=== PATIENT | male | born 1945 | race Caucasian/White ===

== ENCOUNTER 2018-02-02 15:22 | Outpatient (CLI) | payer MEDICARE, MEDICAID, SELFPAY ==
[2018-02-02 16:09] LABS: Abs Immature Grans 0.02 k/cumm (0.0-0.09); Absolute Basophil Count 0.04 k/cumm (0.0-0.2); Absolute Eosinophil Count 0.11 k/cumm (0.0-0.7); Absolute Lymphocyte Count 1.96 k/cumm (1.2-3.4); Basophils % 0.4; HCT 44.6 % (40.0-50.0); HGB 14.8 g/dL (13.5-17.5); Immature Grans % 0.2; Mean Corp. HGB Concentration 33.2 g/dL (32.0-36.0); Mean Corpuscular Hemoglobin 28.7 pg (27.0-33.0); Mean Corpuscular Volume 86.6 fL (80-95); Mean Platelet Volume 9.8 fL (8.0-11.0); Monocytes % 10.1; Neutrophils % 70.3; Platelet Count 319 x1000/uL (130-400); RBC 5.15 m/cumm (4.50-6.00); RBC Distribution Width 14.5 % (11.8-14.1); White Blood Cell Count 10.91 k/cumm (4.4-10.8)
[2018-02-02 16:11] LABS: Absolute Neutrophil Count 7.67 k/cumm (1.2-6.7)
[2018-02-02 16:50] LABS: ALT 21 U/L (12-78); AST 15 U/L (15-37); Albumin 3.7 g/dL (3.4-5.0); Alkaline Phosphatase 81 U/L (46-116); Anion Gap 8.2 mmol/L (3-11); BUN 16 mg/dL (7-18); Bilirubin, Total 0.5 mg/dL (0.2-1.0); C-Reactive Protein 0.36 mg/dL (0.0-0.3); CO2 27.8 mmol/L (21.0-32.0); CREATININE 1.44 mg/dL (0.70-1.30); Calcium 8.7 mg/dL (8.5-10.1); Chloride 105 mmol/L (98-107); Estimated GFR 48.22 (mL/min/1.73m2); Glucose 72 mg/dL (70-100); Potassium 4.8 mmol/L (3.5-5.1); Sodium 141 mmol/L (136-145); Total Protein 6.4 g/dL (6.4-8.2)
[2018-02-02 17:00] LABS: ESR 5 MM/HR (1-20)
== END 2018-02-02 15:42 ==
PROVIDERS: PCP General Practice; Visit Provider Nurse Practitioner Gerontology
DX: T81.4XXD Infection following a procedure, subsequent encounter (principal)
CPT/HCPCS: 36415; 80053; 85652; 85025; 86140

== ENCOUNTER 2018-02-16 15:55 | Outpatient (CLI) | payer MEDICARE, MEDICAID, SELFPAY ==
[2018-02-16 18:28] LABS: ALT 19 U/L (12-78); AST 14 U/L (15-37); Albumin 3.6 g/dL (3.4-5.0); Alkaline Phosphatase 73 U/L (46-116); Anion Gap 6.7 mmol/L (3-11); BUN 19 mg/dL (7-18); Bilirubin, Total 0.5 mg/dL (0.2-1.0); CO2 26.3 mmol/L (21.0-32.0); CREATININE 1.47 mg/dL (0.70-1.30); Calcium 8.5 mg/dL (8.5-10.1); Chloride 103 mmol/L (98-107); Estimated GFR 47.09 (mL/min/1.73m2); Glucose 96 mg/dL (70-100); Potassium 4.3 mmol/L (3.5-5.1); Sodium 136 mmol/L (136-145); Total Protein 6.1 g/dL (6.4-8.2)
== END 2018-02-16 16:15 ==
PROVIDERS: PCP General Practice; Visit Provider Nurse Practitioner Gerontology
DX: T81.49XA Infection following a procedure, other surgical site, initial encounter (principal)
CPT/HCPCS: 36415; 80053

== ENCOUNTER 2018-02-19 01:15 | Outpatient (CLI) | payer MEDICARE, MEDICAID, SELFPAY ==
--- NOTE | 2018-02-19 15:15 | DI.CT_ITS ---
SYMPTOMS/DIAGNOSIS: INFECTION WITH INCREASED PAIN, ERYTHEMA, T81.49XA, STERNAL WOUND CHEST CT: Comparison is made with [id number]. Images were performed from the lower neck through the lower poles of the kidneys after IV contrast. The patient is again noted to be status post repair of an ascending aortic aneurysm. Dissection of the descending aorta remains present with contrast seen in both lumens. There is no change in diameter or appearance when compared with the previous exam. Sternal wires are again noted. There is no evidence of bony destruction or change when compared with the previous exam. There is no evidence of an abscess. The heart size is normal. The pleural or pericardial effusions are seen. Bilateral renal cysts are noted. The gallbladder is contracted, consistent with a recent meal. The liver, spleen and pancreas are unremarkable. There are mild emphysematous changes. Mild basilar scarring is also seen. No infiltrate or adenopathy is seen. A hemangioma is seen at the inferior endplate of T 9. Degenerative disc changes are seen at T 7 - 8. Severe degenerative changes are noted in the upper lumbar spine. There are multiple tiny nodules in the thyroid, unchanged. IMPRESSION: No evidence of parasternal abscess, fluid collection or bony destruction. There has been no change in the appearance of the aorta with repair of an ascending aneurysm. No acute pulmonary findings are seen.
== END 2018-02-19 01:35 ==
PROVIDERS: PCP General Practice; Visit Provider Nurse Practitioner Gerontology
DX: T81.41XD Infection following a procedure, superficial incisional surgical site, subsequent encounter (principal); Z98.890 Other specified postprocedural states; I71.01 Dissection of thoracic aorta
CPT/HCPCS: 71260

== ENCOUNTER 2018-06-12 15:41 | Outpatient (CLI) | payer MEDICARE, MEDICAID, SELFPAY ==
[2018-06-12 16:17] LABS: Abs Immature Grans 0.03 k/cumm (0.0-0.09); Absolute Basophil Count 0.05 k/cumm (0.0-0.2); Absolute Eosinophil Count 0.17 k/cumm (0.0-0.7); Absolute Monocyte Count 1.08 k/cumm (0.11-0.7); Absolute Neutrophil Count 7.58 k/cumm (1.2-6.7); Basophils % 0.4; Eosinophils % 1.5; HCT 43.1 % (40.0-50.0); HGB 14.5 g/dL (13.5-17.5); Immature Grans % 0.3; Lymphocytes % 22.3; Mean Corp. HGB Concentration 33.6 g/dL (32.0-36.0); Mean Corpuscular Hemoglobin 29.1 pg (27.0-33.0); Mean Corpuscular Volume 86.5 fL (80-95); Mean Platelet Volume 9.7 fL (8.0-11.0); Monocytes % 9.4; Neutrophils % 66.1; Platelet Count 282 x1000/uL (130-400); RBC 4.98 m/cumm (4.50-6.00); RBC Distribution Width 14.9 % (11.8-14.1); White Blood Cell Count 11.46 k/cumm (4.4-10.8)
[2018-06-12 16:21] LABS: Absolute Lymphocyte Count 2.56 k/cumm (1.2-3.4)
[2018-06-12 17:08] LABS: ESR 4 MM/HR (1-20)
== END 2018-06-12 16:01 ==
PROVIDERS: PCP General Practice; Visit Provider Nurse Practitioner Gerontology
DX: T81.49XD Infection following a procedure, other surgical site, subsequent encounter (principal); G89.29 Other chronic pain; Z79.899 Other long term (current) drug therapy
CPT/HCPCS: 36415; 85652; 85025; 86140

== ENCOUNTER 2018-08-17 09:51 | Day surgery (SDC) | payer MEDICARE, MEDICAID, SELFPAY ==
--- NOTE | 2018-08-16 12:11 | W.PIPPEYE ---
History of Present Illness Chief Complaint: Progressive decreased vision, left eye Narrative: The patient is a 72-year-old male with history of progressive decreased vision in both eyes at both distance and near. He notes significant difficulty with glare and starbursts from lights at night. On examination he was noted to have bilateral nuclear cortical and posterior subcapsular cataracts. The option of cataract surgery was offered to the patient and he felt he was symptomatic enough that he wished to proceed. NOTE: The Chief Complaint, HPI, Past Medical History, Past Surgical History, Family History, Social History, Medications, and complete Ophthalmic Exam with detailed Assessment and Plan have already been documented in the patient's outpatient ophthalmic record and are not covered again in detail here. [facility] [place] Social History Smoking/Tobacco Use Status: Current every day Tobacco Type: cigarettes Tobacco: How many years used: 60 Alcohol Intake: current Alcohol Intake frequency: 0-2 drinks per day Alcohol type: hard liquor Drug use: Daily Substance use type: marijuana Details: tid Do you feel safe at home: Yes Meds Home Medications Medication Instructions Recorded Confirmed Type melatonin-pyridoxine HCl (B6) 1 ea PO HS 01/05/14 08/12/18 History keyoers-jjleuxgzvktlw-fleeonko 2 tab PO DAILY PRN 01/24/14 03/12/17 History [Migraine Formula Caplet] L.acidoph, paracasei,B. lactis 2 ea PO DAILY 05/01/16 03/12/17 History gabapentin 300 mg PO TID #90 capsule 07/10/16 08/12/18 Rx grape seed xt-bioflav,citrus 1 ea PO DAILY 07/10/16 08/12/18 History hawthorn [Coleman Flowers] 500 mg PO BID 07/10/16 08/12/18 History multivitamin [Multi-Vitamin Daily] 1 tab PO DAILY 03/12/17 08/12/18 History calcium carbonate [Calcium] 500 mg PO DAILY 04/15/17 08/12/18 History magnesium aspartate HCl 1 PO DAILY 08/12/18 History omeprazole 20 mg PO BID 08/12/18 08/12/18 History Allergies Allergy/AdvReac Type Severity Reaction Status Date / Time No Known Allergies Allergy Unverified 07/30/17 13:36 Exam OCULAR EXAM:: Most recent ocular examination reveals visual acuity of 20/25 OD, 20/40 OS. Intraocular pressure is 14 OD, 13 OS. Extraocular motility is normal. Pupils equal, round, and reactive without afferent pupillary defect slit-lamp examination reveals pupils dilating to 6 mm OU. 2+ nuclear with 1+ cortical and posterior subcapsular cataract OD. In the left eye a 2-3+ nuclear with 1+ cortical and 1-2+ posterior subcapsular cataract is present. Dilated funduscopic examination reveals disc cupping of 0.25 OD 0.3 OS with good color. There are a few early macular pigmentary changes OU. A mild epiretinal membrane is present OU. Peripheral retina and vitreous are normal. BRIGHTNESS ACUITY TESTING (BAT):: Brightness acuity testing of the left eye off is 20/40. Low and medium is 20/30. High is 20/40. Assessment and Plan (1) Posterior subcapsular age-related cataract of left eye: Current visit: No Status: Acute Assessment: Visually significant cataract, left eye. Plan: Cataract extraction with intraocular lens implantation, left eye (2) Nuclear sclerotic cataract of left eye: Current visit: No Status: Acute Assessment: Visually significant cataract, left eye. Plan: Cataract extraction with intraocular lens implantation, left eye (3) Cortical cataract of left eye: Current visit: No Status: Acute Assessment: Visually significant cataract, left eye. Plan: Cataract extraction with intraocular lens implantation, left eye Note: NOTE:: The details of the planned surgery, including the risks, indications,limitations,expectations,outcome and possible complications were explained to the patient. The patient understands the complications including, but not limited to: infection, hemorrhage, posterior dislocation of the lens or nuclear fragments which may require the intervention of a vitreoretinal surgeon, possible loss of the eye, or from anesthetic complications. The patient has been made aware of the option of not having surgery, that vision following surgery may not be equal to that prior to surgery, and that the planned surgery may not achieve the intended results. Following this discussion, which the patient appeared to understand, the patient wishes to proceed with cataract surgery with lens implantation of the affected eye to improve and maximize vision.
--- NOTE | 2018-08-16 12:17 | POEE_ITS ---
History of Present Illness Chief Complaint: Progressive decreased vision, left eye Narrative: The patient is a 72-year-old male with history of progressive decreased vision in both eyes at both distance and near. He notes significant difficulty with glare and starbursts from lights at night. On examination he wa s noted to have bilateral nuclear cortical and posterior subcapsular cataracts. The option of cataract surgery was offered to the patient and he felt he was symptomatic enough that he wished to proceed. NOTE: The Chief Complaint, HPI, Past Medical History, Past Surgical History, Family History, Social History, Medications, and complete Ophthalmic Exam with detailed Assessment and Plan have already been documented in the patient's outpatient ophthalmic record and are not covered again in detail here. [facility] Social History Smoking/Tobacco Use Status: Current every day Tobacco Type: cigarettes Tobacco: How many years used: 60 Alcohol Intake: current Alcohol Intake frequency: 0-2 drinks per day Alcohol type: hard liquor Drug use: Daily Substance use type: marijuana Details: tid Do you feel safe at home: Yes Meds Home Medications Medication Instructions Recorded Confirmed Type melatonin-pyridoxine HCl (B6) 1 ea PO HS 01/05/14 08/12/18 History vuqbqxf-wufvekirpbvhz-eipfqeqo 2 tab PO DAILY PRN 01/24/14 03/12/17 History [Migraine Formula Caplet] L.acidoph, paracasei,B. lactis 2 ea PO DAILY 05/01/16 03/12/17 History gabapentin 300 mg PO TID #90 capsule 07/10/16 08/12/18 Rx grape seed xt-bioflav,citrus 1 ea PO DAILY 07/10/16 08/12/18 History hawthorn [Dolores Flowers] 500 mg PO BID 07/10/16 08/12/18 History multivitamin [Multi-Vitamin Daily] 1 tab PO DAILY 03/12/17 08/12/18 History calcium carbonate [Calcium] 500 mg PO DAILY 04/15/17 08/12/18 History magnesium aspartate HCl 1 PO DAILY 08/12/18 History omeprazole 20 mg PO BID 08/12/18 08/12/18 History Allergies Allergy/AdvReac Type Severity Reaction Status Date / Time No Known Allergies Allergy Unverified 07/30/17 13:36 Exam OCULAR EXAM:: Most recent ocular examination reveals visual acuity of 20/25 OD, 20/40 OS. Intraocular pressure is 14 OD, 13 OS. Extraocular motility is normal. Pupils equal, round, and reactive without afferent pupillary defect slit-lamp examination reveals pupils dilating to 6 mm OU. 2+ nuclear with 1+ cortical and posterior subcapsular cataract OD. In the left eye a 2-3+ nuclear with 1+ cortical and 1-2+ posterior subcapsular cataract is present. Dilated funduscopic examination reveals disc cupping of 0.25 OD 0.3 OS with good color. There are a few early macular pigmentary changes OU. A mild epiretinal membrane is present OU. Peripheral retina and vitreous are normal. BRIGHTNESS ACUITY TESTING (BAT):: Brightness acuity testing of the left eye off is 20/40. Low and medium is 20/30. High is 20/40. Assessment and Plan (1) Posterior subcapsular age-related cataract of left eye: Current visit: No Status: Acute Assessment: Visually significant cataract, left eye. Plan: Cataract extraction with intraocular lens implantation, left eye (2) Nuclear sclerotic cataract of left eye: Current visit: No Status: Acute Assessment: Visually significant cataract, left eye. Plan: Cataract extraction with intraocular lens implantation, left eye (3) Cortical cataract of left eye: Current visit: No Status: Acute Assessment: Visually significant cataract, left eye. Plan: Cataract extraction with intraocular lens implantation, left eye Note: NOTE:: The details of the planned surgery, including the risks, indications,limitations,expectations,outcome and possible complications were explained to the patient. The patient understands the complications including, but not limited to: infection, hemorrhage, posterior dislocation of the lens or nuclear fragments which may require the intervention of a vitreoretinal surgeon, possible loss of the eye, or from anesthetic complications. The patient has been made aware of the option of not having surgery, that vision following s urgery may not be equal to that prior to surgery, and that the planned surgery may not achieve the intended results. Following this discussion, which the patient appeared to understand, the patient wishes to proceed with cataract surgery with lens implantation of the affected eye to improve and maximize vision.
[2018-08-17 10:33] VITALS: BP 153/88; PULSE 63; RESP 18; TEMP 35.5; O2SAT 18
[2018-08-17] MEDS: Tropicam./Phenyleph. (1/2.5%) 5 ML BTL OS ×3 (10:38→10:50)
[2018-08-17] MEDS: Tetracaine 0.5% 4 ML BTL OS ×4 (10:38→11:42)
--- NOTE | 2018-08-17 11:26 | W.PM.DSUDISC ---
Discharge Plan Disposition Patient Disposition: HOME Condition: Stable Discharge Details Attending Provider: Miky Arenas Primary Care Provider: Vin Vergara Home Meds and New Rx's Prescriptions: No Action melatonin-pyridoxine HCl (B6) 1 EACH tablet 1 ea PO HS RF: 0 calcium carbonate [Calcium 500] 500 MG tablet 500 mg PO DAILY RF: 0 Migraine Formula 1 EACH tablet 2 tab PO DAILY PRNRF: 0 L.acidoph, paracasei,B. lactis 1 EACH capsule 2 ea PO DAILY RF: 0 hawthorn ray 500 MG capsule 500 mg PO BID RF: 0 grape seed xt-bioflav,citrus 1 EACH capsule 1 ea PO DAILY RF: 0 gabapentin 300 MG capsule 300 mg PO TID Qty: 90 RF: 1 omeprazole 20 mg Tablet,Delayed Release (Dr/Ec) 20 mg PO BID RF: 0 magnesium aspartate HCl 61 mg (615 mg) Tablet,Delayed Release (Dr/Ec) 1 PO DAILY RF: 0 multivitamin [Daily Multi-Vitamin] 1 EACH tablet 1 tab PO DAILY RF: 0 Discharge Instructions Stand Alone Forms: Post-op Topical Cataract, Shayna Romero (DSU) DS: Diagnosis Discharge Diagnosis (1) Posterior subcapsular age-related cataract of left eye: Status: Resolved (2) Nuclear sclerotic cataract of left eye: Status: Resolved (3) Cortical cataract of left eye: Status: Resolved (4) Status post cataract extraction and insertion of intraocular lens of left eye: Status: Chronic
[2018-08-17] MEDS: Lidocaine 2% Jelly 6 ML SYR (11:42)
[2018-08-17] MEDS: Povidone-Iodine Ophth 30 ML BTL ×2 (11:42→12:15)
[2018-08-17] MEDS: Balanced Salt Soln.-PLUS 500 ML BAG (11:47)
[2018-08-17] MEDS: Lidocaine 1% Pres-Free 5 ML VIAL (11:47)
--- NOTE | 2018-08-17 12:20 | W.PM.OP ---
Date of service: 08/17/18 Time of Service: 12:21 Operative Note PRE-OP DIAGNOSIS: Cataract, left eye POST-OP DIAGNOSIS: same PROCEDURE: Cataract extraction using phacoemulsification with intraocular lens implant, left eye SURGEON: Miky Arenas ANESTHESIA: MAC and local (sub-tenon's anesthetic infiltration) PATHOLOGY: none sent COMPLICATIONS: None Patient was transported to: same day Patient's condition: stable Implants: Andres and Andres Vision / [employer] Tecnis ZCB00 Indications: Progressive decreased vision due to cataract, left eye Procedure Description: CATARACT SURGERY OPERATIVE REPORT PREOPERATIVE DIAGNOSIS: Nuclear/cortical/posterior subcapsular cataract, left eye POSTOPERATIVE DIAGNOSIS: Same OPERATION: Cataract extraction using phacoemulsification with posterior chamber intraocular lens implant, left eye. IOL: IOL S[employer] Loader/Model: J[employer]J Vision / DUSTIN Tecnis ZCB00 IOL Power: + 23.50 diopters IOL Serial Number: [id number] Optic Diameter: 6.0mm Haptic/Overall Diameter: 13.0mm PHACO INFO: [employer] Vision System with OZil and Active Fluidics Cumulative Dispersed Energy (CDE): 16.13 seconds SURGEON: Miky Arenas MD, MARTHA ANESTHESIA: Monitored Anesthesia Care (MAC), with local sub-tenon's anesthetic infiltration COMPLICATIONS: None SPECIMENS: None INDICATIONS FOR PROCEDURE: The patient is a 72-year-old gentleman who was noted to have diminished visual acuity in his left eye which has been getting progressively worse. On examination he was noted to have moderate nuclear cortical and posterior subcapsular cataract. The option of cataract surgery was offered to the patient and he felt he was symptomatic enough that he wished to proceed. PROCEDURE: The correct surgical eye was identified and marked as the left eye and the pupil was dilated in the preoperative area using mydriatics and cycloplegics. The dilated pupil size was 6.0 mm. Oral sedation was administered in the form of an Imprimis MKO Melt (midazolam 3mg/ketamine 25mg/ondansetron 2mg). The patient was brought to the operating room where cardiopulmonary monitoring was instituted and surgical time-out was performed, confirming the correct operative eye and IOL power. Topical anesthesia was administered and ophthalmic povidone-iodine 5% was instilled into the conjunctival fornices. Lidocaine gel was applied to the cornea and the filiberto-ocular area was prepped with Betadine 10% solution and draped in the usual sterile fashion for intraocular surgery, including an aperture drape. A Tegaderm transparent film dressing was cut in half and used to cover the lashes and lid margins. Care was taken to sequester the lashes and lid margins under the Tegaderm dressing. A lid speculum was placed between the lids of the operative eye and the Goran-Beto operating microscope was maneuvered into position. Yana scissors were then used to make a conjunctival buttonhole approximately 6mm posterior to the limbus in the inferonasal quadrant. Blunt dissection was carried out to expose bare sclera, and a blunt-tipped sub-tenon?s anesthesia cannula was introduced and passed posteriorly along the globe where non-preserved plain lidocaine was injected into posterior sub-Tenon?s space. A sideport knife was used to make a paracentesis port superior/superiortemporal, and the anterior chamber was filled with Healon GV. A 2.4mm keratome knife was used to create a half-thickness groove at the limbus and then to construct a three-plane near-clear corneal tunnel extending about 2.3 mm into clear cornea in the temporal position. The corneal tunnel was slightly longer than usual.. A flap was raised on the anterior capsule and capsulorhexis forceps were used to complete a continuous curvilinear capsulorhexis of 5.0 mm. The anterior chamber was quite deep, given an axial length of just over 22 mm. Balanced salt solution was then used to perform cortical cleaving hydrodissection and nuclear hydrodelineation until the lens could be freely rotated within the capsular bag. The lens nucleus was then disassembled and removed within the capsular bag and iris plane using phacoemulsification. Nucleus splitters were used to aid in disassembling the nucleus due to the deep anterior chamber. Residual cortical material was removed using the 45-degree angled silicone I/A tip with 0.3mm port. The posterior capsule was carefully polished to remove as much residual lens epithelial cells as safely possible. The capsular bag was then inflated and the anterior chamber deepened with viscoelastic. The lens implant described above was inserted into the capsular bag using the DUSTIN [place] Injector. A Kuglen hook was used to dial the IOL into position. Residual viscoelastic was then removed first from posterior to the IOL, then from the anterior chamber using the I/A handpiece. The lens implant was noted to center nicely within the capsular bag. The incisions were stromally hydrated, and the anterior chamber was reformed using BSS. Then 0.4cc of moxifloxacin 1.5mg/ml were injected into the capsular bag and anterior chamber. The incisions were checked with a Weck spear and found to be secure. Several drops of ophthalmic povidone-iodine 5% were then applied to the eye followed by two drops of Imprimis combination gatifloxacin/dexamethasone solution. The drapes were removed and a clear plastic protective eye shield was placed over the eye. The patient was then returned to Same Day Surgery in stable condition.
--- NOTE | 2018-08-17 12:23 | ROE_ITS ---
Date of service: 08/17/18 Time of Service: 12:21 Operative Note PRE-OP DIAGNOSIS: Cataract, left eye POST-OP DIAGNOSIS: same PROCEDURE: Cataract extraction using phacoemulsification with intraocular lens implant, left eye SURGEON: Miky Arenas ANESTHESIA: MAC and local (sub-tenon's anesthetic infiltration) PATHOLOGY: none sent COMPLICATIONS: None Patient was transported to: same day Patient's condition: stable Implants: Andres and Andres Vision / [employer] Tecnis ZCB00 Indications: Progressive decreased vision due to cataract, left eye Procedure Description: CATARACT SURGERY OPERATIVE REPORT PREOPERATIVE DIAGNOSIS: Nuclear/cortical/posterior subcapsular cataract, left eye POSTOPERATIVE DIAGNOSIS: Same OPERATION: Cataract extraction using phacoemulsification with posterior chamber intraocular lens implant, left eye. IOL: IOL Site Surveyor/Model: J&J Vision / DUSTIN Tecnis ZCB00 IOL Power: + 23.50 diopters IOL Serial Number: [id number] Optic Diameter: 6.0mm Haptic/Overall Diameter: 13.0mm PHACO INFO: [employer] Vision System with OZil and Active Fluidics Cumulative Dispersed Energy (CDE): 16.13 seconds SURGEON: Miky Arenas MD, MARTHA ANESTHESIA: Monitored Anesthesia Care (MAC), with local sub-tenon's anesthetic infiltration COMPLICATIONS: None SPECIMENS: None INDICATIONS FOR PROCEDURE: The patient is a 72-year-old gentleman who was noted to have diminished visual acuity in his left eye which has been getting progressively worse. On examination he was noted to have moderate nuclear cortical and posterior subcapsular cataract. The option of cataract surgery was offered to the patient and he felt he was symptomatic enough that he wished to proceed. PROCEDURE: The correct surgical eye was identified and marked as the left eye and the pupil was dilated in the preoperative area using mydriatics and cycloplegics. The dilated pupil size was 6.0 mm. Oral sedation was administered in the form of an Imprimis MKO Melt (midazolam 3mg/ketamine 25mg/ondansetron 2mg). The patient was brought to the operating room where cardiopulmonary monitoring was instituted and surgical time-out was performed, confirming the correct operative eye and IOL power. Topical anesthesia was administered and ophthalmic povidone-iodine 5% was instilled into the conjunctival fornices. Lidocaine gel was applied to the cornea and the filiberto-ocular area was prepped with Betadine 10% solution and draped in the usual sterile fashion for intraocular surgery, including an aperture drape. A Tegaderm transparent film dressing was cut in half and used to cover the lashes and lid margins. Care was taken to sequester the lashes and lid margins under the Tegaderm dressing. A lid speculum was placed between the lids of the operative eye and the Goran-Beto operating microscope was maneuvered into position. Yana scissors were then used to make a conjunctival buttonhole approximately 6mm posterior to the limbus in the inferonasal quadrant. Blunt dissection was carried out to expose bare sclera, and a blunt-tipped sub-tenon?s anesthesia cannula was introduced and passed posteriorly along the globe where non- preserved plain lidocaine was injected into posterior sub-Tenon?s space. A sideport knife was used to make a paracentesis port superior/superiortemporal, and the anterior chamber was filled with Healon GV. A 2.4mm keratome knife was used to create a half-thickness groove at the limbus and then to construct a three-plane near-clear corneal tunnel extending about 2.3 mm into clear cornea in the temporal position. The corneal tunnel was slightly longer than usual.. A flap was raised on the anterior capsule and capsulorhexis forceps were used to complete a continuous curvilinear capsulorhexis of 5.0 mm. The anterior chamber was quite deep, given an axial length of just over 22 mm. Balanced salt solution was then used to perform cortical cleaving hydrodissection and nuclear hydrodelineation until the lens could be freely rotated within the capsular bag. The lens nucleus was then disassembled and removed within the capsular bag and iris plane using phacoemulsification. Nucleus splitters were used to aid in disassembling the nucleus due to the deep anterior chamber. Residual cortical material was removed using the 45-degree an gled silicone I/A tip with 0.3mm port. The posterior capsule was carefully polished to remove as much residual lens epithelial cells as safely possible. The capsular bag was then inflated and the anterior chamber deepened with viscoelastic. The lens implant described above was inserted into the capsular bag using the DUSTIN [place] Injector. A Kuglen hook was used to dial the IOL into position. Residual viscoelastic was then removed first from posterior to the IOL, then from the anterior chamber using the I/A handpiece. The lens implant was noted to center nicely within the capsular bag. The incisions were stromally hydrated, and the anterior chamber was reformed using BSS. Then 0.4cc of moxifloxacin 1.5mg/ml were injected into the capsular bag and anterior chamber. The incisions were checked with a Weck spear and found to be secure. Several drops of ophthalmic povidone-iodine 5% were then applied to the eye followed by two drops of Imprimis combination gatifloxacin/dexamethasone solution. The drapes were removed and a clear plastic protective eye shield was placed over the eye. The patient was then returned to Same Day Surgery in stable condition.
[2018-08-17 12:36] VITALS: BP 146/87; PULSE 68; RESP 16; TEMP 36.1; O2SAT 97
== END 2018-08-17 13:00 | disposition home or self-care (01) ==
PROVIDERS: PCP General Practice; Visit Provider Ophthalmology
PROC: (CPT 66984; principal; 2018-08-17 12:30)
DX: H25.812 Combined forms of age-related cataract, left eye (principal); I10 Essential (primary) hypertension; K21.9 Gastro-esophageal reflux disease without esophagitis
CPT/HCPCS: 66984; V2632

== ENCOUNTER 2018-08-25 13:02 | Outpatient (CLI) | payer MEDICARE, MEDICAID, SELFPAY ==
[2018-08-25 13:35] LABS: Abs Immature Grans 0.02 k/cumm (0.0-0.09); Absolute Basophil Count 0.04 k/cumm (0.0-0.2); Absolute Eosinophil Count 0.06 k/cumm (0.0-0.7); Absolute Lymphocyte Count 1.97 k/cumm (1.2-3.4); Basophils % 0.3; Eosinophils % 0.5; HGB 14.9 g/dL (13.5-17.5); Immature Grans % 0.2; Lymphocytes % 16.2; Mean Corp. HGB Concentration 33.9 g/dL (32.0-36.0); Mean Corpuscular Hemoglobin 28.9 pg (27.0-33.0); Mean Corpuscular Volume 85.4 fL (80-95); Mean Platelet Volume 9.8 fL (8.0-11.0); Monocytes % 10.4; Neutrophils % 72.4; Platelet Count 281 x1000/uL (130-400); RBC 5.15 m/cumm (4.50-6.00); RBC Distribution Width 14.8 % (11.8-14.1); White Blood Cell Count 12.16 k/cumm (4.4-10.8)
[2018-08-25 13:38] LABS: Absolute Monocyte Count 1.26 k/cumm (0.11-0.7)
[2018-08-25 14:37] LABS: ESR 4 MM/HR (1-20)
== END 2018-08-25 13:22 ==
PROVIDERS: PCP General Practice; Visit Provider Nurse Practitioner Gerontology
DX: T81.49XA Infection following a procedure, other surgical site, initial encounter
CPT/HCPCS: 36415; 85652; 85025; 86140

== ENCOUNTER 2018-08-31 10:10 | Day surgery (SDC) | payer MEDICARE, MEDICAID, SELFPAY ==
--- NOTE | 2018-08-30 19:06 | W.PIPPEYE ---
History of Present Illness Chief Complaint: Progressive decreased vision, right eye Narrative: The patient is a 72-year-old male with history of diminished visual acuity in both eyes at both distance and near. He has significant difficulty with glare from headlights at night. He has difficulty reading in dim light. On examination he was noted to have moderate bilateral nuclear cortical and posterior subcapsular cataracts. He underwent cataract surgery in the left eye on 08/17/2018, and postoperatively has regained uncorrected vision of 20/20 in the left eye. He now presents for cataract surgery in the right eye. NOTE: The Chief Complaint, HPI, Past Medical History, Past Surgical History, Family History, Social History, Medications, and complete Ophthalmic Exam with detailed Assessment and Plan have already been documented in the patient's outpatient ophthalmic record and are not covered again in detail here. [facility] Social History Smoking/Tobacco Use Status: Current every day Tobacco Type: cigarettes Tobacco: How many years used: 60 Alcohol Intake: current Alcohol Intake frequency: 0-2 drinks per day Alcohol type: hard liquor Drug use: Daily Substance use type: marijuana Details: tid Do you feel safe at home: Yes Meds Home Medications Medication Instructions Recorded Confirmed Type melatonin-pyridoxine HCl (B6) 1 ea PO HS 01/05/14 08/17/18 History tvxhevy-yblpxzcjtvlql-oerqxpta 2 tab PO DAILY PRN 01/24/14 03/12/17 History [Migraine Formula Caplet] L.acidoph, paracasei,B. lactis 2 ea PO DAILY 05/01/16 03/12/17 History gabapentin 300 mg PO TID #90 capsule 07/10/16 08/17/18 Rx grape seed xt-bioflav,citrus 1 ea PO DAILY 07/10/16 08/17/18 History hawthorn [[place]] 500 mg PO BID 07/10/16 08/17/18 History multivitamin [Multi-Vitamin Daily] 1 tab PO DAILY 03/12/17 08/17/18 History calcium carbonate [Calcium] 500 mg PO DAILY 04/15/17 08/17/18 History magnesium aspartate HCl 1 PO DAILY 08/12/18 History omeprazole 20 mg PO BID 08/12/18 08/17/18 History Allergies Allergy/AdvReac Type Severity Reaction Status Date / Time No Known Allergies Allergy Unverified 08/17/18 10:13 Exam OCULAR EXAM:: Most recent ocular examination is significant for corrected visual acuity of 20/30 in the right eye, uncorrected vision of 20/20 in the left eye. Intraocular pressure is 16 OS, 14 OD. Pupils equal, round, and reactive without afferent pupillary defect extraocular motility is normal. Slit-lamp examination reveals pupils dilating to 6 mm OU. There is a well-positioned PCIOL in the left eye with clear posterior capsule. In the right eye there is a 2+ nuclear with 1+ cortical and posterior subcapsular cataract. Dilated funduscopic examination reveals disc cupping of 0.25 OU with good color. The retinal vasculature is normal. There are a few macular pigmentary changes OU with epiretinal membrane in both maculas. Peripheral retina and vitreous is normal. BRIGHTNESS ACUITY TESTING (BAT):: Brightness acuity testing of the right eye cough is 20/30. On the lowest setting is 20/25. Medium setting is 20/20. High setting is 20/30. Assessment and Plan (1) Cortical cataract of right eye: Current visit: No Status: Acute Assessment: Visually significant cataract, right eye. Plan: Cataract extraction with intraocular lens implantation, right eye (2) Posterior subcapsular age-related cataract, right eye: Current visit: No Status: Acute Assessment: Visually significant cataract, right eye. Plan: Cataract extraction with intraocular lens implantation, right eye (3) Nuclear sclerotic cataract of right eye: Current visit: No Status: Acute Assessment: Visually significant cataract, right eye. Plan: Cataract extraction with intraocular lens implantation, right eye Note: NOTE:: The details of the planned surgery, including the risks, indications,limitations,expectations,outcome and possible complications were explained to the patient. The patient understands the complications including, but not limited to: infection, hemorrhage, posterior dislocation of the lens or nuclear fragments which may require the intervention of a vitreoretinal surgeon, possible loss of the eye, or from anesthetic complications. The patient has been made aware of the option of not having surgery, that vision following surgery may not be equal to that prior to surgery, and that the planned surgery may not achieve the intended results. Following this discussion, which the patient appeared to understand, the patient wishes to proceed with cataract surgery with lens implantation of the affected eye to improve and maximize vision.
--- NOTE | 2018-08-30 19:12 | POEE_ITS ---
History of Present Illness Chief Complaint: Progressive decreased vision, right eye Narrative: The patient is a 72-year-old male with history of diminished visual acuity in both eyes at both distance and near. He has significant difficulty with glare from headlights at night. He has difficulty reading in dim light. On examination he was noted to have moderate bilateral nuclear cortical and posterior subcapsular cataracts. He underwent cataract surgery in the left eye on 08/17/2018, and postoperatively has regained uncorrected vision of 20/20 in the left eye. He now presents for cataract surgery in the right eye. NOTE: The Chief Complaint, HPI, Past Medical History, Past Surgical History, Family History, Social History, Medications, and complete Ophthalmic Exam with detailed Assessment and Plan have already been documented in the patient's outpatient ophthalmic record and are not covered again in detail here. [facility] Social History Smoking/Tobacco Use Status: Current every day Tobacco Type: cigarettes Tobacco: How many years used: 60 Alcohol Intake: current Alcohol Intake frequency: 0-2 drinks per day Alcohol type: hard liquor Drug use: Daily Substance use type: marijuana Details: tid Do you feel safe at home: Yes Meds Home Medications Medication Instructions Recorded Confirmed Type melatonin-pyridoxine HCl (B6) 1 ea PO HS 01/05/14 08/17/18 History ufuhple-ndqnqqmcnpoug-ibtsqahn 2 tab PO DAILY PRN 01/24/14 03/12/17 History [Migraine Formula Caplet] L.acidoph, paracasei,B. lactis 2 ea PO DAILY 05/01/16 03/12/17 History gabapentin 300 mg PO TID #90 capsule 07/10/16 08/17/18 Rx grape seed xt-bioflav,citrus 1 ea PO DAILY 07/10/16 08/17/18 History hawthorn [[place] Flowers] 500 mg PO BID 07/10/16 08/17/18 History multivitamin [Multi-Vitamin Daily] 1 tab PO DAILY 03/12/17 08/17/18 History calcium carbonate [Calcium] 500 mg PO DAILY 04/15/17 08/17/18 History magnesium aspartate HCl 1 PO DAILY 08/12/18 History omeprazole 20 mg PO BID 08/12/18 08/17/18 History Allergies Allergy/AdvReac Type Severity Reaction Status Date / Time No Known Allergies Allergy Unverified 08/17/18 10:13 Exam OCULAR EXAM:: Most recent ocular examination is significant for corrected visual acuity of 20/30 in the right eye, uncorrected vision of 20/20 in the left eye. Intraocular pressure is 16 OS, 14 OD. Pupils equal, round, and reactive without afferent pupillary defect extraocular motility is normal. Slit-lamp examination reveals pupils dilating to 6 mm OU. There is a well-positioned PCIOL in the left eye with clear posterior capsule. In the right eye there is a 2+ nuclear with 1+ cortical and posterior subcapsular cataract. Dilated funduscopic examination reveals disc cupping of 0.25 OU with good color. The retinal vasculature is normal. There are a few macular pigmentary changes OU with epiretinal membrane in both maculas. Peripheral retina and vitreous is normal. BRIGHTNESS ACUITY TESTING (BAT):: Brightness acuity testing of the right eye cough is 20/30. On the lowest setting is 20/25. Medium setting is 20/20. High setting is 20/30. Assessment and Plan (1) Cortical cataract of right eye: Current visit: No Status: Acute Assessment: Visually significant cataract, right eye. Plan: Cataract extraction with intraocular lens implantation, right eye (2) Posterior subcapsular age-related cataract, right eye: Current visit: No Status: Acute Assessment: Visually significant cataract, right eye. Plan: Cataract extraction with intraocular lens implantation, right eye (3) Nuclear sclerotic cataract of right eye: Current visit: No Status: Acute Assessment: Visually significant cataract, right eye. Plan: Cataract extraction with intraocular lens implantation, right eye Note: NOTE:: The details of the planned surgery, including the risks, indications,limitations,expectations,outcome and possible complications were explained to the patient. The patient understands the complications including, but not limited to: infection, hemorrhage, posterior dislocation of the lens or nuclear fragments which may require the intervention of a vitreoretinal surgeon, possible loss of the eye, or from anesthetic complications. The patient has been made aware of the option of not having surgery, that vision following surgery may not be equal to that prior to surgery, and that the planned surgery may not achieve the intended results. Following this discussion, which the patient appeared to understand, the patient wishes to proceed with cataract surgery with lens implantation of the affected eye to improve and maximize vision.
[2018-08-31 10:26] VITALS: BP 146/82; PULSE 72; RESP 16; TEMP 35.6; O2SAT 98
[2018-08-31] MEDS: Tropicam./Phenyleph. (1/2.5%) 5 ML BTL OD ×3 (10:38→10:51)
[2018-08-31] MEDS: Tetracaine 0.5% 4 ML BTL OD ×4 (10:39→11:41)
--- NOTE | 2018-08-31 11:23 | W.PM.DSUDISC ---
Discharge Plan Disposition Patient Disposition: HOME Condition: Stable Discharge Details Attending Provider: Miky Arenas Primary Care Provider: Vin Vergara Home Meds and New Rx's Prescriptions: No Action melatonin-pyridoxine HCl (B6) 1 EACH tablet 1 ea PO HS RF: 0 calcium carbonate [Calcium 500] 500 MG tablet 500 mg PO DAILY RF: 0 Migraine Formula 1 EACH tablet 2 tab PO DAILY PRNRF: 0 L.acidoph, paracasei,B. lactis 1 EACH capsule 2 ea PO DAILY RF: 0 hawthorn ray 500 MG capsule 500 mg PO BID RF: 0 grape seed xt-bioflav,citrus 1 EACH capsule 1 ea PO DAILY RF: 0 gabapentin 300 MG capsule 300 mg PO TID Qty: 90 RF: 1 omeprazole 20 mg Tablet,Delayed Release (Dr/Ec) 20 mg PO BID RF: 0 magnesium aspartate HCl 61 mg (615 mg) Tablet,Delayed Release (Dr/Ec) 1 PO DAILY RF: 0 multivitamin [Daily Multi-Vitamin] 1 EACH tablet 1 tab PO DAILY RF: 0 Discharge Instructions Stand Alone Forms: Post-op Topical Cataract, Shayna Romero (DSU) Discharge Orders Discharge Orders: Discharge Order (Routine); Ordered 08/31/18 Ordered By: Miky Arenas DS: Diagnosis Discharge Diagnosis (1) Cortical cataract of right eye: Status: Resolved (2) Posterior subcapsular age-related cataract, right eye: Status: Resolved (3) Nuclear sclerotic cataract of right eye: Status: Resolved (4) Status post cataract extraction and insertion of intraocular lens of right eye: Status: Chronic
--- NOTE | 2018-08-31 11:24 | ROE_ITS ---
Date of service: 08/31/18 Time of Service: 12:04 Operative Note PRE-OP DIAGNOSIS: Cataract, right eye PROCEDURE: Cataract extraction using phacoemulsification with intraocular lens implant, right eye SURGEON: Miky Arenas ANESTHESIA: MAC and local (sub-tenon's anesthetic infiltration) ESTIMATED BLOOD LOSS: 0 PATHOLOGY: none sent COMPLICATIONS: None Patient was transported to: same day Patient's condition: stable Implants: [employer] / [employer] Tecnis [id number] intraocular lens Indications: Progressive decreased vision due to cataract, right eye Procedure Description: CATARACT SURGERY OPERATIVE REPORT PREOPERATIVE DIAGNOSIS: Nuclear/cortical/posterior subcapsular cataract, right eye POSTOPERATIVE DIAGNOSIS: Same OPERATION: Cataract extraction using phacoemulsification with posterior chamber intraocular lens implant, right eye. IOL: IOL Intern Product Marketing Manager/Model: [employer] / DUSTIN Tecnis ZCB00 IOL Power: + 22.50 diopters IOL Serial Number: [id number] Optic Diameter: 6.0mm Haptic/Overall Diameter: 13.0mm PHACO INFO: [employer] Productson Vision System with OZil and Active Fluidics Cumulative Dispersed Energy (CDE): 11.51 seconds SURGEON: Miky Arenas MD, MARTHA ANESTHESIA: Monitored Anesthesia Care (MAC), with local sub-tenon's anesthetic infiltration COMPLICATIONS: None SPECIMENS: None INDICATIONS FOR PROCEDURE: The patient is a 72-year-old gentleman with history of diminished visual acuity in both eyes secondary to the development of bilateral nuclear cortical and posterior subcapsular cataract. He has already undergone cataract surgery in his left eye and is doing well postoperatively. He now presents for cataract surgery in the right eye. PROCEDURE: The correct surgical eye was identified and marked as the right eye and the pupil was dilated in the preoperative area using mydriatics and cycloplegics. The dilated pupil size was 7.0 mm. The patient elected to proceed without sedation.The patient was brought to the operating room where cardiopulmonary monitoring was instituted and surgical time-out was performed, confirming the correct operative eye and IOL power. Topical anesthesia was administered and ophthalmic povidone-iodine 5% was instilled into the conjunctival fornices. Lidocaine gel was applied to the cornea and the filiberto-ocular area was prepped with Betadine 10% solution and draped in the usual sterile fashion for intraocular surgery, including an aperture drape. A Tegaderm transparent film dressing was cut in half and used to cover the lashes and lid margins. Care was taken to sequester the lashes and lid margins under the Tegaderm dressing. A lid speculum was placed between the lids of the operative eye and the Goran-Beto operating microscope was maneuvered into position. Yana scissors were then used to make a conjunctival buttonhole approximately 6mm posterior to the limbus in the inferonasal quadrant. Blunt dissection was carried out to expose bare sclera, and a blunt-tipped sub-tenon?s anesthesia cannula was introduced and passed posteriorly along the globe where non- preserved plain lidocaine was injected into posterior sub-Tenon?s space. A sideport knife was used to make a paracentesis port inferiortemporally, and the anterior chamber was filled with [place] GV. A 2.4mm keratome knife was used to create a half-thickness groove at the limbus and then to construct a three-plane near-clear corneal tunnel extending 2.0mm into clear cornea in the superiortemporal position. . A flap was raised on the anterior capsule and capsulorhexis forceps were used to complete a continuous curvilinear capsulorhexis of 5.0 mm. Balanced salt solution was then used to perform cortical cleaving hydrodiss ection and nuclear hydrodelineation until the lens could be freely rotated within the capsular bag. The lens nucleus was then disassembled and removed within the capsular bag and iris plane using phacoemulsification. Residual cortical material was removed using the I/A handpiece. The posterior capsule was carefully polished to remove as much residual lens epithelial cells as safely possible. The capsular bag was then inflated and the anterior chamber deepened with viscoelastic. The lens implant described above was inserted into the capsular bag using the DUSTIN [place] Injector. A Kuglen hook was used to dial the IOL into position. Residual viscoelastic was then removed first from posterior to the IOL, then from the anterior chamber using the I/A handpiece. The lens implant was noted to center nicely within the capsular bag. The incisions were stromally hydrated, and the anterior chamber was reformed using BSS. Then 0.4cc of moxifloxacin 1.5mg/ml were injected into the capsular bag and anterior chamber. The incisions were checked with a Weck spear and found to be secure. Several drops of ophthalmic povidone-iodine 5% were then applied to the eye followed by two drops of Imprimis combination gatifloxacin/dexamethasone solution. The drapes were removed and a clear plastic protective eye shield was placed over the eye. The patient was then returned to [facility] in stable condition.
[2018-08-31] MEDS: Lidocaine 1% Pres-Free 5 ML VIAL (11:39)
[2018-08-31] MEDS: Balanced Salt Soln.-PLUS 500 ML BAG (11:39)
[2018-08-31] MEDS: Povidone-Iodine Ophth 30 ML BTL (11:41)
[2018-08-31] MEDS: Lidocaine 2% Jelly 6 ML SYR (11:41)
== END 2018-08-31 12:30 | disposition home or self-care (01) ==
PROVIDERS: PCP General Practice; Visit Provider Ophthalmology
PROC: (CPT 66984; principal; 2018-08-31 12:30)
DX: H25.811 Combined forms of age-related cataract, right eye (principal); Z98.42 Cataract extraction status, left eye; Z96.1 Presence of intraocular lens; I10 Essential (primary) hypertension; K21.9 Gastro-esophageal reflux disease without esophagitis
CPT/HCPCS: 66984; V2632

== ENCOUNTER 2018-09-09 00:24 | Outpatient (CLI) | payer MEDICARE, MEDICAID, SELFPAY ==
--- NOTE | 2018-09-09 15:38 | DI.US_ITS ---
SYMPTOM/DIAGNOSIS: CHEST WALL PAIN, EVALUATE FOR SOURCE OF ABSCESS, ABRASION CHEST WALL WITH INFECTION, S20.319,DL08.9 SOFT TISSUE CHEST WALL ULTRASOUND: Soft tissue ultrasound was performed on the chest wall at site of clinically suspected abscess. Ultrasound shows an area of heterogeneous echogenicity with some fluid present but predominantly echogenic and showing significant hyperemia measuring about 14 by 10 by 7 mm. The findings would be consistent with a resolving abscess. The fluid portion of the complex area measures about 10 by 4 by 4 mm.
== END 2018-09-09 00:44 ==
PROVIDERS: PCP General Practice; Visit Provider Internal Medicine
DX: R07.89 Other chest pain (principal); L02.213 Cutaneous abscess of chest wall; S20.319A Abrasion of unspecified front wall of thorax, initial encounter
CPT/HCPCS: 76604

== ENCOUNTER 2018-09-11 01:57 | Outpatient (RCR) | payer MEDICARE, MEDICAID, SELFPAY ==
[2018-09-11] MEDS: DALBAVANCIN 1,500 MG in DEXTROSE 5%-WATER 325 ML 650 MG IVPB (13:48)
[2018-09-11] MEDS: Normal Saline Flush 10 ML SYR IVP (13:48)
== END 2018-10-09 23:59 | disposition home or self-care (01) ==
LOC: INF 01:57
PROVIDERS: PCP General Practice; Visit Provider Internal Medicine
DX: L02.213 Cutaneous abscess of chest wall (principal)
CPT/HCPCS: 96365; J0875

== ENCOUNTER 2018-10-22 01:02 | Outpatient (CLI) | payer MEDICARE, MEDICAID, SELFPAY ==
[2018-10-22 14:14] LABS: CREATININE 1.36 mg/dL (0.70-1.30); Estimated GFR 51.51 (mL/min/1.73m2)
--- NOTE | 2018-10-22 14:20 | DI.CT_ITS ---
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 WOUND CHANGES, PREOP STERNECTOMY CHEST CT: CT scan of the chest was performed following the uneventful administration of intravenous contrast material. Comparison is made with 02/19/18. There are post surgical changes of a median sternotomy. The sternum is unchanged compared to the prior examination. No destructive or erosive changes are seen. No findings to suggest osteomyelitis are seen on this CT scan. There is mild soft tissue thickening overlying the sternum but no focal fluid collection is seen to suggest an abscess. Overall the appearance of the sternum and soft tissues is unchanged compared to 02/19/18. There are again seen multiple thyroid nodules which appear stable. 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 It extends into the infrarenal abdominal aortic aorta and involves the most inferior image obtained. It is unchanged compared to the prior examination. Heart size is within normal limits. No significant pericardial effusion is seen. No significant thoracic adenopathy, pleural effusion or pneumothorax is present. Mild centrilobular emphysematous changes are present in the lungs. Dependent atelectatic changes are present in the lungs. No focal consolidating infiltrates are seen. The tracheobronchial tree is unremarkable. Degenerative changes are present in the spine. There are stable bilateral adrenal nodules and a stable cyst seen in the upper pole of the left kidney. IMPRESSION: 1. No change in appearance of the sternum compared to the prior examination. No findings to suggest acute destructive changes of the bones. No abscesses are seen in the soft tissues. 2. Stable repair of the thoracic ascending aorta. 3. 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
[2018-10-22] MEDS: Omnipaque 350 MG/ML 100 ML BTL IJ (14:34)
== END 2018-10-22 01:22 ==
PROVIDERS: PCP General Practice; Visit Provider Surgery
DX: S21.109A Unspecified open wound of unspecified front wall of thorax without penetration into thoracic cavity, initial encounter (principal); Z98.890 Other specified postprocedural states
CPT/HCPCS: 71260; 82565; J3490

== ENCOUNTER 2019-07-14 16:36 | Outpatient (CLI) | payer MEDICARE, MEDICAID, SELFPAY ==
[2019-07-14 17:12] LABS: HCT 45.9 % (40.0-50.0); HGB 15.6 g/dL (13.5-17.5); Mean Corpuscular Hemoglobin 29.1 pg (27.0-33.0); Mean Corpuscular Volume 85.6 fL (80-95); Mean Platelet Volume 9.9 fL (8.0-11.0); Platelet Count 337 x1000/uL (130-400); RBC 5.36 m/cumm (4.50-6.00); RBC Distribution Width 15.2 % (11.8-14.1); White Blood Cell Count 12.77 k/cumm (4.4-10.8)
[2019-07-14 18:55] LABS: ALT 16 U/L (16-63); Albumin 3.9 g/dL (3.4-5.0); Alkaline Phosphatase 66 U/L (46-116); Anion Gap 7.9 mmol/L (3-11); BUN 18 mg/dL (7-18); Bilirubin, Total 0.4 mg/dL (0.2-1.0); CO2 28.1 mmol/L (21.0-32.0); Calcium 8.8 mg/dL (8.5-10.1); Chloride 104 mmol/L (98-107); Estimated GFR 37.17 (mL/min/1.73m2); Glucose 91 mg/dL (74-106); Potassium 4.6 mmol/L (3.5-5.1); Sodium 140 mmol/L (136-145); Total Protein 6.6 g/dL (6.4-8.2)
[2019-07-14 19:51] LABS: AST 23 U/L (15-37)
== END 2019-07-14 16:56 ==
PROVIDERS: PCP Family Medicine; Visit Provider Family Medicine
DX: I10 Essential (primary) hypertension (principal); K21.9 Gastro-esophageal reflux disease without esophagitis
CPT/HCPCS: 36415; 80053; 85027

== ENCOUNTER → 2019-10-06 14:47 | Outpatient (BNVA) | payer MEDICARE, MEDICAID, SELFPAY | PROVIDERS: PCP Family Medicine; Referring Provider Family Medicine; Visit Provider Surgery | DX: K21.9 Gastro-esophageal reflux disease without esophagitis (principal); K57.92 Diverticulitis of intestine, part unspecified, without perforation or abscess without bleeding; I12.9 Hypertensive chronic kidney disease with stage 1 through stage 4 chronic kidney disease, or unspecified chronic kidney disease; R13.10 Dysphagia, unspecified; R63.4 Abnormal weight loss; M86.9 Osteomyelitis, unspecified; N18.9 Chronic kidney disease, unspecified; J44.9 Chronic obstructive pulmonary disease, unspecified; F17.210 Nicotine dependence, cigarettes, uncomplicated; T17.998A Other foreign object in respiratory tract, part unspecified causing other injury, initial encounter; K44.9 Diaphragmatic hernia without obstruction or gangrene; Z86.14 Personal history of Methicillin resistant Staphylococcus aureus infection | CPT/HCPCS: 99203; 99214 ==

== ENCOUNTER 2019-10-06 17:12 | Outpatient (REF) | payer MEDICARE, MEDICAID, SELFPAY ==
[2019-10-06 19:26] LABS: Abs Immature Grans 0.02 k/cumm (0.0-0.09); Absolute Basophil Count 0.01 k/cumm (0.0-0.2); Absolute Eosinophil Count 0.16 k/cumm (0.0-0.7); Absolute Lymphocyte Count 2.19 k/cumm (1.2-3.4); Absolute Monocyte Count 1.41 k/cumm (0.11-0.7); Basophils % 0.1; Eosinophils % 1.4; HCT 44.7 % (40.0-50.0); HGB 14.9 g/dL (13.5-17.5); Immature Grans % 0.2 %; Lymphocytes % 19.2; Mean Corp. HGB Concentration 33.3 g/dL (32.0-36.0); Mean Corpuscular Hemoglobin 28.3 pg (27.0-33.0); Mean Corpuscular Volume 84.8 fL (80-95); Mean Platelet Volume 11.1 fL (8.0-11.0); Monocytes % 12.4; Neutrophils % 66.7; RBC 5.27 m/cumm (4.50-6.00); RBC Distribution Width 15.1 % (11.8-14.1); White Blood Cell Count 11.41 k/cumm (4.4-10.8)
[2019-10-06 19:31] LABS: ALT 26 U/L (16-63); AST 17 U/L (15-37); Albumin 3.7 g/dL (3.4-5.0); Alkaline Phosphatase 71 U/L (46-116); Anion Gap 11.1 mmol/L (3-11); BUN 20 mg/dL (7-18); Bilirubin, Total 0.4 mg/dL (0.2-1.0); CO2 23.9 mmol/L (21.0-32.0); CREATININE 1.71 mg/dL (0.70-1.30); Calcium 9.1 mg/dL (8.5-10.1); Chloride 103 mmol/L (98-107); Estimated GFR 39.44 (mL/min/1.73m2); Glucose 84 mg/dL (74-106); Potassium 4.3 mmol/L (3.5-5.1); Sodium 138 mmol/L (136-145); Total Protein 6.7 g/dL (6.4-8.2)
[2019-10-06 19:39] LABS: C-Reactive Protein 2.25 mg/dL (0.0-0.3)
[2019-10-06 19:46] LABS: Absolute Neutrophil Count 7.61 k/cumm (1.2-6.7)
[2019-10-06 19:47] LABS: Platelet Count 318 x1000/uL (130-400)
== END 2019-10-06 17:32 ==
LOC: LBN 17:12
PROVIDERS: PCP Family Medicine; Visit Provider Surgery
DX: I10 Essential (primary) hypertension (principal); M54.16 Radiculopathy, lumbar region; K21.9 Gastro-esophageal reflux disease without esophagitis; R63.4 Abnormal weight loss; Z72.0 Tobacco use
CPT/HCPCS: 80053; 85025; 86140

== ENCOUNTER 2021-03-19 00:29 | Outpatient (CLI) | payer MEDICARE, MEDICAID, SELFPAY ==
--- NOTE | 2021-03-19 07:30 | DI.MRI_ITS ---
Exam(s) MR LUMBAR SPINE WO EXAM: MR LUMBAR SPINE WO CLINICAL HISTORY: h/o chronic back pain, worsening,with sciatica,m54.40,z87.39. TECHNIQUE: Multiplanar multisequence MRI of the Lumbar spine was performed. FINDINGS: The numbering system from the prior MRI examination from 02/08/2016 was used. Bones: The last intervertebral disc space is designated the L5/S1 level for the numbering purpose of this examination. The vertebral body heights are well maintained. There is again seen a left convex scoliosis of the lumbar spine. Endplate degenerative signal changes are seen at all levels of the l umbar spine with sparing of the L1-L2 disc level. There again seen laminectomy changes at L5. Cord: The conus tip ends at the T12 level. It is of normal size and signal intensity. T12-L1: No disc herniations or bulges are present. No central spinal canal or neural foraminal stenos is. L1-2: No disc herniations or bulges are present. No central spinal canal or neural foraminal stenosis . L2-3: There is a diffuse disc bulge. Mild narrowing of the central spinal canal is noted. There is mild narrowing of the neural foramen, right greater than left. L3-4: There is a diffuse disc bulge with a small central disc herniation with extrusion posterior to the L4 vertebral body. Degenerative changes of the facets are present. There is mild moderate centr al spinal canal stenosis. There is marked right and gkur-ya-kvdeadcu left neural foraminal stenosis. L4-5: There is a diffuse disc bulge. There are hypertrophic changes of the facets, left greater than right. These all contribute to cause moderate central spinal canal stenosis. There is moderately s evere right neural foraminal stenosis. There is marked left neural foraminal stenosis. L5-S1: There is a mild diffuse disc bulge. There are hypertrophic changes of the facets, left greate r than right. These all contribute to cause moderate central spinal canal stenosis. There is modera te right neural foraminal stenosis. There is marked left neural foraminal stenosis. Soft tissues: The visualized SI joints and sacrum are well maintained. The paraspinal soft tissues ar e unremarkable. 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 DATA REPOSITORY:
== END 2021-03-19 00:49 ==
PROVIDERS: PCP Nurse Practitioner; Visit Provider Nurse Practitioner
DX: M54.40 Lumbago with sciatica, unspecified side (principal); Z87.39 Personal history of other diseases of the musculoskeletal system and connective tissue; M47.816 Spondylosis without myelopathy or radiculopathy, lumbar region
CPT/HCPCS: 72148

== ENCOUNTER 2022-03-20 16:45 | Outpatient (CLI) | payer MEDICARE, MEDICAID, SELFPAY ==
[2022-03-20 16:50] LABS: ALT 16 U/L (16-63); AST 17 U/L (15-37); Albumin 3.9 g/dL (3.4-5.0); Alkaline Phosphatase 69 U/L (46-116); Anion Gap 8.1 mmol/L (3-11); BUN 21 mg/dL (7-18); Bilirubin, Total 0.5 mg/dL (0.2-1.0); CO2 27.9 mmol/L (21.0-32.0); CREATININE 1.8 mg/dL (0.70-1.30); Calcium 8.7 mg/dL (8.5-10.1); Chloride 106 mmol/L (98-107); Estimated GFR 38.53 (mL/min/1.73m2); Glucose 90 mg/dL (74-106); Potassium 4.7 mmol/L (3.5-5.1); Sodium 142 mmol/L (136-145); Total Protein 6.9 g/dL (6.4-8.2)
== END 2022-03-20 16:46 | disposition home or self-care (01) ==
LOC: LBO 16:46
PROVIDERS: PCP Nurse Practitioner Family; Visit Provider Nurse Practitioner Family
DX: N18.9 Chronic kidney disease, unspecified (principal)
CPT/HCPCS: 36415; 80053

== ENCOUNTER → 2022-04-30 00:53 | Outpatient (CLI) | payer MEDICARE, MEDICAID, SELFPAY ==
--- NOTE | 2022-04-30 07:30 | DI.RAD_ITS ---
Exam(s) XR FOOT LT COMPLETE EXAM: XR FOOT LT COMPLETE CLINICAL HISTORY: Left foot pain, ? dorsal bone spur or cyst,m79.672. TECHNIQUE: 2D digital imaging was performed. COMPARISON: No exams were available for comparison FINDINGS: 3 views No evidence of acute fracture or diastasis of the Christine robert joint. No osseous lesions nor erosions. No pes planus. No degenerative changes. 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 DATA REPOSITORY: RADIATION DOSE DELIVERED:
== END ==
PROVIDERS: PCP Nurse Practitioner Family; Visit Provider Nurse Practitioner Family
DX: M79.672 Pain in left foot (principal)
CPT/HCPCS: 73630

== ENCOUNTER → 2022-05-08 14:52 | Outpatient (BNVA) | payer MEDICARE, MEDICAID, SELFPAY | PROVIDERS: PCP Nurse Practitioner Family; Referring Provider Nurse Practitioner Family; Visit Provider Surgery | DX: F17.210 Nicotine dependence, cigarettes, uncomplicated (principal); R13.10 Dysphagia, unspecified | CPT/HCPCS: 99213 ==

== ENCOUNTER 2022-06-18 06:12 | Day surgery (SDC) | payer MEDICARE, MEDICAID, SELFPAY ==
--- NOTE | 2022-06-17 20:21 | HPE_ITS ---
Assessment and Plan Assessment and plan (1) Dysphagia: Status: Acute Assessment and plan: EGD today History of Present Illness History of Present Illness Chief Complaint: dysphagia Narrative: He is 76 years old, and has had longstanding gastroesophageal reflux disease, and dysphagia.? He was seen in his office about 2 years ago, and at that time it was recommended that he undergo EGD, and referral to a speech pathologist for exercises to help prevent aspiration.? He declined both of those recommendations.? Plans were also made to switch him over to Protonix, but it is hard for me to tell if that ever actually happened.? At the very least, his dose of omeprazole was doubled at some point, he seems to enjoy some relief of his symptoms with the change in the medical regimen.? Over the past several months, however, he has been experiencing more frequent episodes of what he describes as inability to get the food down.? He feels like it sticking in the upper part of his esophagus.? He has a significant history of tobacco and alcohol use, which certainly increases risk of esophageal malignancies. His past medical history is also significant for some type of aortic pathology.? He describes an abdominal aortic aneurysm, that he had a laparotomy scar, as well as a sternotomy scar which seem more consistent with at least thoracic aortic disease.? All the care that was provided at [facility]. Since his last visit to the office, he did have a tooth infection that required oral surgery and antibiotics. Since then, he has done just fine. PFSH All Active Problems Anxiety (Chronic) GERD (gastroesophageal reflux disease) (Chronic) Hypertension (Chronic) 02/2021- declines treatment Tobacco use (Acute) longstanding heavy smoker Dysphagia (Acute) Depression (Chronic) Tinnitus (Acute) Weight loss, unintentional (Acute) COPD (chronic obstructive pulmonary disease) (Chronic) CKD (chronic kidney disease) (Acute) Hiatal hernia with GERD (Acute) Low back pain with sciatica (Acute) chronic pain syndrome Foot drop, left (Acute) Foot pain, left (Acute) dorsal aspect growth, ?cyst or bone spur. Medical History AAA (abdominal aortic aneurysm, ruptured) 2016- s/p repair at [facility] Aortic dissection 2016, s/p repair at [facility], complicated by MRSA sternal wound infection. Aspiration of liquid BPH (benign prostatic hyperplasia) hx TURP Diverticulitis Hx MRSA infection Surgical History History of back surgery History of colonoscopy History of hernia repair History of tonsillectomy Hx of hemorrhoidectomy Hx of skin graft Sternum Hx of transurethral resection of prostate S/P bilateral inguinal herniorrhaphy S/P lumbar laminectomy S/P TURP Status post cataract extraction and insertion of intraocular lens of right eye Family History Mother , age 74 Cancer Father , age 64 Heart disease Sister , age 21 Breast cancer Brother No problems noted. Son No problems noted. Son No problems noted. Daughter , 7 months No problems noted. Maternal Grandfather , age 65 Heart disease Paternal Grandfather No problems noted. Maternal Grandmother , age 80? Diabetes Paternal Grandmother , age 85 No problems noted. Social History Smoking/Tobacco Use Status: Current every day Tobacco Type: cigarettes and e- cigarettes Tobacco: How many years used: 65 Quit status: not considering quitting Second Hand Exposure: Yes Smoking risk assessment performed?: Yes Alcohol Intake: current Alcohol Intake frequency: 0-2 drinks per day Alcohol type: hard liquor Drug use: Daily Substance use type: marijuana Details: tid Caregiver/Support person: No Pets and animals: No Sexually active: No Do you think of yourself as: straight/heterosexual Current gender identity: male What is your relationship status?: How often do you talk on the phone with friends or family?: three or more times per week How often do you get together with friends or relatives?: once per week How often do you attend mormonism or orthodox services?: decline to answer Do you belong to any clubs or organized social groups?: no Panel score (0-1 are the most socially isolated patients): 1 What type of physical activity do you participate in: none Sita/Nondenominational: No preference Special sita needs: No Seatbelt use: never Helmet use: No Drive intox 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 bobtail driver: No Do you feel safe at home: Yes Do you feel safe in your relationship?: Yes Meds Allergies and Home Medications Allergies Allergy/AdvReac Type Severity Reaction Status Date / Time No Known Allergies Allergy Verified 06/18/22 06:27 Home Medications Medication Instructions Recorded Confirmed Type giaqmoo-csbzokusyizyh-ltutswxt 250 2 tab PO DAILY PRN 01/24/14 06/18/22 History mg-250 mg-65 mg tablet (Migraine Formula) grape seed extract-bioflavonoids, 1 ea PO DAILY 07/10/16 06/18/22 History citrus 50 mg-250 mg capsule multivitamin (Daily Multi-Vitamin 1 tab PO DAILY 03/12/17 06/18/22 History tablet) magnesium aspartate HCl 61 mg (615 61 mg PO DAILY 08/12/18 06/18/22 History mg) tablet,delayed release melatonin 10 mg capsule 10 mg PO HS PRN 06/09/19 06/14/22 History calcium carbonate 500 mg calcium 500 mg PO BID 09/12/20 06/18/22 History (1,250 mg) tablet (Calcium 500) hawthorn 500 mg capsule (hawthorn 500 mg PO TID 03/13/21 06/18/22 History ray) AFO brace #1 ea 07/26/21 05/08/22 Rx omeprazole 20 mg capsule,delayed See Rx Instructions .Route 01/11/22 06/18/22 Rx release .COMPLEX #180 caps oxycodone 10 mg tablet 10 mg PO BID PRN pain #56 tabs 03/14/22 06/18/22 Rx nervive 500 mg PO DAILY 05/08/22 06/18/22 History Exam Const General: cooperative and comfortable HENMT Head: normal to inspection Chest Chest: normal inspection of the chest Resp Effort & Inspection: normal respiratory effort and able to speak in complete sentences Auscultation: clear to auscultation bilaterally Cardio Jugular venous pressure: no JVD Rate: regular rate Rhythm: regular rhythm Heart Sounds: S1 normal and S2 normal
--- NOTE | 2022-06-17 20:23 | W.PM.DSUDISC ---
Date of service: 06/18/22 Time of Service: 08:03 Discharge Plan Disposition Patient Disposition: Home Condition: Good Discharge Details Reason For Visit: EGD Attending Provider: Bhavik Armenta Primary Care Provider: Avril Balderas Home Meds and New Rx's Prescriptions: Continued melatonin 10 mg capsule 10 mg PO HS PRN nervive capsule 500 mg PO DAILY (DME) AFO brace See Rx Instructions .Route .MEDSUPPLY Qty: 1 0RF Rx Instructions: As directed oxycodone 10 mg tablet 10 mg PO BID MDD 20mg PRN (Reason: pain) Qty: 56 0RF calcium carbonate [Calcium 500] 500 mg calcium (1,250 mg) tablet 500 mg PO BID omeprazole 20 mg capsule,delayed release(DR/EC) See Rx Instructions .ROUTE .COMPLEX Qty: 180 3RF Dose Instruction: TAKE ONE CAPSULE BY MOUTH TWICE A DAY Rx Instructions: TAKE ONE CAPSULE BY MOUTH TWICE A DAY Migraine Formula 1 EACH tablet 2 tab PO DAILY PRN grape seed xt-bioflav,citrus 1 EACH capsule 1 ea PO DAILY hawthorn ray 500 mg capsule 500 mg PO TID magnesium aspartate HCl 61 mg (615 mg) Tablet,Delayed Release (Dr/Ec) 61 mg PO DAILY multivitamin [Daily Multi-Vitamin] 1 EACH tablet 1 tab PO DAILY Discharge Instructions Instructions: Hiatal Hernia (GEN) Additional Instructions: Donis, your upper endoscopy shows no evidence of narrowing, or stricture of your esophagus. You have a small hiatal hernia which can cause some discomfort with swallowing, but I would expect the symptoms to feel lower down rather than the upper part of your neck as you have previously described. I am happy to refer you to a surgeon who fixes hiatal hernias have an interest in speaking with them. With regards to the symptoms that you describe, I think it would be most beneficial to meet with a swallowing pathologist. Although there were no signs of cancer on this study, tobacco use and alcohol consumption do put you at risk for upper gastrointestinal cancers. 1. If tolerated, consume a soft, low fiber diet for 1-2 days. [address] Do not drive, drink alcohol, operate machinery, make critical decisions, or do activities that require coordination or balance for 24 hours. 3. You may experience a sore throat for 24 to 48 hours. You may use throat lozenges or gargle with warm salt water to relieve the discomfort. 4. Because air was put into your stomach during the procedure, you may experience some belching. 5. Go directly to the emergency room if you notice any of the following: Develop chills (warm to touch), or if you have a thermometer and your temperature is above 101 Difficulty breathing or difficultly swallowing Persistent vomiting Severe abdominal pain, other than gas cramps Severe chest pain Black, tarry stools Any bleeding ? exceeding one tablespoon 6. Call your physician if the site where your intravenous was started becomes red, swollen, painful, and warm to touch. 7. Your physician has reviewed your pre-procedure medications. Please continue to take those medications as previously ordered. You will be given specific information/education regarding any changes to your medications before leaving. Stand Alone Forms: Shayna Romero (DSU) Activity:: Activity as Tolerated Diet:: As Tolerated Discharge Orders Discharge Orders: Discharge Order (Routine); Ordered 06/17/22 Ordered By: Bhavik Armenta DS: Diagnosis Discharge Diagnosis (1) Dysphagia: Status: Acute Asessment and Plan: Small hiatal hernia that I do not believe explains the symptoms I recommend following up with a speech pathologist to help with functional dysphagia
--- NOTE | 2022-06-17 20:24 | W.PM.ENDDOP ---
Date of service: 06/18/22 Time of Service: 08:06 Endoscopy Report DATE OF PROCEDURE: 06/18/22 PRE-OP DIAGNOSIS: Dysphagia POST-OP DIAGNOSIS: same PROCEDURE: EGD SURGEON: Bhavik Armenta ANESTHESIA TYPE: General:No Airway ESTIMATED BLOOD LOSS: 0 PATHOLOGY: none sent COMPLICATIONS: None DISPOSITION: same day INDICATIONS: Donis is 76 years old and he has been experiance progressive dysphagia PROCEDURE START TIME: :40 PROCEDURE END TIME: 07:46 FINDINGS: Small hiatal hernia PROCEDURE DESCRIPTION: At Donis's request, we attempted this procedure with local anesthetic, mild sedation so that he could observe the nature of the procedure. Unfortunately, he experienced a significant amount of gagging and discomfort with the introduction of the scope into the hypopharynx. Therefore, we increase his sedation, and once he was comfortable after infusion of propofol, I reintroduced the endoscope by way of the mouth down through the hypopharynx and into the esophagus. The scope passed easily into the upper esophagus. Under the direct vision of the scope, I advanced down the length of the esophagus into the stomach. The pylorus was normal-appearing, and I gently advanced into the duodenum, which was also normal. I then withdrew the scope back into the stomach and retroflexed examining the gastric body and cardia. There was evidence of a small hiatal hernia. Otherwise, this appeared normal. I withdrew the endoscope back into the esophagus. The GE junction was around 37 cm, and the lower esophageal sphincter mechanisms appeared to measure around 40 cm. The Z-line was normal-appearing and regular. I did not see any evidence of any malignancies, although the intent of the study was focusing on symptoms of his dysphagia. I then withdrew the endoscope along the length of the esophagus. It was totally normal. I did not see any evidence of strictures, diverticula, or other pathology that would explain his symptoms.
[2022-06-18 06:17] VITALS: BP 191/88; PULSE 74; RESP 18; TEMP 37.1; O2SAT 100
[2022-06-18 07:00] VITALS: BP 177/76; PULSE 66; RESP 18
[2022-06-18] MEDS: Lactated Ringers 1,000 ML 80 ML IV (07:00)
--- NOTE | 2022-06-18 07:08 | W.ANESPRE ---
General Info Date of Service Date Performed: 06/18/22 Height: 5 ft 8 in Weight: 58.1 kg Body Mass Index (BMI): 19.5 Surgical Procedure: Operation Date: 06/18/22 07:35 Proposed Procedure Side Surgeon p Gastroscopy with Possible Dilation Bhavik Armenta MD Meds Allergies and Home Medications Allergies Allergy/AdvReac Type Severity Reaction Status Date / Time No Known Allergies Allergy Verified 06/18/22 06:27 Home Medication Medication Instructions Recorded rtpaoli-jmvshrrlhvbxb-olxnbctr 250 2 tab PO DAILY PRN 01/24/14 mg-250 mg-65 mg tablet (Migraine Formula) grape seed extract-bioflavonoids, 1 ea PO DAILY 07/10/16 citrus 50 mg-250 mg capsule multivitamin (Daily Multi-Vitamin 1 tab PO DAILY 03/12/17 tablet) magnesium aspartate HCl 61 mg (615 61 mg PO DAILY 08/12/18 mg) tablet,delayed release melatonin 10 mg capsule 10 mg PO HS PRN 06/09/19 calcium carbonate 500 mg calcium 500 mg PO BID 09/12/20 (1,250 mg) tablet (Calcium 500) hawthorn 500 mg capsule (hawthorn 500 mg PO TID 03/13/21 ray) AFO brace #1 ea 07/26/21 omeprazole 20 mg capsule,delayed See Rx Instructions .Route 01/11/22 release .COMPLEX #180 caps oxycodone 10 mg tablet 10 mg PO BID PRN pain #56 tabs 03/14/22 nervive 500 mg PO DAILY 05/08/22 Current Visit Medications: Current Medications Generic Name Dose Route Start Last Admin Trade Name Freq PRN Reason Stop Dose Admin Hyoscyamine Sulfate 0.125 mg 06/17/22 20:25 Hyoscyamine 0.125 Mg Sl/Oral/Chew SL DIRECTED PRN Ringer's Solution 1,000 mls @ 80 mls/hr 05/23/22 06:00 06/18/22 07:00 IV 06/21/22 23:59 80 mls/hr INFUSION MARII Administration IV Miscellaneous Supplies 1 each 05/23/22 06:00 Iv Access IV 06/21/22 23:59 DIRECTED MARII Ondansetron HCl 4 mg 06/17/22 20:25 Ondansetron 4 Mg/2 Ml Vial IVP Q4H PRN PRN Nausea / Vomiting Sodium Chloride 0 ml 05/23/22 06:00 Normal Saline Flush 10 Ml Syr IV 06/21/22 23:59 PRN PRN Sodium Chloride 0 ml 05/23/22 06:00 Normal Saline 10 Ml Vial IJ 06/21/22 23:59 DIRECTED PRN Sterile Water 0 ml 05/23/22 06:00 Water,Injection,Sterile 10 Ml Vial IJ 06/21/22 23:59 DIRECTED PRN PFSH Active Problems Active Problems: Problem Status Onset Code Anxiety F41.9 GERD (gastroesophageal reflux disease) K21.9 Hypertension I10 Tobacco use Z72.0 Dysphagia R13.10 Depression F32.9 Tinnitus H93.19 Weight loss, unintentional R63.4 COPD (chronic obstructive pulmonary disease) J44.9 CKD (chronic kidney disease) N18.9 Hiatal hernia with GERD K21.9, K44.9 Low back pain with sciatica M54.40 Foot drop, left M21.372 Foot pain, left M79.672 Medical History Medical History AAA (abdominal aortic aneurysm, ruptured) 2016- s/p repair at [facility] Aortic dissection 2016, s/p repair at [facility], complicated by MRSA sternal wound infection. Aspiration of liquid BPH (benign prostatic hyperplasia) hx TURP Diverticulitis Hx MRSA infection Medical History Comments:: Marijauna TID, ETOH; Last smoked t-1 Surgical History Surgical History History of back surgery History of colonoscopy History of hernia repair History of tonsillectomy Hx of hemorrhoidectomy Hx of skin graft Sternum Hx of transurethral resection of prostate S/P bilateral inguinal herniorrhaphy S/P lumbar laminectomy S/P TURP Status post cataract extraction and insertion of intraocular lens of right eye Tobacco Smoking/Tobacco Use Status: Current every day Tobacco Type: cigarettes and e-cigarettes Second hand exposure: Yes Alcohol Alcohol Intake: current Alcohol intake frequency: 0-2 drinks per day Alcohol type: hard liquor Substance Use Substance use: Daily Substance use type: marijuana Details: tid Vital Signs and Lab Results Vital Signs Most Recent Vital Signs in EMR: Most Recent Vital Signs Temp Pulse Resp BP Pulse Ox 37.1 C 66 18 177/76 H 100 06/18/22 06:17 06/18/22 07:00 06/18/22 07:00 06/18/22 07:00 06/18/22 06:17 Lab Results Blood Type / Crossmatch: No Data to Display Complete Blood Count: No Data to Display Complete Metabolic Panel: No Data to Display Liver Function Panel: No Data to Display Coagulation Panel: No Data to Display Cardiac Panel: No Data to Display Arterial Blood Gas: No Data to Display Venous Blood Gas: No Data to Display Pancreas Panel: No Data to Display Thyroid Panel: No Data to Display Infectious Disease: No Data to Display Blood Cultures: No Data to Display Toxicology Panel: No Data to Display Anesthesia Assessment and Plan Anesthesia History Personal History: No History of Anesthesia Complications Family History: No Family History of Anesthesia Complications Exercise Tolerance Exercise Tolerance: Metabolic Equivalents>4 Pertinent Negatives Pertinent Negatives: No Symptoms of GERD and No Major Cardiovascular Symptoms or Complaints Cardiac & Pulmonary Exam Cardiac Exam: Normal S1/S2 Heart Sounds Pulmonary Exam: Clear Bilateral Breath Sounds Implantable Cardiac Device Does patient have a Pacemaker or an ICD?: No Airway Exam Known Difficult Airway: No Mallampati Class: 1 Mouth Opening: Normal (> 3cm) Thyromental Distance: Greater than 3 cm Neck Range of Motion: Full ROM Neck Circumference: Normal Teeth Condition: Normal Dentition ASA Classification ASA Score: ASA 3 Emergency Case?: No NPO Status NPO Status: NPO Clears >2 hours, Solids >8 hours Anesthesia Plan Resuscitation Status: Full Code Anesthesia Technique: General Anesthesia Airway Planned: Natural Airway Monitors Used: Standard Monitors
[2022-06-18 07:14] VITALS: BMI 19.5
[2022-06-18 07:56] VITALS: BP 140/79; PULSE 77; RESP 20; TEMP 36.3; O2SAT 94
[2022-06-18 08:31] VITALS: BP 146/67; PULSE 65; RESP 18; TEMP 36.1; O2SAT 98
--- NOTE | 2022-06-18 09:04 | W.ANESPOSTOP ---
Postoperative Evaluation Date, Time and Location Date Performed: 06/18/22 Time Performed: 08:59 Patient Location: Day Surgery Unit Vital Signs Most Recent Imported Vital Signs: Most Recent Vital Signs Temp Pulse Resp BP Pulse Ox 36.1 C L 65 18 146/67 H 98 06/18/22 08:31 06/18/22 08:31 06/18/22 08:31 06/18/22 08:31 06/18/22 08:31 Pain Score Most Recent Pain Score: Most Recent Pain Score Pain Level 0 06/18/22 08:31 Assessment Mental Status: Awake (Alert & Oriented to Patient Baseline) Airway and Respiratory Function: Patent airway with normal (patient baseline) respiratory exam Cardiovascular Function: Hemodynamically Stable Hydration Status: Adequately Hydrated Nausea & Vomiting: No Nausea or Vomiting Pain: Pt. Denies Any Pain Peripheral Nerve Block: Patient did not receive a nerve block
== END 2022-06-18 08:57 | disposition home or self-care (01) ==
PROVIDERS: PCP Nurse Practitioner Family; Visit Provider Surgery
PROC: 0D758ZZ Dilation of Esophagus, Via Natural or Artificial Opening Endoscopic (ICD-10-PCS; CPT 43235; principal; 2022-06-18 07:30)
DX: R13.10 Dysphagia, unspecified (principal); K44.9 Diaphragmatic hernia without obstruction or gangrene; F17.210 Nicotine dependence, cigarettes, uncomplicated; N18.9 Chronic kidney disease, unspecified; J44.9 Chronic obstructive pulmonary disease, unspecified; I12.9 Hypertensive chronic kidney disease with stage 1 through stage 4 chronic kidney disease, or unspecified chronic kidney disease
CPT/HCPCS: 43235; J2250; J2405; J2704

== ENCOUNTER 2022-09-04 01:17 | Outpatient (CLI) | payer MEDICARE, MEDICAID, SELFPAY ==
--- NOTE | 2022-09-04 09:00 | DI.RAD_ITS ---
Exam(s) RF MODIFIED SPEECH BA SWALLOW TECHNIQUE: Modified barium swallow was performed in conjunction with speech pathology. CONTRAST MATERIAL: Multiple consistencies oforal barium contrast was administered. COMPARISON: No exams were available for comparison FINDINGS: Laryngeal penetration was observed. Vallecular pooling and residual noted. Speech pathology report to follow. Fluoro time: 2.51 RADIATION DOSE DELIVERED: kadi Santiago=8.94 mGy
[2022-09-04] MEDS: Barium Sulfate 40% W/V 240 ML BTL PO (15:04)
[2022-09-04] MEDS: Barium Sulfate Oral Paste 40% W/V 230 ML TUBE PO (15:06)
[2022-09-04] MEDS: Barium Sulfate 81% w/w for Oral Suspension 148 GM BTL PO (15:06)
--- NOTE | 2022-09-04 16:47 | ST.MBS_ITS ---
Date of Service Date of service: 09/04/22 Time of Service: 14:30 Modified Barium Swallow Study Findings: Video fluoroscopic Swallowing Evaluation (VFSE) / Modified Barium Swallow Study (MBSS) Speech Language Pathology Report Patient referred for VFSE/MBSS from [facility] given complaints r/t dysphagia. HPI & Patient report of function: Donis is a 76 y/o M with longstanding hx dysphagia, characterized by pharyngeal stasis of solids. Also with history of chronic heartburn, with symptoms suggestive of LPR. Esophagram performed 05/2019 noted small amount of laryngeal aspiration and gastro-esophageal reflux.? He has been seen more recently by ENT with questions related to possible esophageal malignancy. Follow-up EGD ordered by ENT, 06/2022, and this was without evidence of malignancies, stricture, or other pathology that would explain his symptoms. He was evaluated in clinic by this MANAGER OF DIGITAL who recommended MBSS. All Active Problems? Anxiety (Chronic) GERD (gastroesophageal reflux disease) (Chronic) Hypertension (Chronic) 02/2021- declines treatmentTobacco use (Acute) longstanding heavy smokerDysphagia (Acute) Depression (Chronic) Tinnitus (Acute) Weight loss, unintentional (Acute) COPD (chronic obstructive pulmonary disease) (Chronic) CKD (chronic kidney disease) (Acute) Hiatal hernia with GERD (Acute) Low back pain with sciatica (Acute) chronic pain syndromeFoot drop, left (Acute) Foot pain, left (Acute) dorsal aspect growth, ?cyst or bone spur. Medical History? AAA (abdominal [facility], ruptured[facility], complicated by MRSA sternal wound infection.Aspiration of liquid BPH (benign prostatic hyperplasia) hx TURPDiverticulitis Hx MRSA infection Surgical History? History of back surgery History of colonoscopy History of hernia repair History of tonsillectomy Hx of hemorrhoidectomy Hx of skin graft SternumHx of transurethral resection of prostate S/P bilateral inguinal herniorrhaphy S/P lumbar laminectomy S/P TURP Status post cataract extraction and insertion of intraocular lens of right eye IMPRESSIONS: Mild-moderate chronic oropharyngeal dysphagia with likely esophageal component. Characterized primarily by reduced epiglottic inversion despite very good anterior hyoid moivement, poor mastication and tongue control, and mild reduced laryngeal and pharyngeal motility resulting in poor oral clearance, significant vallecular residue across textures, and frequent deep penetration of thin and thickened liquids without aspiration. Patient appears to be at low risk for potential aspiration PNA and/or pulmonary compromise and low-moderate risk for malnutrition, low risk for dehydration. Swallow prognosis is good given: Positive prognostic factors: Motivation, Family/caregiver support, Cognitive status, Negative prognostic factors: Time since onset, Surgical/anatomical factors, and pending patient/caregiver training in risk management as outlined, including use of trialed compensatory strategies. Patient appears to be a good candidate for behavioral swallow rehabilitation. RECOMMENDATIONS: Diet Texture Recommendation:? IDDSI LEVEL SOLIDS 6-Soft & Bite-Sized Solids 5-Minced & Moist Solids LIQUIDS 0-Thin Liquids Please see further details at?www.iddsi.org [email or web address].iddsi.org/ MEDICATIONS Whole with 0-Thin Liquids Diet texture modification is per patient's preference; please adjust diet textures at patient's discretion & collaboration with care team. Do not alter medications (e.g., cut)? without advice from your MD or pharmacist. Risk Management Strategies:? Behavioral reflux precautions, including upright position during + 90 mins after meals. Small bites, approx [id number] Small sips, approx 10 mL Alternate solids/liquids as able Multiple swallows per bolus to encourage clearance of pharyngeal stasis/residue Control risk factors for aspiration pneumonia via (a) thorough oral hygiene & (b) maintaining physical mobility as tolerated PLAN: Therapy: Recommend subsequent outpatient session with MANAGER OF DIGITAL to review results of today's exam and develop treatment plan as appropriate. May consider the following: Oropharyngeal Exercises to target deficits noted in objective section above, Further Compensatory Strategy Training, Further Training/Education in Risk Management Goals: TBD pending patient/caregiver interview Follow-up exam: PRN ----- OBJECTIVE Videofluoroscopic Swallow Evaluation (VFSE/MBSS) was conducted in the lateral[ and [id number]] projection by Speech-Language Pathologist, in collaboration with Radiologist, to evaluate oropharyngeal swallow function. Anatomic view under fluoroscopy: noting large epiglottis (normal variation) PO Barium Contrast Trials Oral barium water-soluble contrast was administered as follows: IDDSI Level 0 Varibar thin liquid (40% w/v) IDDSI Level 2 Varibar nectar thick/mildly thick liquid (40% w/v) IDDSI Level 4 Varibar pudding/pureed/extremely thick (40% w/v) IDDSI Level 7 Regular Solid: 1/2 tonya cracker coated in 3 mL Varibar pudding IDDSI Level 7 Regular Solid: 1 apple slice coated in 3 mL Varibar pudding IDDSI Level 7 Regular Solid: Jello x1 tsp coated in 1mL Varibar pudding 13 mm barium tablet taken with Thin Liquids. MBSImP Component Scores: COMPONENT Scale SCORE 1 Lip closure (0-4) 0 Resulted in no labial escape 2 Hold Position (0-3) 1 Allowed bolus escape to lateral buccal cavity/floor of mouth 3 Bolus Preparation (0-4) 1 Resulted in slow prolonged chewing/mashing with complete re-collection 4 Bolus Transport (0-4) 3 Was with repetitive/disorganized motion of the tongu e 5 Oral Residue (0-4) 2 Was a collection on oral structures 6 Swallow Initiation (0-4) 1 Occurred when the bolus head was in valleculae 7 Soft Palate Elevation (0-4) 0 Resulted in no bolus between soft palate and t he pharyngeal wall 8 Laryngeal Elevation (0-3) 1 Was decreased with partial superior movement of thyroid cartilage/partial approximation of arytenoids to epiglottic petiole 9 Anterior Hyoid Motion (0-2) 0 Demonstrated complete anterior movement 10 Epiglottic Movement (0-2) 1 Resulted in partial inversion A 11 Laryngeal Closure (0-2) 1 Was incomplete with narrow a column of air/contra st in laryngeal vestibule 12 Pharyngeal Stripping Wave (0-2) 1 Was present, but diminished 13 Pharyngeal Contraction (0-3) NA 14 PES Opening (0-3) 1 Demonstrated partial distension/partial duration, with partial obstruction of flow 15 Tongue Base Retraction (0-4) 1 Allowed a trace column of contrast or air between tongue base and pharyngeal wall 16 Pharyngeal Residue (0-4) 2 Was a collection of residue within or on pharyngeal structures 17 Esophageal Clearance (0-4) NA Results: COMPONENT Scale SCORE 1 Oral Score (0-18) 8 2 Pharyngeal Score (0-29) 7 3 Esophageal Score (0-4) 0 (not observed) Dysphagia Outcome and Severity Scale: COMPONENT l Scale SCORE 1 LEVEL (1-7) 5 Full PO: Modified Diet and/or [place] - Mild dysphagia; Distant supervision may need 1 diet consistency restricted Penetration-Aspiration Scale: COMPONENT l Scale SCORE 1 Thin liquid (1-8) 4 Contrast entered the airway, contacted the vocal folds, and was ejected from the airway. 2 [place] thick (1-8) 2 Contrast entered the airway, remained above the vocal folds, and was ejected from the airway. 3 Honey thick (1-8) NA 4 Pudding thick (1-8) 1 Contrast did not enter the airway 5 Cookie (1-8) 1 Contrast did not enter the airway Possible mild CP hyperfunction or webbing: Reduced epiglottic inversion resulting in vallecular residue: Trialed Compensatory Strategies & Outcome: Maneuvers Successful (+) Unsuccessful (-) Postures Successful (+) Unsuccessful (-) 3 second Preparatory Set? ? +/- Chin Tuck Posture? ? - Cough? ? Posterior Head tilt? Reflexive? Cued? Throat Clear? ? Head Tilt to? Reflexive? Left? Cued? ? + ? Right? ? E Saliva swallow? ? + Head Turn/Rotate to? B ? Supraglottic Swallow? Left? ? Super-supraglottic Swallow? Right? ? Bolus Modifications Successful (+) Unsuccessful (-) Delivery/Alternating Consistencies ? Follow with Liquid Wash + ? Follow with Solid Bolus? Delivery/Via Straw? ? Reduced Volume? ? + Reduced Rate of Intake? ? + Increased Viscosity? ? - Other:?? ? Thank you for allowing us to take part in this patient's care. Please feel free to contact the [facility] Speech Language Pathology Department with any questions/concerns. Coding CPT Codes MOTION FLUOROSCOPY/SWALLOW - [id number] ([id number])
== END 2022-09-04 01:37 ==
LOC: DI 01:18
PROVIDERS: PCP Nurse Practitioner Family; Visit Provider Nurse Practitioner Family
DX: R13.12 Dysphagia, oropharyngeal phase (principal)
CPT/HCPCS: 92611; 74221

== ENCOUNTER 2023-02-25 15:05 | Emergency (ER) | payer MEDICARE, MEDICAID, SELFPAY ==
[2023-02-25 15:15] VITALS: BP 179/76; PULSE 80; RESP 18; TEMP 37.2; O2SAT 96
--- NOTE | 2023-02-25 15:30 | DI.RAD_ITS ---
Exam(s) XR CHEST 2V PA LATERAL EXAM: XR CHEST 2V PA LATERAL CLINICAL HISTORY: chronic cough, smoker. TECHNIQUE: 2D digital imaging was performed. COMPARISON: CT CT CHEST W from 10/22/2018 FINDINGS: 2 views: Sternotomy wires again noted. Heart size upper normal. Mediastinum is not widened. No confluent infiltrates. There are small bilateral pleural effusions. No obvious confluent infiltrates but there COPD findings. IMPRESSION: There are small-moderate size bilateral pleural effusions evident. No airspace pulmonary edema. Sternotomy wires. Heart size normal. Aortic knob appears unremarkable in this patient due has a kno wn history of aortic dissection DATA REPOSITORY: RADIATION DOSE DELIVERED:
--- NOTE | 2023-02-25 15:37 | ED.GENADUL_ITS ---
Discharge Plan Disposition Patient Disposition: Home Condition: Stable Discharge Details Chief Complaint: SOB Clinical Impression: Cough, Pleural effusion Primary Care Provider: Avril Balderas ED Provider: Miky Ramsey Home Meds and New Rx's Prescriptions: No Action melatonin 10 mg capsule 5 mg PO HS PRN nervive capsule 500 mg PO DAILY calcium carbonate [Calcium 500] 500 mg calcium (1,250 mg) tablet 500 mg PO BID omeprazole 20 mg capsule,delayed release(DR/EC) See Rx Instructions .ROUTE .COMPLEX Qty: 180 3RF Dose Instruction: TAKE ONE CAPSULE BY MOUTH TWICE A DAY Rx Instructions: TAKE ONE CAPSULE BY MOUTH TWICE A DAY Migraine Formula 1 EACH tablet 2 tab PO DAILY PRN grape seed xt-bioflav,citrus 1 EACH capsule 1 ea PO DAILY hawthorn ray 500 mg capsule 500 mg PO TID magnesium aspartate HCl 61 mg (615 mg) Tablet,Delayed Release (Dr/Ec) 61 mg PO DAILY multivitamin [Daily Multi-Vitamin] 1 EACH tablet 1 tab PO DAILY Discharge Instructions Instructions: Pleural Effusion (ED), Acute Cough (ED) Additional Instructions: Please follow with your primary care physician Medical Decision Making 77-year-old male presents with cough over the last several months to years, productive of frothy sputum. History of longstanding smoking, as well as GERD. Believes he may have aspirated omeprazole tablet years ago. Patient is afebrile nontoxic not hypoxic. Lungs clear bilaterally no wheezing no retractions no cyanosis no stridor. Normal voice tolerating secretions. Consider COPD exacerbation versus viral URI versus pneumonia lower suspicion for pneumothorax PE aortic pathology or ACS at this time. Trial of albuterol, dexamethasone, screening x-ray. Likely home with close follow-up 16: 04 patient resting comfortably no acute distress. Mild bilateral pleural effusion. Patient has close follow-up with his primary care physician. Home care instructions and return precautions given. HPI General Date/Time Provider Initiated Documentation: 02/25/23 15:06 . HPI Narrative: 77-year-old male history of chronic smoking, GERD, presents with cough chronic over the last several months to years, productive of some frothy sputum. Denies chest pain nausea vomiting or other systemic signs of illness. Believes he may have aspirated and omeprazole tablet years ago. Related Data Home Medications Medication Instructions Recorded Confirmed [id number] 250 2 tab PO DAILY PRN 01/24/14 02/25/23 mg-250 mg-65 mg tablet (Migraine Formula) grape seed extract-bioflavonoids, 1 ea PO DAILY 07/10/16 02/25/23 citrus 50 mg-250 mg capsule multivitamin (Daily Multi-Vitamin 1 tab PO DAILY 03/12/17 02/25/23 tablet) magnesium aspartate HCl 61 mg (615 61 mg PO DAILY 08/12/18 02/25/23 mg) tablet,delayed release calcium carbonate 500 mg calcium 500 mg PO BID 09/12/20 02/25/23 (1,250 mg) tablet (Calcium 500) hawthorn 500 mg capsule (hawthorn 500 mg PO TID 03/13/21 02/25/23 ray) nervive 500 mg PO DAILY 05/08/22 02/25/23 melatonin 10 mg capsule 5 mg PO HS PRN 10/24/22 02/25/23 omeprazole 20 mg capsule,delayed See Rx Instructions .Route 01/30/23 02/25/23 release .COMPLEX #180 caps Previous Rx's Medication Instructions Recorded omeprazole 20 mg capsule,delayed See Rx Instructions .Route 01/30/23 release .COMPLEX #180 caps Allergies Allergy/AdvReac Type Severity Reaction Status Date / Time No Known Allergies Allergy Verified 02/25/23 15:23 General Stated Complaint: SOB DYLAN: 3 Review of Systems Narrative: Review of Systems Constitutional: negative Eyes: negative ENT: negative Cardiovascular: negative Respiratory: Cough Gastrointestinal: negative : negative Musculoskeletal: negative Skin: negative Neurologic: negative Psych: negative PFSH All Active Problems (Updated 02/25/23 @ 16:06 by Miky Ramsey MD) Pleural effusion (Acute) Cough (Acute) Difficulty breathing (Acute) Anxiety (Chronic) GERD (gastroesophageal reflux disease) (Chronic) Hypertension (Chronic) 02/2021- declines treatment Tobacco use (Acute) longstanding heavy smoker Dysphagia (Acute) Depression (Chronic) Tinnitus (Acute) Weight loss, unintentional (Acute) COPD (chronic obstructive pulmonary disease) (Chronic) CKD (chronic kidney disease) (Acute) Hiatal hernia with GERD (Acute) Low back pain with sciatica (Acute) chronic pain syndrome Foot drop, left (Acute) Foot pain, left (Acute) dorsal aspect growth, ?cyst or bone spur. Medical History AAA (abdominal aortic aneurysm, ruptured) 2016- s/p repair at [facility] Aortic dissection 2016, s/p repair at [facility], complicated by MRSA sternal wound infection. Aspiration of liquid BPH (benign prostatic hyperplasia) hx TURP Diverticulitis Hx MRSA infection Surgical History History of back surgery History of colonoscopy History of hernia repair History of tonsillectomy Hx of hemorrhoidectomy Hx of skin graft Sternum Hx of transurethral resection of prostate S/P bilateral inguinal herniorrhaphy S/P lumbar laminectomy S/P TURP Status post cataract extraction and insertion of intraocular lens of right eye Family History Mother , age 74 Cancer Father , age 64 Heart disease Sister , age 21 Breast cancer Brother No problems noted. Son No problems noted. Son No problems noted. Daughter , 7 months No problems noted. Maternal Grandfather , age 65 Heart disease Paternal Grandfather No problems noted. Maternal Grandmother , age 80? Diabetes Paternal Grandmother , age 85 No problems noted. Social History Smoking/Tobacco Use Status: Current every day Tobacco Type: cigarettes and e- cigarettes Tobacco: How many years used: 65 Quit status: not considering quitting Second Hand Exposure: Yes Smoking risk assessment performed?: Yes Alcohol Intake: current Alcohol Intake frequency: 0-2 drinks per day Alcohol type: hard liquor Drug use: Daily Substance use type: marijuana Details: tid Caregiver/Support person: No Pets and animals: No Sexually active: No Do you think of yourself as: straight/heterosexual Current gender identity: male What is your relationship status?: How often do you talk on the phone with friends or family?: three or more times per week How often do you get together with friends or relatives?: once per week How often do you attend voodoo or cheondoism services?: decline to answer Do you belong to any clubs or organized social groups?: no Panel score (0-1 are the most socially isolated patients): 1 What type of physical activity do you participate in: none Sita/Evangelical: No preference Special sita needs: No Seatbelt use: never Helmet use: No Drive intox 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 certified driver examiner: No Do you feel safe at home: Yes Do you feel safe in your relationship?: Yes Exam Narrative Exam Narrative: Physical Examination General: alert, awake, cooperative, resting comfortably, no acute distress HEENT: normocephalic, atraumatic; PERRL, EOM intact, conjunctiva normal; no nasa l discharge; moist mucous membranes, oral and pharyngeal mucosa normal, tolerating secretions Neck: supple, trachea midline; full ROM Chest: normal to inspection Respiratory: normal respiratory effort, speaking in full sentences, clear to auscultation, no wheezing, rales or rhonchi Cardiac: regular rate, regular rhythm, S1S2 intact, no murmurs rubs or gallops GI: abdomen soft, non-tender, non-distended; no palpable mass or hepatosplenomegaly Skin: no lesions, rashes or trauma appreciated Neuro: AAOx3, normal speech, moving all extremities Course Vital Signs Vital signs: Vital Signs Temperature 37.2 C 02/25/23 15:15 Pulse 80 02/25/23 15:15 Respiratory Rate 18 02/25/23 15:15 Blood Pressure 179/76 H 02/25/23 15:15 Pulse Oximetry 96 02/25/23 15:15 Temperature 37.2 C 02/25/23 15:15 Temperature Source Skin 02/25/23 15:15 Pulse 80 02/25/23 15:15 Respiratory Rate 18 02/25/23 15:15 Blood Pressure 179/76 H 02/25/23 15:15 Blood Pressure Position Sitting 02/25/23 15:15 Pulse Oximetry 96 02/25/23 15:15 Oxygen Delivery Method Room Air 02/25/23 15:15 Oxygen Flow Rate 0 02/25/23 15:15
[2023-02-25] MEDS: Albuterol HFA 8 GM 60 PUFF INH IH (16:08)
[2023-02-25] MEDS: Dexamethasone 10 MG/ML VIAL PO (16:09)
[2023-02-25 16:10] VITALS: RESP 16
[2023-02-25] MEDS: Inhaler, Assist Device 1 EACH MC (16:10)
== END 2023-02-25 16:16 | disposition home or self-care (01) ==
LOC: ER 16:06
PROVIDERS: Emergency Provider Emergency Medicine; PCP Nurse Practitioner Family
DX: J90 Pleural effusion, not elsewhere classified (principal); R05.9 Cough, unspecified; R06.89 Other abnormalities of breathing
CPT/HCPCS: 99282; 71046; 99283; J1100

== ENCOUNTER 2023-03-21 19:02 | Inpatient (IN) | payer MEDICARE, MEDICAID, SELFPAY ==
[2023-03-21] VITALS (24 sets, daily range): BP systolic 178–211; BP diastolic 80–125; PULSE 67–118; RESP 14–40; TEMP 36.7; O2SAT 84–100
--- NOTE | 2023-03-21 19:15 | RT.EKG_ITS ---
APPROVED REPORT Exam: Resting ECG Reason for Exam: short of breath Patient Location: E HR:94 bpm ECG Measurements Heart Rate 94 AXIS WV 131 P 62 QRSd 91 QRS -16 QT 345 T 113 QTc 431 Conclusion Sinus rhythm...normal P axis, V-rate 60- [address]. [address] segment or T wave abnormalities to suggest occlusive VT
[2023-03-21 19:39] LABS: Abs Immature Grans 0.03 10^3/uL (0.0-0.06); Absolute Basophil Count 0.05 10^3/uL (0.0-0.2); Absolute Lymphocyte Count 1.73 10^3/uL (1.2-3.4); Basophils % 0.4; Eosinophils % 0.3; HCT 43.6 % (40.0-50.0); HGB 14.6 g/dL (13.5-17.5); Immature Grans % 0.3; Lymphocytes % 14.9; MCH 28.5 pg (27.0-33.0); MCHC 33.5 % (32.0-36.0); MCV 85 fL (80-95); MPV 9.2 fL (8.0-11.0); Monocytes % 9.5; Neutrophils % 74.6; Platelet Count 332 10^3/uL (130-400); RBC 5.12 10^6/uL (4.36-5.78); RDW 14.8 % (11.8-14.1); RDW-SD 46.4 fL; WBC 11.58 10^3/uL (4.4-10.8)
[2023-03-21 19:40] LABS: Absolute Eosinophil Count 0.03 10^3/uL (0.0-0.7); Absolute Neutrophil Count 8.64 10^3/uL (1.2-6.7)
--- NOTE | 2023-03-21 19:42 | W.ED.GENAD ---
Discharge Plan Disposition Patient Disposition: Admit to [facility] Condition: Serious Discharge Details Clinical Impression: Respiratory failure, Pneumonia, Fracture of rib, Fracture of transverse process of lumbar vertebra Primary Care Provider: Avril Balderas ED Provider: Evonne Sanders Home Meds and New Rx's Prescriptions: No Action melatonin 10 mg capsule 5 mg PO HS PRN nervive capsule 500 mg PO DAILY oxycodone 10 mg tablet 10 mg PO BID MDD 20mg PRN (Reason: pain) Qty: 56 0RF Anoro Ellipta 62.5-25 mcg/actuation blister with device 1 inh inhalation Q24H Qty: 60 3RF lorazepam 0.5 mg tablet 0.5 mg PO DAILY PRN (Reason: anxiety) Qty: 28 0RF calcium carbonate [Calcium 500] 500 mg calcium (1,250 mg) tablet 500 mg PO BID omeprazole 20 mg capsule,delayed release(DR/EC) See Rx Instructions .ROUTE .COMPLEX Qty: 180 3RF Dose Instruction: TAKE ONE CAPSULE BY MOUTH TWICE A DAY Rx Instructions: TAKE ONE CAPSULE BY MOUTH TWICE A DAY Migraine Formula 1 EACH tablet 2 tab PO DAILY PRN grape seed xt-bioflav,citrus 1 EACH capsule 1 ea PO DAILY hawthorn ray 500 mg capsule 500 mg PO TID magnesium aspartate HCl 61 mg (615 mg) Tablet,Delayed Release (Dr/Ec) 61 mg PO DAILY multivitamin [Daily Multi-Vitamin] 1 EACH tablet 1 tab PO DAILY Medical Decision Making 77yo M with HTN, CKD, COPD not on home O2, CKD, AAA and prior aortic dissection, presenting with shortness of breath worsening over the past 2-3 weeks, recent ED visits and PCP office visit for same; has been prescribed albuterol, steroids, and lorazapam. History from patient, brother at bedside, [facility] record review. Of note, he does report that he has made statements about hanging himself if his symptoms do not improve. His suicidality is entirely conditional and I have no immediate safety concerns here in the ED; will not order safety sit at this time. Hypertensive on arrival with SBP 170's, slightly tachcyardiac to 94. O2 sat 93+% on room air. Ambulatory pulse ox shows desat to 80-82% with ambulation. EKG sinus rhythm, appropriate intervals, no acute ischemic changes. CBC with mild leukocytosis to 11.6, CMP reassuring with no actionable abnormalities, tropoonin negative, BNP elevated at 33k (no prior hx of heart failure per patient, cannot recall having an echo at any point), dimer also elevated. CT for PE independently reviewed, no large saddle embolus on my view, agree with radiology read below with diffuse opacities. Also incidentally noted are acute left posterior 12th rib fracture and displaced left L2 TP fracture (patient reports fall two weeks ago). Known aneurysm and dissection remain present. Clinical presentation less consistent with decompensated heart failure; he is not overtly volume overloaded and has no orthopnea, would not treat with diuretics at this time. Started on ceftriaxone and azithromycin. Crisis screeners called and will evaluate patient over Zoom. Discussed with hospitalist commission clerk; plan for admission to the medicine service once crisis reccs are in place. Medical Records Medical records reviewed: Yes I reviewed the patient's medical records. Imaging Data Radiologic Study: Imaging: CT Scan Radiologist's impression: IMPRESSION: 1. Acute fracture of the left posterior 12th rib. Healing posterior left 11th rib fracture . 2. No evidence of pulmonary embolus to the segmental level. 3. Unruptured aneurysm of the ascending aorta 4 cm. 4. Diffuse ground-glass opacities throughout the lung veliz may represent multifocal pneumonia.. 5. Acute Displaced fracture of the left transverse process of L2. Series 4, image 71. 6. 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 Lab Data Lab results reviewed: Yes I reviewed the patient's lab results. Labs: Laboratory Tests Range/Units 03/21/23 19:30 WBC (4.4-10.8) 10^3/uL 11.58 H RBC (4.36-5.78) 10^6/uL 5.12 Hgb (13.5-17.5) g/dL 14.6 Hct (40.0-50.0) % 43.6 MCV (80-95) fL 85 MCH (27.0-33.0) pg 28.5 MCHC (32.0-36.0) % 33.5 RDW (11.8-14.1) % 14.8 H Plt Count (130-400) 10^3/uL 332 MPV (8.0-11.0) fL 9.2 Immature Gran % 0.3 Neutrophils % 74.6 Lymphocytes % 14.9 Monocytes % 9.5 Eosinophils % 0.3 Basophils % 0.4 Nucleated RBC % (0.0-0.3) % 0.0 Absolute Neutrophils (1.2-6.7) 10^3/uL 8.64 H Absolute Lymphocytes (1.2-3.4) 10^3/uL 1.73 Absolute Monocytes (0.1-0.8) 10^3/uL 1.10 H Absolute Eosinophils (0.0-0.7) 10^3/uL 0.03 Absolute Basophils (0.0-0.2) 10^3/uL 0.05 PT (9.1-11.1) sec 11.1 INR (0.9-1.1) 1.1 APTT (23.6-32.8) sec 30.1 D-Dimer (<500) ng/mlFEU 702 H Sodium (136-145) mmol/L 134 L Potassium (3.5-5.1) mmol/L 4.1 Chloride (98-107) mmol/L 102 Carbon Dioxide (21.0-32.0) mmol/L 23.7 Anion Gap (3-11) mmol/L 8.3 BUN (7-18) mg/dL 23 H Creatinine (0.70-1.30) mg/dL 1.6 H Est GFR (CKD-EPI 2020) (mL/min/1.73m2) 44.10 Glucose (74-106) mg/dL 116 H Calcium (8.5-10.1) mg/dL 9.4 Magnesium (1.8-2.4) mg/dL 2.2 Total Bilirubin (0.2-1.0) mg/dL 0.9 AST (15-37) U/L 23 ALT (16-63) U/L 31 Alkaline Phosphatase (46-116) U/L 122 H Troponin I (<or=60) ng/L 52 NT-Pro-B Natriuret Pep (<300) pg/mL 70943 H Total Protein (6.4-8.2) g/dL 6.8 Albumin (3.4-5.0) g/dL 3.2 L HPI General Mode of arrival: ambulatory. Date/Time Provider Initiated Documentation: 03/21/23 19:08. Limitations to Documentation: no limitations. Information obtained by: patient, family and old records reviewed. HPI Narrative: 77yo M with HTN, CKD, COPD not on home O2, CKD, AAA and prior aortic dissection, presenting with shortness of breath. Symptoms have been worsening over the past 2-3 weeks, recent ED visits and PCP office visit for same; has been prescribed albuterol, steroids, and lorazapam. Shortness of breath is worst with activity and relieved by laying flat. No chest pain, lightheadedness, LE edema, or orthopnea No fevers or chills. He told his brother (present at bedside) that if his symptoms don't improve he wants to hang himself. Denies any prior suicide attempts or inpatient psychiatric treatment, not currently on any psychiatric medications. No HI/AH/VH. He is otherwise in his usual state of health with no fevers, chills, rash, nausea, vomiting, abdominal pain, or other concerns. Related Data Home Medications Medication Instructions Recorded Confirmed [id number] 250 2 tab PO DAILY PRN 01/24/14 03/17/23 mg-250 mg-65 mg tablet (Migraine Formula) grape seed extract-bioflavonoids, 1 ea PO DAILY 07/10/16 03/17/23 citrus 50 mg-250 mg capsule multivitamin (Daily Multi-Vitamin 1 tab PO DAILY 03/12/17 03/17/23 tablet) magnesium aspartate HCl 61 mg (615 61 mg PO DAILY 08/12/18 03/17/23 mg) tablet,delayed release calcium carbonate 500 mg calcium 500 mg PO BID 09/12/20 03/17/23 (1,250 mg) tablet (Calcium 500) hawthorn 500 mg capsule (hawthorn 500 mg PO TID 03/13/21 03/17/23 ray) nervive 500 mg PO DAILY 05/08/22 03/17/23 melatonin 10 mg capsule 5 mg PO HS PRN 10/24/22 03/17/23 omeprazole 20 mg capsule,delayed See Rx Instructions .Route 01/30/23 03/17/23 release .COMPLEX #180 caps oxycodone 10 mg tablet 10 mg PO BID PRN pain #56 tabs 03/04/23 03/17/23 umeclidinium 62.5 mcg-vilanterol 1 inh inhalation Q24H #60 ea 03/04/23 03/17/23 25 mcg/actuation powdr for inhalation (Anoro Ellipta) lorazepam 0.5 mg tablet 0.5 mg PO DAILY PRN anxiety #28 03/17/23 03/17/23 tabs Previous Rx's Medication Instructions Recorded omeprazole 20 mg capsule,delayed See Rx Instructions .Route 01/30/23 release .COMPLEX #180 caps oxycodone 10 mg tablet 10 mg PO BID PRN pain #56 tabs 03/04/23 umeclidinium 62.5 mcg-vilanterol 1 inh inhalation Q24H #60 ea 03/04/23 25 mcg/actuation powdr for inhalation (Anoro Ellipta) lorazepam 0.5 mg tablet 0.5 mg PO DAILY PRN anxiety #28 03/17/23 tabs Allergies Allergy/AdvReac Type Severity Reaction Status Date / Time No Known Allergies Allergy Verified 03/21/23 19:21 General Stated Complaint: SOB DYLAN: 3 Review of Systems Narrative: see HPI PFSH All Active Problems (Updated 03/21/23 @ 21:36 by Evonne Sanders MD) Fracture of transverse process of lumbar vertebra (Acute) Fracture of rib (Acute) Pneumonia (Acute) Respiratory failure (Acute) Pleural effusion (Acute) Cough (Acute) Difficulty breathing (Acute) Anxiety (Chronic) GERD (gastroesophageal reflux disease) (Chronic) Hypertension (Chronic) 02/2021- declines treatment Tobacco use (Acute) longstanding heavy smoker Dysphagia (Acute) Depression (Chronic) Tinnitus (Acute) Weight loss, unintentional (Acute) COPD (chronic obstructive pulmonary disease) (Chronic) CKD (chronic kidney disease) (Acute) Hiatal hernia with GERD (Acute) Low back pain with sciatica (Acute) chronic pain syndrome Foot drop, left (Acute) Foot pain, left (Acute) dorsal aspect growth, ?cyst or bone spur. Medical History AAA (abdominal aortic aneurysm, ruptured) 2016- s/p repair at [facility] [place] Aortic dissection 2016, s/p repair at [facility] [place], complicated by MRSA sternal wound infection. Aspiration of liquid BPH (benign prostatic hyperplasia) hx TURP Diverticulitis Hx MRSA infection Surgical History History of back surgery History of colonoscopy History of hernia repair History of tonsillectomy Hx of hemorrhoidectomy Hx of skin graft Sternum Hx of transurethral resection of prostate S/P bilateral inguinal herniorrhaphy S/P lumbar laminectomy S/P TURP Status post cataract extraction and insertion of intraocular lens of right eye Family History Mother , age 74 Cancer Father , age 64 Heart disease Sister , age 21 Breast cancer Brother No problems noted. Son No problems noted. Son No problems noted. Daughter , 7 months No problems noted. Maternal Grandfather , age 65 Heart disease Paternal Grandfather No problems noted. Maternal Grandmother , age 80? Diabetes Paternal Grandmother , age 85 No problems noted. Social History (Updated 03/18/23 @ 12:42 by Yessica Morgan) Smoking/Tobacco Use Status: Current every day Tobacco Type: cigarettes and e-cigarettes Tobacco: How many years used: 65 Quit status: not considering quitting Second Hand Exposure: Yes Smoking risk assessment performed?: Yes Alcohol Intake: current Alcohol Intake frequency: a few times a week Alcohol type: hard liquor Drug use: Daily Substance use type: marijuana Details: tid Adopted: No Caregiver/Support person: No Foster care: No Housing: house Number of Children: 2 Pets and animals: No Sexually active: No Do you think of yourself as: straight/heterosexual Current gender identity: male What is your relationship status?: How often do you talk on the phone with friends or family?: three or more times per week How often do you get together with friends or relatives?: decline to answer How often do you attend adventist or quaker services?: decline to answer Do you belong to any clubs or organized social groups?: no Panel score (0-1 are the most socially isolated patients): 1 What type of physical activity do you participate in: other Details: firewood Duration: < 15 minutes/day Frequency: daily Sita/Zoroastrian: No preference Special sita needs: No Agree to transfusion: Yes Seatbelt use: never Helmet use: No Drive intox 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 delivery driver: No Working smoke detector in home: No Carbon monox detector in home: No Firearms in home: Yes Do you feel safe at home: Yes Do you feel safe in your relationship?: Yes Exam Narrative Exam Narrative: General: Alert, thin, appears chronically ill Head: Normocephalic, atraumatic Neck: Trachea midline, Neck supple. ENT: MMM. No oropharygeal lesions or exudate. Cardiac: RRR, no murmurs appreciated Resp: No respiratory distress. CTAB. Abd: Soft, non-distended, nontender : No suprapubic tenderness. N Extremities: No deformities. No peripheral edema. Neurologic: GCS 15. Moves all extremities freely against gravity Psych: Calm, cooperative. Mood rough, affect congruent. Speech with slightly rapid, not pressured, normal volume, rythym and tone. Linear and goal directed. Reports conditional SI, plan to hang himself if his shortness of breath is not addressed. Denies HI/AH/VH. No psychomotor slowing or agitation Does not appear to be responding to internal stimuli. Course Vital Signs Vital signs: Vital Signs Temperature 36.7 C 03/21/23 19:06 Pulse 94 H 03/21/23 19:06 Respiratory Rate 16 03/21/23 19:06 Blood Pressure 178/88 H 03/21/23 19:06 Pulse Oximetry 93 03/21/23 19:06 Temperature 36.7 C 03/21/23 19:06 Temperature Source Temporal Artery Scan 03/21/23 19:06 Pulse 94 H 03/21/23 19:06 Respiratory Rate 16 03/21/23 19:16 Respiratory Effort Normal 03/21/23 19:16 Respiratory Depth Normal 03/21/23 19:16 Respiratory Pattern Normal 03/21/23 19:16 Blood Pressure 178/88 H 03/21/23 19:06 Blood Pressure Position Sitting 03/21/23 19:06 Pulse Oximetry 93 03/21/23 19:06 Oxygen Delivery Method Room Air 03/21/23 19:06 Oxygen Flow Rate 0 03/21/23 19:06 Pain Level 0 03/21/23 19:06 Lab/Test Results Lab/Test Results: Laboratory Tests Range/Units 03/21/23 19:30 WBC (4.4-10.8) 10^3/uL 11.58 H RBC (4.36-5.78) 10^6/uL 5.12 Hgb (13.5-17.5) g/dL 14.6 Hct (40.0-50.0) % 43.6 MCV (80-95) fL 85 MCH (27.0-33.0) pg 28.5 MCHC (32.0-36.0) % 33.5 RDW (11.8-14.1) % 14.8 H Plt Count (130-400) 10^3/uL 332 MPV (8.0-11.0) fL 9.2 Immature Gran % 0.3 Neutrophils % 74.6 Lymphocytes % 14.9 Monocytes % 9.5 Eosinophils % 0.3 Basophils % 0.4 Nucleated RBC % (0.0-0.3) % 0.0 Absolute Neutrophils (1.2-6.7) 10^3/uL 8.64 H Absolute Lymphocytes (1.2-3.4) 10^3/uL 1.73 Absolute Monocytes (0.1-0.8) 10^3/uL 1.10 H Absolute Eosinophils (0.0-0.7) 10^3/uL 0.03 Absolute Basophils (0.0-0.2) 10^3/uL 0.05
[2023-03-21 19:58] LABS: INR 1.1 (0.9-1.1); PTT Activated 30.1 sec (23.6-32.8); Prothrombin Time 11.1 sec (9.1-11.1)
[2023-03-21 20:05] LABS: ALT 31 U/L (16-63); AST 23 U/L (15-37); Albumin 3.2 g/dL (3.4-5.0); Alkaline Phosphatase 122 U/L (46-116); Anion Gap 8.3 mmol/L (3-11); BUN 23 mg/dL (7-18); Bilirubin, Total 0.9 mg/dL (0.2-1.0); CO2 23.7 mmol/L (21.0-32.0); CREATININE 1.6 mg/dL (0.70-1.30); Calcium 9.4 mg/dL (8.5-10.1); Chloride 102 mmol/L (98-107); Glucose 116 mg/dL (74-106); Magnesium 2.2 mg/dL (1.8-2.4); NT-proBNP 32428 pg/mL (<300); Potassium 4.1 mmol/L (3.5-5.1); Sodium 134 mmol/L (136-145); Total Protein 6.8 g/dL (6.4-8.2); Troponin I 52 ng/L (<or=60)
[2023-03-21 20:10] LABS: D-Dimer 702 ng/mlFEU (<500)
--- NOTE | 2023-03-21 20:13 | DI.CT_ITS ---
Exam(s) CT CHEST PE CTA EXAM: CT CHEST PE CTA CLINICAL HISTORY: SOB, elevated dimer. TECHNIQUE: Imaging Protocol: CT angiography of the chest was performed using pulmonary embolus elizabeth col. Multi planar reconstructions were performed. CONTRAST MATERIAL: Intravenous: Omnipaque 350 Contrast volume: 100 cc COMPARISON: CT CT CHEST W from 10/22/2018 FINDINGS: CHEST: PULMONARY ARTERIES: There are no obvious intraluminal filling defects to suggest acute pulmonary embo li. LUNGS: There is diffuse infiltrates throughout both lung veliz, most confluent in the left upper lob e. There are also moderate-large size bilateral pleural effusions with volume loss in the basal segm ents of the lower lobes. Most probably pulmonary edema. MEDIASTINUM: There is no hilar nor mediastinal adenopathy. Visualized thyroid unremarkable. CARDIAC: Sternotomy wires. Heart size has significantly increased when compared to CT scan of October 11. No shift of the interventricular septum.Diameter of the ascending thoracic aorta is enlarged to 5 cm. There is not a lot of contrast in the aorta on this pulmonary embolus study. However, there is again noted type B chronic dissection of the descending thoracic aorta. There is no pericardial e ffusion. PARTIALLY VISUALIZED UPPERMOST ABDOMEN: The chronic dissection is again noted to extend into the abdo juvenal aorta beyond the field of view of this chest study. Benign cysts is again znoted in the superi or pole of the left kidney which measures 3.5 cm, OSSEOUS: There is a displaced fracture of the left transverse process of L2 as well as a fracture of the left posterior 12th rib. There is healing fracture of the adjacent left 11th rib. These fractur es were not evident on the CT scan of 2019. No other rib fractures identified.. IMPRESSION: 1. No evidence of obvious acute pulmonary emboli, as per request..However, there are sternotomy wires , heart size which has significantly increased since prior CT scan of October 2018, extensive bilateral infiltrates and prominent bilateral pleural effusions. These findings most probably are consistent w ith pulmonary edema. Correlation with clinical findings recommended. 2. Ascending thoracic aorta is enlarged to 5 cm. There is not enough contrast in the aorta at to det ermine if there is an acute dissection but there is again noted a chronic Pierce type B dissection of the descending thoracic aorta which is again noted to extend into the abdominal aorta beyond the f ield of view of this chest CT study. 3. There fractures of the left transverse process of L2 as well as the left posterior 12th rib and le ft 11th rib, these findings not evident on the prior CT scan of 2019. First read by [facility] Final report (discordant) called by myself to hospitalist 03/22/2023 5:15 p.m. RADIATION DOSE DELIVERED: Total DLP DATA REPOSITORY: All CT scans at this facility are submitted to the National Radiology Data Registry (NRDR) Dose Index Registry (DIR) with the [employer] (ACR). RADIATION OPTIMIZATION: All CT scans at this facility use at least one of these dose optimization te chniques: automated exposure control; mA and/or kV adjustment per patient size (includes targeted exa ms where dose is matched to clinical indication); or iterative reconstruction.
[2023-03-21] MEDS: Normal Saline - Diluent 50 ML VIAL IJ (20:25)
[2023-03-21] MEDS: Omnipaque 350 MG/ML 100 ML BTL IJ (20:26)
[2023-03-21] MEDS: Normal Saline Flush 10 ML SYR IVP (20:44)
--- NOTE | 2023-03-21 21:01 | DI.VRAD_ITS ---
PROCEDURE INFORMATION: Exam: CTA Chest With Contrast Exam date and time: 03/21/2023 8:34 PM Age: 77 years old Clinical indication: Shortness of breath; Additional info: SOB, elevated ddimer. TECHNIQUE: Imaging protocol: Computed tomographic angiography of the chest with contrast. Exam focused on the arteries. 3D rendering (Not supervised by radiologist): MIP and/or 3D reconstructed images were created by the technologist. Contrast material: OMNI 350; Contrast volume: 100 ml; Contrast route: INTRAVENOUS (IV); COMPARISON: CT CHEST W 10/22/2018 2:23 PM FINDINGS: Pulmonary arteries: No evidence of pulmonary embolus to the segmental level. Aorta: Unruptured aneurysm of the ascending aorta 4 cm. 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 Lungs: Diffuse ground-glass opacities throughout the lung veliz may represent multifocal pneumonia.. Pleural spaces: Unremarkable. No pneumothorax. No pleural effusion. Heart: Unremarkable. No cardiomegaly. No pericardial effusion. Lymph nodes: Unremarkable. No enlarged lymph nodes. Bones/joints: Acute fracture of the left posterior 12th rib. Healing posterior left 11th rib fracture . Acute Displaced fracture of the left transverse process of L2. Series 4, image 71. Median sternotomy Soft tissues: Unremarkable. IMPRESSION: 1. Acute fracture of the left posterior 12th rib. Healing posterior left 11th rib fracture . 2. No evidence of pulmonary embolus to the segmental level. 3. Unruptured aneurysm of the ascending aorta 4 cm. 4. Diffuse ground-glass opacities throughout the lung veliz may represent multifocal pneumonia.. 5. Acute Displaced fracture of the left transverse process of L2. Series 4, image 71. 6. 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 Dictated and Authenticated by: Sasha Garcia MD. Ordering:JAJA Douglass MD
--- NOTE | 2023-03-21 21:03 | NUR.NOTE ---
Ambulation trial per request - O2 81 RA. Pt w obvious SOB. Pt able to ambulate independently w cane w steady gait. notified.
[2023-03-21] MEDS: cefTRIAXone 2 GM/50 ML BAG IVPB (21:20)
[2023-03-21] MEDS: AZITHROMYCIN 500 MG in Normal Saline 250 ML 250 MG IVPB (21:20)
--- NOTE | 2023-03-21 23:27 | NUR.NOTE ---
Pt had a consult with mental health, no medication regimen at this time.
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
[2023-03-22] VITALS (22 sets, daily range): BP systolic 159–213; BP diastolic 72–107; PULSE 67–128; RESP 2–41; TEMP 36.7–37.2; O2SAT 84–100
[2023-03-22 00:38] LABS: BE (Venous) -1 mmol/L (-2-3); HCO3 (Venous) 24 mmol/L (23-28); O2 Sat (Venous) 59 %; TCO2 (Venous) 21 mmol/L (24-29); pCO2 (Venous) 36 mmHg (41-51); pH (Venous) 7.43 (7.31-7.41); pO2 (Venous) 32 mmHg
[2023-03-22 01:17] LABS: COVID-19 PCR Negative (Negative); Influenza A PCR Negative (Negative); Influenza B PCR Negative (Negative); RSV PCR Negative (Negative)
[2023-03-22 01:22] LABS: Source Nasopharynx
--- NOTE | 2023-03-22 01:22 | NUR.NOTE ---
Doppler pulse = 88 on top of L foot. notified.
[2023-03-22] MEDS: Nicotine 21 MG/24 HR PATCH TD ×2 (02:24→22:47)
[2023-03-22] MEDS: oxyCODONE 10 MG TAB PO (02:24)
[2023-03-22] MEDS: Acetaminophen 325 MG TAB 650 MG PO (02:24)
[2023-03-22] MEDS: Metoprolol 25 MG TAB PO ×4 (02:24→19:33)
[2023-03-22 05:58] LABS: Lactate 1.4 mmol/L (0.6-1.4)
[2023-03-22 05:59] LABS: HCT 38.8 % (40.0-50.0); MCH 28.7 pg (27.0-33.0); MCHC 33.5 % (32.0-36.0); MCV 86 fL (80-95); MPV 9.2 fL (8.0-11.0); Platelet Count 290 10^3/uL (130-400); RBC 4.53 10^6/uL (4.36-5.78); RDW-SD 47.1 fL; WBC 9.64 10^3/uL (4.4-10.8)
[2023-03-22 06:24] LABS: ALT 33 U/L (16-63); AST 25 U/L (15-37); Albumin 2.8 g/dL (3.4-5.0); Alkaline Phosphatase 143 U/L (46-116); Anion Gap 9.1 mmol/L (3-11); BUN 24 mg/dL (7-18); Bilirubin, Total 0.5 mg/dL (0.2-1.0); CO2 23.9 mmol/L (21.0-32.0); CREATININE 1.6 mg/dL (0.70-1.30); Calcium 9.3 mg/dL (8.5-10.1); Chloride 103 mmol/L (98-107); Glucose 114 mg/dL (74-106); Magnesium 2.3 mg/dL (1.8-2.4); Potassium 4.6 mmol/L (3.5-5.1); Sodium 136 mmol/L (136-145)
[2023-03-22 06:29] LABS: TSH (W/Ref FT4) 1.01 uIU/mL (0.36-3.74)
[2023-03-22] MEDS: Omeprazole 20 MG CAPCR PO ×2 (07:32→16:27)
[2023-03-22] MEDS: Tiotropium/Olodaterol 10 PUFF INHALER 2 PUFF IH (08:28)
--- NOTE | 2023-03-22 08:51 | RESPIRATORY ---
RT Assessment Start: 03/22/23 02:49 Freq: .q shift and prn Status: Active Protocol: Document 03/22/23 08:40 PJ (Rec: 03/22/23 08:51 PJ [id number]) RT Assessment Pulmonary History Pulmonary History COPD Smoking History Smoking/Tobacco Use Status Current every day Tobacco: How many years used 66 Tobacco Type cigarettes Cigarettes per Day 13 OXYGEN HISTORY: CPAP Settings N/A Can use home machine No BIPAP Settings N/A Can you home machine No Trilogy/AVAPS Settings N/A Can use home machine No DME/Compliance DME N/A Compliance N/A Current Respiratory Symptoms Current Respiratory Symptoms Shortness of breath,Sputum production,Wheezing,Other Activity Activity Level Very active and enjoy processing wood (cutting, splitting etc) for 2hrs Respiratory Breath Sounds Breath Sounds Any abnormal sounds, decreased breath sounds Response No change Pulse Rate <100 Respiratory Rate 18-25 Shortness of Breath On exertion Respiratory Therapy Score Total 3 Assessment and Plan RT Treatment Protocol Lung Expansion Therapy Protocol,Bronchial Hygiene Therapy Protocol Note Pt has an IS and Acapella ordered per MD and RT has instructed him on it. Patient stated he rolls his own cigarettes (6-7) which may be equivalent to more like 13 as larger than a normal.
[2023-03-22] MEDS: Lidocaine 5% Patch 2 PATCH TP (08:56)
[2023-03-22] MEDS: Enoxaparin 30 MG/0.3 ML SYR SC (08:57)
[2023-03-22] MEDS: Multivitamin TAB 1 TAB PO (08:58)
[2023-03-22] MEDS: Acetaminophen 500 MG TAB 1000 MG PO ×3 (08:58→19:36)
[2023-03-22] MEDS: guaiFENesin 600 MG TABCR PO ×2 (08:59→19:33)
[2023-03-22] MEDS: Levalbuterol 1.25 MG/3 ML UPD VIAL UPD ×2 (12:21→20:16)
--- NOTE | 2023-03-22 14:01 | PGE_ITS ---
Date of Service Date of service: 03/22/23 Time of Service: 13:30 Assessment and Plan Assessment and plan (1) Pneumonia: Status: Acute Assessment and plan: continue Rocephin but at 2 gm iv q24h along w/ azithromycin 500 mg iv daily; continue xopenex but instead of q4h prn, I will put him on scheduled qid along w/ prn, continue his Anora Ellipta, add mucinex to help him mobilize his sputum, I have added acapella and IS to his pulmonary regimen. He needs to quit smoking which he has no intention at this point. He is not requiring oxygen and therefore once we get his rib and back pain under control, he can be discharged. He is asking to go to a shelter if he can no longer stay at the hospital. I told him that depends upon whether or not he meets criteria for nusring home. Anesthesia saw him at my request to consider injection for nerve/muscle block w/ steroids and local anesthetic to control his pain. Sputum culture has been ordered, urine for Step antigen and Legionella antigen along w/ sputum for Mycoplasma PCR all have been ordered. Nasal swab PCR for Fluvid was negative. Qualifiers: Pneumonia type: due to unspecified organism Laterality: bilateral Lung location: unspecified part of lung Qualified Code(s): J18.9 - Pneumonia, unspecified organism (2) Respiratory failure: Status: Suspected Assessment and plan: unclear as to why he was labeled as respiratory failure, it appears that there is no documented hypoxemia nor any hypercarbia and it appears that he never required supplemental oxygen Qualifiers: Chronicity: acute Respiratory failure complication: unspecified whether with hypoxia or hypercapnia Qualified Code(s): J96.00 - Acute respiratory failure, unspecified whether with hypoxia or hypercapnia (3) Fracture of transverse process of lumbar vertebra: Status: Acute Assessment and plan: use lidocaine patches, voltaren gel, and I have increased his oxycodone to 15 mg po q4h prn. Unfortunately his CK prohibits use of an NSAID. I have asked anesthesia to see him for injection of steroids and topical anesthetic agent for nerve block. 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 He needs to be on antihypertensive meds to prevent recurrent dissection. Dr. Guzman has begun him on lopressor 25 mg po q6h. BP on admission was quite high at 213/107 but since then has been 160 to 170/80's. I will titrate his lopressor dose. He may need an ALEXIA-I or an ARB (if renal fxn can tolerate this). Qualifiers: Hypertension type: primary hypertension Qualified Code(s): I10 - Essential (primary) hypertension (6) Feeling suicidal: Status: Acute Assessment and plan: Patient brother did report that the patient stated he would hang himself if he could not find out what was going on with his breathing. However, he was evaluated by mental health who felt that this was a situational fleeting thought and not true suicidal ideation. Patient not expressing any suicidal ideation at the time of my exam. (7) Tobacco use: Status: Chronic Assessment and plan: nicotine patches. patient needs to quit smoking in light of his chronic bronchitis and his PAD. (8) COPD (chronic obstructive pulmonary disease): Status: Chronic Assessment and plan: continue Anora Ellipta along w/ scheduled Xopenx aerosols, antibiotics for pneumonia, pulmonary toiletry. Will give one time dose of dexamethasone and put on daily prednisone 40 mg x 5 days. This may also help w/ his back pain. Qualifiers: COPD type: chronic bronchitis Chronic bronchitis type: unspecified Qualified Code(s): J42 - Unspecified chronic bronchitis (9) CKD (chronic kidney disease): Status: Chronic Assessment and plan: stable, monitor and avoid NSAID or other nephrotoxins Qualifiers: Chronic kidney disease stage: stage 3 (moderate) Chronic kidney disease stage 3 subtype: stage 3b (GFR 30-44) Qualified Code(s): N18.32 - Chronic kidney disease, stage 3b (10) Foot drop, left: Status: Chronic Assessment and plan: patient should have outpatient follow up regarding this. Patient has attributed this to his dissecting aortic aneurysm. Subjective Subjective Interval history since last seen: Patient has hx of COPD and continued tobacco addiction (still smokes) and he had a fall 3 weeks ago and sustained a back injury. Over past couple weeks he has had worsening cough. He has a chronic cough usually productive daily of white mucous, which he blames his breathing problems from an incident 3 yrs ago in which he had choked on a prilosec capsule he was taking for GERD. He feels that he suffered from chemical pneumonia and ever since he has had a cough. Evalua tion in the ED last night included CTA chest that revealed multifocal ground glass opacifications in both lungs, as well as acute displaced left transvers L2 process and new acute left posterior 12th rib fracture and a healing left 11th rib frx. He was begun on Rocephin and azithromycin. No cultures were ordered. Today, he tells me that he does not want to go home until we can make him whole again and able to be 100% in performing his takss at home (including splitting wood and carrying wood into the home). I explained to him that he was admitted to treat his pneumonia and control his rib and lower back pains. Once he is functional and independently ambulating and if he is not requiring oxygen then he can finish his antibiotics at home. Exam Narrative Exam Narrative: Mr. Monge appears thin, under nourished, and rather unkempt He is alert and oriented, he is not in any acute respiratory distress and in fact he was ambulating out of his chair and across the room and talking to me in complete paragraphs w/out visible dyspnea or tachypnea LUngs: diffuse rhonchi and expiratory and inspiratory wheezes heart: RRR, no appreciable murmur or rub Extremities: no edema Chest wall: tender over lower left posterior rib cage, but no visible bruising, spine appears to be kyphoscoliotic Objective Last Vital Signs Temp 36.9 C 03/22/23 11:04 Pulse 67 03/22/23 12:26 Resp 20 03/22/23 12:26 BP 170/84 H 03/22/23 11:04 Pulse Ox 98 03/22/23 12:26 Laboratory Results - last 24 hr 03/21/23 03/22/23 03/22/23 19:30 00:30 00:32 WBC 11.58 H RBC 5.12 Hgb 14.6 Hct 43.6 MCV 85 MCH 28.5 MCHC 33.5 RDW 14.8 H Plt Count 332 MPV 9.2 Immature Gran % 0.3 Neutrophils % 74.6 Lymphocytes % 14.9 Monocytes % 9.5 Eosinophils % 0.3 Basophils % 0.4 Nucleated RBC % 0.0 Absolute Neutrophils 8.64 H Absolute Lymphocytes 1.73 Absolute Monocytes 1.10 H Absolute Eosinophils 0.03 Absolute Basophils 0.05 PT 11.1 INR 1.1 APTT 30.1 D-Dimer 702 H VBG pH 7.43 H VBG pCO2 36 L VBG pO2 32 VBG HCO3 24 VBG Total CO2 21 L VBG O2 Saturation 59 VBG Base Excess -1 VBG Lactate Sodium 134 L Potassium 4.1 Chloride 102 Carbon Dioxide 23.7 Anion Gap 8.3 BUN 23 H Creatinine 1.6 H Est GFR (CKD-EPI 2020) 44.10 Glucose 116 H Calcium 9.4 Magnesium 2.2 Total Bilirubin 0.9 AST 23 ALT 31 Alkaline Phosphatase 122 H Troponin I 52 NT-Pro-B Natriuret Pep 96508 H Total Protein 6.8 Albumin 3.2 L TSH COVID-19 Source Nasopharynx SARS-CoV-2 (PCR) Negative Influenza Type A (PCR) Negative Influenza Type B (PCR) Negative RSV (PCR) Negative 03/22/23 05:50 WBC 9.64 RBC 4.53 Hgb 13.0 L Hct 38.8 L MCV 86 MCH 28.7 MCHC 33.5 RDW 15.0 H Plt Count 290 MPV 9.2 Immature Gran % Neutrophils % Lymphocytes % Monocytes % Eosinophils % Basophils % Nucleated RBC % Absolute Neutrophils Absolute Lymphocytes Absolute Monocytes Absolute Eosinophils Absolute Basophils PT INR APTT D-Dimer VBG pH VBG pCO2 VBG pO2 VBG HCO3 VBG Total CO2 VBG O2 Saturation VBG Base Excess VBG Lactate 1.4 Sodium 136 Potassium 4.6 Chloride 103 Carbon Dioxide 23.9 Anion Gap 9.1 BUN 24 H Creatinine 1.6 H Est GFR (CKD-EPI 2020) 44.10 Glucose 114 H Calcium 9.3 Magnesium 2.3 Total Bilirubin 0.5 AST 25 ALT 33 Alkaline Phosphatase 143 H Troponin I NT-Pro-B Natriuret Pep Total Protein 6.0 L Albumin 2.8 L TSH 1.01 COVID-19 Source SARS-CoV-2 (PCR) Influenza Type A (PCR) Influenza Type B (PCR) RSV (PCR) PAWSS Have you Been Recently Intoxicated or Drunk Within the Last 30 days?: No Have you Ever Experienced Previous Episodes of Alcohol Withdrawal?: No Have you ever Experienced Withdrawal Seizures?: Yes Have you ever Experienced Delirium Tremens(DT)s?: No Have you ever undergone Alcohol Rehabilitation Treatment (i.e, inpt ot outpatient treatment programs)?: No Have you ever Experienced Blackouts?: No Have you ever Combined Alcohol with other Downers within the last 90 days?: No Have you ever Combined Alcohol with any other Substance of Abuse during the last 90 days?: Yes Positive Blood Alcohol level on Presentation? [PCS.BAL]: No Evidence of Increased Autonomic Activity (i.e. HR>120, tremor, sweating, agitation, nausea)?: No Result: 3 Time Spent with Patient Time Spent with Patient: 35-49 minutes Time was spent: preparing to see the patient(eg.review tests), obtaining and/or reviewing separately otained hiistory, ordering medications,tests, procedures, referring, communicating with other health acute care occupational therapist, indepentently interpreting results, counseling the patient and care coordination
--- NOTE | 2023-03-22 14:38 | NT_ITS ---
PT Notes Visit Reasons: Multiple focal pneumonia, Rib fracture, Transverse Patient politely refused, stating that he cannot physically do anything without causing undue shortness of breath and fatigue. Wants to rest for today and see how his condition improves in the next day or so. Wants to go to a skilled nursing as he lives alone and is unsure about how he will manage. Will assess mobility and safety level to determine safe discharge destination when patient is able to tolerate movement better.
[2023-03-22 15:58] LABS: Lab Add On Test DONE
[2023-03-22 16:14] LABS: C-Reactive Protein 4.11 mg/dL (0.0-0.3)
[2023-03-22] MEDS: Dexamethasone 10 MG/ML VIAL IVP (16:27)
[2023-03-22] MEDS: Normal Saline Flush 10 ML SYR IVP ×2 (16:28→21:22)
[2023-03-22] MEDS: oxyCODONE 5 MG TAB 15 MG PO ×2 (16:29→23:06)
[2023-03-22 17:00] LABS: Procalcitonin 0.1 ng/mL
[2023-03-22] MEDS: Atorvastatin 40 MG TAB PO (19:32)
[2023-03-22] MEDS: Diclofenac 1% Gel 100 GM TUBE TP (19:36)
[2023-03-22] MEDS: Patch Removal 2 EACH TP (19:38)
--- NOTE | 2023-03-22 19:44 | W.POCUS ---
Pocus Exam Limited Thoracic Lung Exam DATE OF EXAM: 03/22/23 TIME OF EXAM: 19:44 PROVIDER THAT PERFORMED THE STUDY: Mt Chaves REASON FOR EXAM: Cardiogenic Pulmonary Edema, Pneumonia and Shortness ofBreath VISUALIZED STRUCTURES: right anterior, left anterior, right lateral, left lateral, right posterior, left posterior, right subcostal and left subcostal PERTINENT FINDINGS/IMPRESSION: B-lines/left side thoracis location: anterior, lateral and posterior, B-lines/right side thoracis location: anterior, lateral and posterior, Pneumonia (lung consolidation in right and left bases seen posterior and posterolateral), Left pleural effusion (large left pleural effusion w/ AP diameter of 6.95 cm and cephalad to caudal depth of 9.1 cm, w/ plankton sign), Right pleural effusion (large right pleural effusion w/ AP diameter of 4.38 cm) and Other impression: Pulmonary edema and bilateral lung atelectasis and consolidation along w/ large bilateral pleural effusions, estimate volumes of 1400 mL on the left and 900 mL on the right, findings consistent w/ pneumonia w/ superimposed pulmonary edema Exam complete
--- NOTE | 2023-03-22 19:51 | W.POCUS ---
Pocus Exam Limited Cardiac Exam DATE OF EXAM: 03/22/23 TIME OF EXAM: 18:16 PROVIDER THAT PERFORMED THE STUDY: Mt Chaves IS THIS A REPEAT EXAM DURING THIS ENCOUNTER: no REASON FOR EXAM: Congestive heart failure and Dyspnea VISUALIZED STRUCTURES: four chambers, LVOT, aortic valve, Interventricular septum and IVC VIEW OBTAINED: Apical 4-Chamber, Parasternal long-axis, Parasternal short-axis and Subxiphoid PERTINENT FINDINGS/IMPRESSION: LV dysfunction :severe, Plethoric IVC, RV dysfunction (TAPSE 15 mm) and Other Severe global LV systolic and RV systolic dysfunction w/ LVH and LV dilatation, left atrial enlargement, severe aortic regurgitation, severe mitral regurgitation, moderate tricuspid regurgitation, dilated IVC w/ less than 50% inspiratory collapsibility, estimated RAP 15 cm, estimated RVSP 60 mm, avg e' 6.0 cm/s, E 99.6 cm, E/e' 17, estimated PCWP 21 cm ; no IVC inspiratory collapsability, No pericardial effusion and No RV dilation INCIDENTAL FINDINGS: Exam complete
[2023-03-22] MEDS: cefTRIAXone 2 GM/50 ML BAG IVPB (21:20)
[2023-03-22] MEDS: Melatonin 3 MG TAB 6 MG PO (22:47)
[2023-03-22] MEDS: AZITHROMYCIN 500 MG in Normal Saline 250 ML 250 MG IVPB (22:55)
[2023-03-23] VITALS (12 sets, daily range): BP systolic 144–173; BP diastolic 68–87; PULSE 61–93; RESP 2–20; TEMP 36.2–37.1; O2SAT 92–98
[2023-03-23] MEDS: Metoprolol 25 MG TAB PO ×3 (01:01→12:25)
[2023-03-23] MEDS: oxyCODONE 5 MG TAB 15 MG PO ×3 (06:24→20:42)
[2023-03-23] MEDS: Levalbuterol 1.25 MG/3 ML UPD VIAL UPD ×3 (07:51→19:52)
[2023-03-23] MEDS: Tiotropium/Olodaterol 10 PUFF INHALER 2 PUFF IH (07:52)
[2023-03-23 08:05] LABS: HCT 40.7 % (40.0-50.0); HGB 13.4 g/dL (13.5-17.5); MCH 27.9 pg (27.0-33.0); MCHC 32.9 % (32.0-36.0); MCV 85 fL (80-95); MPV 9.7 fL (8.0-11.0); Platelet Count 351 10^3/uL (130-400); RDW 14.9 % (11.8-14.1); RDW-SD 46.1 fL; WBC 8.49 10^3/uL (4.4-10.8)
[2023-03-23] MEDS: Lidocaine 5% Patch 2 PATCH TP (08:16)
[2023-03-23] MEDS: guaiFENesin 600 MG TABCR PO ×2 (08:17→20:42)
[2023-03-23] MEDS: Multivitamin TAB 1 TAB PO (08:17)
[2023-03-23] MEDS: Magnesium Chloride 64 MG TABCR PO (08:17)
[2023-03-23] MEDS: Acetaminophen 500 MG TAB 1000 MG PO ×3 (08:17→20:42)
[2023-03-23] MEDS: predniSONE 20 MG TAB 40 MG PO (08:17)
[2023-03-23] MEDS: Omeprazole 20 MG CAPCR PO ×2 (08:17→15:31)
[2023-03-23] MEDS: Normal Saline Flush 10 ML SYR IVP ×2 (08:18→20:41)
[2023-03-23 08:26] LABS: Anion Gap 14.7 mmol/L (3-11); BUN 34 mg/dL (7-18); CO2 22.3 mmol/L (21.0-32.0); CREATININE 1.8 mg/dL (0.70-1.30); Calcium 9.3 mg/dL (8.5-10.1); Calculated LDL 104 mg/dL (<100); Chloride 103 mmol/L (98-107); Cholesterol 189 mg/dL (<200); Estimated GFR 38.29 (mL/min/1.73m2); Glucose 125 mg/dL (74-106); HDL Cholesterol 64 mg/dL (40-60); Magnesium 2.1 mg/dL (1.8-2.4); Sodium 140 mmol/L (136-145); Triglyceride 107 mg/dL (<150)
[2023-03-23] MEDS: Spironolactone 25 MG TAB PO (09:43)
--- NOTE | 2023-03-23 11:04 | W.SURGCON ---
Date of service: 03/23/23 Time of Service: 18:00 History of Present Illness Narrative: The patient is a 77-year-old man with multiple medical problems that are both acute on chronic. He is here in the hospital because of worsening shortness of breath. He denies chest pain or chest discomfort or chest heaviness. He does get short of breath with any sort of exertion or activity. The hospitalist consulted me to remove fluid from the patient's lungs. I was told verbally that the patient has CHF and that they are concerned that he may also have a pneumonia. There is feeling that he will achieve significant symptom improvement with thoracentesis. His pleural effusions are bilateral. He is not on blood thinners. Bedside, the patient wishes to have the left side done tonight. I told him I only do 1 side at a time. PFSH All Active Problems (Updated 03/23/23 @ 14:46 by Mt Chaves MD) Pain of left great toe (Acute) Acute HFrEF (heart failure with reduced ejection fraction) (Acute) Cardiomyopathy (Acute) Feeling suicidal (Acute) Fracture of transverse process of lumbar vertebra (Acute) Fracture of rib (Acute) Pneumonia (Acute) Pleural effusion (Acute) Cough (Acute) Difficulty breathing (Acute) Anxiety (Chronic) GERD (gastroesophageal reflux disease) (Chronic) Hypertension (Chronic) 02/2021- declines treatment Tobacco use (Chronic) longstanding heavy smoker Dysphagia (Acute) Depression (Chronic) Tinnitus (Acute) Weight loss, unintentional (Acute) COPD (chronic obstructive pulmonary disease) (Chronic) CKD (chronic kidney disease) (Chronic) Hiatal hernia with GERD (Acute) Low back pain with sciatica (Acute) chronic pain syndrome Foot drop, left (Chronic) Foot pain, left (Acute) dorsal aspect growth, ?cyst or bone spur. Medical History AAA (abdominal aortic aneurysm, ruptured) 2016- s/p repair at [facility] Aspiration of liquid Diverticulitis Aortic dissection 2016, s/p repair at [facility], complicated by MRSA sternal wound infection. BPH (benign prostatic hyperplasia) hx TURP Hx MRSA infection Surgical History Hx of hemorrhoidectomy S/P TURP S/P lumbar laminectomy S/P bilateral inguinal herniorrhaphy Status post cataract extraction and insertion of intraocular lens of right eye Hx of skin graft Sternum Hx of transurethral resection of prostate History of back surgery History of tonsillectomy History of hernia repair History of colonoscopy Family History Mother , age 74 Cancer Father , age 64 Heart disease Sister , age 21 Breast cancer Brother No problems noted. Son No problems noted. Son No problems noted. Daughter , 7 months No problems noted. Maternal Grandfather , age 65 Heart disease Paternal Grandfather No problems noted. Maternal Grandmother , age 80? Diabetes Paternal Grandmother , age 85 No problems noted. Social History Smoking/Tobacco Use Status: Current every day Tobacco Type: cigarettes Tobacco: How many years used: 66 Quit status: not considering quitting Second Hand Exposure: Yes Smoking risk assessment performed?: Yes Alcohol Intake: current Alcohol Intake frequency: a few times a week Alcohol type: hard liquor Drug use: Daily Substance use type: marijuana Details: tid Adopted: No Caregiver/Support person: No Foster care: No Housing: other Number of Children: 2 Pets and animals: No Sexually active: No Do you think of yourself as: straight/heterosexual Current gender identity: male What is your relationship status?: How often do you talk on the phone with friends or family?: three or more times per week How often do you get together with friends or relatives?: decline to answer How often do you attend congregational or alevism services?: decline to answer Do you belong to any clubs or organized social groups?: no Panel score (0-1 are the most socially isolated patients): 1 What type of physical activity do you participate in: other Details: firewood Duration: < 15 minutes/day Frequency: daily Sita/Jain: No preference Special sita needs: No Agree to transfusion: Yes Seatbelt use: never Helmet use: No Drive intox 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 transit driver: No Working smoke detector in home: No Carbon monox detector in home: No Firearms in home: Yes Do you feel safe at home: Yes Do you feel safe in your relationship?: Yes Exam Narrative Exam Narrative: General: Nontoxic, nonlabored breathing, having absolutely no respiratory difficulty. He is cachectic appears to be wasting away but is otherwise able to have an easy conversation and moves himself about with ease. Neuro: Alert and oriented x3 Psych: Cooperative mood and affect, good insight and understanding into his conditions Chest: Nonlabored breathing and no wheezing. He is on room air. Results Last Vital Signs Temp 97.7 F 03/23/23 08:05 Pulse 74 03/23/23 08:05 Resp 20 03/23/23 08:05 BP 159/81 H 03/23/23 08:05 Pulse Ox 96 03/23/23 08:05 Labs 03/23/23 07:30 03/23/23 07:30 Labs: Laboratory Results - last 24 hr 03/22/23 03/22/23 03/23/23 05:50 Unknown 07:30 WBC 8.49 RBC 4.80 Hgb 13.4 L Hct 40.7 MCV 85 MCH 27.9 MCHC 32.9 RDW 14.9 H Plt Count 351 MPV 9.7 Sodium 140 Potassium 4.0 Chloride 103 Carbon Dioxide 22.3 Anion Gap 14.7 H BUN 34 H Creatinine 1.8 H Est GFR (CKD-EPI 2020) 38.29 Glucose 125 H Calcium 9.3 Magnesium 2.1 C-Reactive Protein 4.11 H Triglycerides 107 Total Cholesterol 189 LDL Cholesterol, Calc 104 H HDL Cholesterol 64 Procalcitonin 0.1 Add-On Test Request DONE Procedure Procedure and Findings -: Procedure: Ultrasound-guided left thoracentesis Surgeon: Mine Cameron Assist: None Anesthesia: local 1% Lidocaine (10cc) Anesthesiologist: None Indication: Bilateral symptomatic pleural effusions Findings: 700cc transudative, straw-colored fluid offloaded Complications: None Estimated Blood Loss: Minimal Specimens removed: Fluid was sent to the lab Grafts or implants: No Procedure in detail: Written consent was obtained from the patient who was in agreement the risks the benefits and indications for the procedure. The patient was seated and upright and the site was marked by ultrasonography. A timeout was performed. When we were all in agreement we began the procedure. Local anesthetic was injected just over the rib at the left posterior lateral back. A small stab incision was made. The needle/catheter complex was advanced overtop of the rib and pleural fluid was aspirated upon entrance into the chest cavity. The catheter was left in place while the needle was removed. It was attached to vacuum drainage canister. 700cc was removed. The catheter was then removed, there were no complications, a sterile dressing was placed overtop. The sponge, instrument and sharps count was correct x3 at the end of the procedure. The patient tolerated the procedure well.
--- NOTE | 2023-03-23 13:22 | PGE_ITS ---
Date of Service Date of service: 03/23/23 Time of Service: 13:22 Assessment and Plan Assessment and plan (1) Pneumonia: Status: Acute Assessment and plan: patient has infiltrates both on CT scan as well as on lung ultrasound and he presented w/ increased cough, dyspnea, leukocytosis and infiltrates but normal procalcitonin. He has been on ceftriaxone and azithromycin along w/ prednisone and bronchodilators. However, his bigger problem seems to be newly diagnosed CHF probably d/t long standing HTN which has not been treated for years, despite his hx of TAA dissection and repair. Professional time spent interviewing and examining patient, discussion of goals of care with hospital team (care management, nursing and consulting professionals) was 45 minutes. Qualifiers: Pneumonia type: due to unspecified organism Laterality: bilateral Lung location: unspecified part of lung Qualified Code(s): J18.9 - Pneumonia, unspecified organism (2) Respiratory failure: Status: Suspected Assessment and plan: multifactorial including COPD, pneumonia but more significant is his newly diagnosed CHF. I have asked Dr. Michael Cameron to perform thoracentesis to help w/ his dyspnea. He has large bilateral pleural effusions. I will continue iv lasix , add iv diuril and po spironolactone. Qualifiers: Chronicity: acute Respiratory failure complication: unspecified whether with hypoxia or hypercapnia Qualified Code(s): J96.00 - Acute respiratory failure, unspecified whether with hypoxia or hypercapnia (3) Acute HFrEF (heart failure with reduced ejection fraction): Status: Acute Assessment and plan: will get formal echo tomorrow. POCUS exam yesterday demonstrated LVH, RVH and dilated LV and diffusely hypokinetic LV. he has biatrial enlargement and severe MR and severe AI (4) Cardiomyopathy: Status: Acute Assessment and plan: likely d/t HTN along w/ valvular heart disease although he ought to have cardiac cath to rule out CAD. Qualifiers: Cardiomyopathy type: non-obstructive hypertrophic Qualified Code(s): I42.2 - Other hypertrophic cardiomyopathy (5) Fracture of transverse process of lumbar vertebra: Status: Acute Assessment and plan: continue oxycodone, topical voltaren gel and lidoderm patches. Not able to use NSAID d/t CKD Qualifiers: Encounter type: initial encounter Fracture type: closed Qualified Code(s): S32.009A - Unspecified fracture of unspecified lumbar vertebra, initial encounter for closed fracture (6) Fracture of rib: Status: Acute Assessment and plan: left 11th and 12th ribs, I spoke w/ Peggy Merchant CRNA today. She feels that the ribs are too low to safely perform a nerve block so we will treat w/ pain medications (oral narcotics and topical) Qualifiers: Encounter type: initial encounter Rib fracture type: single rib Fracture type: closed Laterality: left Qualified Code(s): S22.32XA - Fracture of one rib, left side, initial encounter for closed fracture (7) Hypertension: Status: Chronic Assessment and plan: patient was begun on metoprolol 25 mg q6h, he is also on lasix drip (which I will convert to scheduled ivp doses) and diuril, I will add amlodipine and hydralazine to his regimen and titrate his metoprolol dose as tolerated. Qualifiers: Hypertension type: primary hypertension Qualified Code(s): I10 - E ssential (primary) hypertension (8) Feeling suicidal: Status: Acute Assessment and plan: patient had expressed SI on admission while in the ED but mental health screener has cleared him. His expressions are verbalization over his frustration at not being able to do his own activities for himself d/t his breathing problems. (9) Tobacco use: Status: Chronic Assessment and plan: nicotine patches. patient needs to quit smoking in light of his chronic bronchitis and his PAD. (10) COPD (chronic obstructive pulmonary disease): Status: Chronic Assessment and plan: continue Anora Ellipta along w/ scheduled Xopenx aerosols, antibiotics for pneumonia, pulmonary toiletry. Will give one time dose of dexamethasone and put on daily prednisone 40 mg x 5 days. This may also help w/ his back pain. Qualifiers: COPD type: chronic bronchitis Chronic bronchitis type: unspecified Qualified Code(s): J42 - Unspecified chronic bronchitis (11) CKD (chronic kidney disease): Status: Chronic Assessment and plan: stable, monitor and avoid NSAID or other nephrotoxins Qualifiers: Chronic kidney disease stage: stage 3 (moderate) Chronic kidney disease stage 3 subtype: stage 3b (GFR 30-44) Qualified Code(s): N18.32 - Chronic kidney disease, stage 3b (12) Foot drop, left: Status: Chronic Assessment and plan: patient should have outpatient follow up regarding this. Patient has attributed this to his dissecting aortic aneurysm. (13) Pain of left great toe: Status: Acute Assessment and plan: He appears to have evidence of atheroembolic splinter hemorrhages to his left great toe. I think that he has this from her TAA/AAA, he should be considered for anticoagulation but I have held off as he should have thoracentesis first. His renal function is too poor to perform abdominal CTA w/ lower extremities run off. I will check ROSIBEL on his legs. Subjective Subjective Interval history since last seen: Patient states that he did not sleep well last night d/t having to void through the night. When he did fall asleep, he though he was back at his cabin in [place]. He is less dyspneic this moring although he is still very anxious. I asked him about going on something for anxiety. He has had lorazepam in the past but not been tried on Sertraline. As for his CHF and pleural effusions, I have spoken w/ Dr. Michael Cameron about performing a thoracentesis. He indicated that he will see the patient later today and will set him up for thoracentesis tomorrow. Exam Narrative Exam Narrative: Gerhard is very anxious, talkative but in no acute pain, however w/ prolonged conversation he does get dyspneic Lungs: bilateral rales w/ diminished breath sounds at the bases bilaterally, no rhonchi or wheezing Heart: RRR, w/ systolic murmur over apex Abdomen: scaphoid, nontender, nondistended Extremities: 1+ pitting ankle edema, he has splinter hemorrhage over the dorsum of his left foot and at the tip of his great toe. Objective Last Vital Signs Temp 37.1 C 03/23/23 11:25 Pulse 93 H 03/23/23 11:50 Resp 20 03/23/23 11:50 BP 173/87 H 03/23/23 11:25 Pulse Ox 98 03/23/23 11:50 Laboratory Results - last 24 hr 03/22/23 03/22/23 03/23/23 05:50 Unknown 07:30 WBC 8.49 RBC 4.80 Hgb 13.4 L Hct 40.7 MCV 85 MCH 27.9 MCHC 32.9 RDW 14.9 H Plt Count 351 MPV 9.7 Sodium 140 Potassium 4.0 Chloride 103 Carbon Dioxide 22.3 Anion Gap 14.7 H BUN 34 H Creatinine 1.8 H Est GFR (CKD-EPI 2020) 38.29 Glucose 125 H Calcium 9.3 Magnesium 2.1 C-Reactive Protein 4.11 H Triglycerides 107 Total Cholesterol 189 LDL Cholesterol, Calc 104 H HDL Cholesterol 64 Procalcitonin 0.1 Add-On Test Request DONE PAWSS Have you Been Recently Intoxicated or Drunk Within the Last 30 days?: No Have you Ever Experienced Previous Episodes of Alcohol Withdrawal?: No Have you ever Experienced Withdrawal Seizures?: Yes Have you ever Experienced Delirium Tremens(DT)s?: No Have you ever undergone Alcohol Rehabilitation Treatment (i.e, inpt ot outpatient treatment programs)?: No Have you ever Experienced Blackouts?: No Have you ever Combined Alcohol with other Downers within the last 90 days?: No Have you ever Combined Alcohol with any other Substance of Abuse during the last 90 days?: Yes Positive Blood Alcohol level on Presentation? [PCS.BAL]: No Evidence of Increased Autonomic Activity (i.e. HR>120, tremor, sweating, agitation, nausea)?: No Result: 3 Time Spent with Patient Time Spent with Patient: 35-49 minutes Time was spent: preparing to see the patient(eg.review tests), ordering medications,tests, procedures, referring, communicating with other health administrator health care facility (Dr. Michael Cameron, surgeon), indepentently interpreting results, counseling the patient and care coordination
--- NOTE | 2023-03-23 13:29 | PT.INIE ---
PT Notes Visit Reasons: Multiple focal pneumonia, Rib fracture, Transverse Inpatient Physical Therapy Evaluation Date: [03/23/2023] Referring Doctor: Vin Sheridan PT Orders: PT CONSULT: evaluate for PT needs Precautions: standard Patient Profile/Admitting Diagnosis: Pneumonia Pt is a 77 yo male presenting to ED on 03/21/2023 with c/o SOB x2-3 weeks and progressively worsening. He also reports a fall 2 weeks ago onto his back left side. CT scan reveals Fx left L2 transverse process, left rib 12 fx, Healing left rib 11 fx. He states that he is very weak, starts coughing and SOB with any activity, perseverant over sore/ulcer on left foot/toe, drop foot on left, pt reports hx of weakness on left side. He is a smoker, has COPD,CKD, s/p Aortic dissection. PMHX: []All Active Problems (Updated 03/22/23 @ 01:28 by Vin Sheridan) Feeling suicidal (Acute) Fracture of transverse process of lumbar vertebra (Acute) Fracture of rib (Acute) Pneumonia (Acute) Respiratory failure (Acute) Pleural effusion (Acute) Cough (Acute) Difficulty breathing (Acute) Anxiety (Chronic) GERD (gastroesophageal reflux disease) (Chronic) Hypertension (Chronic) 02/2021- declines treatmentTobacco use (Chronic) longstanding heavy smokerDysphagia (Acute) Depression (Chronic) Tinnitus (Acute) Weight loss, unintentional (Acute) COPD (chronic obstructive pulmonary disease) (Chronic) CKD (chronic kidney disease) (Chronic) Hiatal hernia with GERD (Acute) Low back pain with sciatica (Acute) chronic pain syndromeFoot drop, left (Chronic) Foot pain, left (Acute) dorsal aspect growth, ?cyst or bone spur. Medical History AAA (abdominal aortic aneurysm, ruptured) 2016- [facility] Divert[facility] Aortic dissection 2016, s/p repair at [facility], complicated by MRSA sternal wound infection.BPH (benign prostatic hyperplasia) hx TURPHx MRSA infection Surgical History Hx of hemorrhoidectomy S/P TURP S/P lumbar laminectomy S/P bilateral inguinal herniorrhaphy Status post cataract extraction and insertion of intraocular lens of right eye Hx of skin graft SternumHx of transurethral resection of prostate History of back surgery History of tonsillectomy History of hernia repair History of colonoscopy Social History/Home Situation: He states he is too weak and SOB to be able to live in his cabin where he has to manage his wood stove. He lives alone, has hill to get to relative, he states that he does not keep his place clean as he is in too much pain by the end of the day. He reports using a SPC when out in the community but not at home or on his property. Current Functional Limitations: Pain (chronic) with standing, walking not feeling like he can tolerate standing or walking Equipment Owned/DME: SPC Subjective: I don't think I should do much because it makes me SOB and cough. Pt. agrees to work with PT as we discuss that doing some movement would be good for his ulcer and for his SOB/pneumonia. Objective: General Observation: Pt in bed with IV attached to right UE. Mental Status: A and O x4, He states that he is independent and likes to do things his way and the he doesn't know how he will manage his heating as he gets tired and increased pain when he does standing and walking. Pain: chronic 5-12/19 Vital Signs:Pre-Rx BP 173/87 HR 92 O2 92, slightly SOB post treatment, no cough ROM: Right Upper Extremity: WFL Left Upper Extremity: WFL Right Lower Extremity: WFL Left Lower Extremity: WFL except left foot DF -10 Strength: Right Upper Extremity: WFL Left Upper Extremity: WFL Right Lower Extremity: WFL Left Lower Extremity: WFL except left DF 1/5 Sensation: reports general decreased sensation both LE especially left foot Bed Mobility/Transfers: Supine to sit Indep Sit to stand Bed to RW Supervision Needs v/c for hand placement and safety, impulsive Stand to sit RW to bed Supervision Needs v/c for hand placement and safety, impulsive Sit to stand Chair to RW Supervision Needs v/c for hand placement and safety, impulsive Stand to sit RW to chair Supervision Needs v/c for hand placement and safety, impulsive Gait: Ambulates with RW supervision with v/c for pacing and positioning of walker from bed to chair 6', and unwilling to do more, unable to assess ambulation with SPC Balance: Static Sitting: good Dynamic Sitting: good Static Standing: fair (likely due to hx of drop foot left) Dynamic Standing: poor Special Tests: Mobility Limitations Standardized Measure [facility] AM-PAC 6 clicks Basic Mobility Inpatient Short Form: Raw Score: 21 CMS Score: 32.79 Informed Consent/Education: Patient instructed in purpose of PT consult and plan of care. Treatment: [id number] 8' Therapeutic Activity Repeated sit to stand x5 practicing proper hand placement and slower Ambulation with RW again needing v/c for safety and maintaining walker in proper positioning Leg extension x10, seated bicycling hip flexion, knee flexion and extension Will benefit from standing exercises to improve LE strength, endurance and balance but suggest in flexed position to avoid increased pain in the back. Also recommend functional movement activity such as repeated sit to stand, ambulation with RW for progressive increased distances and use of cane for shorter distances(did not assess use of cane today) Advised when he goes home to maintain his ambulation using RW to accommodate for increased back pain with standing and walking. Assessment: Patient is a 77 year old male referred to physical therapy services with the diagnosis of pneumonia. Patient presents with clinical signs and symptoms consistent with pneumonia, SOB, drop foot, as demonstrated by the following impairment level findings: Decreased tolerance to standing, ambulating, increased risk of falling. Impairments are contributing to the following functional limitations: AMPAC score. Patient is assessed as a Low 92725 complexity based on the following: History: as above Examination: as above Presentation: stable Decision Making: low Goals: Goals X1 week 1. Supine-Sit I 2. Sit-Supine I 3. Sit-Stand I 4. Stand-Sit I 5. Bed-Chair I 6. Chair-Bed I 7. Gait indep with SPC and with RW 8. Stairs I 9. Independent with home exercise program 10. Balance fair or> standing static and dynamic 11. Increased endurance able to ambulate 50-100' Plan of Care/Treatment Plan: 1-2x/day, 7 days/week x 1 week. Plan of care has been reviewed with the FREEZING ROOM WORKER providing the service under Physical Therapy direction. Initiate Physical Therapy intervention for strengthening, safe transfers, safe gait, stairs, balance training, endurance, use of assistive device. DISCHARGE RECOMMENDATIONS: Home with no services TREATMENT CODE/TIME: 05161, 14535(8min) 11:20-11:45 25'
[2023-03-23] MEDS: Furosemide 100 MG/10 ML VIAL 80 MG IVP ×2 (14:11→20:47)
[2023-03-23] MEDS: Azithromycin 250 MG TAB 500 MG PO (15:04)
[2023-03-23] MEDS: Sertraline 50 MG TAB PO (15:05)
[2023-03-23] MEDS: Aspirin 81 MG CHEW 324 MG CH (15:30)
[2023-03-23] MEDS: amLODIPine 5 MG TAB PO (15:31)
[2023-03-23] MEDS: hydrALAZINE 10 MG TAB PO ×2 (15:31→20:42)
--- NOTE | 2023-03-23 15:44 | NUR.NOTE ---
ROSIBEL results. No number calculations given on machine, Message of possibility of severe PAD or incompressible arteries. Nursing Note:
[2023-03-23 17:30] LABS: Legionella Ag Detection Urine Negative (Negative)
--- NOTE | 2023-03-23 18:00 | PAPNONF_PTH ---
PATIENT: Gerhard Monge LOC: U#:[id number] AGE/SX: 77/M ROOM: 228 RE03/22/[address]: Vin Sheridan : 1945 BED: A DIS: 03/26/2023 SPEC #: [id number] RECD: 03/24/23 13:12 STATUS: CATHY REQ #: [id number] ODELL: 03/23/23 18:[address]: Vin Sheridan DEPT: FA Cytology RECD BY: Ginny Payne ENTERED: 03/24/23 13:13 SP TYPE: CASSANDRA MOSCOSO DR: Sosa Daniel, EMBEDDED SOFTWARE TEST ENGINEER Richie Cameron Anesthesia, Consult InPatient [facility] Tissues: 1 - BODY FLUID CYTO(NOT S/U/N/EM)[facility] Procedures: BODY FLUID CYTO(NOT SPU/UR/NIP/ENDOM)[facility] Comments: [id number] (TV = 575 ml, SENT FRESH) (REFRIGERATED)
[2023-03-23] MEDS: Metoprolol 25 MG TAB 37.5 MG PO ×2 (18:11→23:32)
[2023-03-23] MEDS: Nicotine 21 MG/24 HR PATCH TD (19:07)
[2023-03-23 19:16] LABS: Source: Pleural
[2023-03-23 19:52] LABS: Clarity Cloudy; Nucleated Cells 20 uL (0); Source Pleural
[2023-03-23 19:53] LABS: Mononuclear Cells 44 %; Polynuclear Cells 56 %
[2023-03-23] MEDS: cefTRIAXone 2 GM/50 ML BAG IVPB (20:39)
[2023-03-23] MEDS: Atorvastatin 40 MG TAB PO (20:41)
[2023-03-23] MEDS: Melatonin 3 MG TAB 6 MG PO (20:42)
[2023-03-23] MEDS: Patch Removal 2 EACH TP (20:45)
[2023-03-23] MEDS: Diclofenac 1% Gel 100 GM TUBE TP (20:46)
[2023-03-24] VITALS (10 sets, daily range): BP systolic 116–153; BP diastolic 53–71; PULSE 54–70; RESP 2–22; TEMP 36.5–37; O2SAT 94–99
--- NOTE | 2023-03-24 | DI.US_ITS ---
APPROVED REPORT EXAM: Comprehensive 2D, Doppler, and color-flow Echocardiogram Patient Location: In-Patient Room/Bed: 228 Director Of Market Intelligence: Anni Pope RDCS (AE) Indications: SOB, Elevated BNP, HTN, COPD Other Information Study Quality: Adequate. Technically limited study due to body habitus, inability to position patient exam done supine bedside. Conclusion Normal left ventricular wall thickness and chamber size. Ejection fraction is 50- 55%. Wall motion is normal Normal right ventricular size and systolic function Left atrium is moderately dilated Right atrium is borderline dilated Aortic valve is trileaflet and sclerotic with moderate regurgitation. There is no aortic stenosis Thickened mitral leaflets with mild to moderate regurgitation Normal tricuspid valve with trace to mild regurgitation. Estimated right ventricular systolic pressu re is 31 mmHg Trivial pericardial effusion Wall motion Left Ventricle The left ventricle is normal size. Left ventricular systolic function is low normal. There is normal left ventricular wall thickness. There is normal LV segmental wall motion. There is no ventricular se ptal defect visualized. LVEF is 50-55%. Right Ventricle Right ventricle is normal in size Right ventricular systolic function is grossly normal. Atria Left atrium is moderately dilated. Right atrium is borderline dilated. The interatrial septum is inta ct with no evidence for an atrial septal defect. Aortic Valve The Aortic valve is sclerotic. Aortic valve is trileaflet. There is no aortic valvular stenosis. Mode rate aortic regurgitation. Mitral Valve Mitral valve leaflets are thickened. No evidence of mitral valve stenosis. Mild to moderate mitral r egurgitation. Tricuspid Valve The tricuspid valve is normal in structure. There is no tricuspid valve stenosis. Trace to mild tricu spid regurgitation. The RVSP is 30.6mmHg. Pulmonic Valve The pulmonary valve is normal in structure. There is no pulmonic valvular stenosis. Trace pulmonic re gurgitation. Great Vessels Aortic root is mildly dilated. Ascending aorta is not well visualized. Aortic arch is normal in rudy jose. The IVC collapses <50% with inspiration. Pericardium Trivial circumferential pericardial effusion. 2D Dimensions IVSD d PLAX 0.98 cm M: 0.6-1.2 Ao Root d 3.92 cm M: 3.1 - 3.7 LVPW d PLAX 1.04 cm M: 0.6 - 1.2 LVID d PLAX 5.47 cm M: 4.2 - 5.8 LVDs 4.01 cm M: 2.5 - 4.0 LV EF Teichholz 51.6 % FS 26.67 % LV EDV (Teich) 145.4 mL LV ESV (Teich) 70.4 mL M-Mode TAPSE 1.89 cm (M/F) >1.7 Auto EF LV EDV A4C 137.4 mL LV EDV A2C 157.7 mL LV EDV BP 144.6 mL LV ESV A4C 63.0 mL LV ESV A2C 87.6 mL LV ESV BP 73.3 mL LVEF(%) A4C 54.1 % LVEF(%) A2C 44.5 % LVEF(%) BP 49.3 % LV SV A4C 74.3 ml LV SV A2C 70.1 ml LV SV BP 71.2 ml LV CO A4C 4.7 L/min LV CO A2C 4.3 L/min LV CO BP 4.5 L/min HR A4C 63.50 BPM HR A2C 61.86 BPM LV EDV Index (BP) LV Strain Long Pk Overal Avg (s) 13.96 RV Strain Global Peak Long. Strain A4C 15.87 Global Peak Long. Strain A4C FW 19.83 LA Volume LA Length A4C 5.5 cm LA Length A2C 5.8 cm LA Area A4C s 23.38 cm2 LA Area A2C s 21.10 cm2 LA Vol A4C A-L 84.41 mL LA Vol A2C A-L 65.61 mL LA Vol Biplane A-L 76.2 mL LA Vol/BSA A4C A-L LA Vol/BSA A2C A-L LA Vol/BSA BP A-L 45.9 mL/m2 LA Vol A4C MOD 76.8 mL LA Vol A2C MOD 61.6 mL LA Vol BP MOD 70.1 mL RA Volume RA Area A4C 13.7 cm2 RA ESV A4C (A-L) 29.9mL RA Vol/BSA A4C A-L RA Length A4C 5.3 cm RA ESV A4C (MOD) 29.3mL LV Diastology MV E' medial 0.051 (>0.07 m/s) MV E Vmax 0.81 (0.4-1.3 m/s) MV E/E' MED 15.86 (<14) MV A Vmax 0.65 (0.4-1.3 m/s) MV E' lateral 0.103 (>0.1 m/s) E/A Ratio 1.2 MV E/E' LAT 7.86 (<14) MV E' Average 0.077 m/s MV E/E'(average) 10.51 Aortic Valve AoV Vmax 1.36 m/s LVOT Vmax 1.11 m/s AoV Peak Grad 32.3 mmHg LVOT Peak Grad 4.9 mmHg AoV Area (Vmax) 2.71 cm2 LVOT VTI 0.254 m AoV VTI 0.309 m LVOT Mean Grad 2.6 mmHg AoV Mean Girma. 0.89 m/s LVOT SV 84.39 mL AoV Mean Grad 3.8 mmHg LVOT Diam s 2.05 cm AoV Area (VTI) 2.73 cm2 AV Regurg Peak Gr. 57.20 mmHg Velocity Ratio 0.82 AR Decel [place] 1.9m/sec2 AR DT 1960 msec AR PHT 568 msec AR Vmax 3.78 m/s Mitral Valve MV DT 351 (160-240 msec) MV Vmax TIPS 0.82 m/s MV Mean Grad 0.9 (<2mmHg) MV VTI 0.264 m Pulmonary Valve PV Vmax 0.76 (0.5-1.5 m/s) RVOT Vmax 0.73 m/s PV Peak Grad 2.3 mmHg RVOT Peak Gr. 2.1 mmHg PV Mean Girma 0.56 m/s RVOT VTI 0.127 m PV Mean Grad 1.4 mmHg RVOT Mean Gr. 1.0 mmHg Tricuspid Valve RA Pressure 8.00 mmHg TR Vmax 2.38 m/s TV S' 0.13 m/s TR Peak Grad 22.6 mmHg RVSP (TR) 30.6 mmHg
[2023-03-24] MEDS: oxyCODONE 5 MG TAB 15 MG PO ×3 (03:36→20:13)
[2023-03-24] MEDS: Metoprolol 25 MG TAB 37.5 MG PO ×4 (05:46→23:12)
[2023-03-24 06:33] LABS: Abs Immature Grans 0.03 10^3/uL (0.0-0.06); Absolute Basophil Count 0.03 10^3/uL (0.0-0.2); Absolute Eosinophil Count 0.01 10^3/uL (0.0-0.7); Absolute Lymphocyte Count 1.82 10^3/uL (1.2-3.4); Absolute Monocyte Count 1.18 10^3/uL (0.1-0.8); Absolute Neutrophil Count 9.77 10^3/uL (1.2-6.7); Basophils % 0.2; Eosinophils % 0.1; HCT 39.8 % (40.0-50.0); HGB 13.3 g/dL (13.5-17.5); Immature Grans % 0.2; Lymphocytes % 14.2; MCH 28.6 pg (27.0-33.0); MCHC 33.4 % (32.0-36.0); MCV 86 fL (80-95); Monocytes % 9.2; Neutrophils % 76.1; Platelet Count 317 10^3/uL (130-400); RBC 4.65 10^6/uL (4.36-5.78); RDW 14.8 % (11.8-14.1); RDW-SD 46.3 fL; WBC 12.84 10^3/uL (4.4-10.8)
[2023-03-24 06:49] LABS: Anion Gap 10.2 mmol/L (3-11); BUN 43 mg/dL (7-18); CO2 27.8 mmol/L (21.0-32.0); Calcium 9.2 mg/dL (8.5-10.1); Chloride 101 mmol/L (98-107); Estimated GFR 33.74 (mL/min/1.73m2); Glucose 103 mg/dL (74-106); Magnesium 2.1 mg/dL (1.8-2.4); Potassium 3.5 mmol/L (3.5-5.1); Sodium 139 mmol/L (136-145)
[2023-03-24] MEDS: amLODIPine 5 MG TAB PO (08:01)
[2023-03-24] MEDS: Lidocaine 5% Patch 2 PATCH TP (08:01)
[2023-03-24] MEDS: Omeprazole 20 MG CAPCR PO ×2 (08:01→15:34)
[2023-03-24] MEDS: Magnesium Chloride 64 MG TABCR PO (08:01)
[2023-03-24] MEDS: Azithromycin 250 MG TAB 500 MG PO (08:01)
[2023-03-24] MEDS: guaiFENesin 600 MG TABCR PO ×2 (08:01→20:13)
[2023-03-24] MEDS: Multivitamin TAB 1 TAB PO (08:01)
[2023-03-24] MEDS: Sertraline 50 MG TAB PO (08:03)
[2023-03-24] MEDS: predniSONE 20 MG TAB 40 MG PO (08:03)
[2023-03-24] MEDS: Aspirin E.C. 81 MG TABEC PO (08:03)
[2023-03-24] MEDS: Acetaminophen 500 MG TAB 1000 MG PO ×3 (08:03→20:13)
[2023-03-24] MEDS: hydrALAZINE 10 MG TAB PO ×4 (08:03→20:13)
[2023-03-24] MEDS: Levalbuterol 1.25 MG/3 ML UPD VIAL UPD ×4 (08:15→20:28)
[2023-03-24] MEDS: Tiotropium/Olodaterol 10 PUFF INHALER 2 PUFF IH (08:15)
--- NOTE | 2023-03-24 11:53 | PDOC.CMIN ---
Date of service: 03/24/23 Time of Service: 11:53 Care Management Initial Assmt Initial Assessment REASON FOR HOSPITALIZATION:: Pneumonia PREVIOUS FUNCTIONAL STATUS/SOCIAL/FAMILY SUPPORTS:: Donis lives in [place] in [place]. His brother Darren lives just below him and is very helpful and supportive. Donis has 2 grown children; a third child is . Donis is independent at baseline however has been getting weaker and is finding it more difficult to perform all of the chores his life style requires. CURRENT FUNCTIONAL STATUS:: CM was unable to meet with Donis in person today. Dr. Luna was preparing to do a thoracentesis the first time CM attempted to meet with Donis and he was sound asleep the second time. ADVANCE DIRECTIVES:: On file. [facility]ral[facility] Has patient been provided with info about the portal/API?: Yes Did the patient sign up for the portal?: Yes CODE STATUS:: DNR/DNI INSURANCE COVERAGE / FINANCIAL ISSUES:: Medicare Medicaid CURRENT HOME/COMMUNITY SERVICES/EQUIPMENT:: none PRIMARY CARE PHYSICIAN:: Avril Balderas POTENTIAL DISCHARGE NEEDS:: Follow up with PCP and plan of care PATIENT/FAMILY EDUCATION NEEDS:: review of discharge instructions, activity, limitations, follow up plan, discuss Ask Me Three TRANSPORTATION:: via private vehicle with family PLAN:: Anticipate Donis will be discharged home, possibly with new home health services. He will follow up with his PCP and plan of care and transport with family. CM will follow and assess for discharge needs, PFSH All Active Problems (Updated 03/23/23 @ 14:46 by Mt Chaves MD) Pain of left great toe (Acute) Acute HFrEF (heart failure with reduced ejection fraction) (Acute) Cardiomyopathy (Acute) Feeling suicidal (Acute) Fracture of transverse process of lumbar vertebra (Acute) Fracture of rib (Acute) Pneumonia (Acute) Pleural effusion (Acute) Cough (Acute) Difficulty breathing (Acute) Anxiety (Chronic) GERD (gastroesophageal reflux disease) (Chronic) Hypertension (Chronic) 02/2021- declines treatment Tobacco use (Chronic) longstanding heavy smoker Dysphagia (Acute) Depression (Chronic) Tinnitus (Acute) Weight loss, unintentional (Acute) COPD (chronic obstructive pulmonary disease) (Chronic) CKD (chronic kidney disease) (Chronic) Hiatal hernia with GERD (Acute) Low back pain with sciatica (Acute) chronic pain syndrome Foot drop, left (Chronic) Foot pain, left (Acute) dorsal aspect growth, ?cyst or bone spur. Medical History AAA (abdominal aortic aneurysm, ruptured) 2016- s/p repair at [facility] Aspiration of liquid Diverticulitis Aortic dissection 2016, s/p repair at [facility], complicated by MRSA sternal wound infection. BPH (benign prostatic hyperplasia) hx TURP Hx MRSA infection Surgical History Hx of hemorrhoidectomy S/P TURP S/P lumbar laminectomy S/P bilateral inguinal herniorrhaphy Status post cataract extraction and insertion of intraocular lens of right eye Hx of skin graft Sternum Hx of transurethral resection of prostate History of back surgery History of tonsillectomy History of hernia repair History of colonoscopy Family History Mother , age 74 Cancer Father , age 64 Heart disease Sister , age 21 Breast cancer Brother No problems noted. Son No problems noted. Son No problems noted. Daughter , 7 months No problems noted. Maternal Grandfather , age 65 Heart disease Paternal Grandfather No problems noted. Maternal Grandmother , age 80? Diabetes Paternal Grandmother , age 85 No problems noted. Social History Smoking/Tobacco Use Status: Current every day Tobacco Type: cigarettes Tobacco: How many years used: 66 Quit status: not considering quitting Second Hand Exposure: Yes Smoking risk assessment performed?: Yes Alcohol Intake: current Alcohol Intake frequency: a few times a week Alcohol type: hard liquor Drug use: Daily Substance use type: marijuana Details: tid Adopted: No Caregiver/Support person: No Foster care: No Housing: other Number of Children: 2 Pets and animals: No Sexually active: No Do you think of yourself as: straight/heterosexual Current gender identity: male What is your relationship status?: How often do you talk on the phone with friends or family?: three or more times per week How often do you get together with friends or relatives?: decline to answer How often do you attend restoration or anabaptist services?: decline to answer Do you belong to any clubs or organized social groups?: no Panel score (0-1 are the most socially isolated patients): 1 What type of physical activity do you participate in: other Details: firewood Duration: < 15 minutes/day Frequency: daily Sita/Tenriism: No preference Special sita needs: No Agree to transfusion: Yes Seatbelt use: never Helmet use: No Drive intox 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 drivers' cash clerk: No Working smoke detector in home: No Carbon monox detector in home: No Firearms in home: Yes Do you feel safe at home: Yes Do you feel safe in your relationship?: Yes
--- NOTE | 2023-03-24 13:21 | PGE_ITS ---
Date of Service Date of service: 03/24/23 Time of Service: 13:21 Assessment and Plan Assessment and plan (1) Pneumonia: Status: Acute Assessment and plan: -patient has infiltrates both on CT scan as well as on lung ultrasound and he presented w/ increased cough, dyspnea, leukocytosis and infiltrates but normal procalcitonin. -He has been on ceftriaxone and azithromycin along w/ prednisone and bronchodilators. Qualifiers: Laterality: bilateral Lung location: unspecified part of lung Pneumonia type: due to unspecified organism Qualified Code(s): J18.9 - Pneumonia, unspecified organism (2) Respiratory failure: Status: Suspected Assessment and plan: -multifactorial including COPD, pneumonia and moderate aortic stenosis -s/p left thoracentesis with Dr. Michael Cameron on 03/23. -He has large bilateral pleural effusions. -had been on iv lasix , add iv diuril and po spironolactone. -will discontinue IV diuril and spironolactone and change lasix from IV to PO 10mg starting AM 03/25 Qualifiers: Chronicity: acute Respiratory failure complication: unspecified whether with hypoxia or hypercapnia Qualified Code(s): J96.00 - Acute respiratory dana lure, unspecified whether with hypoxia or hypercapnia (3) Acute HFrEF (heart failure with reduced ejection fraction): Status: Acute Assessment and plan: -TTE showed EF 50-55% with normal wall motion and moderate aortic regurg -treat with diuretics as noted above (4) Cardiomyopathy: Status: Acute Assessment and plan: -likely d/t HTN along w/ valvular heart disease although he ought to have cardiac cath to rule out CAD. Qualifiers: Cardiomyopathy type: non-obstructive hypertrophic Qualified Code(s): I42.2 - Other hypertrophic cardiomyopathy (5) Fracture of transverse process of lumbar vertebra: Status: Acute Assessment and plan: -continue oxycodone, topical voltaren gel and lidoderm patches. -Not able to use NSAID d/t CKD Qualifiers: Encounter type: initial encounter Fracture type: closed Qualified Code(s): S32.009A - Unspecified fracture of unspecified lumbar vertebra, initial encounter for closed fracture (6) Fracture of rib: Status: Acute Assessment and plan: -left 11th and 12th ribs, -previous physician spoke with Peggy Merchant CRNA today. She feels that the ribs are too low to safely perform a nerve block so we will treat w/ pain medications (oral narcotics and topical) Qualifiers: Encounter type: initial encounter Fracture type: closed Laterality: left Rib fracture type: single rib Qualified Code(s): S22.32XA - Fracture of one rib, left side, initial encounter for closed fracture (7) Hypertension: Status: Chronic Assessment and plan: -patient was begun on metoprolol 25 mg q6h, was also on lasix drip and now on PO starting AM 03/25 Qualifiers: Hypertension type: primary hypertension Qualified Code(s): I10 - Essential (primary) hypertension (8) Feeling suicidal: Status: Acute Assessment and plan: -patient had expressed SI on admission while in the ED but mental health screener has cleared him. -His expressions are verbalization over his frustration at not being able to do his own activities for himself d/t his breathing problems. (9) Tobacco use: Status: Chronic Assessment and plan: -nicotine patches. patient needs to quit smoking in light of his chronic bronchitis and his PAD. (10) COPD (chronic obstructive pulmonary disease): Status: Chronic Assessment and plan: -continue Anora Ellipta along w/ scheduled Xopenx aerosols, antibiotics for pneumonia, pulmonary toiletry. -s/p one time dose of dexamethasone and put on daily prednisone 40 mg x 5 days. This may also help w/ his back pain. Qualifiers: COPD type: chronic bronchitis Chronic bronchitis type: unspecified Qualified Code(s): J42 - Unspecified chronic bronchitis (11) CKD (chronic kidney disease): Status: Chronic Assessment and plan: -stable, monitor and avoid NSAID or other nephrotoxins Qualifiers: Chronic kidney disease stage: stage 3 (moderate) Chronic kidney disease stage 3 subtype: stage 3b (GFR 30-44) Qualified Code(s): N18.32 - Chronic kidney disease, stage 3b (12) Foot drop, left: Status: Chronic Assessment and plan: -patient should have outpatient follow up regarding this. Patient has attributed this to his dissecting aortic aneurysm. (13) Pain of left great toe: Status: Acute Assessment and plan: -He appears to have evidence of atheroembolic splinter hemorrhages to his left great toe. -may be from TAA/AAA, he should be considered for anticoagulation but I have held off as he should have thoracentesis first. -His renal function is too poor to perform abdominal CTA w/ lower extremities run off. Subjective Subjective Interval history since last seen: Patient states that he feels significantly better after substantial urine output overnight and his thoracentesis yesterday. Exam Narrative Exam Narrative: Cachectic appearing older gentleman sitting up in bed in no acute distress, AOx4, heart RRR, lungs clear on the left with diminished breath sounds on the right, abdomen soft, non-tender, non-distended Objective Last Vital Signs Temp 97.9 F 03/24/23 11:35 Pulse 68 03/24/23 12:42 Resp 22 03/24/23 11:35 BP 149/64 H 03/24/23 11:35 Pulse Ox 99 03/24/23 12:42 Laboratory Results - last 24 hr 03/23/23 03/23/23 03/23/23 10:45 18:00 18:00 WBC RBC Hgb Hct MCV MCH MCHC RDW Plt Count MPV Immature Gran % Neutrophils % Lymphocytes % Monocytes % Eosinophils % Basophils % Nucleated RBC % Absolute Neutrophils Absolute Lymphocytes Absolute Monocytes Absolute Eosinophils Absolute Basophils Sodium Potassium Chloride Carbon Dioxide Anion Gap BUN Creatinine Est GFR (CKD-EPI 2020) Glucose Calcium Magnesium Total Protein Fluid Source Pleural Pleural Fluid Color Yellow Fluid Clarity Cloudy Fluid pH 7.0 Fluid WBC 20 Fld Polynuclear WBCs % 56 Fluid Mononuclear Cell 44 Urine Legionella Ag Negative 03/23/23 03/24/23 18:59 06:15 WBC 12.84 H RBC 4.65 Hgb 13.3 L Hct 39.8 L MCV 86 MCH 28.6 MCHC 33.4 RDW 14.8 H Plt Count 317 MPV 10.0 Immature Gran % 0.2 Neutrophils % 76.1 Lymphocytes % 14.2 Monocytes % 9.2 Eosinophils % 0.1 Basophils % 0.2 Nucleated RBC % 0.0 Absolute Neutrophils 9.77 H Absolute Lymphocytes 1.82 Absolute Monocytes 1.18 H Absolute Eosinophils 0.01 Absolute Basophils 0.03 Sodium 139 Potassium 3.5 Chloride 101 Carbon Dioxide 27.8 Anion Gap 10.2 BUN 43 H Creatinine 2.0 H Est GFR (CKD-EPI 2020) 33.74 Glucose 103 Calcium 9.2 Magnesium 2.1 Total Protein Cancelled Fluid Source Fluid Color Fluid Clarity Fluid pH Fluid WBC Fld Polynuclear WBCs % Fluid Mononuclear Cell Urine Legionella Ag TTE: Conclusion Normal left ventricular wall thickness and chamber size. Ejection fraction is 50- 55%. Wall motion is normal Normal right ventricular size and systolic function Left atrium is moderately dilated Right atrium is borderline dilated Aortic valve is trileaflet and sclerotic with moderate regurgitation. There is no aortic stenosis Thickened mitral leaflets with mild to moderate regurgitation Normal tricuspid valve with trace to mild regurgitation. Estimated right ventricular systolic pressure is 31 mmHg Trivial pericardial effusion PAWSS Have you Been Recently Intoxicated or Drunk Within the Last 30 days?: No Have you Ever Experienced Previous Episodes of Alcohol Withdrawal?: No Have you ever Experienced Withdrawal Seizures?: Yes Have you ever Experienced Delirium Tremens(DT)s?: No Have you ever undergone Alcohol Rehabilitation Treatment (i.e, inpt ot outpatient treatment programs)?: No Have you ever Experienced Blackouts?: No Have you ever Combined Alcohol with other Downers within the last 90 days?: No Have you ever Combined Alcohol with any other Substance of Abuse during the last 90 days?: Yes Positive Blood Alcohol level on Presentation? [PCS.BAL]: No Evidence of Increased Autonomic Activity (i.e. HR>120, tremor, sweating, agitation, nausea)?: No Result: 3 Time Spent with Patient Time Spent with Patient: >50 minutes (55min) Time was spent: preparing to see the patient(eg.review tests), obtaining and/or reviewing separately otained hiistory, ordering medications,tests, procedures, r eferring, communicating with other health home care physical therapist, indepentently interpreting results, counseling the patient and care coordination
[2023-03-24] MEDS: Diclofenac 1% Gel 100 GM TUBE TP ×2 (15:34→20:12)
--- NOTE | 2023-03-24 15:35 | PT.INTREAT ---
Date of service: 03/24/23 Time of Service: 15:23 PT Notes Visit Reasons: Multiple focal pneumonia,Rib fracture,Transverse P Inpatient Physical Therapy Treatment Note [facility] Date: 03/24/23 PRECAUTIONS: Fall, standard, activity as tolerated. SUBJECTIVE: Patient appears in good spirits, engages easily in conversation. Reports feeling tired, states that he has not been sleeping well. Reports feeling unsteady. OBJECTIVE: Sitting up in chair at bedside, agreeable to therapy.? PAIN: none reported VITALS: closely monitored by nursing staff via telemetry. ? ? BED MOBILITY/TRANSFERS? Rolling L/R: not assessed Supine-sit: not assessed ? Sit-supine: not assessed ? Sit-stand: SBA ? Stand-sit: SBA ? Bed-Chair: CGA ? Chair-bed: CGA ? Therapeutic Exercises ([id number]): Direct one-on-one instruction in therapeutic exercises to develop strength, endurance, range of motion and flexibility. Ambulation ? Assistive Device: FWW ? Weight bearing: full Assist: CGA-min ? Distance:? 200 feet ? Deviation: Patient exhibits foot drop, pes planus, external rotation on left leg, causing his stride length to be asymmetric. Reports feeling as though the left knee might go out or collapse. Reports feeling a little loopy. ? Provided skilled instruction in proper exercise performance Provided skilled manual cues to facilitate proper muscle recruitment and/or form. ASSESSMENT:? Patient tolerates therapy well, reports that he is very fatigued at the end of the treatment session and would prefer to nap rather than participate in further exercises. PLAN: Continue global strengthening per plan of care until patient is medically cleared for discharge. TREATMENT CODE/TIME: 11 minutes beginning at 15:23
[2023-03-24 17:07] LABS: Albumin, Body FLuid <1.0 g/dL (See Note)
[2023-03-24 17:09] LABS: Glucose, Fluid 132 mg/dL (See Note)
--- NOTE | 2023-03-24 17:12 | PGE_ITS ---
Date of Service Date of service: 03/24/23 Time of Service: 17:12 Assessment and Plan Assessment and plan (1) Pleural effusion: Status: Acute Assessment and plan: The patient underwent a thoracentesis. He only had 200 cc of fluid. I suspect that with all of the diuretics he was on over the last couple of days he actually has been able to diurese most of the fluid around his lung. At this time I am awaiting the chest x-ray. The case was discussed with the hospitalist. We are available if needed down the road for another procedure. For now we will sign off. Subjective Subjective Interval history since last seen: Gerhard is a pleasant 77-year-old gentleman who was admitted to the hospital with acute heart failure with reduced ejection fracture, cardiomyopathy, pneumonia and bilateral pleural effusions. He was quite short of breath over the weekend so Dr. Cameron did a left-sided thoracentesis yesterday. He was able to remove about 700 cc of fluid. The fluid did not look infected. I was asked to do a right-sided thoracentesis today. The patient tells me that he did lose about 12 pounds since admission secondary to diuresis. He feels great since his thoracentesis yesterday. He has not had to cough all day. He has not had any fevers today. I did review his CT scan that was done which did show a large pleural effusion on both the right and left side. The patient had been on multiple diuretics until today. Exam Const General: cooperative, comfortable and no acute distress Nutritional Appearance: cachectic Orientation: alert and oriented x3 [facility] Head: normocephalic and atraumatic Resp Effort & Inspection: normal respiratory effort Auscultation: clear to auscultation bilaterally and diminished lung sounds bilaterally in the lower lung veliz Other: Ultrasound of the back was done. I did find a pocket of fluid quite low just above the diaphragm. The area most marked on the patient's skin. I discussed repeat thoracentesis this time on the right side with the patient. We reviewed the risks, benefits and complications. Complications include but are not limited to bleeding, infection, pneumothorax with need for a chest tube as well as reaccumulation of the fluid. The patient understands and wishes to proceed. Pre-op Dx: Pleural effusion Post-op Dx: same Procedure: Right sided Thoracentesis Surgeon: Chandni Luna MD Anesthesia: 10 cc of 1% Lidocaine plain Blood loss: minimal Specimen: none Complications: no immediate complications Procedure: After informed consent was obtained the patient was asked to sit at the edge of the bed. The patient was given a table with a pillow to lean against. The back was exposed. The back on the right side was US to find the pocket of fluid. Once the fluid was identified a tawnya was made on the skin. A time out was done. The patients name, , procedure to be done and side, allergies and antibiotic given were reviewed. Next the back was prepped and draped in a standard fashion with chlorhexidine. The thoracentesis kit was opened in a sterile fashion. 1% Lidocaine was injected into the dermis, subcutaneous tissue and down between the ribs. A small incision was then made with an 11 blade. The needle and sheath were then slowly introduced until I was able to suction some fluid. At this point the sheath was advanced and the needle was pulled back. The needle was then attached to tubing and to a suction bottle. 200 cc of fluid was removed. The sheath was removed and a band aid was applied. The patient was placed back his bed. The patient tolerated the procedure well and there were no immediate complications. A chest XRay was ordered and is pending at the time of this dictation. Objective Last Vital Signs Temp 98.6 F 03/24/23 15:39 Pulse 57 L 03/24/23 15:50 Resp 16 03/24/23 15:39 BP 116/53 L 03/24/23 15:39 Pulse Ox 97 03/24/23 15:50 Laboratory Results - last 24 hr 03/23/23 03/23/23 03/23/23 10:45 18:00 18:00 WBC RBC Hgb Hct MCV MCH MCHC RDW Plt Count MPV Immature Gran % Neutrophils % Lymphocytes % Monocytes % Eosinophils % Basophils % Nucleated RBC % Absolute Neutrophils Absolute Lymphocytes Absolute Monocytes Absolute Eosinophils Absolute Basophils Sodium Potassium Chloride Carbon Dioxide Anion Gap BUN Creatinine Est GFR (CKD-EPI 2020) Glucose Calcium Magnesium Total Protein Fluid Source Pleural Pleural Fluid Color Yellow Fluid Clarity Cloudy Fluid pH 7.0 Fluid WBC 20 Fld Polynuclear WBCs % 56 Fluid Mononuclear Cell 44 Urine Legionella Ag Negative 03/23/23 03/24/23 18:59 06:15 WBC 12.84 H RBC 4.65 Hgb 13.3 L Hct 39.8 L MCV 86 MCH 28.6 MCHC 33.4 RDW 14.8 H Plt Count 317 MPV 10.0 Immature Gran % 0.2 Neutrophils % 76.1 Lymphocytes % 14.2 Monocytes % 9.2 Eosinophils % 0.1 Basophils % 0.2 Nucleated RBC % 0.0 Absolute Neutrophils 9.77 H Absolute Lymphocytes 1.82 Absolute Monocytes 1.18 H Absolute Eosinophils 0.01 Absolute Basophils 0.03 Sodium 139 Potassium 3.5 Chloride 101 Carbon Dioxide 27.8 Anion Gap 10.2 BUN 43 H Creatinine 2.0 H Est GFR (CKD-EPI 2020) 33.74 Glucose 103 Calcium 9.2 Magnesium 2.1 Total Protein Cancelled Fluid Source Fluid Color Fluid Clarity Fluid pH Fluid WBC Fld Polynuclear WBCs % Fluid Mononuclear Cell Urine Legionella Ag PAWSS Have you Been Recently Intoxicated or Drunk Within the Last 30 days?: No Have you Ever Experienced Previous Episodes of Alcohol Withdrawal?: No Have you ever Experienced Withdrawal Seizures?: Yes Have you ever Experienced Delirium Tremens(DT)s?: No Have you ever undergone Alcohol Rehabilitation Treatment (i.e, inpt ot outpatient treatment programs)?: No Have you ever Experienced Blackouts?: No Have you ever Combined Alcohol with other Downers within the last 90 days?: No Have you ever Combined Alcohol with any other Substance of Abuse during the last 90 days?: Yes Positive Blood Alcohol level on Presentation? [PCS.BAL]: No Evidence of Increased Autonomic Activity (i.e. HR>120, tremor, sweating, agitation, nausea)?: No Result: 3 Time Spent with Patient Time Spent with Patient: 25-34 minutes Time was spent: preparing to see the patient(eg.review tests), indepentently interpreting results, counseling the patient and other (thoracentesis)
--- NOTE | 2023-03-24 17:28 | DI.RAD_ITS ---
Exam(s) XR PORTABLE CHEST AP EXAM: XR PORTABLE CHEST AP CLINICAL HISTORY: s/p thoracentesis TECHNIQUE: 2D digital imaging was performed. COMPARISON: CR XR CHEST 2V PA LATERAL from 02/25/[address] CHEST PE CTA from 03/21/2023 FINDINGS: LUNGS: Underlying mild interstitial changes and upper lobe scarring. Significant improvement in prev iously noted pleural effusions and bilateral upper lobe infiltrates. No pleural abnormality seen. HEART: Enlarged. Status post CABG. AORTA: Normal diameter. Tortuous. BONES: Unremarkable for age. Soft tissues: Unremarkable. IMPRESSION: interval decrease in size of pleural effusions. Improvement in infiltrates. DATA REPOSITORY: RADIATION DOSE DELIVERED:
[2023-03-24] MEDS: Nicotine 21 MG/24 HR PATCH TD (20:13)
[2023-03-24] MEDS: Atorvastatin 40 MG TAB PO (20:13)
[2023-03-24] MEDS: Melatonin 3 MG TAB 6 MG PO (20:13)
[2023-03-24] MEDS: Patch Removal 2 EACH TP (20:13)
[2023-03-24] MEDS: cefTRIAXone 2 GM/50 ML BAG IVPB (20:14)
[2023-03-24 23:54] LABS: Streptococcus Pneumoniae Ag, U Negative (Negative)
[2023-03-25] VITALS (7 sets, daily range): BP systolic 138–175; BP diastolic 64–73; PULSE 58–75; RESP 9–20; TEMP 35.8–37.2; O2SAT 97–99
[2023-03-25] MEDS: oxyCODONE 5 MG TAB 15 MG PO ×4 (02:02→23:45)
[2023-03-25] MEDS: Metoprolol 25 MG TAB 37.5 MG PO ×4 (05:26→23:45)
[2023-03-25 06:10] LABS: HCT 37.7 % (40.0-50.0); HGB 12.6 g/dL (13.5-17.5); MCH 28.3 pg (27.0-33.0); MCHC 33.4 % (32.0-36.0); MCV 85 fL (80-95); MPV 9.6 fL (8.0-11.0); Platelet Count 299 10^3/uL (130-400); RBC 4.46 10^6/uL (4.36-5.78); RDW 14.5 % (11.8-14.1); RDW-SD 44.2 fL; WBC 10.35 10^3/uL (4.4-10.8)
[2023-03-25 06:23] LABS: Anion Gap 11.2 mmol/L (3-11); BUN 44 mg/dL (7-18); CO2 24.8 mmol/L (21.0-32.0); CREATININE 1.7 mg/dL (0.70-1.30); Calcium 8.9 mg/dL (8.5-10.1); Chloride 99 mmol/L (98-107); Estimated GFR 41.01 (mL/min/1.73m2); Glucose 89 mg/dL (74-106); Magnesium 2.2 mg/dL (1.8-2.4); Potassium 3.3 mmol/L (3.5-5.1); Sodium 135 mmol/L (136-145)
[2023-03-25] MEDS: Tiotropium/Olodaterol 10 PUFF INHALER 2 PUFF IH (07:52)
--- NOTE | 2023-03-25 07:57 | RESPIRATORY ---
RT Assessment Start: 03/22/23 02:49 Freq: .q shift and prn Status: Active Protocol: Document 03/25/23 07:54 RT.ANA (Rec: 03/25/23 07:56 RT.ANA [id number]) RT Assessment Pulmonary History Pulmonary History COPD Smoking History Smoking/Tobacco Use Status Current every day Tobacco: How many years used 66 Tobacco Type cigarettes Cigarettes per Day 13 OXYGEN HISTORY: CPAP Settings N/A BIPAP Settings N/A Trilogy/AVAPS Settings N/A DME/Compliance DME N/A Compliance N/A Respiratory Breath Sounds Breath Sounds Any abnormal sounds, decreased breath sounds Response No change Pulse Rate <100 Respiratory Rate <18 Shortness of Breath None Respiratory Therapy Score Total 1 Assessment and Plan RT Treatment Protocol Bronchial Hygiene Therapy Protocol Note Pt has an IS and Acapella ordered per MD and RT has instructed him on it. Patient stated he rolls his own cigarettes (6-7) which may be equivalent to more like 13 as larger than a normal.
[2023-03-25] MEDS: Azithromycin 250 MG TAB 500 MG PO (08:55)
[2023-03-25] MEDS: Acetaminophen 500 MG TAB 1000 MG PO ×3 (08:55→20:06)
[2023-03-25] MEDS: Omeprazole 20 MG CAPCR PO ×2 (08:56→15:48)
[2023-03-25] MEDS: amLODIPine 5 MG TAB PO (08:56)
[2023-03-25] MEDS: Furosemide 20 MG TAB 10 MG PO (08:56)
[2023-03-25] MEDS: hydrALAZINE 10 MG TAB PO ×4 (08:56→20:06)
[2023-03-25] MEDS: Aspirin E.C. 81 MG TABEC PO (08:56)
[2023-03-25] MEDS: Lidocaine 5% Patch 2 PATCH TP (08:57)
[2023-03-25] MEDS: Multivitamin TAB 1 TAB PO (08:57)
[2023-03-25] MEDS: Sertraline 50 MG TAB PO (08:57)
[2023-03-25] MEDS: guaiFENesin 600 MG TABCR PO ×2 (08:57→20:06)
[2023-03-25] MEDS: Magnesium Chloride 64 MG TABCR PO (08:57)
[2023-03-25] MEDS: predniSONE 20 MG TAB 40 MG PO (08:57)
--- NOTE | 2023-03-25 10:30 | CMPROGNOTE_ITS ---
Date of service: 03/25/23 Time of Service: 10:30 Care Management Progress Note Progress Note Text Progress Note Text: S/O:Donis was sitting up in bed when CM met with him. He was awake and alert and agreeable to conversation. Donis described his home and the challenges of his living situation. He lives in a small log home heated with wood which he cuts. He has a chemical toilet and electricity but no running water. He has a 35 gallon water tank in his attic which he uses through the winter and gets water from outside or at his brothers house at other times.Donis has a gas stove for cooking. He has long standing issues with his back and lower extremities which makes hauling wood and doing his other chores increasingly difficult. Donis informed CM that he uses a cane and now has foot drop on the left.He stated he also has neuropathy but is unclear of the etiology. After much discussion, Donis agreed to consider short term rehab for a couple of weeks to regain his strength. He shared that he has not been eating well and feels that a couple of weeks working with PT every day will give him the best opportunity to return to baseline. Later in the day Darren, Donis's brother, called CM. The conversation was similar and he also verbalized feeling that rehab would be very beneficial for Donis. At Donis and Darren's request, CM sent referrals to [facility] and [facility]. A: Donis is a 77 year old man admitted on 03/22/23 with multifocal pneumonia P:Anticipate Donis will transfer to a nursing home facility for shgort term rehab prior to returning home. He will follow up with his PCP and plan of care and transport with family. CM will follow and continue to assess for discharge needs.
--- NOTE | 2023-03-25 14:15 | PTTR_ITS ---
Date of service: 03/25/23 Time of Service: 13:59 PT Notes Visit Reasons: Multiple focal pneumonia,Rib fracture,Transverse P Inpatient Physical Therapy Treatment Note [facility] Date: 03/25/23 PRECAUTIONS: Fall, standard, activity as tolerated. SUBJECTIVE: Patient reports feeling much better, states that he hasn't coughed at all. Reports having slept well for the first time in quite a while, because he wasn't fighting and gasping for air all night. OBJECTIVE: Sitting up in chair, agreeable to therapy. ? PAIN: none reported. VITALS: Closely monitored by nursing staff via telemetry. ? BED MOBILITY/TRANSFERS? Rolling L/R: not assessed Supine-sit: not assessed ? Sit-supine: not assessed ? Sit-stand: SBA? Stand-sit: SBA ? Bed-Chair: CGA ? Chair-bed: CGA ? Therapeutic Exercises ([id number]): Direct one-on-one instruction in therapeutic exercises to develop strength, endurance, range of motion and flexibility. Ambulation ? Assistive Device: FWW? Weight bearing: full Assist: CGA ? Distance:? 250 feet ? Deviation: Patient's left leg exhibits pes planus, external rotation, foot dr op, steppage gait pattern causing patient's step length to be asymmetric. Stairs: Patient ascends and descends 2 six inch steps and 3 four inch steps x5 with CGA, bilateral hand rails. Becomes slightly short of breath on round 4 and 5, then requires a standing rest. ? Provided skilled instruction in proper exercise performance Provided skilled manual cues to facilitate proper muscle recruitment and/or form. ASSESSMENT:? Patient's stamina is improving, however he is not yet at a point where he would be able to safely take care of himself at home, due to only having a wood stove for heat and needing to be able to carry wood into the house for heat. Patient lives alone and does not have friends or family nearby that could do this for him. Patient reports significant fatigue at the end of treatment session. PLAN: Continue global strengthening per plan of care until patient is medically cleared for discharge. TREATMENT CODE/TIME: 16 minutes beginning at 13:59
--- NOTE | 2023-03-25 16:44 | W.PM.PROGNOT ---
Date of Service Date of service: 03/25/23 Time of Service: 16:44 Assessment and Plan Assessment and plan (1) Pneumonia: Status: Acute Assessment and plan: -patient has infiltrates both on CT scan as well as on lung ultrasound and he presented w/ increased cough, dyspnea, leukocytosis and infiltrates but normal procalcitonin. -He has been on ceftriaxone and azithromycin along w/ prednisone and bronchodilators. Qualifiers: Pneumonia type: due to unspecified organism Laterality: bilateral Lung location: unspecified part of lung Qualified Code(s): J18.9 - Pneumonia, unspecified organism (2) Respiratory failure: Status: Suspected Assessment and plan: -multifactorial including COPD, pneumonia and moderate aortic stenosis -s/p left thoracentesis with Dr. Michael Cameron on 03/23. -He has large bilateral pleural effusions. -had been on iv lasix , add iv diuril and po spironolactone. -will discontinue IV diuril and spironolactone -started lasix PO 10mg starting AM 03/25 -Continue to monitor urine output and blood pressures Qualifiers: Chronicity: acute Respiratory failure complication: unspecified whether with hypoxia or hypercapnia Qualified Code(s): J96.00 - Acute respiratory failure, unspecified whether with hypoxia or hypercapnia (3) Acute HFrEF (heart failure with reduced ejection fraction): Status: Acute Assessment and plan: -TTE showed EF 50-55% with normal wall motion and moderate aortic regurg -treat with diuretics as noted above (4) Cardiomyopathy: Status: Acute Assessment and plan: -likely d/t HTN along w/ valvular heart disease although he ought to have cardiac cath to rule out CAD. Qualifiers: Cardiomyopathy type: non-obstructive hypertrophic Qualified Code(s): I42.2 - Other hypertrophic cardiomyopathy (5) Fracture of transverse process of lumbar vertebra: Status: Acute Assessment and plan: -continue oxycodone, topical voltaren gel and lidoderm patches. -Not able to use NSAID d/t CKD Qualifiers: Encounter type: initial encounter Fracture type: closed Qualified Code(s): S32.009A - Unspecified fracture of unspecified lumbar vertebra, initial encounter for closed fracture (6) Fracture of rib: Status: Acute Assessment and plan: -left 11th and 12th ribs, -previous physician spoke with Peggy Merchant CRNA today. She feels that the ribs are too low to safely perform a nerve block so we will treat w/ pain medications (oral narcotics and topical) Qualifiers: Encounter type: initial encounter Rib fracture type: single rib Fracture type: closed Laterality: left Qualified Code(s): S22.32XA - Fracture of one rib, left side, initial encounter for closed fracture (7) Hypertension: Status: Chronic Assessment and plan: -patient was begun on metoprolol 25 mg q6h, was also on lasix drip and now on PO starting AM 14 Qualifiers: Hypertension type: primary hypertension Qualified Code(s): I10 - Essential (primary) hypertension (8) Feeling suicidal: Status: Acute Assessment and plan: -patient had expressed SI on admission while in the ED but mental health screener has cleared him. -His expressions are verbalization over his frustration at not being able to do his own activities for himself d/t his breathing problems. (9) Tobacco use: Status: Chronic Assessment and plan: -nicotine patches. patient needs to quit smoking in light of his chronic bronchitis and his PAD. (10) COPD (chronic obstructive pulmonary disease): Status: Chronic Assessment and plan: -continue Anora Ellipta along w/ scheduled Xopenx aerosols, antibiotics for pneumonia, pulmonary toiletry. -s/p one time dose of dexamethasone and put on daily prednisone 40 mg x 5 days. This may also help w/ his back pain. Qualifiers: COPD type: chronic bronchitis Chronic bronchitis type: unspecified Qualified Code(s): J42 - Unspecified chronic bronchitis (11) CKD (chronic kidney disease): Status: Chronic Assessment and plan: -stable, monitor and avoid NSAID or other nephrotoxins Qualifiers: Chronic kidney disease stage: stage 3 (moderate) Chronic kidney disease stage 3 subtype: stage 3b (GFR 30-44) Qualified Code(s): N18.32 - Chronic kidney disease, stage 3b (12) Foot drop, left: Status: Chronic Assessment and plan: -patient should have outpatient follow up regarding this. Patient has attributed this to his dissecting aortic aneurysm. (13) Pain of left great toe: Status: Acute Assessment and plan: -He appears to have evidence of atheroembolic splinter hemorrhages to his left great toe. -may be from TAA/AAA, he should be considered for anticoagulation but I have held off as he should have thoracentesis first. -His renal function is too poor to perform abdominal CTA w/ lower extremities run off. Subjective Subjective Interval history since last seen: Patient states that he feels even better today after having the remainder of pleural fluid drained from his lungs yesterday. However, he states that he continues to feel significantly weak with ambulation. Exam Narrative Exam Narrative: Cachectic appearing older gentleman sitting up in bed in no acute distress, AOx4, heart RRR, lungs CTAB, abdomen soft, non-tender, non-distended Objective Last Vital Signs Temp 97.5 F L 03/25/23 15:53 Pulse 58 L 03/25/23 15:53 Resp 20 03/25/23 15:53 BP 138/73 03/25/23 15:53 Pulse Ox 99 03/25/23 15:53 Laboratory Results - last 24 hr 03/22/23 03/23/23 03/25/23 00:00 18:00 05:55 WBC 10.35 RBC 4.46 Hgb 12.6 L Hct 37.7 L MCV 85 MCH 28.3 MCHC 33.4 RDW 14.5 H Plt Count 299 MPV 9.6 Sodium 135 L Potassium 3.3 L Chloride 99 Carbon Dioxide 24.8 Anion Gap 11.2 H BUN 44 H Creatinine 1.7 H Est GFR (CKD-EPI 2020) 41.01 Glucose 89 Calcium 8.9 Magnesium 2.2 Fluid Glucose 132 Fluid Albumin <1.0 Ur Strep pneumoniae Ag Negative PAWSS Have you Been Recently Intoxicated or Drunk Within the Last 30 days?: No Have you Ever Experienced Previous Episodes of Alcohol Withdrawal?: No Have you ever Experienced Withdrawal Seizures?: Yes Have you ever Experienced Delirium Tremens(DT)s?: No Have you ever undergone Alcohol Rehabilitation Treatment (i.e, inpt ot outpatient treatment programs)?: No Have you ever Experienced Blackouts?: No Have you ever Combined Alcohol with other Downers within the last 90 days?: No Have you ever Combined Alcohol with any other Substance of Abuse during the last 90 days?: Yes Positive Blood Alcohol level on Presentation? [PCS.BAL]: No Evidence of Increased Autonomic Activity (i.e. HR>120, tremor, sweating, agitation, nausea)?: No Result: 3 Time Spent with Patient Time Spent with Patient: >50 minutes Time was spent: preparing to see the patient(eg.review tests), obtaining and/or reviewing separately otained hiistory, ordering medications,tests, procedures, referring, communicating with other health care program director, indepentently interpreting results, counseling the patient and care coordination
[2023-03-25 18:52] LABS: Mycoplasma Pneumoniae PCR Negative (Negative); Specimen source sputum
[2023-03-25] MEDS: cefTRIAXone 2 GM/50 ML BAG IVPB (20:05)
[2023-03-25] MEDS: Atorvastatin 40 MG TAB PO (20:06)
[2023-03-25] MEDS: Mylanta Suspension 30 ML CUP PO (20:08)
[2023-03-25] MEDS: Patch Removal 2 EACH TP (20:10)
[2023-03-25] MEDS: Nicotine 21 MG/24 HR PATCH TD (21:59)
[2023-03-25] MEDS: Melatonin 3 MG TAB 6 MG PO (22:00)
[2023-03-26] MEDS: Metoprolol 25 MG TAB 37.5 MG PO ×2 (06:07→12:02)
[2023-03-26] MEDS: oxyCODONE 5 MG TAB 15 MG PO (06:14)
[2023-03-26] MEDS: Normal Saline Flush 10 ML SYR IVP (06:14)
[2023-03-26 06:37] VITALS: BP 150/76; PULSE 63; RESP 18; TEMP 36.8; O2SAT 94
[2023-03-26 07:06] LABS: Anion Gap 6.6 mmol/L (3-11); BUN 43 mg/dL (7-18); CO2 27.4 mmol/L (21.0-32.0); CREATININE 1.5 mg/dL (0.70-1.30); Calcium 8.8 mg/dL (8.5-10.1); Chloride 101 mmol/L (98-107); Estimated GFR 47.65 (mL/min/1.73m2); Glucose 91 mg/dL (74-106); Potassium 3.8 mmol/L (3.5-5.1); Sodium 135 mmol/L (136-145)
[2023-03-26 07:07] VITALS: BP 156/76; PULSE 57; RESP 22; TEMP 36.9; O2SAT 96
[2023-03-26] MEDS: hydrALAZINE 10 MG TAB PO ×2 (07:47→12:02)
[2023-03-26] MEDS: Magnesium Chloride 64 MG TABCR PO (07:47)
[2023-03-26] MEDS: Acetaminophen 500 MG TAB 1000 MG PO ×2 (07:47→13:48)
[2023-03-26] MEDS: Furosemide 20 MG TAB 10 MG PO (07:48)
[2023-03-26] MEDS: Azithromycin 250 MG TAB 500 MG PO (07:48)
[2023-03-26] MEDS: Omeprazole 20 MG CAPCR PO (07:48)
[2023-03-26] MEDS: Multivitamin TAB 1 TAB PO (07:48)
[2023-03-26] MEDS: guaiFENesin 600 MG TABCR PO (07:48)
[2023-03-26] MEDS: Aspirin E.C. 81 MG TABEC PO (07:48)
[2023-03-26] MEDS: Sertraline 50 MG TAB PO (07:48)
[2023-03-26] MEDS: predniSONE 20 MG TAB 40 MG PO (07:49)
[2023-03-26] MEDS: amLODIPine 5 MG TAB PO (07:49)
[2023-03-26] MEDS: Lidocaine 5% Patch 2 PATCH TP (07:49)
[2023-03-26] MEDS: Diclofenac 1% Gel 100 GM TUBE TP (07:50)
[2023-03-26] MEDS: Tiotropium/Olodaterol 10 PUFF INHALER 2 PUFF IH (08:52)
--- NOTE | 2023-03-26 10:19 | PDOC.CMPRO ---
Date of service: 03/26/23 Time of Service: 10:19 Care Management Progress Note Progress Note Text Progress Note Text: S/O:Donis was sitting up in bed when CM met with him. A: Donis is a 77 year old man admitted on 03/22/23 with multifocal pneumonia P:Anticipate Donis will transfer to a care home facility for shgort term rehab prior to returning home. He will follow up with his PCP and plan of care and transport with family. CM will follow and continue to assess for discharge needs.
[2023-03-26 10:25] LABS: Lactate Dehydrogenase (LD), BF 66 U/L
[2023-03-26 11:57] LABS: Protein,Total, BF 1.3 g/dL
--- NOTE | 2023-03-26 13:24 | W.PM.DS.N ---
Date of service: 03/26/23 Time of Service: 13:25 DS: Diagnosis Discharge Diagnosis (1) Pneumonia: Status: Acute Asessment and Plan: -Presented with pneumonia, treated with ceftriaxone and azithromycin and completed antibiotic course during hospitalization (2) Respiratory failure: Status: Suspected Asessment and Plan: -Secondary to combination of pneumonia and heart failure resulting in bilateral pleural effusions that have since been drained by thoracentesis -Now resolved (3) Acute HFrEF (heart failure with reduced ejection fraction): Status: Acute Asessment and Plan: TTE showed EF of 50 to 55% with normal wall motion abnormality patient does have a history of reduced ejection fraction and now has signs of diastolic failure as well as moderate aortic regurg -Was aggressively diuresed on admission and is now being discharged with 10 mg p.o. Lasix daily (4) Fracture of transverse process of lumbar vertebra: Status: Acute (5) Fracture of rib: Status: Acute (6) Hypertension: Status: Chronic (7) Tobacco use: Status: Chronic (8) COPD (chronic obstructive pulmonary disease): Status: Chronic (9) CKD (chronic kidney disease): Status: Chronic (10) Foot drop, left: Status: Chronic Discharge Plan Disposition Patient Disposition: Halfway Facility(SNF) Condition: Good Discharge Details Reason For Visit: Multiple focal pneumonia,Rib fracture,Transverse P Admit Date/Time: 03/22/23 00:20 Admit Provider: Vin Sheridan Attending Provider: Vin Sheridan Primary Care Provider: [facility] Hospital Course: 77-year-old male daily smoker with a chronic cough and dyspnea presented the emergency department after 2 weeks of extreme shortness of breath. While in the hospital he was treated for pneumonia with IV antibiotics and since completed his antibiotic course. He also had acute hypoxic respiratory failure due to a combination of pneumonia and HFrEF resulting in pulmonary edema and bilateral pleural effusions that improved after thoracentesis and significant IV diuresis. Patient has since been transitioned to 10 mg p.o. Lasix therapy bleed with no recurrence of shortness of breath. Additionally, patient experienced some mild sinus bradycardia while on p.o. metoprolol and it has been held. While the patient did make significant improvement medically, he remained weak due to his acute illness and was subsequently discharged to [facility] and rehab. Home Meds and New Rx's Prescriptions: New amlodipine 5 mg Tablet 5 mg PO DAILY Qty: 60 0RF aspirin 81 mg Tablet,Delayed Release (Dr/Ec) 81 mg PO DAILY Qty: 60 0RF atorvastatin 40 mg Tablet 40 mg PO QPM Qty: 60 0RF furosemide 20 mg Tablet 10 mg PO DAILY Qty: 60 0RF sertraline 50 mg Tablet 50 mg PO DAILY Qty: 60 0RF Continued melatonin 10 mg capsule 5 mg PO HS PRN oxycodone 10 mg tablet 10 mg PO BID MDD 20mg PRN (Reason: pain) Qty: 56 0RF Anoro Ellipta 62.5-25 mcg/actuation blister with device 1 inh inhalation Q24H Qty: 60 3RF omeprazole 20 mg capsule,delayed release(DR/EC) See Rx Instructions .ROUTE .COMPLEX Qty: 180 3RF Dose Instruction: TAKE ONE CAPSULE BY MOUTH TWICE A DAY Rx Instructions: TAKE ONE CAPSULE BY MOUTH TWICE A DAY magnesium aspartate HCl 61 mg (615 mg) Tablet,Delayed Release (Dr/Ec) 61 mg PO DAILY multivitamin [Daily Multi-Vitamin] 1 EACH tablet 1 tab PO DAILY Discontinued nervive capsule 500 mg PO DAILY lorazepam 0.5 mg tablet 0.5 mg PO DAILY PRN (Reason: anxiety) Qty: 28 0RF calcium carbonate [Calcium 500] 500 mg calcium (1,250 mg) tablet 500 mg PO BID Migraine Formula 1 EACH tablet 2 tab PO DAILY PRN grape seed xt-bioflav,citrus 1 EACH capsule 1 ea PO DAILY hawthorn ray 500 mg capsule 500 mg PO TID Discharge Instructions Instructions: Heart Failure (DC), Pleural Effusion (DC), Community Acquired Pneumonia (DC) Activity:: Activity as Tolerated Equipment/Supplies:: No Equipment Needed Diet:: Low Sodium Discharge Orders Discharge Orders: Discharge Order (Routine); Ordered 03/26/23 Ordered By: Jason Valdez DS: Summary Time Spent with Patient providing and/or coordinating discharge services: Greater than 30 minutes Status at Discharge Functional status at discharge: uses cane/walker Overall status at discharge: patient is not back to baseline Mental Status: mental status grossly normal Speech and Movement: speech and movement normal Mood: anxious mood Affect: normal affect Exam Narrative Exam Narrative: Cachectic appearing older gentleman sitting up in bed in no acute distress, AOx4, heart RRR, lungs CTAB, abdomen soft, non-tender, non-distended Psych Mental Status: mental status grossly normal Speech and Movement: speech and movement normal Mood: anxious mood Affect: normal affect DS: Data Vitals/I&O Vitals and I&O: Vital Signs Temperature 98.4 F 03/26/23 07:07 Temperature Source Tympanic 03/26/23 07:07 Pulse 57 L 03/26/23 07:07 Pulse Rhythm Regular 03/26/23 08:00 Pulse 84 03/22/23 01:10 Respiratory Rate 22 03/26/23 07:07 Respiratory Effort Normal, Non-Labored 03/26/23 08:00 Respiratory Depth Normal 03/26/23 08:00 Respiratory Pattern Normal 03/26/23 08:00 Blood Pressure 156/76 H 03/26/23 07:07 Blood Pressure Mean 101 03/22/23 01:01 Blood Pressure Position Sitting 03/21/23 19:06 Pulse Oximetry 96 03/26/23 07:07 Oxygen Delivery Method Room Air 03/26/23 07:07 Oxygen Flow Rate 0 03/26/23 07:07 Pain Level 6 03/26/23 07:07 Comment per pt. did not want to be woken for 3a.vital signs, per his nurse,ok'd. 03/26/23 04:52 Intake & Output 03/25/23 03/26/23 03/26/23 17:59 05:59 17:59 Intake Total 240 / 240 240 / 480 Output Total 200 / 200 200 / 200 Balance 40 / 40 240 / 280 -200 / -200 Intake: Oral 240 / 240 240 / 480 Output: Urine 200 / 200 200 / 200 Other: Urine Color Light Luisa Yellow Urine Appearance Clear Clear Urine Odor Normal Comment Nurse told this ANESTHESIOLOGIST ASSISTANT that pT voided. per pt said he went to the bathroom Stool Size Small Stool Characteristics Formed Voiding Methods Toilet Data Completed and Pending Labs on day of discharge: Labs from last 24 hours 03/26/23 03/23/23 03/22/23 06:37 18:00 16:30 Sodium 135 L Potassium 3.8 Chloride 101 Carbon Dioxide 27.4 Anion Gap 6.6 BUN 43 H Creatinine 1.5 H Est GFR (CKD-EPI 2020) 47.65 Glucose 91 Calcium 8.8 M. pneumoniae Source sputum M. pneumoniae (PCR) Negative Path Cons Comment SEE COMMENT Preliminary micro results at discharge 03/23/23 18:00 Body Fluid Culture - Preliminary Pleural - Left 03/23/23 18:00 Anaerobic Culture - Preliminary Pleural - Left [facility] All Active Problems (Updated 03/23/23 @ 14:46 by Mt Chaves MD) Pain of left great toe (Acute) Acute HFrEF (heart failure with reduced ejection fraction) (Acute) Cardiomyopathy (Acute) Feeling suicidal (Acute) Fracture of transverse process of lumbar vertebra (Acute) Fracture of rib (Acute) Pneumonia (Acute) Pleural effusion (Acute) Cough (Acute) Difficulty breathing (Acute) Anxiety (Chronic) GERD (gastroesophageal reflux disease) (Chronic) Hypertension (Chronic) 02/2021- declines treatment Tobacco use (Chronic) longstanding heavy smoker Dysphagia (Acute) Depression (Chronic) Tinnitus (Acute) Weight loss, unintentional (Acute) COPD (chronic obstructive pulmonary disease) (Chronic) CKD (chronic kidney disease) (Chronic) Hiatal hernia with GERD (Acute) Low back pain with sciatica (Acute) chronic pain syndrome Foot drop, left (Chronic) Foot pain, left (Acute) dorsal aspect growth, ?cyst or bone spur. Medical History AAA (abdominal aortic aneurysm, ruptured) 2016- s/p repair at [facility] Aspiration of liquid Diverticulitis Aortic dissection 2016, s/p repair at [facility], complicated by MRSA sternal wound infection. BPH (benign prostatic hyperplasia) hx TURP Hx MRSA infection Surgical History Hx of hemorrhoidectomy S/P TURP S/P lumbar laminectomy S/P bilateral inguinal herniorrhaphy Status post cataract extraction and insertion of intraocular lens of right eye Hx of skin graft Sternum Hx of transurethral resection of prostate History of back surgery History of tonsillectomy History of hernia repair History of colonoscopy Family History Mother , age 74 Cancer Father , age 64 Heart disease Sister , age 21 Breast cancer Brother No problems noted. Son No problems noted. Son No problems noted. Daughter , 7 months No problems noted. Maternal Grandfather , age 65 Heart disease Paternal Grandfather No problems noted. Maternal Grandmother , age 80? Diabetes Paternal Grandmother , age 85 No problems noted. Social History Smoking/Tobacco Use Status: Current every day Tobacco Type: cigarettes Tobacco: How many years used: 66 Quit status: not considering quitting Second Hand Exposure: Yes Smoking risk assessment performed?: Yes Alcohol Intake: current Alcohol Intake frequency: a few times a week Alcohol type: hard liquor Drug use: Daily Substance use type: marijuana Details: tid Adopted: No Caregiver/Support person: No Foster care: No Housing: other Number of Children: 2 Pets and animals: No Sexually active: No Do you think of yourself as: straight/heterosexual Current gender identity: male What is your relationship status?: How often do you talk on the phone with friends or family?: three or more times per week How often do you get together with friends or relatives?: decline to answer How often do you attend adventism or episcopal services?: decline to answer Do you belong to any clubs or organized social groups?: no Panel score (0-1 are the most socially isolated patients): 1 What type of physical activity do you participate in: other Details: firewood Duration: < 15 minutes/day Frequency: daily Sita/Denominational: No preference Special sita needs: No Agree to transfusion: Yes Seatbelt use: never Helmet use: No Drive intox 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 road train driver: No Working smoke detector in home: No Carbon monox detector in home: No Firearms in home: Yes Do you feel safe at home: Yes Do you feel safe in your relationship?: Yes Time Spent with Patient Time Spent with Patient: <45 minutes Time was spent: preparing to see the patient(eg.review tests), obtaining and/or reviewing separately otained hiistory, referring, communicating with other health lawn care technician, indepentently interpreting results, counseling the patient and care coordination
--- NOTE | 2023-03-26 13:45 | PT.INTREAT ---
Date of service: 03/26/23 Time of Service: 11:18 PT Notes Visit Reasons: Multiple focal pneumonia,Rib fracture,Transverse P Inpatient Physical Therapy Treatment Note [facility] Date: 03/26/23 PRECAUTIONS: Fall, standard, activity as tolerated SUBJECTIVE: Patient reports feeling much better, reports that his dysgeusia is resolving which is allowing him to take in more food. He is hopeful that in a week or two he will feel as strong as he did before this most recent illness. When asked what stands between him and going home, patient reports that he would not be able to carry wood in for heat with a walker, needs to be able to ambulate at least with a SPC, and also needs to build the strength and/or stamina to be able to carry the wood in, otherwise he will have no source of heat. OBJECTIVE: Sitting up in chair, agreeable to therapy. ? PAIN: none reported. VITALS: closely monitored by nursing staff via telemetry. ? ? BED MOBILITY/TRANSFERS? Rolling L/R: not assessed Supine-sit: not assessed ? Sit-supine: not assessed ? Sit-stand: SBA ? Stand-sit: SBA ? Bed-Chair: CGA? Chair-bed: [facility] Gait Training ([id number]): Direct one-on-one instruction and skilled instruction in: [x] employing an assistive device [] modified weight-bearing status [x] movement sequencing [] turning and movement with proper form [x] Provided verbal cues for equipment management and technique [x] Provided instruction in gait pattern [] Patient education regarding pacing and breathing techniques to maximize activity tolerance? GAIT? Assistive Device: SPC? Weight bearing: full Assist: CGA-min ? Distance:? 200 feet? Deviation: In addition to the external rotation, foot drop, pes planus, and steppage gait on the left as seen with the FWW, patient also demonstrates a disorganized gait with the SPC which includes occasionally moving the cane twice in quick succession, stutter-stepping with the left foot, drifting from one side to the other in the hallway, and minor LOB x2 from which patient is able to recover.? Therapeutic Exercises ([id number]): Direct one-on-one instruction in therapeutic exercises to develop strength, endurance, range of motion and flexibility. Ambulation ? Assistive Device: FWW ? Weight bearing: full Assist: CGA? Distance:? 600 feet? Deviation: steppage gait, external rotation, pes planus on left leg. ? Provided skilled instruction in proper exercise performance Provided skilled manual cues to facilitate proper muscle recruitment and/or form. ASSESSMENT:? Patient continues to improve with his stamina. His balance is still a problem. PLAN: Continue global strengthening per plan of care until patient is medically cleared for discharge and obtains a safe discharge plan. TREATMENT CODE/TIME: 38 minutes beginning at 11:18
--- NOTE | 2023-03-26 18:18 | CMDISCH_ITS ---
Date of service: 03/26/23 Time of Service: 18:18 LACE Index Scoring Tool Questions: Length of Stay (in days): 4 - 6 Was the patient admitted via the E.D.?: Yes Comorbidities: Congestive Heart Failure, Chronic Pulmonary Disease and Liver or Renal Disease E.D. Visits: 2 Answers: Total Score: 14 Risk of Readmission: High Risk Care Management Discharge Plan Reason for Hospitalization: Pneumonia Discharge Plan: Donis will be transferred to [facility] for short term rehab prior to returning home. His brother Darren will drive him and he will follow up with facility providers. Patient/Family Education Needs: review of discharge instructions, activity, limitations, follow up plan, discuss Ask Me Three Services Needed at Discharge: Shelter Facility
== END 2023-03-26 15:24 | disposition skilled nursing facility (03) | DRG 193 ==
LOC: ER 03-22 01:13 → MS 03-22 01:39
PROVIDERS: Family Medicine; Internal Medicine; Admitting Provider Family Medicine; Emergency Provider Student in an Organized Health Care Education/Training Program; PCP Nurse Practitioner Family; Visit Provider Family Medicine
DX: J18.9 Pneumonia, unspecified organism (principal); I50.21 Acute systolic (congestive) heart failure; J96.01 Acute respiratory failure with hypoxia; I71.012 Dissection of descending thoracic aorta; I13.0 Hypertensive heart and chronic kidney disease with heart failure and stage 1 through stage 4 chronic kidney disease, or unspecified chronic kidney disease; S32.028A Other fracture of second lumbar vertebra, initial encounter for closed fracture; S22.32XA Fracture of one rib, left side, initial encounter for closed fracture; R45.851 Suicidal ideations; J44.0 Chronic obstructive pulmonary disease with (acute) lower respiratory infection; J91.8 Pleural effusion in other conditions classified elsewhere; I75.022 Atheroembolism of left lower extremity; I42.2 Other hypertrophic cardiomyopathy; Z68.1 Body mass index [BMI] 19.9 or less, adult; N18.32 Chronic kidney disease, stage 3b; M21.372 Foot drop, left foot; F17.210 Nicotine dependence, cigarettes, uncomplicated; W19.XXXA Unspecified fall, initial encounter; G62.9 Polyneuropathy, unspecified; Z66 Do not resuscitate; F41.9 Anxiety disorder, unspecified; K21.9 Gastro-esophageal reflux disease without esophagitis; R13.10 Dysphagia, unspecified; F32.A Depression, unspecified; R63.4 Abnormal weight loss; K44.9 Diaphragmatic hernia without obstruction or gangrene; G89.4 Chronic pain syndrome; M54.40 Lumbago with sciatica, unspecified side; F17.290 Nicotine dependence, other tobacco product, uncomplicated; I35.0 Nonrheumatic aortic (valve) stenosis
CPT/HCPCS: 32555 ×2; 00123; 36415; 71275; 76604; 80048; 80053; 80061; 82042; 82805; 84145; 85027; 87116; 87206; 87449; 87637; 93005; 93306; 93308; 94640; 96365; 96368; 97110; 97116; 97161; 97530; 99222; 99232; 99285; 71045; 81373; 83605; 83615; 83735; 83880; 83986; 84155; 84157; 84443; 84484; 85025; 85379; 85610; 85730; 86140; 87070; 87075; 87205; 87581; 87899; 88104; 89051; 93010; 94664; 94667; 94668; 94760; 99223; 99233; 99239; J0456; J1100; J1650; J1940; J3490; J7512; J7614

== ENCOUNTER → 2023-04-23 13:28 | Outpatient (BNVA) | payer MEDICARE, MEDICAID, SELFPAY | PROVIDERS: PCP Nurse Practitioner Family; Referring Provider Nurse Practitioner Family; Visit Provider Physician Assistant Surgical | DX: J42 Unspecified chronic bronchitis (principal); I50.21 Acute systolic (congestive) heart failure | CPT/HCPCS: 99215 ==

== ENCOUNTER → 2023-06-26 15:18 | Outpatient (BNVA) | payer MEDICARE, MEDICAID, SELFPAY | PROVIDERS: PCP Nurse Practitioner Family; Referring Provider Nurse Practitioner Family; Visit Provider Student in an Organized Health Care Education/Training Program | DX: J42 Unspecified chronic bronchitis (principal); F17.210 Nicotine dependence, cigarettes, uncomplicated | CPT/HCPCS: 99214 ==

== ENCOUNTER 2024-11-11 01:54 | Outpatient (CLI) | payer MEDICARE, MEDICAID, SELFPAY ==
--- NOTE | 2024-11-11 08:15 | DI.RAD_ITS ---
Exam(s) XR CHEST 2V PA LATERAL EXAM: XR CHEST 2V PA LATERAL CLINICAL HISTORY: SOB, wheezing, crackles, cough R06.89 ABNL BREASTHING R05.9 COUGH TECHNIQUE: 2D digital imaging was performed. Two views. COMPARISON: CR XR PORTABLE CHEST AP from 03/24/2023 FINDINGS: HEART: Mildly enlarged. Aorta: Not dilated. PULMONARY VASCULATURE: Normal. MEDIASTINUM: Unremarkable. LUNGS: No visible infiltrate or evidence of pulmonary edema. Chronic interstitial changes. PLEURAL SPACE: Tiny bilateral pleural effusions. No pneumothorax. BONE:Unremarkable for age. Sternal wires. SOFT TISSUES: Unremarkable. IMPRESSION: Tiny bilateral pleural effusions. DATA REPOSITORY: RADIATION DOSE DELIVERED:
== END 2024-11-11 02:14 ==
LOC: DI 01:55
PROVIDERS: PCP Nurse Practitioner Family; Visit Provider Nurse Practitioner Family
DX: R06.89 Other abnormalities of breathing (principal); R05.9 Cough, unspecified; R91.8 Other nonspecific abnormal finding of lung field
CPT/HCPCS: 71046

== ENCOUNTER 2024-11-11 14:49 | Outpatient (CLI) | payer MEDICARE, MEDICAID, SELFPAY ==
[2024-11-11 16:25] LABS: HCT 37.3 % (40.0-50.0); HGB 11.9 g/dL (13.5-17.5); MCH 26.8 pg (27.0-33.0); MCHC 31.9 % (32.0-36.0); MCV 84 fL (80-95); MPV 9.2 fL (8.0-11.0); Platelet Count 318 10^3/uL (130-400); RBC 4.44 10^6/uL (4.36-5.78); RDW 16.0 % (11.8-14.1); RDW-SD 49.1 fL; WBC 8.54 10^3/uL (4.4-10.8)
[2024-11-11 17:28] LABS: ALT 30 U/L (16-63); AST 22 U/L (15-37); Albumin 3.6 g/dL (3.4-5.0); Alkaline Phosphatase 72 U/L (46-116); Anion Gap 7.9 mmol/L (3-11); BUN 19 mg/dL (7-18); Bilirubin, Total 0.5 mg/dL (0.2-1.0); CO2 29.1 mmol/L (21.0-32.0); Calcium 8.8 mg/dL (8.5-10.1); Chloride 106 mmol/L (98-107); Estimated GFR 61.90 (mL/min/1.73m2); Glucose 95 mg/dL (74-106); NT-proBNP 7260 pg/mL (<300); Potassium 3.7 mmol/L (3.5-5.1); Sodium 143 mmol/L (136-145); Total Protein 6.4 g/dL (6.4-8.2)
== END 2024-11-11 14:50 | disposition home or self-care (01) ==
LOC: LBO 14:50
PROVIDERS: PCP Nurse Practitioner Family; Visit Provider Nurse Practitioner Family
DX: I42.2 Other hypertrophic cardiomyopathy (principal); I50.21 Acute systolic (congestive) heart failure; N18.32 Chronic kidney disease, stage 3b; R60.0 Localized edema; I10 Essential (primary) hypertension; R06.89 Other abnormalities of breathing
CPT/HCPCS: 36415; 80053; 85027; 71046; 83880

== ENCOUNTER → 2025-02-08 14:25 | Outpatient (BNVA) | payer MEDICARE, MEDICAID, SELFPAY | PROVIDERS: PCP Nurse Practitioner Family; Referring Provider Nurse Practitioner Family; Visit Provider Internal Medicine Pulmonary Disease | DX: J44.9 Chronic obstructive pulmonary disease, unspecified (principal); R91.8 Other nonspecific abnormal finding of lung field; J90 Pleural effusion, not elsewhere classified; Z87.891 Personal history of nicotine dependence | CPT/HCPCS: 76604; 99215 ==

== ENCOUNTER 2025-02-09 04:12 | Outpatient (CLI) | payer MEDICARE, MEDICAID, SELFPAY ==
[2025-02-09] MEDS: Inhaler, Assist Device 1 EACH MC (17:19)
[2025-02-09] MEDS: Levalbuterol HFA 15 GM INH 4 PUFF IH (17:19)
--- NOTE | 2025-02-10 10:20 | PFT_ITS ---
Date of service: 02/09/25 Time of Service: 15:14 Pulmonary Function Test Result Indications: COPD Impression 1. Good patient effort was noted. ATS standards for reproducibility were met. 2. Spirometry showed mild obstructive lung disease with an FEV1 of 87% (2.15 L) 3. Following the administration of a bronchodilator there was not a significant response 4. TLC was reduced at 76% predicted, consistent with mild restrictive lung dise ase 5. DLCO was 37%, consistent with a severe defect in alveolar gas exchange
== END 2025-02-09 04:13 | disposition home or self-care (01) ==
LOC: RT 04:12
PROVIDERS: PCP Nurse Practitioner Family; Visit Provider Internal Medicine Pulmonary Disease
DX: J42 Unspecified chronic bronchitis (principal)
CPT/HCPCS: 94060; 94726; 94729

== ENCOUNTER 2025-02-21 02:42 | Outpatient (CLI) | payer MEDICARE, MEDICAID, SELFPAY ==
--- NOTE | 2025-02-21 07:15 | DI.CT_ITS ---
Exam(s) CT CHEST WO EXAM: CT CHEST WO CLINICAL HISTORY: pulmonary infiltrates,r91.8. TECHNIQUE: Imaging protocol: Axial computed tomography images were obtained and coronal and sagittal reformatted images were created and reviewed. Lung Computer Aided Detection (CAD) was utilized. CT CT CHEST W from 10/22/[address] CHEST PE CTA from 03/21/2023 CR XR CHEST 2V PA LATERAL from 11/11/2024 FINDINGS: The examination is limited due to patient motion artifact. Tracheobronchial tree: Patent where visualized. No bronchiectasis is present. Pulmonary parenchyma: Centrilobular emphysematous changes are present in the lungs. There is a calcified granuloma in the right lower lobe. There are moderate size bilateral pleural effusions. Mild subjacent atelectasis is present. There are no focal consolidating infiltrate seen. Mediastinum and Юлия: No dominant adenopathy or fluid collection. The esophagus is unremarkable. Thyroid gland: There is again seen an enlarged right lobe of the thyroid gland. There are several stable thyroid nodules again seen. No follow-up is recommended. Pleura: There is no pneumothorax. Heart: Cardiomegaly. Coronary artery calcifications are present. No pericardial effusion. Aorta: The ascending thoracic aorta measures 4 x 4 cm. Atherosclerotic calcification is present. Upper abdomen: There is again seen a left renal cyst. No follow-up is recommended. Lymph nodes: Within normal limits. Soft tissues: Unremarkable. Bones:Within normal limits for the patient's age. Sternal wires are in place. There are old healed and nonunited left rib fractures. IMPRESSION: 1. Interval development of bilateral moderate pleural effusions with subjacent atelectasis. 2. Centrilobular emphysematous changes are present. 3. Cardiomegaly. RADIATION DOSE DELIVERED: 141.17mGy.cm Total DLP 141.17mGy.cm Total DLP DATA REPOSITORY: All CT scans at this facility are submitted to the National Radiology Data Registry (NRDR) Dose Index Registry (DIR) with the [employer] (ACR). RADIATION OPTIMIZATION: All CT scans at this facility use at least one of these dose optimization techniques: automated exposure control; mA and/or kV adjustment per patient size (includes targeted exams where dose is matched to clinical indication); or iterative reconstruction.
== END 2025-02-21 03:02 ==
LOC: DI 02:42
PROVIDERS: PCP Nurse Practitioner Family; Visit Provider Internal Medicine Pulmonary Disease
DX: J90 Pleural effusion, not elsewhere classified (principal); J43.2 Centrilobular emphysema; I51.7 Cardiomegaly
CPT/HCPCS: 71250

== ENCOUNTER → 2025-03-01 14:54 | Outpatient (BNVA) | payer MEDICARE, MEDICAID, SELFPAY | PROVIDERS: PCP Nurse Practitioner Family; Referring Provider Nurse Practitioner Family; Visit Provider Internal Medicine Pulmonary Disease | DX: J90 Pleural effusion, not elsewhere classified (principal); J42 Unspecified chronic bronchitis; I50.9 Heart failure, unspecified; F17.210 Nicotine dependence, cigarettes, uncomplicated | CPT/HCPCS: 76604; 99214 ==

== ENCOUNTER 2025-03-01 15:41 | Inpatient (IN) | payer MEDICARE, MEDICAID, SELFPAY ==
[2025-03-01] VITALS (33 sets, daily range): BP systolic 153–188; BP diastolic 43–94; PULSE 51–96; RESP 12–36; TEMP 36.4; O2SAT 79–100
--- NOTE | 2025-03-01 15:30 | RT.EKG_ITS ---
APPROVED REPORT Exam: Resting ECG Reason for Exam: SOB Patient Location: E HR:81 bpm ECG Measurements Heart Rate 81 AXIS MA 142 P 18 QRSd 93 QRS -17 QT 401 T 106 QTc 465 Conclusion Sinus rhythm...normal P axis, V-rate 60- 99 Atrial premature complex...SV complex w/ short R-R interval Probable left atrial enlargement...P >50mS, <-0.10mV V1 Probable LVH with secondary repol abnrm...multiple LVH criteria No STEMI
--- NOTE | 2025-03-01 15:45 | W.ED.GENAD ---
Discharge Plan Disposition Patient Disposition: Admit to [facility] Discharge Details Clinical Impression: CHF exacerbation, Hypokalemia, Hypomagnesemia Primary Care Provider: Avril Balderas ED Provider: Jessica Ramirez Home Meds and New Rx's Prescriptions: No Action melatonin 10 mg capsule 5 mg PO HS PRN lorazepam 0.5 mg tablet 0.5 mg PO BID PRN (Reason: anxiety) Qty: 30 0RF omeprazole 20 mg capsule,delayed release(DR/EC) See Rx Instructions .ROUTE .COMPLEX Qty: 180 3RF Dose Instruction: TAKE ONE CAPSULE BY MOUTH TWICE A DAY Rx Instructions: TAKE ONE CAPSULE BY MOUTH TWICE A DAY nervive 30 mg PO DAILY albuterol sulfate 90 mcg/actuation HFA aerosol inhaler 2 inh inhalation .Q4-6 hrs PRN (Reason: shortness of breath or wheezing) Qty: 8.5 0RF furosemide [Lasix] 20 mg tablet 20 mg PO DAILY PRN (Reason: edema) Qty: 90 0RF Rx Instructions: Take one tablet once a day as needed for lower leg edema. umeclidinium-vilanterol [Anoro Ellipta] 62.5-25 mcg/actuation blister with device 1 inh inhalation DAILY Qty: 60 6RF albuterol sulfate 90 mcg/actuation aerosol powdr breath activated 2 inh inhalation Q6H PRN (Reason: shortness of breath or wheezing) Qty: 1 6RF atorvastatin 40 mg tablet 40 mg PO QPM Qty: 90 3RF amlodipine 5 mg tablet 5 mg PO DAILY Qty: 90 3RF naloxone [Narcan] 4 mg/actuation spray,non-aerosol 1 spray intranasal Q2-3M PRN (Reason: opioid overdose) Qty: 2 4RF Rx Instructions: spray 1 dose into ONE nostril; alternate nostrils w each dose until help arrives mirtazapine 30 mg tablet 15 mg PO QHS Qty: 90 1RF Rx Instructions: 02/03/25: Reduction due to increased anxiety. See Task. -hb oxycodone 5 mg tablet 5 mg PO .Q5 hours MDD 25 mg PRN (Reason: pain) Qty: 140 0RF magnesium aspartate HCl 61 mg (615 mg) Tablet,Delayed Release (Dr/Ec) 61 mg PO DAILY aspirin 81 mg Tablet,Delayed Release (Dr/Ec) 81 mg PO DAILY Qty: 60 0RF multivitamin [Daily Multi-Vitamin] 1 EACH tablet 1 tab PO DAILY HPI General Date/Time Provider Initiated Documentation: 03/01/25 15:43. HPI Narrative: Gerhard is a 79-year-old male who presents to the emergency department today for evaluation of shortness of breath. He was sent over by Dr. Coles, application architect manager after being evaluated, concern for CHF exacerbation. He reports that he has been having gradually worsening shortness of breath for the last 2 weeks. This is accompanied by persistent lightheadedness. Denies associated viral symptoms such as congestion/sore throat/cough, chest pain, nausea/vomiting, abdominal pain, change in bowel or bladder function (constipation, now resolved), blood in stools or urine, change in baseline pedal edema. Albuterol has not provided symptomatic relief. Denies history of cancers, blood clots, hormone use, recent surgery/immobility, calf swelling/redness/tenderness. PMH is significant for HTN, COPD, CKD, hiatal hernia with GERD, CHF / HFrEF, tobacco use. Does take Lasix 20 mg daily. Related Data Home Medications Medication Instructions Recorded Confirmed multivitamin (Daily Multi-Vitamin 1 tab PO DAILY 03/12/17 03/01/25 tablet) magnesium aspartate HCl 61 mg (615 61 mg PO DAILY 08/12/18 03/01/25 mg) tablet,delayed release melatonin 10 mg capsule 5 mg PO HS PRN 10/24/22 03/01/25 aspirin 81 mg tablet,delayed 81 mg PO DAILY #60 tabs 03/26/23 03/01/25 release nervive 30 mg PO DAILY 04/23/23 03/01/25 atorvastatin 40 mg tablet 40 mg PO QPM #90 tabs 02/23/24 03/01/25 amlodipine 5 mg tablet 5 mg PO DAILY #90 tabs 06/22/24 03/01/25 albuterol sulfate 90 mcg/actuation 2 inh inhalation .Q4-6 hrs PRN 11/08/24 03/01/25 aerosol inhaler shortness of breath or wheezing #8.5 grams furosemide 20 mg tablet (Lasix) 20 mg PO DAILY PRN edema #90 tabs 11/08/24 03/01/25 lorazepam 0.5 mg tablet 0.5 mg PO BID PRN anxiety #30 tabs 12/21/24 03/01/25 Held on 01/13/25. Instructions: Changed by Provider naloxone 4 mg/actuation nasal 1 spray intranasal Q2-3M PRN 01/13/25 03/01/25 spray (Narcan) opioid overdose #2 ea omeprazole 20 mg capsule,delayed See Rx Instructions .Route 01/18/25 03/01/25 release .COMPLEX #180 caps mirtazapine 30 mg tablet 15 mg (1/2 x 30 mg) PO QHS #90 tabs 02/03/25 03/01/25 albuterol sulfate 90 mcg/actuation 2 inh inhalation Q6H PRN shortness 02/08/25 03/01/25 breath activated powder inhaler of breath or wheezing #1 ea umeclidinium 62.5 mcg-vilanterol 1 inh inhalation DAILY #60 ea 02/08/25 03/01/25 25 mcg/actuation powdr for inhalation (Anoro Ellipta) oxycodone 5 mg tablet 5 mg PO .Q5 hours PRN pain #140 02/18/25 03/01/25 tabs Previous Rx's Medication Instructions Recorded aspirin 81 mg tablet,delayed 81 mg PO DAILY #60 tabs 03/26/23 release atorvastatin 40 mg tablet 40 mg PO QPM #90 tabs 02/23/24 amlodipine 5 mg tablet 5 mg PO DAILY #90 tabs 06/22/24 albuterol sulfate 90 mcg/actuation 2 inh inhalation .Q4-6 hrs PRN 11/08/24 aerosol inhaler shortness of breath or wheezing #8.5 grams furosemide 20 mg tablet (Lasix) 20 mg PO DAILY PRN edema #90 tabs 11/08/24 lorazepam 0.5 mg tablet 0.5 mg PO BID PRN anxiety #30 tabs 12/21/24 Held on 01/13/25. Instructions: Changed by Provider naloxone 4 mg/actuation nasal 1 spray intranasal Q2-3M PRN 01/13/25 spray (Narcan) opioid overdose #2 ea omeprazole 20 mg capsule,delayed See Rx Instructions .Route 01/18/25 release .COMPLEX #180 caps mirtazapine 30 mg tablet 15 mg (1/2 x 30 mg) PO QHS #90 tabs 02/03/25 albuterol sulfate 90 mcg/actuation 2 inh inhalation Q6H PRN shortness 02/08/25 breath activated powder inhaler of breath or wheezing #1 ea umeclidinium 62.5 mcg-vilanterol 1 inh inhalation DAILY #60 ea 02/08/25 25 mcg/actuation powdr for inhalation (Anoro Ellipta) oxycodone 5 mg tablet 5 mg PO .Q5 hours PRN pain #140 02/18/25 tabs Allergies Allergy/AdvReac Type Severity Reaction Status Date / Time No Known Allergies Allergy Verified 03/01/25 15:48 General DYLAN: 3 Exam Narrative Exam Narrative: General Appearance: Thin, alert, and oriented. Vital signs: O2 sat 88% on room air. Mild hypertension noted, BP 164/57. Respiratory rate 30. Respiratory: Bilateral expiratory wheezes, increased work of breathing, and retractions. Cardiovascular: Normal heart sounds with regular rate and rhythm. Radial pulses 2+ bilaterally. Abdomen: Soft, nondistended, nontender to palpation. Extremities: Mild edema noted to left ankle, unchanged per baseline according to patient. Skin: Warm and dry, no rash. Psychiatric: Normal. Medical Decision Making 79-year-old male with COPD, CHF, hypertension, and tobacco use presenting with worsening dyspnea over 2 weeks. Differential Diagnosis: - COPD: Worsening dyspnea, expiratory wheezes, increased work of breathing. Administer albuterol, blood work. - CHF: History of CHF, mild left ankle swelling. Continue Lasix, blood work. - Constipation: Resolved with stool softeners, no hematochezia or abdominal pain. Continue stool softeners, increase dietary fiber. ED Course: -Patient placed on 2 L O2 via nasal cannula to maintain O2 sat in mid 90s - Administered albuterol and 40 mg Lasix - Blood work drawn - EKG performed - POCUS to evaluate pulmonary vascular congestion -K and mag repleted I independently interpreted the following tests: POCUS performed, B-lines noted bilaterally, lung sliding present. EKG shows normal sinus rhythm, rate 81, no changes consistent with acute ischemia. CBC reassuring. CMP notable for significant hypokalemia, potassium 2.7. Hypomagnesemia also noted, magnesium 1.5. Corrected calcium 8.0. BNP very elevated at 20,950. Troponins flat at 54 and 60. Chest x-ray notable for cardiomegaly, pulmonary vascular congestion, and pleural effusions bilaterally While in the emergency department Donis did have improvement of his work of breathing with diuresis. Reviewed case with Dr. Valdez, hospitalist. Patient to be admitted for CHF exacerbation. Clinical Impression: - CHF exacerbation Disposition: - Admit to [facility] for monitoring and diuresis. Patient is agreeable w/ plan of care Patient consented to the use of JEAN PAUL Imaging Data Radiologic Study: Radiologist's impression: Exam(s) XR CHEST 2V PA LATERAL EXAM: XR CHEST 2V PA LATERAL CLINICAL HISTORY: SOB TECHNIQUE: 2D digital imaging was performed. Two views. COMPARISON: CR XR CHEST 2V PA LATERAL from 11/11/[address] CHEST WO from 02/21/2025 FINDINGS: HEART: Enlarged. Status post CABG. Aorta: Mildly ectatic. PULMONARY VASCULATURE: Prominent. MEDIASTINUM: Unremarkable. LUNGS: Increased interstitial markings, greater at the lung bases. PLEURAL SPACE: Small bilateral pleural effusions. No pneumothorax. BONE:Sternal wires. Degenerative changes in the spine. SOFT TISSUES: Unremarkable. IMPRESSION: Cardiomegaly and CHF Quality:SDOH Health Related Social Needs: Health related social needs lonely/isolated PFSH All Active Problems (Updated 03/01/25 @ 17:56 by Jessica Christianson) Hypomagnesemia (Acute) Hypokalemia (Acute) CHF exacerbation (Acute) Pulmonary infiltrates (Acute) Nail dystrophy (Acute) Bilateral lower extremity edema (Acute) ankles Nicotine dependence, cigarettes, uncomplicated (Acute) Pain of left great toe (Acute) Acute HFrEF (heart failure with reduced ejection fraction) (Acute) Cardiomyopathy (Acute) Fracture of transverse process of lumbar vertebra (Acute) Fracture of rib (Acute) Cough (Acute) Difficulty breathing (Acute) Anxiety (Chronic) GERD (gastroesophageal reflux disease) (Chronic) Hypertension (Chronic) Tobacco use (Chronic) longstanding heavy smoker Dysphagia (Acute) Depression (Chronic) Tinnitus (Acute) Weight loss, unintentional (Acute) COPD (chronic obstructive pulmonary disease) (Chronic) CKD (chronic kidney disease) (Chronic) Hiatal hernia with GERD (Acute) Low back pain with sciatica (Acute) chronic pain syndrome Foot drop, left (Chronic) Foot pain, left (Acute) dorsal aspect growth, ?cyst or bone spur. Medical History (Updated 03/01/25 @ 17:56 by Jessica Christianson) AAA (abdominal aortic aneurysm, ruptured) 2016- s/p repair at [facility] Aspiration of liquid Diverticulitis Aortic dissection 2016, s/p repair at [facility], complicated by MRSA sternal wound infection. BPH (benign prostatic hyperplasia) hx TURP Hx MRSA infection Surgical History Hx of hemorrhoidectomy S/P TURP S/P lumbar laminectomy S/P bilateral inguinal herniorrhaphy Status post cataract extraction and insertion of intraocular lens of right eye Hx of skin graft Sternum Hx of transurethral resection of prostate History of back surgery History of tonsillectomy History of hernia repair History of colonoscopy Family History (Updated 05/13/24 @ 15:04 by Vidya Hook) Mother , age 74 Cancer Breast cancer Father , age 64 Heart disease Sister , age 21 Breast cancer Brother No problems noted. Son No problems noted. Son No problems noted. Daughter , 7 months No problems noted. Maternal Grandfather , age 65 Heart disease Paternal Grandfather No problems noted. Maternal Grandmother , age 80? Diabetes Stroke Paternal Grandmother , age 85 No problems noted. Social History (Updated 05/13/24 @ 15:03 by Vidya Hook) Smoking/Tobacco Use Status: Current every day Tobacco Type: cigarettes Tobacco: How many years used: 66 Quit status: not considering quitting Second Hand Exposure: Yes Smoking risk assessment performed?: Yes Alcohol Intake: current Alcohol Intake frequency: 0-2 drinks per day Alcohol type: hard liquor Drug use: Daily Substance use type: marijuana Details: tid Adopted: No Caregiver/Support person: No Foster care: No Household members: none Housing: other Details: [facility] Number of Children: 2 Communication Needs: None Education Level: high school Details: 12th Do you need help understanding health information?: Never current occupation: Retired Pets and animals: No Sexually active: No Do you think of yourself as: straight/heterosexual Current gender identity: male What is your relationship status?: How often do you talk on the phone with friends or family?: three or more times per week How often do you get together with friends or relatives?: once per week How often do you attend christian or christianity services?: decline to answer Do you belong to any clubs or organized social groups?: no Panel score (0-1 are the most socially isolated patients): 1 What type of physical activity do you participate in: other Details: firewood Duration: 15-30 minutes/day Frequency: 3-4 times per week Sita/Baptist: No preference Special sita needs: No Agree to transfusion: Yes Seatbelt use: never Helmet use: No Drive intox 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 local company intermodal truck driver: No Working smoke detector in home: No Carbon monox detector in home: No Firearms in home: No Do you feel safe at home: Yes Do you feel safe in your relationship?: Yes POCUS Exam (ED) Limited Thoracic Lung Exam DATE OF EXAM: 03/01/25 TIME OF EXAM: 16:00 PROVIDER THAT PERFORMED THE STUDY: Jessica Christianson IS THIS A REPEAT EXAM DURING THIS ENCOUNTER: No REASON FOR EXAM: Cardiogenic Pulmonary Edema VISUALIZED STRUCTURES: right anterior and left anterior PERTINENT FINDINGS/IMPRESSION: B-lines/left side and B-lines/right side DIFFERENTIAL DIAGNOSES: CHF Exam complete
[2025-03-01 16:17] LABS: BE (Venous) -5 mmol/L (-2-3); HCO3 (Venous) 20 mmol/L (23-28); O2 Sat (Venous) 61 %; TCO2 (Venous) 19 mmol/L (24-29); pCO2 (Venous) 34 mmHg (41-51); pO2 (Venous) 34 mmHg
[2025-03-01] MEDS: Albuterol/Ipratropium 3 ML UPD VIAL UPD (16:19)
[2025-03-01] MEDS: Furosemide 40 MG/4 ML VIAL IVP (16:20)
[2025-03-01 16:45] LABS: Abs Immature Grans 0.02 10^3/uL (0.0-0.06); HCT 37.4 % (40.0-50.0); HGB 12.0 g/dL (13.5-17.5); Immature Grans % 0.2 %; MCH 25.5 pg (27.0-33.0); MCHC 32.1 % (32.0-36.0); MCV 80 fL (80-95); RBC 4.70 10^6/uL (4.36-5.78); RDW 18.4 % (11.8-14.1); RDW-SD 52.8 fL; WBC 9.31 10^3/uL (4.4-10.8)
[2025-03-01 16:46] LABS: ALT 43 U/L (16-63); AST 30 U/L (15-37); Albumin 2.9 g/dL (3.4-5.0); Alkaline Phosphatase 126 U/L (46-116); Anion Gap 12.9 mmol/L (3-11); BUN 19 mg/dL (7-18); Bilirubin, Total 0.4 mg/dL (0.2-1.0); CO2 20.1 mmol/L (21.0-32.0); Calcium 7.1 mg/dL (8.5-10.1); Chloride 112 mmol/L (98-107); Glucose 75 mg/dL (74-106); Magnesium 1.5 mg/dL (1.8-2.4); RBC Morphology Normal; Sodium 145 mmol/L (136-145); Total Protein 5.4 g/dL (6.4-8.2); Troponin I 54 ng/L (<or=76)
[2025-03-01 16:52] LABS: Potassium 2.7 mmol/L (3.5-5.1)
[2025-03-01] MEDS: MAGNESIUM SULFATE 2 GM/50 ML BAG IV_INF (17:21)
[2025-03-01] MEDS: Potassium Bicarbonate/Cit AC 25 MEQ TABLET.EFF PO (17:21)
[2025-03-01] MEDS: POTASSIUM CHLORIDE 20 MEQ/100 ML BAG 50 MEQ IV_INF ×2 (17:22→20:11)
[2025-03-01 17:26] LABS: Glucose Negative (Negative)
--- NOTE | 2025-03-01 17:37 | HPE_ITS ---
Date of service: 03/01/25 Time of Service: 17:38 Assessment and Plan Assessment and plan (1) CHF exacerbation: Status: Acute Assessment and plan: HFpEF with LVEF 50-55% in 2022 POCUS today Pulmonology clinic In with CHF exacerbation with increased pleural effusion as per imaging with worsening dyspnea over the past 2 weeks IV lasix in ED- will continue lasix 40 mg BID telemetry Troponin 54 , repeat pending Daily weight I&O Echo PT consult (2) Pulmonary infiltrates: Status: Acute Assessment and plan: As above As per CT imaging (3) Hypokalemia: Status: Acute Assessment and plan: supplemented - BMP in AM (4) Hypomagnesemia: Status: Acute Assessment and plan: supplemented Mg in AM (5) Bilateral lower extremity edema: Status: Acute Assessment and plan: Ankle edema R> L (6) Nicotine dependence, cigarettes, uncomplicated: Status: Acute Assessment and plan: Ongoing with 0.5 ppd NRT (7) COPD (chronic obstructive pulmonary disease): Status: Chronic Assessment and plan: On home med regimen Scheduled nebs and PRN O2 for sat 88% (8) On deep vein thrombosis (DVT) prophylaxis: Status: Acute Assessment and plan: LMWH Discussed with Dr Valdez History of Present Illness History of Present Illness Chief Complaint: Difficulty breathing Narrative: This 79 years old male patient with a past medical history of hypertension, sciatica chronic back pain, aortic dissection 9 years ago, HFpEF, COPD, nicotine dependence, presented to the ED status post visit at the pulmonology office with findings increase close patient finding on CT scan of the chest and POCUS and worsening dyspnea. Workup in the ED showed hypokalemia with potassium of 2.7, hypomagnesemia with magnesium 1.5, replacement administered. Troponin level 54, repeat pending. EKG showed sinus rhythm heart rate 80 without sign of coronary occlusion; minimal ST depression in lead II, V5, V6 and diapers T wave flattening that could point to ischemia but similar to previous EKG. The patient had no complaints of chest pain or other complaints of ACS. The patient was treated with IV lasix , nebulizer treatment and did not required additional oxygen. Patient was admitted to the medical surgical floor telemetry for CHF exacerbation for IV diuretics and electrolyte imbalance treatment pending echocardiogram in a.m. Previous advance directive status from 2019 stated DNR/DNI Patient reports lightheadedness, dyspnea. The patient mentioned of having had a mini stroke in the past as well as diminished blood flow to his right brain during this aortic dissection causing left-sided body weakness, also drinks 4 oz of 80 proof vodka daily and canabis gummies, holding on to furniture to ambulate at home Patient denies headache chills fever chest pain nausea vomiting diarrhea constipation or dysuria Review of Systems All systems reviewed & are unremarkable except as noted in HPI and below PFSH All Active Problems (Updated 03/01/25 @ 18:29 by Joy Sanchez APRN) On deep vein thrombosis (DVT) prophylaxis (Acute) Hypomagnesemia (Acute) Hypokalemia (Acute) CHF exacerbation (Acute) Pulmonary infiltrates (Acute) Nail dystrophy (Acute) Bilateral lower extremity edema (Acute) ankles Nicotine dependence, cigarettes, uncomplicated (Acute) Pain of left great toe (Acute) Acute HFrEF (heart failure with reduced ejection fraction) (Acute) Cardiomyopathy (Acute) Fracture of transverse process of lumbar vertebra (Acute) Fracture of rib (Acute) Cough (Acute) Difficulty breathing (Acute) Anxiety (Chronic) GERD (gastroesophageal reflux disease) (Chronic) Hypertension (Chronic) Tobacco use (Chronic) longstanding heavy smoker Dysphagia (Acute) Depression (Chronic) Tinnitus (Acute) Weight loss, unintentional (Acute) COPD (chronic obstructive pulmonary disease) (Chronic) CKD (chronic kidney disease) (Chronic) Hiatal hernia with GERD (Acute) Low back pain with sciatica (Acute) chronic pain syndrome Foot drop, left (Chronic) Foot pain, left (Acute) dorsal aspect growth, ?cyst or bone spur. Medical History (Updated 03/01/25 @ 18:29 by Joy Sanchez APRN) AAA (abdominal aortic aneurysm, ruptured) 2016- s/p repair at [facility] Aspiration of liquid Diverticulitis Aortic dissection 2016, s/p repair at [facility], complicated by MRSA sternal wound infection. BPH (benign prostatic hyperplasia) hx TURP Hx MRSA infection Surgical History Hx of hemorrhoidectomy S/P TURP S/P lumbar laminectomy S/P bilateral inguinal herniorrhaphy Status post cataract extraction and insertion of intraocular lens of right eye Hx of skin graft Sternum Hx of transurethral resection of prostate History of back surgery History of tonsillectomy History of hernia repair History of colonoscopy Family History (Updated 05/13/24 @ 15:04 by Vidya Hook) Mother , age 74 Cancer Breast cancer Father , age 64 Heart disease Sister , age 21 Breast cancer Brother No problems noted. Son No problems noted. Son No problems noted. Daughter , 7 months No problems noted. Maternal Grandfather , age 65 Heart disease Paternal Grandfather No problems noted. Maternal Grandmother , age 80? Diabetes Stroke Paternal Grandmother , age 85 No problems noted. Social History (Updated 05/13/24 @ 15:03 by Vidya Hook) Smoking/Tobacco Use Status: Current every day Tobacco Type: cigarettes Tobacco: How many years used: 66 Quit status: not considering quitting Second Hand Exposure: Yes Smoking risk assessment performed?: Yes Alcohol Intake: current Alcohol Intake frequency: 0-2 drinks per day Alcohol type: hard liquor Drug use: Daily Substance use type: marijuana Details: tid Adopted: No Caregiver/Support person: No Foster care: No Household members: none Housing: other Details: [facility] Number of Children: 2 Communication Needs: None Education Level: high school Details: 12th Do you need help understanding health information?: Never current occupation: Retired Pets and animals: No Sexually active: No Do you think of yourself as: straight/heterosexual Current gender identity: male What is your relationship status?: How often do you talk on the phone with friends or family?: three or more times per week How often do you get together with friends or relatives?: once per week How often do you attend nondenominational or hinduism services?: decline to answer Do you belong to any clubs or organized social groups?: no Panel score (0-1 are the most socially isolated patients): 1 What type of physical activity do you participate in: other Details: firewood Duration: 15-30 minutes/day Frequency: 3-4 times per week Sita/Catholic: No preference Special sita needs: No Agree to transfusion: Yes Seatbelt use: never Helmet use: No Drive intox 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 independent driver: No Working smoke detector in home: No Carbon monox detector in home: No Firearms in home: No Do you feel safe at home: Yes Do you feel safe in your relationship?: Yes Meds Allergies and Home Medications Allergies Allergy/AdvReac Type Severity Reaction Status Date / Time No Known Allergies Allergy Verified 03/01/25 15:48 Home Medications Medication Instructions Recorded Confirmed Type multivitamin (Daily Multi-Vitamin 1 tab PO DAILY 03/1203/01/25 History tablet) magnesium aspartate HCl 61 mg (615 61 mg PO DAILY 0407/2803/01/25 History mg) tablet,delayed release melatonin 10 mg capsule 5 mg PO HS PRN 10/24/2202/10 History aspirin 81 mg tablet,delayed 81 mg PO DAILY #60 tabs 1 05/26/22 03/01/25 Rx release nervive 30 mg PO DAILY 04/23/2302/10 History atorvastatin 40 mg tablet 40 mg PO QPM #90 tabs 03/01/25 Rx amlodipine 5 mg tablet 5 mg PO DAILY #90 tabs 06/2203/01/25 Rx albuterol sulfate 90 mcg/actuation 2 inh inhalation .Q 4-6 hrs PRN 11/08/24 03/01/25 Rx aerosol inhaler shortness of breath or wheez ing #8.5 grams furosemide 20 mg tablet (Lasix) 20 mg PO DAILY PRN andrew ma #90 tabs 11/08/24 03/01/25 Rx lorazepam 0.5 mg tablet 0.5 mg PO BID PRN anxiety #3 0 tabs 12/21/24 03/01/25 Rx Held on 01/13/25. Instructions: Changed by Provider naloxone 4 mg/actuation nasal 1 spray intranasal Q2-3M PRN 01/13/25 03/01/25 Rx spray (Narcan) opioid overdose #2 ea omeprazole 20 mg capsule,delayed See Rx Instructions . Route 01/18/25 03/01/25 Rx release .COMPLEX #180 caps mirtazapine 30 mg tablet 15 mg (1/2 x 30 mg) PO QHS # 90 tabs 02/03/25 03/01/25 Rx albuterol sulfate 90 mcg/actuation 2 inh inhalation Q6 H PRN shortness 02/08/25 03/01/25 Rx breath activated powder inhaler of breath or wheezing #1 ea umeclidinium 62.5 mcg-vilanterol 1 inh inhalation ELISA Y #60 ea 02/08/25 03/01/25 Rx 25 mcg/actuation powdr for inhalation (Anoro Ellipta) oxycodone 5 mg tablet 5 mg PO .Q5 hours PRN pain # 140 02/18/25 03/01/25 Rx tabs Exam Narrative Exam Narrative: 79 yo male looking older than stated age, alert and oriented X4, no acute neurological deficit, left arm and leg chronically weaker, labored breathing with speech, crackles to nipple lines bilaterally coarser to the right lung field, + aortic murmur, SR on radiographer cardiac catheterization, PPPX4 , ankle edema R> L, abdomen is non-distneded , soft and nontender, moves all 4 ext, RAAS 0, congruent mood and affect Results Labs 03/01/25 16:07 03/01/25 16:07 Labs: Laboratory Results - last 24 hr 03/01/25 03/01/25 16:07 17:00 WBC 9.31 RBC 4.70 Hgb 12.0 L Hct 37.4 L MCV 80 MCH 25.5 L MCHC 32.1 RDW 18.4 H Plt Count MPV Immature Gran % 0.2 Neutrophils % 73.5 Lymphocytes % 15.9 Monocytes % 9.6 Eosinophils % 0.3 Basophils % 0.5 Nucleated RBC % 0.0 Absolute Neutrophils 6.84 H Absolute Lymphocytes 1.48 Absolute Monocytes 0.89 H Absolute Eosinophils 0.03 Absolute Basophils 0.05 RBC Morphology Normal VBG pH 7.38 VBG pCO2 34 L VBG pO2 34 VBG HCO3 20 L VBG Total CO2 19 L VBG O2 Saturation 61 VBG Base Excess -5 L Sodium 145 Potassium 2.7 L* Chloride 112 H Carbon Dioxide 20.1 L Anion Gap 12.9 H BUN 19 H Creatinine 1.2 Est GFR (CKD-EPI 2020) 61.52 Glucose 75 Calcium 7.1 L Magnesium 1.5 L Total Bilirubin 0.4 AST 30 ALT 43 Alkaline Phosphatase 126 H Troponin I 54 NT-Pro-B Natriuret Pep 32802 H Total Protein 5.4 L Albumin 2.9 L Urine Color Yellow Urine Clarity Clear Urine pH 6.0 Ur Specific [place] 1.010 Urine Protein Negative Urine Ketones Negative Urine Blood Negative Urine Nitrite Negative Urine Bilirubin Negative Urine Urobilinogen 0.2 Ur Leukocyte Esterase Negative Urine Glucose Negative Last Vital Signs Pulse 62 03/01/25 16:25 Resp 25 H 03/01/25 16:25 BP 188/46 H 03/01/25 16:25 Pulse Ox 99 10/21/25 16:25 PAWSS Have you Been Recently Intoxicated or Drunk Within the Last 30 days?: No Have you Ever Experienced Previous Episodes of Alcohol Withdrawal?: No Have you ever Experienced Withdrawal Seizures?: No Have you ever Experienced Delirium Tremens(DT)s?: No Have you ever undergone Alcohol Rehabilitation Treatment (i.e, inpt ot outpatient treatment programs)?: No Have you ever Experienced Blackouts?: No Have you ever Combined Alcohol with other Downers within the last 90 days?: No Have you ever Combined Alcohol with any other Substance of Abuse during the last 90 days?: No Positive Blood Alcohol level on Presentation? [PCS.BAL]: No Evidence of Increased Autonomic Activity (i.e. HR>120, tremor, sweating, agitation, nausea)?: No Result: 0 Time Spent Time spent with Patient: >75 minutes Time was spent: preparing to see the patient(eg.review tests), obtaining and/or reviewing separately otained hiistory, ordering medications,tests, procedures, referring, communicating with other health career services representative, indepentently interpreting results, counseling the patient, care coordination and other
[2025-03-01 17:43] LABS: Troponin I 60 ng/L (<or=76)
[2025-03-01] MEDS: oxyCODONE 5 MG TAB PO (17:51)
[2025-03-01] MEDS: Acetaminophen 325 MG TAB 650 MG PO (20:11)
[2025-03-01] MEDS: Potassium Chloride 10 MEQ CAPCR 40 MEQ PO (20:12)
[2025-03-01] MEDS: Mirtazapine 15 MG TAB PO (20:12)
[2025-03-01] MEDS: Omeprazole 20 MG CAPCR PO (20:13)
[2025-03-01] MEDS: Docusate Sodium 100 MG CAP PO (20:13)
[2025-03-01] MEDS: Melatonin 3 MG TAB 9 MG PO (20:13)
[2025-03-01] MEDS: Atorvastatin 40 MG TAB PO (20:13)
[2025-03-01 20:29] LABS: Troponin I 58 ng/L (<or=76)
[2025-03-01] MEDS: Normal Saline Flush 10 ML SYR IVP (20:37)
[2025-03-01] MEDS: Nicotine 21 MG/24 HR PATCH TD (21:31)
--- NOTE | 2025-03-01 22:02 | RESPIRATORY ---
Pt complains of severe sob, states the nebs are a waste of time and give him no relief. Pt has taken his nc off and states that it makes him sneeze. O2 sats remained in the 90's w/ very short drifts into the high 80's. Nebs available MD werner made aware of pt's increasing SOB
--- NOTE | 2025-03-01 22:39 | W.PC.ACHO ---
Registration Status: ADM IN Primary Language: Preferred Language: Portuguese ED Information & Data Chief Complaint RespSymp 03/01/25 16:21 Chief Complaint RespSymp 03/01/25 15:43 Triage Note Pt complaining of SOB for 1 03/01/25 15:43 week Medical / Surgical History (Last Updated 06/16/23 @ 15:56 by Avril Balderas NP) AAA (abdominal aortic aneurysm, ruptured) Aspiration of liquid Diverticulitis Aortic dissection BPH (benign prostatic hyperplasia) Hx MRSA infection (Last Reviewed 03/21/23 @ 23:58 by Vin Sheridan) Hx of hemorrhoidectomy S/P TURP S/P lumbar laminectomy S/P bilateral inguinal herniorrhaphy Status post cataract extraction and insertion of intraocular lens of right eye Hx of skin graft Hx of transurethral resection of prostate History of back surgery History of tonsillectomy History of hernia repair History of colonoscopy Most Recent Vital Signs Temperature 36.4 C L 03/01/25 20:02 Pulse 74 03/01/25 20:02 Pulse Rhythm Regular 03/01/25 20:02 Pulse 85 03/01/25 18:50 Respiratory Rate 15 03/01/25 20:02 Respiratory Effort Short of Breath 03/01/25 20:02 Respiratory Depth Normal 03/01/25 20:02 Blood Pressure 160/67 H 03/01/25 20:02 Blood Pressure Mean 100 03/01/25 18:46 Blood Pressure Position Supine 03/01/25 16:25 Pulse Oximetry 99 03/01/25 20:02 Oxygen Delivery Method Nasal Cannula 03/01/25 20:02 Oxygen Flow Rate 4 03/01/25 20:02 Pain Level 5 03/01/25 20:02 Allergies No Known Allergies Allergy (Verified 03/01/25 15:48) Active Medications Generic Name Dose Route Start Last Admin Trade Name Freq PRN Reason Stop Dose Admin Acetaminophen 650 mg 03/01/25 19:40 03/01/25 20:11 Acetaminophen 325 Mg Tab PO 650 mg Q6H PRN Administration Atorvastatin Calcium 40 mg 03/01/25 20:00 03/01/25 20:13 Atorvastatin 40 Mg Tab PO 40 mg QPM MARII Administration Docusate Sodium 100 mg 03/01/25 20:00 03/01/25 20:13 Docusate Sodium 100 Mg Cap PO 100 mg BID MARII Administration Melatonin 9 mg 03/01/25 19:51 03/01/25 20:13 Melatonin 3 Mg Tab PO 9 mg HS PRN Administration Mirtazapine 15 mg 03/01/25 20:00 03/01/25 20:12 Mirtazapine 15 Mg Tab PO 15 mg HS MARII Administration Nicotine 21 mg 03/01/25 21:30 03/01/25 21:31 Nicotine 21 Mg/24 Hr Patch TD 21 mg HS MARII Administration Omeprazole 20 mg 03/01/25 20:00 03/01/25 20:13 Omeprazole 20 Mg Capcr PO 20 mg BID@0730,1999 MARII Administration Potassium Chloride 40 meq 03/01/25 20:00 03/01/25 20:12 Potassium Chloride 10 Meq Capcr PO 40 meq BID MARII Administration Sodium Chloride 0 ml 03/01/25 20:00 03/01/25 20:37 Normal Saline Flush 10 Ml Syr IVP 30 ml BID MARII Administration IV IV Catheter Type [] Peripheral IV IV Catheter Type [Right Saline Lock Forearm] IV Catheter Gauge [] 20 IV Catheter Gauge [Right 18 Forearm] Diet Orders Category Date Time Status Heart Healthy Eating [DIET] Nutrition 03/01/25 Dinner Active Diagnostics 03/01/25 03/01/25 03/01/25 Range/Units 18:47 17:15 17:00 WBC (4.4-10.8) 10^3/uL RBC (4.36-5.78) 10^6/uL Hgb (13.5-17.5) g/dL Hct (40.0-50.0) % MCV (80-95) fL MCH (27.0-33.0) pg MCHC (32.0-36.0) % RDW (11.8-14.1) % Plt Count (130-400) 10^3/uL MPV (8.0-11.0) fL Immature Gran % % Neutrophils % % Lymphocytes % % Monocytes % % Eosinophils % % Basophils % % Nucleated RBC % (0.0-0.3) % Absolute Neutrophils (1.2-6.7) 10^3/uL Absolute Lymphocytes (1.2-3.4) 10^3/uL Absolute Monocytes (0.1-0.8) 10^3/uL Absolute Eosinophils (0.0-0.7) 10^3/uL Absolute Basophils (0.0-0.2) 10^3/uL RBC Morphology VBG pH (7.31-7.41) VBG pCO2 (41-51) mmHg VBG pO2 mmHg VBG HCO3 (23-28) mmol/L VBG Total CO2 (24-29) mmol/L VBG O2 Saturation % VBG Base Excess (-2-3) mmol/L Sodium (136-145) mmol/L Potassium (3.5-5.1) mmol/L Chloride (98-107) mmol/L Carbon Dioxide (21.0-32.0) mmol/L Anion Gap (3-11) mmol/L BUN (7-18) mg/dL Creatinine (0.70-1.30) mg/dL Est GFR (CKD-EPI 2020) (mL/min/1.73m2) Glucose (74-106) mg/dL Calcium (8.5-10.1) mg/dL Magnesium (1.8-2.4) mg/dL Total Bilirubin (0.2-1.0) mg/dL AST (15-37) U/L ALT (16-63) U/L Alkaline Phosphatase (46-116) U/L Troponin I 58 60 (<or=76) ng/L NT-Pro-B Natriuret Pep (<300) pg/mL Total Protein (6.4-8.2) g/dL Albumin (3.4-5.0) g/dL Urine Color Yellow (Yellow) Urine Clarity Clear (Clear) Urine pH 6.0 (5-8) Ur Specific [place] 1.010 (1.005-1.025) Urine Protein Negative (Neg-Trace) mg/dL Urine Ketones Negative (Negative) mg/dL Urine Blood Negative (Negative) Urine Nitrite Negative (Negative) Urine Bilirubin Negative (Negative) Urine Urobilinogen 0.2 (Up to 0.2) mg/dL Ur Leukocyte Esterase Negative (Negative) Urine Glucose Negative (Negative) mg/dL 03/01/25 Range/Units 16:07 WBC 9.31 (4.4-10.8) 10^3/uL RBC 4.70 (4.36-5.78) 10^6/uL Hgb 12.0 L (13.5-17.5) g/dL Hct 37.4 L (40.0-50.0) % MCV 80 (80-95) fL MCH 25.5 L (27.0-33.0) pg MCHC 32.1 (32.0-36.0) % RDW 18.4 H (11.8-14.1) % Plt Count (130-400) 10^3/uL MPV (8.0-11.0) fL Immature Gran % 0.2 % Neutrophils % 73.5 % Lymphocytes % 15.9 % Monocytes % 9.6 % Eosinophils % 0.3 % Basophils % 0.5 % Nucleated RBC % 0.0 (0.0-0.3) % Absolute Neutrophils 6.84 H (1.2-6.7) 10^3/uL Absolute Lymphocytes 1.48 (1.2-3.4) 10^3/uL Absolute Monocytes 0.89 H (0.1-0.8) 10^3/uL Absolute Eosinophils 0.03 (0.0-0.7) 10^3/uL Absolute Basophils 0.05 (0.0-0.2) 10^3/uL RBC Morphology Normal VBG pH 7.38 (7.31-7.41) VBG pCO2 34 L (41-51) mmHg VBG pO2 34 mmHg VBG HCO3 20 L (23-28) mmol/L VBG Total CO2 19 L (24-29) mmol/L VBG O2 Saturation 61 % VBG Base Excess -5 L (-2-3) mmol/L Sodium 145 (136-145) mmol/L Potassium 2.7 L* (3.5-5.1) mmol/L Chloride 112 H (98-107) mmol/L Carbon Dioxide 20.1 L (21.0-32.0) mmol/L Anion Gap 12.9 H (3-11) mmol/L BUN 19 H (7-18) mg/dL Creatinine 1.2 (0.70-1.30) mg/dL Est GFR (CKD-EPI 2020) 61.52 (mL/min/1.73m2) Glucose 75 (74-106) mg/dL Calcium 7.1 L (8.5-10.1) mg/dL Magnesium 1.5 L (1.8-2.4) mg/dL Total Bilirubin 0.4 (0.2-1.0) mg/dL AST 30 (15-37) U/L ALT 43 (16-63) U/L Alkaline Phosphatase 126 H (46-116) U/L Troponin I 54 (<or=76) ng/L NT-Pro-B Natriuret Pep 27056 H (<300) pg/mL Total Protein 5.4 L (6.4-8.2) g/dL Albumin 2.9 L (3.4-5.0) g/dL Urine Color (Yellow) Urine Clarity (Clear) Urine pH (5-8) Ur Specific [place] (1.005-1.025) Urine Protein (Neg-Trace) mg/dL Urine Ketones (Negative) mg/dL Urine Blood (Negative) Urine Nitrite (Negative) Urine Bilirubin (Negative) Urine Urobilinogen (Up to 0.2) mg/dL Ur Leukocyte Esterase (Negative) Urine Glucose (Negative) mg/dL Intake and Output - 24 Hour Total 03/01/25 15:41 thru 03/01/25 21:54 Intake Total 540 Output Total 930 Balance -390 Weight 52.3 kg Intake: IV 20 Oral 520 Output: Urine 930 Other: Urine Color Pale Urine Appearance Clear # Voids 1 Falls Risk Assessment History of Falls No History 03/01/25 20:02 Contributing Factors Unstable,Impairments 03/01/25 16:24 Ambulatory Aids Uses ambulatory device 03/01/25 20:02 Tubes/Lines None 03/01/25 20:02 Gait Evaluation W/no contributing factors 03/01/25 20:02 Cognition No cognitive impairment 03/01/25 20:02 Fall Total Score 25 03/01/25 20:02 Level of Risk Moderate Risk 03/01/25 20:02 Problems (Last Updated 06/16/23 @ 15:56 by Avril Balderas NP) On deep vein thrombosis (DVT) prophylaxis (Acute) Hypomagnesemia (Acute) Hypokalemia (Acute) CHF exacerbation (Acute) Pulmonary infiltrates (Acute) Bilateral lower extremity edema (Acute) Nicotine dependence, cigarettes, uncomplicated (Acute) COPD (chronic obstructive pulmonary disease) (Chronic) v v v v v v v v v Sending and/or Receiving Nurses: Please use comment section below to note any information pertinent to the patient hand-off not included above. Information / Comments: Report received from: Leti REED all questions answered.
[2025-03-01] MEDS: LORazepam 1 MG TAB PO (22:57)
[2025-03-02] VITALS (7 sets, daily range): BP systolic 151–177; BP diastolic 61–87; PULSE 80–94; RESP 15–20; TEMP 35.8–36.5; O2SAT 92–98
[2025-03-02 06:25] LABS: Abs Immature Grans 0.03 10^3/uL (0.0-0.06); HCT 34.4 % (40.0-50.0); HGB 10.9 g/dL (13.5-17.5); Immature Grans % 0.3 %; MCH 25.2 pg (27.0-33.0); MCHC 31.7 % (32.0-36.0); MCV 79 fL (80-95); MPV 9.8 fL (8.0-11.0); Platelet Count 346 10^3/uL (130-400); RBC 4.33 10^6/uL (4.36-5.78); RDW 18.3 % (11.8-14.1); RDW-SD 51.9 fL; WBC 10.37 10^3/uL (4.4-10.8)
[2025-03-02 06:36] LABS: ALT 53 U/L (16-63); AST 38 U/L (15-37); Albumin 3.2 g/dL (3.4-5.0); Alkaline Phosphatase 142 U/L (46-116); Anion Gap 9.2 mmol/L (3-11); BUN 27 mg/dL (7-18); Bilirubin, Total 0.4 mg/dL (0.2-1.0); CO2 25.8 mmol/L (21.0-32.0); Calcium 8.3 mg/dL (8.5-10.1); Chloride 109 mmol/L (98-107); Glucose 105 mg/dL (74-106); Magnesium 2.3 mg/dL (1.8-2.4); Potassium 4.4 mmol/L (3.5-5.1); Sodium 144 mmol/L (136-145); Total Protein 5.9 g/dL (6.4-8.2)
[2025-03-02] MEDS: Magnesium Chloride 64 MG TABCR PO (07:59)
[2025-03-02] MEDS: Furosemide 40 MG/4 ML VIAL IVP (07:59)
[2025-03-02] MEDS: amLODIPine 5 MG TAB PO (07:59)
[2025-03-02] MEDS: Docusate Sodium 100 MG CAP PO ×2 (08:00→20:42)
[2025-03-02] MEDS: Aspirin E.C. 81 MG TABEC PO (08:00)
[2025-03-02] MEDS: Potassium Chloride 10 MEQ CAPCR 40 MEQ PO ×2 (08:00→20:40)
[2025-03-02] MEDS: Omeprazole 20 MG CAPCR PO ×2 (08:00→20:41)
[2025-03-02] MEDS: Normal Saline Flush 10 ML SYR IVP ×2 (08:00→20:41)
--- NOTE | 2025-03-02 08:32 | W.PM.OP ---
Operative Note Operative Note PRE-OP DIAGNOSIS: Pleural effusion POST-OP DIAGNOSIS: same PROCEDURE: Right thoracentesis SURGEON: Darren Coles ANESTHESIA TYPE: Local By Surgeon Indications: Relief and diagnosis of right pleural effusion Procedure Description: The procedure risks, benefits, and alternatives were discussed with Mr. Monge, who understood and informed consent was obtained. Laboratory studies and radiographs were reviewed. A time-out was performed. Bedside ultrasound was used to identify an appropriate site for thoracentesis. The site was marked on the right posterolateral chest wall. Sterile technique was used throughout the procedure. The site was cleaned and draped in a sterile fashion. Using a 10 cc syringe and 22 Ga needle, the skin and tract to the pleural cavity were anesthetized with 10 mL of 1% lidocaine. Pleural fluid was obtained in the 10 cc syringe without difficulty. A small 2-3 mm skin incision was made at the marked site. An 8 Fr catheter over a needle was advanced until positive fluid return. The catheter was then advanced into the pleural space and the needle was removed. Pleural fluid was drained without difficulty. Post-procedure bedside ultrasound demonstrated good lung sliding. There was a small amount of residual fluid remaining. 800 mL of clear, light yellow pleural fluid were removed. Samples were sent for chemistries, cell count, bacterial/fungal/afb cultures, and cytopathology. Follow-up: A chest radiograph was ordered and is pending Follow-up on pleural fluid analysis Date of Procedure: 03/02/25
--- NOTE | 2025-03-02 08:38 | PDOC.CMIN ---
Date of service: 03/02/25 Time of Service: 08:39 Care Management Initial Assmt Initial Assessment Reason for Hospitalization: CHF Exacerbation Functional Status/Living Situation Patient Presentation: Donis was awake and lying in bed when CM met with him. He resides in a tiny home [address] in [place]. His brother Darren lives in a regular house down the hill but is currently visiting their cousin in [place], who is also ill. Donis's ex- Ling is currently staying with Donis , while his brother is out of town (an arrangement Darren made before he left town.) Donis has been living in his tiny home since 2016, and is comfortable there. He has a small wood stove for heat, but no running water. 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 His son Gerhard lives in a Condo in [place], [place] and notes that he's stayed with him once before when he was sick. Donis shares that he is unsure what he's going to do once he's discharged, as his son told him that he cant stay with him again until after Maria Luz. Donis described a prior negative experience at a rehab facility due to a roommate who kept the TV too loud. He expressed that he tends to be a hermit but enjoys conversation and storytelling. Donis also stated that he likes to smoke marijuana which makes it challenging for him to go anywhere other than home. During this discussion Per pt, he is ready to , and has been for awhile. He feels he has been on his way out for awhile and the last two times he's come to the hospital it's because he cant take the pain of not being able to breath and believes that each time he's been within days of dying. Palliative consult may be beneficial to review goals of care. At this point of the conversation, patient was dyspneic and talking appeared to require significant effort. CM will plan to revisit tomorrow to continue the discussion. PT consult is pending, CM will follow. Town of Residence: [place] Resides with: Alone Significant Other/Family: Local Natural Supports: Son and brother Employment Status: Retired Instrumental Activities of Daily Living (ADLs): Requires support (Severe decline in mobility C 1 month, ex- is staying with him) with Transportation Medications Medication Management: No Issues/Barriers identified Physical Functioning/Mobility Assistive Device: walker Advance Directives Advance Directives: Do you have an Advance Directive: Y 03/22/23, 01:13 AD On File at [facility]: Y 03/22/23, 01:13 Date Asked 06/09/19 Today, 03:40 AD Date Reviewed 03/01/25 Today, 03:40 COLST On File at [facility] COLST Date Scanned Code Status Resuscitation Status DNR/DNI Insurance Coverage/Financial Issues Insurance: Medicare Part A & B - [id number] Medicaid [facility] - [id number] Care Team Visit Care Team Role Provider Type Joy Sanchez APRN MD [facility] STAFF PHYSICIAN Avril Balderas, CAMRYN Primary Care Provider NURSE PRACTITIONER InPatient Jesse Fajardo Other Providers OTHER Jessica Christianson Emergency Provider NURSE PRACTITIONER Jason Valdez MD Admit Provider [facility] STAFF PHYSICIAN Attending Provider Discharge Potential Discharge Needs: PCP F/U Appt Anticipated Barriers to Discharge: None Identified Patient/Family Education Needs: Review discharge instructions, discuss Ask Me Three Transportation: Private vehicle Plan: PT Eval is pending, d/c recommendations to follow. Anticipate he will require SNF for STR vs. Home with CHH services and caregiver support. ? new home O2 (unclear if patient his electricity.) Transport will be dependent on his dispo.CM will follow. Social Determinants of Health Screening Social Determinants of health last assessed in clinic: 03/02/25 Will the Patient Participate in the Screening?: Yes Do you worry about having a steady place to live?: no Problems where you live: no known problems In the past 12 months, have you had to go without electric, gas, oil or water in your home?: yes 1. Within the past 12 months, we worried whether our food would run out before we got money to buy more.: Never true 2. Within the past 12 months, the food we bought just didn't last and we didn't have money to get more.: Never true Has lack of transportation kept you from medical appointments or from doing things needed for daily living?: no Has anyone in your life made you feel unsafe or unsupported?: no How hard is it for you to pay for the very basics like food, housing, medical care, and heating? Would you say it is:: Not hard at all Do you want help finding or keeping work or a job?: I do not need or want help If for any reason you need help with day-to-day activities such as bathing, preparing meals, shopping, managing finances, etc., do you get the help you need?: I don’t need any help How often do you feel lonely or isolated from those around you?: Never Do you speak a language other than Chinese at home?: No Does the patient want assistance with any of the above?: No Health Related Social Needs Health related social needs: material hardship(utilities) (Z59.12) PFSH All Active Problems (Updated 03/02/25 @ 09:58 by Joy Sanchez APRN) EtOH dependence (Acute) History of aortic aneurysm repair (Acute) Bilateral pleural effusion (Acute) On deep vein thrombosis (DVT) prophylaxis (Acute) Hypomagnesemia (Acute) Hypokalemia (Acute) CHF exacerbation (Acute) Pulmonary infiltrates (Acute) Nail dystrophy (Acute) Bilateral lower extremity edema (Acute) ankles Nicotine dependence, cigarettes, uncomplicated (Acute) Pain of left great toe (Acute) Acute HFrEF (heart failure with reduced ejection fraction) (Acute) Cardiomyopathy (Acute) Fracture of transverse process of lumbar vertebra (Acute) Fracture of rib (Acute) Cough (Acute) Difficulty breathing (Acute) Anxiety (Chronic) GERD (gastroesophageal reflux disease) (Chronic) Hypertension (Chronic) Tobacco use (Chronic) longstanding heavy smoker Dysphagia (Acute) Depression (Chronic) Tinnitus (Acute) Weight loss, unintentional (Acute) COPD (chronic obstructive pulmonary disease) (Chronic) CKD (chronic kidney disease) (Chronic) Hiatal hernia with GERD (Acute) Low back pain with sciatica (Acute) chronic pain syndrome Foot drop, left (Chronic) Foot pain, left (Acute) dorsal aspect growth, ?cyst or bone spur. Medical History (Updated 03/02/25 @ 09:58 by Joy Sanchez APRN) AAA (abdominal aortic aneurysm, ruptured) 2016- s/p repair at [facility] Aspiration of liquid Diverticulitis Aortic dissection 2016, s/p repair at [facility], complicated by MRSA sternal wound infection. BPH (benign prostatic hyperplasia) hx TURP Hx MRSA infection Surgical History (Updated 03/02/25 @ 09:57 by Joy Sanchez APRN) Hx of hemorrhoidectomy S/P TURP S/P lumbar laminectomy S/P bilateral inguinal herniorrhaphy Status post cataract extraction and insertion of intraocular lens of right eye Hx of skin graft Sternum Hx of transurethral resection of prostate History of back surgery History of tonsillectomy History of hernia repair History of colonoscopy Family History (Updated 05/13/24 @ 15:04 by Vidya Hook) Mother , age 74 Cancer Breast cancer Father , age 64 Heart disease Sister , age 21 Breast cancer Brother No problems noted. Son No problems noted. Son No problems noted. Daughter , 7 months No problems noted. Maternal Grandfather , age 65 Heart disease Paternal Grandfather No problems noted. Maternal Grandmother , age 80? Diabetes Stroke Paternal Grandmother , age 85 No problems noted. Social History (Updated 05/13/24 @ 15:03 by Vidya Hook) Smoking/Tobacco Use Status: Current every day Tobacco Type: cigarettes Tobacco: How many years used: 66 Quit status: not considering quitting Second Hand Exposure: Yes Smoking risk assessment performed?: Yes Alcohol Intake: current Alcohol Intake frequency: 0-2 drinks per day Alcohol type: hard liquor Drug use: Daily Substance use type: marijuana Details: tid Adopted: No Caregiver/Support person: No Foster care: No Household members: none Housing: house Number of Children: 2 Communication Needs: None Education Level: high school Details: 12th Do you need help understanding health information?: Never current occupation: Retired Pets and animals: No Sexually active: No Do you think of yourself as: straight/heterosexual Current gender identity: male What is your relationship status?: How often do you talk on the phone with friends or family?: three or more times per week How often do you get together with friends or relatives?: once per week How often do you attend buddhist or zoroastrianism services?: decline to answer Do you belong to any clubs or organized social groups?: no Panel score (0-1 are the most socially isolated patients): 1 What type of physical activity do you participate in: other Details: firewood Duration: 15-30 minutes/day Frequency: 3-4 times per week Sita/Mu-Ism: No preference Special sita needs: No Agree to transfusion: Yes Seatbelt use: never Helmet use: No Drive intox 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 medical driver: No Working smoke detector in home: No Carbon monox detector in home: No Firearms in home: No Do you feel safe at home: Yes Do you feel safe in your relationship?: Yes
--- NOTE | 2025-03-02 08:40 | PUCON_ITS ---
General Date Of Service Date of service: 03/02/25 Time of Service: 07:30 Requesting physician: Jason Valdez Reason for Consult: Pleural effusion Recommendations: Assessment: 1. Bilateral pleural effusions - suspect cardiogenic. No clinical evidence of active pneumonia. S/P right thoracentesis 03/02. Pleural fluid analysis pending 2. Dyspnea - due to CHF/pleural effusions - improved. Has underlying COPD, but not in exacerbation 3. COPD - not in exacerbation 4. Acute on chronic renal failure Recommendations: - agree with diuresis. Decrease lasix to daily given rise in Cr. Continue with 40 mg IV daily - will re-evaluate his left pleural effusion in the AM. If persistent, can consider left thoracentesis - followup on right pleural fluid analysis - continue bronchodilators Discussed with Dr. Valdez Assessment and Plan Assessment and plan (1) Difficulty breathing: Status: Acute (2) COPD (chronic obstructive pulmonary disease): Status: Chronic (3) Bilateral pleural effusion: Status: Acute (4) Tobacco use: Status: Chronic History of Present Illness Narrative: Patient is a 79 yo with a history of COPD and tobacco abuse who was admitted for dyspnea and CHF exacerbation Was seen in pulm clinic on 03/01 and found to have bilateral pleural effusions. Due to severe dyspnea, was directed to the ED and admitted. Had severe dyspnea this AM, which improved with thoracentesis. Denied purulent sputum production. No chest pain. He has not had any exacerbations in the past year. He smokes 0.5 ppd. Family history: Sister - breast cancer Smoking history: smoked 0.5 ppd x 68 years. Active smoker Exposure history: some asbestos exposures in his 20's ROS: 10 pt ROS negative except as in HPI PFSH All Active Problems (Updated 03/02/25 @ 08:45 by Darren Coles MD) Bilateral pleural effusion (Acute) On deep vein thrombosis (DVT) prophylaxis (Acute) Hypomagnesemia (Acute) Hypokalemia (Acute) CHF exacerbation (Acute) Pulmonary infiltrates (Acute) Nail dystrophy (Acute) Bilateral lower extremity edema (Acute) ankles Nicotine dependence, cigarettes, uncomplicated (Acute) Pain of left great toe (Acute) Acute HFrEF (heart failure with reduced ejection fraction) (Acute) Cardiomyopathy (Acute) Fracture of transverse process of lumbar vertebra (Acute) Fracture of rib (Acute) Cough (Acute) Difficulty breathing (Acute) Anxiety (Chronic) GERD (gastroesophageal reflux disease) (Chronic) Hypertension (Chronic) Tobacco use (Chronic) longstanding heavy smoker Dysphagia (Acute) Depression (Chronic) Tinnitus (Acute) Weight loss, unintentional (Acute) COPD (chronic obstructive pulmonary disease) (Chronic) CKD (chronic kidney disease) (Chronic) Hiatal hernia with GERD (Acute) Low back pain with sciatica (Acute) chronic pain syndrome Foot drop, left (Chronic) Foot pain, left (Acute) dorsal aspect growth, ?cyst or bone spur. Medical History (Updated 03/02/25 @ 08:45 by Darren Coles MD) AAA (abdominal aortic aneurysm, ruptured) 2016- s/p repair at [facility] Aspiration of liquid Diverticulitis Aortic dissection 2016, s/p repair at [facility], complicated by MRSA sternal wound infection. BPH (benign prostatic hyperplasia) hx TURP Hx MRSA infection Surgical History Hx of hemorrhoidectomy S/P TURP S/P lumbar laminectomy S/P bilateral inguinal herniorrhaphy Status post cataract extraction and insertion of intraocular lens of right eye Hx of skin graft Sternum Hx of transurethral resection of prostate History of back surgery History of tonsillectomy History of hernia repair History of colonoscopy Family History (Updated 05/13/24 @ 15:04 by Vidya Hook) Mother , age 74 Cancer Breast cancer Father , age 64 Heart disease Sister , age 21 Breast cancer Brother No problems noted. Son No problems noted. Son No problems noted. Daughter , 7 months No problems noted. Maternal Grandfather , age 65 Heart disease Paternal Grandfather No problems noted. Maternal Grandmother , age 80? Diabetes Stroke Paternal Grandmother , age 85 No problems noted. Social History (Updated 05/13/24 @ 15:03 by Vidya Hook) Smoking/Tobacco Use Status: Current every day Tobacco Type: cigarettes Tobacco: How many years used: 66 Quit status: not considering quitting Second Hand Exposure: Yes Smoking risk assessment performed?: Yes Alcohol Intake: current Alcohol Intake frequency: 0-2 drinks per day Alcohol type: hard liquor Drug use: Daily Substance use type: marijuana Details: tid Adopted: No Caregiver/Support person: No Foster care: No Household members: none Housing: house Number of Children: 2 Communication Needs: None Education Level: high school Details: 12th Do you need help understanding health information?: Never current occupation: Retired Pets and animals: No Sexually active: No Do you think of yourself as: straight/heterosexual Current gender identity: male What is your relationship status?: How often do you talk on the phone with friends or family?: three or more times per week How often do you get together with friends or relatives?: once per week How often do you attend bahai or yazdanism services?: decline to answer Do you belong to any clubs or organized social groups?: no Panel score (0-1 are the most socially isolated patients): 1 What type of physical activity do you participate in: other Details: firewood Duration: 15-30 minutes/day Frequency: 3-4 times per week Sita/Presybeterian: No preference Special sita needs: No Agree to transfusion: Yes Seatbelt use: never Helmet use: No Drive intox 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 regional company hazmat tanker driver: No Working smoke detector in home: No Carbon monox detector in home: No Firearms in home: No Do you feel safe at home: Yes Do you feel safe in your relationship?: Yes Visit Medication and Allergies Active Medications Generic Name Dose Route Start Last Admin Trade Name Freq PRN Reason Stop Dose Admin Acetaminophen 650 mg 03/01/25 19:40 03/01/25 20:11 Acetaminophen 325 Mg Tab PO 650 mg Q6H PRN Administration Albuterol Sulfate 2.5 mg 03/01/25 19:40 Albuterol 2.5 Mg/3 Ml Inh Soln Vial UPD Q2H PRN PRN Albuterol/Ipratropium 3 ml 03/01/25 21:46 Albuterol/Ipratropium 3 Ml Upd Vial UPD Q6H PRN PRN Amlodipine Besylate 5 mg 03/02/25 08:30 03/02/25 07:59 Amlodipine 5 Mg Tab PO 5 mg DAILY MARII Administration Aspirin 81 mg 03/02/25 08:30 03/02/25 08:00 Aspirin E.C. 81 Mg Tabec PO 81 mg DAILY MARII Administration Atorvastatin Calcium 40 mg 03/01/25 20:00 03/01/25 20:13 Atorvastatin 40 Mg Tab PO 40 mg QPM MARII Administration Docusate Sodium 100 mg 03/01/25 20:00 03/02/25 08:00 Docusate Sodium 100 Mg Cap PO 100 mg BID MARII Administration Enoxaparin Sodium 40 mg 03/02/25 08:30 03/02/25 08:01 Enoxaparin 40 Mg/0.4 Ml Syr SC Not Given DAILY [facility] Furosemide 40 mg 03/02/25 08:00 03/02/25 07:59 Furosemide 40 Mg/4 Ml Vial IVP 40 mg BID@0800,1600 MARII Administration IV Miscellaneous Supplies 1 each 03/01/25 19:40 Iv Access IV DIRECTED [facility] Magnesium Chloride 64 mg 03/02/25 08:30 03/02/25 07:59 Magnesium Chloride 64 Mg Tabcr PO 64 mg DAILY MARII Administration Melatonin 9 mg 03/01/25 19:51 03/01/25 20:13 Melatonin 3 Mg Tab PO 9 mg HS PRN Administration Mirtazapine 15 mg 03/01/25 20:00 03/01/25 20:12 Mirtazapine 15 Mg Tab PO 15 mg HS MARII Administration Multivitamins 1 tab 03/02/25 08:30 03/02/25 08:05 Multivitamin Tab PO Not Given DAILY [facility] Nicotine 4 mg 03/01/25 15:50 Nicotine 4 Mg Lozg SUC Q2H PRN PRN Nicotine 21 mg 03/01/25 21:30 03/01/25 21:31 Nicotine 21 Mg/24 Hr Patch TD 21 mg HS [facility] Administration Non-Formulary Medication 30 mg 03/02/25 08:30 Nervive PO DAILY [facility] Non-Formulary Medication 1 inh 03/02/25 08:30 Umeclidinium-Vilanterol [Anoro Ellipta] IH DAILY [facility] Omeprazole 20 mg 03/01/25 20:00 03/02/25 08:00 Omeprazole 20 Mg Capcr PO 20 mg BID@0730,2000 [facility] Administration Polyethylene Glycol 17 gm 03/01/25 19:40 Polyethylene Glycol 3350 17 Gm Packet PO DAILY PRN PRN Constipation Potassium Chloride 40 meq 03/01/25 20:00 03/02/25 08:00 Potassium Chloride 10 Meq Capcr PO 40 meq BID MARII Administration Sodium Chloride 0 ml 03/01/25 19:40 Normal Saline Flush 10 Ml Syr IVP PRN PRN Sodium Chloride 0 ml 03/01/25 20:00 03/02/25 08:00 Normal Saline Flush 10 Ml Syr IVP 10 ml BID MARII Administration Sodium Chloride 0 ml 03/01/25 19:40 Normal Saline 10 Ml Vial IJ DIRECTED PRN Allergies No Known Allergies Allergy (Verified 03/01/25 15:48) Exam Narrative Exam Narrative: General: alert, no acute distress Head: normocephalic ENT: no stridor, trachea midline CV: normal rate, regular rhythm Respiratory: no wheezing, no crackles, no rhonchi, no prolonged expiration GI: abd soft, non-tender, non-distended Skin: no rashes Extremities: no edema, no digital clubbing Psych: normal affect Results Last Vital Signs Temp 36 C L 03/02/25 07:21 Pulse 81 03/02/25 07:21 Resp 18 03/02/25 07:21 BP 151/87 H 03/02/25 07:21 Pulse Ox 98 03/02/25 07:21 Labs 03/02/25 05:49 03/02/25 05:49 Labs: Laboratory Results - last 24 hr 03/01/25 03/01/25 03/01/25 16:07 17:00 17:15 WBC 9.31 RBC 4.70 Hgb 12.0 L Hct 37.4 L MCV 80 MCH 25.5 L MCHC 32.1 RDW 18.4 H Plt Count MPV Immature Gran % 0.2 Neutrophils % 73.5 Lymphocytes % 15.9 Monocytes % 9.6 Eosinophils % 0.3 Basophils % 0.5 Nucleated RBC % 0.0 Absolute Neutrophils 6.84 H Absolute Lymphocytes 1.48 Absolute Monocytes 0.89 H Absolute Eosinophils 0.03 Absolute Basophils 0.05 RBC Morphology Normal VBG pH 7.38 VBG pCO2 34 L VBG pO2 34 VBG HCO3 20 L VBG Total CO2 19 L VBG O2 Saturation 61 VBG Base Excess -5 L Sodium 145 Potassium 2.7 L* Chloride 112 H Carbon Dioxide 20.1 L Anion Gap 12.9 H BUN 19 H Creatinine 1.2 Est GFR (CKD-EPI 2020) 61.52 Glucose 75 Calcium 7.1 L Magnesium 1.5 L Total Bilirubin 0.4 AST 30 ALT 43 Alkaline Phosphatase 126 H Troponin I 54 60 NT-Pro-B Natriuret Pep 47211 H Total Protein 5.4 L Albumin 2.9 L Urine Color Yellow Urine Clarity Clear Urine pH 6.0 Ur Specific [place] 1.010 Urine Protein Negative Urine Ketones Negative Urine Blood Negative Urine Nitrite Negative Urine Bilirubin Negative Urine Urobilinogen 0.2 Ur Leukocyte Esterase Negative Urine Glucose Negative 03/01/25 03/02/25 18:47 05:49 WBC 10.37 RBC 4.33 L Hgb 10.9 L Hct 34.4 L MCV 79 L MCH 25.2 L MCHC 31.7 L RDW 18.3 H Plt Count 346 MPV 9.8 Immature Gran % 0.3 Neutrophils % 75.0 Lymphocytes % 15.2 Monocytes % 8.7 Eosinophils % 0.3 Basophils % 0.5 Nucleated RBC % 0.0 Absolute Neutrophils 7.78 H Absolute Lymphocytes 1.58 Absolute Monocytes 0.90 H Absolute Eosinophils 0.03 Absolute Basophils 0.05 RBC Morphology VBG pH VBG pCO2 VBG pO2 VBG HCO3 VBG Total CO2 VBG O2 Saturation VBG Base Excess Sodium 144 Potassium 4.4 D Chloride 109 H Carbon Dioxide 25.8 Anion Gap 9.2 BUN 27 H Creatinine 1.5 H Est GFR (CKD-EPI 2020) 47.06 Glucose 105 Calcium 8.3 L Magnesium 2.3 Total Bilirubin 0.4 AST 38 H ALT 53 Alkaline Phosphatase 142 H Troponin I 58 NT-Pro-B Natriuret Pep Total Protein 5.9 L Albumin 3.2 L Urine Color Urine Clarity Urine pH Ur Specific [place] Urine Protein Urine Ketones Urine Blood Urine Nitrite Urine Bilirubin Urine Urobilinogen Ur Leukocyte Esterase Urine Glucose Imaging Chest x-ray: report reviewed and image reviewed POCUS Pulmonology Limited thoracic lung Exam DATE OF EXAM: 03/02/25 TIME OF EXAM: 08:00 PROVIDER THAT PERFORMED THE STUDY: Darren Coles IS THIS A REPEAT STUDY: No REASON FOR EXAM: Pleural Effusion and Other (Guideance for right thoracentesis) Indication: US directed right thoracentesis PERTINENT FINDINGS/IMPRESSION: Present Right pleural effusion (moderate) Exam complete
--- NOTE | 2025-03-02 08:49 | DI.RAD_ITS ---
Exam(s) XR PORTABLE CHEST AP EXAM: XR PORTABLE CHEST AP CLINICAL HISTORY: right thoracentesis TECHNIQUE: 2D digital imaging was performed of the chest. One image was obtained. An AP view was obtained. COMPARISON: CR XR PORTABLE CHEST AP from 03/24/2023 CR XR CHEST 2V PA LATERAL from 03/01/2025 FINDINGS: MEDIASTINUM: Normal. HEART: The heart is mildly enlarged. PULMONARY VASCULATURE: There is mild pulmonary venous congestion. LUNGS: There are bilateral basilar opacities present. PLEURAL SPACE: There are bilateral pleural effusions, left greater than right. There is no pneumothorax. BONE:Within normal limits for the patient's age. Sternal wires are in place. OTHER FINDINGS:Normal. IMPRESSION: 1. There is no pneumothorax. 2. There are persistent small bilateral pleural effusions, left greater than right. 3. Bilateral basilar opacities which may represent atelectasis or pneumonia. 4. Cardiomegaly and mild pulmonary venous congestion. DATA REPOSITORY: RADIATION DOSE DELIVERED:
--- NOTE | 2025-03-02 08:56 | PAPNONF_PTH ---
PATIENT: Gerhard Monge LOC: U#:[id number] AGE/SX: 79/M ROOM: 228 RE03/01/[address]: Jason Valdez MD : 1945 BED: A DIS: 03/04/2025 SPEC #: [id number] RECD: 03/02/25 12:57 STATUS: CATHY REJoseline #: [id number] ODELL: 03/02/25 08:[address]: Jason Valdez DEPT: [facility] Cytology RECD BY: Ginny Payne ENTERED: 03/02/25 12:58 SP TYPE: CASSANDRA MOSCOSO DR: Darren Balderas, BACKUP ADMINISTRATIVE COORDINATOR InPatient Jesse Fajardo Tissues: 1 - BODY FLUID CYTO(NOT S/U/N/EM)[facility] Procedures: BODY FLUID CYTO(NOT SPU/UR/NIP/ENDOM)[facility] Comments: [id number] (TV = 7 cc, SENT FRESH) (REFRIGERATED)
[2025-03-02 09:45] LABS: Polynuclear Cells 25 %
--- NOTE | 2025-03-02 09:55 | W.PM.PROGNOT ---
Date of Service Date of service: 03/02/25 Time of Service: 09:55 Assessment and Plan Assessment and plan (1) CHF exacerbation: Status: Acute Assessment and plan: HFpEF with LVEF 50-55% in 2022 now 30 to 35% as per Dr. Asher from [facility] in ED on arrival showed B-lines as per discussion with ED provider Bilateral pleural effusion as per imaging -Right thoracentesis completed by pulmonology fluid sent for analysis; recommendation to decrease Lasix IV to daily -Considering left thoracentesis in a.m. IV lasix 40 mg BID now decreased to daily Ongoing telemetry Troponin max 60 then trending down Continue Daily weight Continue strict I&O Echocardiogram: Discussion with Dr. Asher [facility] fellow in cardiology: LVEF 30 to 35%, mild valvular disease with global hypokinesis; aortic valve with severe regurgitation, mitral with moderate to severe regurgitation, pulmonic and tricuspid valve with moderate regurgitation, RVSP 52 mmHg RV function is mildly decreased. Recommendation for seeking transfer Will discussed with patient if he would be agreeable to go to [facility] Ongoing PT consult (2) Pulmonary infiltrates: Status: Acute Assessment and plan: As above As per CT imaging form 02/21 and 03/02 XR showing L>R Consider cardiogenic origin as per pulmonology and now echocardiogram results As above (3) Hypokalemia: Status: Acute Assessment and plan: Resolved after supplementation BMP in AM (4) Hypomagnesemia: Status: Acute Assessment and plan: supplemented and resolved Mg in AM (5) Bilateral lower extremity edema: Status: Acute Assessment and plan: Improving ankle edema R> L (6) Nicotine dependence, cigarettes, uncomplicated: Status: Acute Assessment and plan: Ongoing with 0.5 ppd Ongoing NRT (7) EtOH dependence: Status: Acute Assessment and plan: Daily drinking of 4 oz of vodka CIWA assessemnt (8) COPD (chronic obstructive pulmonary disease): Status: Chronic Assessment and plan: Ongoing home med regimen Continue scheduled nebs and PRN O2 for sat 88% (9) History of aortic aneurysm repair: Status: Acute Assessment and plan: As per patient - and repaired 9 years ago at [facility] (10) On deep vein thrombosis (DVT) prophylaxis: Status: Acute Assessment and plan: Ongoing LMWH Discussed with Dr Valdez Subjective Subjective Patient reports: no new complaints (Still short of breath preventing him from eating but hungry), feels better, tolerating liquids well, tolerating a regular diet, voiding w/o difficulty, no bowel movement and shortness of breath; denies diarrhea, nausea, vomiting or fever Exam Narrative Exam Narrative: 79 yo male looking older than stated age, alert and oriented X4, no acute neurological deficit, left arm and leg chronically weaker, still ongoing labored breathing with speech, fine crackles left base otherwise clear lungs , + aortic murmur, 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, PPPX4 , resolving ankle edema R> L, abdomen is non-distneded , soft and nontender, moves all 4 ext, RAAS 0, congruent mood and affect somewhat distressed due to the fact that he is only unable to eat Objective Last Vital Signs Temp 36 C L 03/02/25 07:21 Pulse 81 03/02/25 07:21 Resp 18 03/02/25 07:21 BP 151/87 H 03/02/25 07:21 Pulse Ox 98 03/02/25 07:21 Laboratory Results - last 24 hr 03/01/25 03/01/25 03/01/25 16:07 17:00 17:15 WBC 9.31 RBC 4.70 Hgb 12.0 L Hct 37.4 L MCV 80 MCH 25.5 L MCHC 32.1 RDW 18.4 H Plt Count MPV Immature Gran % 0.2 Neutrophils % 73.5 Lymphocytes % 15.9 Monocytes % 9.6 Eosinophils % 0.3 Basophils % 0.5 Nucleated RBC % 0.0 Absolute Neutrophils 6.84 H Absolute Lymphocytes 1.48 Absolute Monocytes 0.89 H Absolute Eosinophils 0.03 Absolute Basophils 0.05 RBC Morphology Normal VBG pH 7.38 VBG pCO2 34 L VBG pO2 34 VBG HCO3 20 L VBG Total CO2 19 L VBG O2 Saturation 61 VBG Base Excess -5 L Sodium 145 Potassium 2.7 L* Chloride 112 H Carbon Dioxide 20.1 L Anion Gap 12.9 H BUN 19 H Creatinine 1.2 Est GFR (CKD-EPI 2020) 61.52 Glucose 75 Calcium 7.1 L Magnesium 1.5 L Total Bilirubin 0.4 AST 30 ALT 43 Alkaline Phosphatase 126 H Troponin I 54 60 NT-Pro-B Natriuret Pep 22485 H Total Protein 5.4 L Albumin 2.9 L Urine Color Yellow Urine Clarity Clear Urine pH 6.0 Ur Specific [place] 1.010 Urine Protein Negative Urine Ketones Negative Urine Blood Negative Urine Nitrite Negative Urine Bilirubin Negative Urine Urobilinogen 0.2 Ur Leukocyte Esterase Negative Urine Glucose Negative Fluid Source Fluid Color Fluid Clarity Fluid WBC Fld Polynuclear WBCs % Fluid Mononuclear Cell 03/01/25 03/02/25 03/02/25 18:47 05:49 08:56 WBC 10.37 RBC 4.33 L Hgb 10.9 L Hct 34.4 L MCV 79 L MCH 25.2 L MCHC 31.7 L RDW 18.3 H Plt Count 346 MPV 9.8 Immature Gran % 0.3 Neutrophils % 75.0 Lymphocytes % 15.2 Monocytes % 8.7 Eosinophils % 0.3 Basophils % 0.5 Nucleated RBC % 0.0 Absolute Neutrophils 7.78 H Absolute Lymphocytes 1.58 Absolute Monocytes 0.90 H Absolute Eosinophils 0.03 Absolute Basophils 0.05 RBC Morphology VBG pH VBG pCO2 VBG pO2 VBG HCO3 VBG Total CO2 VBG O2 Saturation VBG Base Excess Sodium 144 Potassium 4.4 D Chloride 109 H Carbon Dioxide 25.8 Anion Gap 9.2 BUN 27 H Creatinine 1.5 H Est GFR (CKD-EPI 2020) 47.06 Glucose 105 Calcium 8.3 L Magnesium 2.3 Total Bilirubin 0.4 AST 38 H ALT 53 Alkaline Phosphatase 142 H Troponin I 58 NT-Pro-B Natriuret Pep Total Protein 5.9 L Albumin 3.2 L Urine Color Urine Clarity Urine pH Ur Specific [place] Urine Protein Urine Ketones Urine Blood Urine Nitrite Urine Bilirubin Urine Urobilinogen Ur Leukocyte Esterase Urine Glucose Fluid Source Pleural Fluid Color Yellow Fluid Clarity Clear Fluid WBC 178 Fld Polynuclear WBCs % 25 Fluid Mononuclear Cell 75 PAWSS Have you Been Recently Intoxicated or Drunk Within the Last 30 days?: No Have you Ever Experienced Previous Episodes of Alcohol Withdrawal?: No Have you ever Experienced Withdrawal Seizures?: No Have you ever Experienced Delirium Tremens(DT)s?: No Have you ever undergone Alcohol Rehabilitation Treatment (i.e, inpt ot outpatient treatment programs)?: No Have you ever Experienced Blackouts?: No Have you ever Combined Alcohol with other Downers within the last 90 days?: No Have you ever Combined Alcohol with any other Substance of Abuse during the last 90 days?: No Positive Blood Alcohol level on Presentation? [PCS.BAL]: No Evidence of Increased Autonomic Activity (i.e. HR>120, tremor, sweating, agitation, nausea)?: No Result: 0 Time Spent with Patient Time Spent with Patient: >50 minutes Time was spent: preparing to see the patient(eg.review tests), obtaining and/or reviewing separately otained hiistory, ordering medications,tests, procedures, referring, communicating with other health animal care specialist, indepentently interpreting results, counseling the patient, care coordination and other
--- NOTE | 2025-03-02 09:57 | PT.INNT ---
PT Notes Visit Reasons: CHF Exacerbation Patient S/P R thoracentesis just this morning and is very dyspneic, wanted to walk with PT but standing up to void urine took a lot out of him and made him so exhausted. Patient requested to rest and be seen after lunch.
[2025-03-02] MEDS: Tiotropium/Olodaterol 10 PUFF INHALER 2 PUFF IH (15:47)
[2025-03-02] MEDS: oxyCODONE 5 MG TAB PO ×2 (16:00→21:16)
--- NOTE | 2025-03-02 17:06 | PHA.REVIEW2 ---
Pharmacy Admission Review Admission Clinical Review Admission Pharmacy Review: EtOH dependence (Acute) History of aortic aneurysm repair (Acute) Bilateral pleural effusion (Acute) On deep vein thrombosis (DVT) prophylaxis (Acute) Hypomagnesemia (Acute) Hypokalemia (Acute) CHF exacerbation (Acute) Pulmonary infiltrates (Acute) Bilateral lower extremity edema (Acute) Nicotine dependence, cigarettes, uncomplicated (Acute) Difficulty breathing (Acute) No Known Allergies Allergy (Verified 03/01/25 15:48) Resuscitation Status DNR/DNI Height 5 ft 7 in Weight 52.3 kg Pharmacy Admission Review Renal Dosing Renal Dosing: sCR=1.5; cRCL=29 BUN 27 mg/dL (7-18) H 03/02/25 05:49 Creatinine 1.5 mg/dL (0.70-1.30) H 03/02/25 05:49 Medications needing adjustments: Intervened List of meds needing interventions: enoxaparin 40mg to 30mg daily Anticoagulation Anticoagulation: Hgb 10.9 g/dL (13.5-17.5) L 03/02/25 05:49 Hct 34.4 % (40.0-50.0) L 03/02/25 05:49 Plt Count 346 10^3/uL (130-400) 03/02/25 05:49 Creatinine 1.5 mg/dL (0.70-1.30) H 03/02/25 05:49 DVT Prophylaxis: Reviewed Medications: Enoxaparin Opiate Usage Evaluate Pain Scale/Pains Meds: Reviewed Scheduled Bowel Reg ordered if on Opiates?: Yes Relevant Labs Relevant Labs: Sodium 144 mmol/L (136-145) 03/02/25 05:49 Potassium 4.4 mmol/L (3.5-5.1) D 03/02/25 05:49 Chloride 109 mmol/L (98-107) H 03/02/25 05:49 Magnesium 2.3 mg/dL (1.8-2.4) 03/02/25 05:49 Electrolytes, C-Reactive P, ESR: Reviewed DM Control DM Control: Reviewed Cardiac Review Cardiac Review: WP=067/71; HR 85; titrating bp meds Troponin I 58 ng/L (<or=76) 03/01/25 18:47 NT-Pro-B Natriuret Pep 26253 pg/mL (<300) H 03/01/25 16:07 BP, HR, EF%: Reviewed QTc Review QTc: Reviewed List meds needing interventions: vpf=[id number] IV to PO Switch IV Medications: Reviewed Home Meds Home Med List reviewed: Reviewed Relevent Home Meds Not ordered & why?: Anoro Ellipta inhaler (non-form); substituted Stiolto ; holding nervive because non-form and pt can't have either brought in Current Meds Current Medication Order Review: Reviewed
[2025-03-02 17:09] LABS: Glucose, Fluid 100 mg/dL (See Note)
[2025-03-02] MEDS: Nicotine 21 MG/24 HR PATCH TD (20:38)
[2025-03-02] MEDS: Atorvastatin 40 MG TAB PO (20:40)
[2025-03-02] MEDS: Mirtazapine 15 MG TAB PO (20:41)
[2025-03-02] MEDS: Melatonin 3 MG TAB 9 MG PO (21:16)
[2025-03-02] MEDS: LORazepam 1 MG TAB PO (23:34)
[2025-03-03 03:15] VITALS: BP 155/71; PULSE 88; RESP 22; TEMP 36.5; O2SAT 94
[2025-03-03 06:27] LABS: Abs Immature Grans 0.03 10^3/uL (0.0-0.06); HCT 34.6 % (40.0-50.0); HGB 11.0 g/dL (13.5-17.5); Immature Grans % 0.3 %; MCH 25.6 pg (27.0-33.0); MCHC 31.8 % (32.0-36.0); MCV 81 fL (80-95); MPV 9.6 fL (8.0-11.0); Platelet Count 332 10^3/uL (130-400); RBC 4.30 10^6/uL (4.36-5.78); RDW 18.6 % (11.8-14.1); RDW-SD 53.4 fL; WBC 10.81 10^3/uL (4.4-10.8)
[2025-03-03 06:40] LABS: Magnesium 2.2 mg/dL (1.8-2.4)
[2025-03-03 06:44] LABS: ALT 46 U/L (16-63); AST 27 U/L (15-37); Albumin 3.3 g/dL (3.4-5.0); Alkaline Phosphatase 127 U/L (46-116); Anion Gap 9.2 mmol/L (3-11); BUN 30 mg/dL (7-18); Bilirubin, Total 0.5 mg/dL (0.2-1.0); CO2 23.8 mmol/L (21.0-32.0); Calcium 8.6 mg/dL (8.5-10.1); Chloride 111 mmol/L (98-107); Glucose 120 mg/dL (74-106); Potassium 4.8 mmol/L (3.5-5.1); Sodium 144 mmol/L (136-145); Total Protein 6.0 g/dL (6.4-8.2)
--- NOTE | 2025-03-03 07:50 | IN_ITS ---
PT Notes Visit Reasons: CHF Exacerbation Physical Therapy Inpatient Initial Evaluation Date: 03/03/2025 Referring Doctor: Joy Sanchez NP PT Orders: PT CONSULT: Safety Consult for D/C Precautions: Fall. Standard. Activity as tolerated. Patient Profile/Admitting Diagnosis: Patient is a 79-year-old male patient who presented to the ED due to worsening shortness of breath. Patient ids admitted for management of CHF exacerbation with EF of 50-55% per most recent echo, presence of pulmonary infiltrates, hypokalemia, hypomagnesemia, B LE edema, nicotine dependence, COPD with oxygen saturation of 88%. PMHX: All Active Problems (Updated 03/01/25 @ 18:29 by Joy Sanchez APRN) On deep vein thrombosis (DVT) prophylaxis (Acute) Hypomagnesemia (Acute) Hypokalemia (Acute) CHF exacerbation (Acute) Pulmonary infiltrates (Acute) Nail dystrophy (Acute) Bilateral lower extremity edema (Acute) ankles Nicotine dependence, cigarettes, uncomplicated (Acute) Pain of left great toe (Acute) Acute HFrEF (heart failure with reduced ejection fraction) (Acute) Cardiomyopathy (Acute) Fracture of transverse process of lumbar vertebra (Acute) Fracture of rib (Acute) Cough (Acute) Difficulty breathing (Acute) Anxiety (Chronic) GERD (gastroesophageal reflux disease) (Chronic) Hypertension (Chronic) Tobacco use (Chronic) longstanding heavy smoker Dysphagia (Acute) Depression (Chronic) Tinnitus (Acute) Weight loss, unintentional (Acute) COPD (chronic obstructive pulmonary disease) (Chronic) CKD (chronic kidney disease) (Chronic) Hiatal hernia with GERD (Acute) Low back pain with sciatica (Acute) chronic pain syndrome Foot drop, left (Chronic) Foot pain, left (Acute) dorsal aspect growth, ?cyst or bone spur. Medical History (Updated 03/01/25 @ 18:29 by Joy Sanchez APRN) AAA (abdominal aortic aneurysm, ruptured) 2016- s/p repair at [facility] Aspiration of liquid Diverticulitis Aortic dissection 2016, s/p repair at [facility], complicated by MRSA sternal wound infection. BPH (benign prostatic hyperplasia) hx TURP Hx MRSA infection Surgical History Hx of hemorrhoidectomy S/P TURP S/P lumbar laminectomy S/P bilateral inguinal herniorrhaphy Status post cataract extraction and insertion of intraocular lens of right eye Hx of skin graft Sternum Hx of transurethral resection of prostate History of back surgery History of tonsillectomy History of hernia repair History of colonoscopy Social History/Home Situation: Lives in a cabin with a step up to enter. Patient's younger brother lives down the road from him and checks him out regularly for anything that he needs. Equipment Owned/DME: Independent with use of single point cane outdoors Subjective: Patient is less dyspneic this morning compared to yesterday and is agreeable to walking to see how he does. Wondering when his raspberry yoghurt will come as he has ordered it quite a while ago. happy when 2 conatiners of yoghurt were served for him at breakfast. Objective: General Observation: Patient was resting in bed. Breathing not labored as it was yesterday. Swelling in B LE. Mental Status: Alert and oriented as to person, place, time, and purpose. Able to pay attention, focus, and respond appropriately. Pain: Denied headache throughout Vital Signs: Closely monitored by nursing staff ROM: Right Upper Extremity: Shoulder Flexion up to about 100 degrees only. Shoulder abduction up to about 100 degrees only. Elbow flexion WFL. Wrist flexion WFL. Functional opening and closing of hand WFL. Left Upper Extremity: Shoulder Flexion up to about 100 degrees only. Shoulder abduction up to about 100 degrees only. Elbow flexion WFL. Wrist flexion WFL. Functional opening and closing of hand WFL. Right Lower Extremity: Hip flexion allowed up to 90 degrees. Hip abduction allowed up to 90 degrees. Knee flexion 20 degrees to 90 degrees. Knee extension -20 degrees. Ankle dorsiflexion to neutral only. Ankle plantarflexion WFL. Left Lower Extremity: Hip flexion allowed up to 90 degrees. Hip abduction allowed up to 90 degrees. Knee flexion 20 degrees to 90 degrees. Knee extension -20 degrees. Ankle dorsiflexion to neutral only. Ankle plantarflexion WFL. Strength: Right Upper Extremity: Shoulder flexors 3-/5. Shoulder abductors 3-/5. Elbow flexors 4-/5. Elbow extensors 4-/5. [employer] Wafers strong. Left Upper Extremity: Shoulder flexors 3-/5. Shoulder abductors 3-/5. Elbow flexors 4-/5. Elbow extensors 4-/5. [employer] Wafers strong. Right Lower Extremity: Hip flexors 3-/5. Hip abductors 3-/5. Knee flexors 4-/5. Knee extensors 4-/5. Ankle dorsiflexors 3-/5. Ankle plantarflexors 4-/5. Left Lower Extremity: Hip flexors 3-/5. Hip abductors 3-/5. Knee flexors 4-/5. Knee extensors 4-/5. Ankle dorsiflexors 3-/5. Ankle plantarflexors 4-/5. Bed Mobility/Transfers: Minimal cueing provided for use of B hands as needed for support, movement sequence, AD management, and posture to reduce fall risk and minimize pain report Rolling contact guard assist Supine to sit contact guard assist Sit to supine minimal assist with FWW Sit to stand minimal assist with FWW Stand to sit minimal assist with FWW Bed to reclining chair minimal assist with FWW Gait: Facilitated safe and correct performance of level surface ambulation using the front-wheeled walker for about 150 feet with minimal assist with asymmetrical step length and height and decreased gait speed. Moderate shortness of breath resolved after seated rest. Balance: Static Sitting: Normal Dynamic Sitting: Normal Static Standing: Fair Dynamic Standing: Fair Special Tests: Mobility Limitations Standardized Measure [facility] AM-PAC 6 clicks Basic Mobility Inpatient Short Form: Raw Score: 18 CMS Score: 47% deficit Informed Consent/Education: Patient was instructed in purpose of PT consult and plan of care. Agreeable to proceed with established PT POC to achieve personal goals. Assessment: Patient with functional mobility decline and with significant shortness of breath during this performance due to admitting diagnosis. Patient was able to complete mobility assessment with 2-3 seated rests with oxygen saturation lowest of 91% on RA and highest of 97%. BP and HR within normal limits. Patient presents with clinical signs and symptoms consistent with current/admitting diagnoses that have resulted to mobility limitations, gait instability, generalized weakness, and overall ADL decline as demonstrated by the following impairment level findings: 1. Decreased strength to B UE/LE major muscle groups 2. Impaired standing balance 3. Impaired activity tolerance 4. Limitation of joint range of motion in B shoulders, hips, and ankles 5. Shortness of breath 6. Swelling in B LE Impairments are contributing to the following functional limitations: 1. Decline in bed mobility skills 2. Decline in transfer skills 3. Difficulty with ambulation without assistive device and physical assistance 4. Increased completion time for mobility ADL performance 5. Increased risk for falls 6. Difficulty with managing steps alone safely Patient is assessed as a 72152 moderate complexity based on the following: History: 79-year-old male with past medical history as indicated above Examination: Demonstrable impairment in strength, balance, and mobility level with underlying impairments and functional limitations as exhibited above as well as deficit score of 47% utilizing the [facility] Mobility Inpatient Short Form Presentation: Evolving Decision Makin moderate complexity Goals: Goals X1 week 1. Supine-Sit independent 2. Sit-Supine independent 3. Sit-Stand independent 4. Stand-Sit independent with FWW 5. Bed-Chair independent with FWW 6. Chair-Bed independent with FWW 7. Independent gait on level surface with use of FWW for at least 300 feet without report of pain nor dyspnea 8. Independent stair negotiation while holding onto B rails for at least 2 steps without report of pain nor dyspnea 9. Independent with home exercise program 10. Good static and dynamic standing balance/tolerance Plan of Care/Treatment Plan: 1-2x/day, 7 days/week x 1 week. Plan of care has been reviewed with the [employer] providing the service under Physical Therapy direction. Initiate Physical Therapy intervention for pain management as needed, strengthening, bed mobility, transfers, gait, stairs, balance training, and use of assistive device. DISCHARGE RECOMMENDATIONS: PT vs short-term SNF based on patient's progress toward goals and availability of caregivers. TREATMENT CODE/TIME: 34435 x 24minutes for 1 unit (7:50-8:14). Thank you for the opportunity to participate in the care of this patient. Deirdre Moeller PT, DPT, CLT [facility] [place], [place]
[2025-03-03] MEDS: Omeprazole 20 MG CAPCR PO ×2 (08:04→20:43)
--- NOTE | 2025-03-03 08:13 | W.PULMPROG ---
Assessment and Plan Assessment and plan (1) Bilateral pleural effusion: Status: Acute (2) Difficulty breathing: Status: Acute (3) COPD (chronic obstructive pulmonary disease): Status: Chronic Qualifiers: COPD type: chronic bronchitis Chronic bronchitis type: unspecified Qualified Code(s): J42 - Unspecified chronic bronchitis (4) Heart failure with reduced ejection fraction: Status: Acute (5) Severe aortic regurgitation: Status: Acute (6) Mitral regurgitation: Status: Chronic General Date Of Service Date of service: 03/03/25 Time of Service: 07:30 Requesting physician: Jason Valdez Reason for Consult: Pleural effusion Recommendations: Assessment: 1. Bilateral pleural effusions - likely cardiogenic. No clinical evidence of active pneumonia. S/P right thoracentesis 03/02. Pleural fluid analysis pending 2. Dyspnea - due to CHF/pleural effusions - improved. Has underlying COPD, but not in exacerbation 3. COPD - not in exacerbation 4. Acute on chronic renal failure - Cr stable at 1.5 5. New onset systolic HF - EF 30-35% 6. 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 Will hold on left thoracentesis for now. If has clinically improved and I suspect this will improve with diuresis - transfer for cardiology evaluation pending - continue bronchodilators Discussed with Dr. Valdez Subjective Note Note: Patient is a 79 yo with a history of COPD and tobacco abuse who was admitted for dyspnea and CHF exacerbation Was seen in pulm clinic on 03/01 and found to have bilateral pleural effusions. Due to severe dyspnea, was directed to the ED and admitted. Echo showed EF of 30% with severe AR and mod-severe MR. Dyspnea has mildly improved. Had issues with anxiety overnight, due to his social situation. Improved this AM. Denied purulent sputum production. No chest pain. He has not had any COPD exacerbations in the past year. He smokes 0.5 ppd. Family history: Sister - breast cancer Smoking history: smoked 0.5 ppd x 68 years. Active smoker Exposure history: some asbestos exposures in his 20's ROS: 6 pt ROS negative except as in HPI Exam Narrative Exam Narrative: General: alert, no acute distress Head: normocephalic ENT: no stridor, trachea midline CV: normal rate, regular rhythm Respiratory: no wheezing, no crackles, no rhonchi, no prolonged expiration GI: abd soft, non-tender, non-distended Skin: no rashes Extremities: no edema, no digital clubbing Psych: normal affect Objective Last Vital Signs Temp 36.5 C 03/03/25 03:15 Pulse 88 03/03/25 03:15 Resp 22 03/03/25 03:15 BP 155/71 H 03/03/25 03:15 Pulse Ox 94 03/03/25 03:15 Laboratory Results - last 24 hr 03/02/25 03/03/25 08:56 06:09 WBC 10.81 H RBC 4.30 L Hgb 11.0 L Hct 34.6 L MCV 81 MCH 25.6 L MCHC 31.8 L RDW 18.6 H Plt Count 332 MPV 9.6 Immature Gran % 0.3 Neutrophils % 73.6 Lymphocytes % 15.7 Monocytes % 9.8 Eosinophils % 0.3 Basophils % 0.3 Nucleated RBC % 0.0 Absolute Neutrophils 7.96 H Absolute Lymphocytes 1.70 Absolute Monocytes 1.06 H Absolute Eosinophils 0.03 Absolute Basophils 0.03 Sodium 144 Potassium 4.8 Chloride 111 H Carbon Dioxide 23.8 Anion Gap 9.2 BUN 30 H Creatinine 1.5 H Est GFR (CKD-EPI 2020) 47.06 Glucose 120 H Calcium 8.6 Magnesium 2.2 Total Bilirubin 0.5 AST 27 ALT 46 Alkaline Phosphatase 127 H Total Protein 6.0 L Albumin 3.3 L Fluid Source Pleural Fluid Color Yellow Fluid Clarity Clear Fluid WBC 178 Fld Polynuclear WBCs % 25 Fluid Mononuclear Cell 75 Results Medications Medications: Active Medications Generic Name Dose Route Start Last Admin Trade Name Freq PRN Reason Stop Dose Admin Acetaminophen 650 mg 03/01/25 19:40 03/01/25 20:11 Acetaminophen 325 Mg Tab PO 650 mg Q6H PRN Administration Albuterol Sulfate 2.5 mg 03/01/25 19:40 Albuterol 2.5 Mg/3 Ml Inh Soln Vial UPD Q2H PRN PRN Albuterol/Ipratropium 3 ml 03/01/25 21:46 Albuterol/Ipratropium 3 Ml Upd Vial UPD Q6H PRN PRN Amlodipine Besylate 5 mg 03/02/25 08:30 03/02/25 07:59 Amlodipine 5 Mg Tab PO 5 mg DAILY [facility] Administration Aspirin 81 mg 03/02/25 08:30 03/02/25 08:00 Aspirin E.C. 81 Mg Tabec PO 81 mg DAILY [facility] Administration Atorvastatin Calcium 40 mg 03/01/25 20:00 03/02/25 20:40 Atorvastatin 40 Mg Tab PO 40 mg QPM [facility] Administration Docusate Sodium 100 mg 03/01/25 20:00 03/02/25 20:42 Docusate Sodium 100 Mg Cap PO 100 mg BID [facility] Administration Enoxaparin Sodium 40 mg 03/02/25 08:30 03/02/25 08:01 Enoxaparin 40 Mg/0.4 Ml Syr SC Not Given DAILY [facility] Furosemide 40 mg 03/03/25 08:30 Furosemide 40 Mg/4 Ml Vial IVP DAILY [facility] IV Miscellaneous Supplies 1 each 03/01/25 19:40 Iv Access IV DIRECTED [facility] Magnesium Chloride 64 mg 03/02/25 08:30 03/02/25 07:59 Magnesium Chloride 64 Mg Tabcr PO 64 mg DAILY [facility] Administration Melatonin 9 mg 03/01/25 19:51 03/02/25 21:16 Melatonin 3 Mg Tab PO 9 mg HS PRN Administration Mirtazapine 15 mg 03/01/25 20:00 03/02/25 20:41 Mirtazapine 15 Mg Tab PO 15 mg HS [facility] Administration Multivitamins 1 tab 03/02/25 08:30 03/02/25 08:05 Multivitamin Tab PO Not Given DAILY [facility] Nicotine 4 mg 03/01/25 15:50 Nicotine 4 Mg Lozg SUC Q2H PRN PRN Nicotine 21 mg 03/01/25 21:30 03/02/25 20:38 Nicotine 21 Mg/24 Hr Patch TD 21 mg HS [facility] Administration Omeprazole 20 mg 03/01/25 20:00 03/03/25 08:04 Omeprazole 20 Mg Capcr PO 20 mg BID@0730,2000 [facility] Administration Oxycodone HCl 5 mg 03/02/25 11:56 03/02/25 21:16 Oxycodone 5 Mg Tab PO 5 mg .Q5 hours PRN PRN Administration Pain Polyethylene Glycol 17 gm 03/01/25 19:40 Polyethylene Glycol 3350 17 Gm Packet PO DAILY PRN PRN Constipation Potassium Chloride 40 meq 03/01/25 20:00 03/02/25 20:40 Potassium Chloride 10 Meq Capcr PO 40 meq BID MARII Administration Sodium Chloride 0 ml 03/01/25 19:40 Normal Saline Flush 10 Ml Syr IVP PRN PRN Sodium Chloride 0 ml 03/01/25 20:00 03/02/25 20:41 Normal Saline Flush 10 Ml Syr IVP 10 ml BID MARII Administration Sodium Chloride 0 ml 03/01/25 19:40 Normal Saline 10 Ml Vial IJ DIRECTED PRN Tiotropium [place]/Olodaterol 2 puff 03/02/25 14:00 03/02/25 15:47 Tiotropium/Olodaterol 10 Puff Inhaler IH 2 inh DAILY MARII Administration Allergies No Known Allergies Allergy (Verified 03/01/25 15:48) Labs 03/03/25 06:09 03/03/25 06:09 Labs: 03/02/25 08:56 Pleural - Right Body Fluid Culture - Pending 03/02/25 08:56 Pleural - Right Gram Stain - Final 03/02/25 08:56 Pleural - Right Anaerobic Culture - Pending Laboratory Tests Range/Units 03/01/25 03/01/25 03/01/25 16:07 17:00 17:15 WBC (4.4-10.8) 10^3/uL 9.31 RBC (4.36-5.78) 10^6/uL 4.70 Hgb (13.5-17.5) g/dL 12.0 L Hct (40.0-50.0) % 37.4 L MCV (80-95) fL 80 MCH (27.0-33.0) pg 25.5 L MCHC (32.0-36.0) % 32.1 RDW (11.8-14.1) % 18.4 H Plt Count (130-400) 10^3/uL MPV (8.0-11.0) fL Immature Gran % % 0.2 Neutrophils % % 73.5 Lymphocytes % % 15.9 Monocytes % % 9.6 Eosinophils % % 0.3 Basophils % % 0.5 Nucleated RBC % (0.0-0.3) % 0.0 Absolute Neutrophils (1.2-6.7) 10^3/uL 6.84 H Absolute Lymphocytes (1.2-3.4) 10^3/uL 1.48 Absolute Monocytes (0.1-0.8) 10^3/uL 0.89 H Absolute Eosinophils (0.0-0.7) 10^3/uL 0.03 Absolute Basophils (0.0-0.2) 10^3/uL 0.05 RBC Morphology Normal VBG pH (7.31-7.41) 7.38 VBG pCO2 (41-51) mmHg 34 L VBG pO2 mmHg 34 VBG HCO3 (23-28) mmol/L 20 L VBG Total CO2 (24-29) mmol/L 19 L VBG O2 Saturation % 61 VBG Base Excess (-2-3) mmol/L -5 L Sodium (136-145) mmol/L 145 Potassium (3.5-5.1) mmol/L 2.7 L* Chloride (98-107) mmol/L 112 H Carbon Dioxide (21.0-32.0) mmol/L 20.1 L Anion Gap (3-11) mmol/L 12.9 H BUN (7-18) mg/dL 19 H Creatinine (0.70-1.30) mg/dL 1.2 Est GFR (CKD-EPI 2020) (mL/min/1.73m2) 61.52 Glucose (74-106) mg/dL 75 Calcium (8.5-10.1) mg/dL 7.1 L Magnesium (1.8-2.4) mg/dL 1.5 L Total Bilirubin (0.2-1.0) mg/dL 0.4 AST (15-37) U/L 30 ALT (16-63) U/L 43 Alkaline Phosphatase (46-116) U/L 126 H Troponin I (<or=76) ng/L 54 60 NT-Pro-B Natriuret Pep (<300) pg/mL 19360 H Total Protein (6.4-8.2) g/dL 5.4 L Albumin (3.4-5.0) g/dL 2.9 L Urine Color (Yellow) Yellow Urine Clarity (Clear) Clear Urine pH (5-8) 6.0 Ur Specific Horace (1.005-1.025) 1.010 Urine Protein (Neg-Trace) mg/dL Negative Urine Ketones (Negative) mg/dL Negative Urine Blood (Negative) Negative Urine Nitrite (Negative) Negative Urine Bilirubin (Negative) Negative Urine Urobilinogen (Up to 0.2) mg/dL 0.2 Ur Leukocyte Esterase (Negative) Negative Urine Glucose (Negative) mg/dL Negative Fluid Source Fluid Color Fluid Clarity Fluid WBC (0) uL Fld Polynuclear WBCs % % Fluid Mononuclear Cell % Range/Units 03/01/25 03/02/25 03/02/25 18:47 05:49 08:56 WBC (4.4-10.8) 10^3/uL 10.37 RBC (4.36-5.78) 10^6/uL 4.33 L Hgb (13.5-17.5) g/dL 10.9 L Hct (40.0-50.0) % 34.4 L MCV (80-95) fL 79 L MCH (27.0-33.0) pg 25.2 L MCHC (32.0-36.0) % 31.7 L RDW (11.8-14.1) % 18.3 H Plt Count (130-400) 10^3/uL 346 MPV (8.0-11.0) fL 9.8 Immature Gran % % 0.3 Neutrophils % % 75.0 Lymphocytes % % 15.2 Monocytes % % 8.7 Eosinophils % % 0.3 Basophils % % 0.5 Nucleated RBC % (0.0-0.3) % 0.0 Absolute Neutrophils (1.2-6.7) 10^3/uL 7.78 H Absolute Lymphocytes (1.2-3.4) 10^3/uL 1.58 Absolute Monocytes (0.1-0.8) 10^3/uL 0.90 H Absolute Eosinophils (0.0-0.7) 10^3/uL 0.03 Absolute Basophils (0.0-0.2) 10^3/uL 0.05 RBC Morphology VBG pH (7.31-7.41) VBG pCO2 (41-51) mmHg VBG pO2 mmHg VBG HCO3 (23-28) mmol/L VBG Total CO2 (24-29) mmol/L VBG O2 Saturation % VBG Base Excess (-2-3) mmol/L Sodium (136-145) mmol/L 144 Potassium (3.5-5.1) mmol/L 4.4 D Chloride (98-107) mmol/L 109 H Carbon Dioxide (21.0-32.0) mmol/L 25.8 Anion Gap (3-11) mmol/L 9.2 BUN (7-18) mg/dL 27 H Creatinine (0.70-1.30) mg/dL 1.5 H Est GFR (CKD-EPI 2020) (mL/min/1.73m2) 47.06 Glucose (74-106) mg/dL 105 Calcium (8.5-10.1) mg/dL 8.3 L Magnesium (1.8-2.4) mg/dL 2.3 Total Bilirubin (0.2-1.0) mg/dL 0.4 AST (15-37) U/L 38 H ALT (16-63) U/L 53 Alkaline Phosphatase (46-116) U/L 142 H Troponin I (<or=76) ng/L 58 NT-Pro-B Natriuret Pep (<300) pg/mL Total Protein (6.4-8.2) g/dL 5.9 L Albumin (3.4-5.0) g/dL 3.2 L Urine Color (Yellow) Urine Clarity (Clear) Urine pH (5-8) Ur Specific Horace (1.005-1.025) Urine Protein (Neg-Trace) mg/dL Urine Ketones (Negative) mg/dL Urine Blood (Negative) Urine Nitrite (Negative) Urine Bilirubin (Negative) Urine Urobilinogen (Up to 0.2) mg/dL Ur Leukocyte Esterase (Negative) Urine Glucose (Negative) mg/dL Fluid Source Pleural Fluid Color Yellow Fluid Clarity Clear Fluid WBC (0) uL 178 Fld Polynuclear WBCs % % 25 Fluid Mononuclear Cell % 75 Range/Units 03/03/25 06:09 WBC (4.4-10.8) 10^3/uL 10.81 H RBC (4.36-5.78) 10^6/uL 4.30 L Hgb (13.5-17.5) g/dL 11.0 L Hct (40.0-50.0) % 34.6 L MCV (80-95) fL 81 MCH (27.0-33.0) pg 25.6 L MCHC (32.0-36.0) % 31.8 L RDW (11.8-14.1) % 18.6 H Plt Count (130-400) 10^3/uL 332 MPV (8.0-11.0) fL 9.6 Immature Gran % % 0.3 Neutrophils % % 73.6 Lymphocytes % % 15.7 Monocytes % % 9.8 Eosinophils % % 0.3 Basophils % % 0.3 Nucleated RBC % (0.0-0.3) % 0.0 Absolute Neutrophils (1.2-6.7) 10^3/uL 7.96 H Absolute Lymphocytes (1.2-3.4) 10^3/uL 1.70 Absolute Monocytes (0.1-0.8) 10^3/uL 1.06 H Absolute Eosinophils (0.0-0.7) 10^3/uL 0.03 Absolute Basophils (0.0-0.2) 10^3/uL 0.03 RBC Morphology VBG pH (7.31-7.41) VBG pCO2 (41-51) mmHg VBG pO2 mmHg VBG HCO3 (23-28) mmol/L VBG Total CO2 (24-29) mmol/L VBG O2 Saturation % VBG Base Excess (-2-3) mmol/L Sodium (136-145) mmol/L 144 Potassium (3.5-5.1) mmol/L 4.8 Chloride (98-107) mmol/L 111 H Carbon Dioxide (21.0-32.0) mmol/L 23.8 Anion Gap (3-11) mmol/L 9.2 BUN (7-18) mg/dL 30 H Creatinine (0.70-1.30) mg/dL 1.5 H Est GFR (CKD-EPI 2020) (mL/min/1.73m2) 47.06 Glucose (74-106) mg/dL 120 H Calcium (8.5-10.1) mg/dL 8.6 Magnesium (1.8-2.4) mg/dL 2.2 Total Bilirubin (0.2-1.0) mg/dL 0.5 AST (15-37) U/L 27 ALT (16-63) U/L 46 Alkaline Phosphatase (46-116) U/L 127 H Troponin I (<or=76) ng/L NT-Pro-B Natriuret Pep (<300) pg/mL Total Protein (6.4-8.2) g/dL 6.0 L Albumin (3.4-5.0) g/dL 3.3 L Urine Color (Yellow) Urine Clarity (Clear) Urine pH (5-8) Ur Specific Horace (1.005-1.025) Urine Protein (Neg-Trace) mg/dL Urine Ketones (Negative) mg/dL Urine Blood (Negative) Urine Nitrite (Negative) Urine Bilirubin (Negative) Urine Urobilinogen (Up to 0.2) mg/dL Ur Leukocyte Esterase (Negative) Urine Glucose (Negative) mg/dL Fluid Source Fluid Color Fluid Clarity Fluid WBC (0) uL Fld Polynuclear WBCs % % Fluid Mononuclear Cell % Imaging Chest x-ray: report reviewed and image reviewed
[2025-03-03 08:22] VITALS: BP 147/73
--- NOTE | 2025-03-03 08:38 | CMPROGNOTE_ITS ---
Date of service: 03/03/25 Time of Service: 08:38 Care Management Progress Note Progress Note Text Progress Note Text: Donis was awake and lying in bed when CM met with him. He appeared intermittently dyspneic during the conversation and reported experiencing frequent panic attacks particularly when he tries to eats or when he has trouble breathing. His cardiac condition requires management beyond medication and he is agreeable to transfer to [facility] for further medical work up and treatment. If his cardiac procedure helps him get back on track he may be agreeable to a STR stay when he is medically ready to discharge, but he eventually plans to move into his son's [address] in [place]. Discharge Potential Discharge Needs: PCP F/U Appt Anticipated Barriers to Discharge: Medical Status Patient/Family Education Needs: Review discharge instructions, discuss Ask Me Three Transportation: EMS Plan: Pending transfer to [facility] tomorrow for further medical work up and treatment. Will transport via EMS. Social Determinants of Health Screening Social Determinants of health last assessed in clinic: 03/03/25 Will the Patient Participate in the Screening?: Yes Do you worry about having a steady place to live?: no Problems where you live: no known problems In the past 12 months, have you had to go without electric, gas, oil or water in your home?: yes 1. Within the past 12 months, we worried whether our food would run out before we got money to buy more.: Never true 2. Within the past 12 months, the food we bought just didn't last and we didn't have money to get more.: Never true Has lack of transportation kept you from medical appointments or from doing things needed for daily living?: no Has anyone in your life made you feel unsafe or unsupported?: no How hard is it for you to pay for the very basics like food, housing, medical care, and heating? Would you say it is:: Not hard at all Do you want help finding or keeping work or a job?: I do not need or want help If for any reason you need help with day-to-day activities such as bathing, preparing meals, shopping, managing finances, etc., do you get the help you need?: I don’t need any help How often do you feel lonely or isolated from those around you?: Never Do you speak a language other than [place] at home?: No Does the patient want assistance with any of the above?: No Health Related Social Needs Health related social needs: material hardship(utilities) (Z59.12)
[2025-03-03] MEDS: Magnesium Chloride 64 MG TABCR PO (09:28)
[2025-03-03] MEDS: Potassium Chloride 10 MEQ CAPCR 40 MEQ PO ×2 (09:28→20:43)
[2025-03-03] MEDS: Aspirin E.C. 81 MG TABEC PO (09:28)
[2025-03-03] MEDS: amLODIPine 5 MG TAB PO (09:28)
[2025-03-03] MEDS: Multivitamin TAB 1 TAB PO (09:28)
[2025-03-03] MEDS: Docusate Sodium 100 MG CAP PO ×2 (09:28→20:43)
[2025-03-03] MEDS: Enoxaparin 40 MG/0.4 ML SYR SC (09:29)
[2025-03-03] MEDS: Furosemide 40 MG/4 ML VIAL IVP (09:29)
[2025-03-03] MEDS: Normal Saline Flush 10 ML SYR IVP ×2 (09:29→20:44)
--- NOTE | 2025-03-03 10:58 | W.PM.PROGNOT ---
Date of Service Date of service: 03/03/25 Time of Service: 10:58 Assessment and Plan Assessment and plan (1) CHF exacerbation: Status: Acute Assessment and plan: [place] [facility] [place] with LVEF 50-55% in 2022 now 30 to 35% as per Dr. Asher from [facility] [place] in ED on arrival showed B-lines as per discussion with ED provider Bilateral pleural effusion as per imaging -Right thoracentesis completed by pulmonology fluid sent for analysis; ongoing Lasix IV daily as per recommendation -Considered left thoracentesis: Holding off On going IV lasix 40 mg daily Ongoing telemetry Troponin max 60 then trended down Continue Daily weight Continue strict I&O Echocardiogram: On 03/02/[address] Asher [facility] fellow in cardiology: mildly reduced RV function, LVEF 30 to 35%, mild valvular disease with global hypokinesis; aortic valve with severe regurgitation, mitral with moderate to severe regurgitation, pulmonic and tricuspid valve with moderate regurgitation, RVSP 52 mmHg RV function is mildly decreased. Recommendation for seeking transfer Patient agreeable trnasfer to [facility] after discussing with relatives overnight Accepted at [facility] for 03/04/25 afer discussing case with Audelia Somers [facility] cardiology DRAMATIC AGENT - Accepting physician Dr Acharya go to [facility] Cardiology consult while here - Patient aware Ongoing PT consult (2) Pulmonary infiltrates: Status: Acute Assessment and plan: As above previous CT imaging from 02/21 and 03/02 XR done in ED showing L>R Consider cardiogenic origin as per pulmonology and now supported by echocardiogram results As above (3) Hypokalemia: Status: Acute Assessment and plan: Resolved will trend on IV lasix BMP in AM (4) Hypomagnesemia: Status: Acute Assessment and plan: supplemented and resolved- will trend on IV lasix Mg in AM (5) Bilateral lower extremity edema: Status: Acute Assessment and plan: Improving ankle edema (6) Nicotine dependence, cigarettes, uncomplicated: Status: Acute Assessment and plan: History of smoking and now on 0.5 ppd Continue NRT (7) EtOH dependence: Status: Acute Assessment and plan: Daily drinking of 4 oz of vodka CIWA assessement - not scoring -will d/c (8) COPD (chronic obstructive pulmonary disease): Status: Chronic Assessment and plan: Ongoing home med regimen Continue scheduled nebs and PRN O2 for sat 88% (9) Productive cough: Status: Acute Assessment and plan: Afebrile, WBC 10.9, productive cough of yellowish sputum- will continue to monitor for COPD exacerbation criteria Mucinex BID (10) History of aortic aneurysm repair: Status: Acute Assessment and plan: As per patient - and repaired 9 years ago at [facility] (11) On deep vein thrombosis (DVT) prophylaxis: Status: Acute Assessment and plan: Ongoing lovenox Discussed with Dr Valdez Subjective Subjective Patient reports: no new complaints (Still short of breath preventing him from eating but hungry), feels better, tolerating liquids well, tolerating a regular diet, voiding w/o difficulty, no bowel movement and shortness of breath; denies diarrhea, nausea, vomiting or fever Exam Narrative Exam Narrative: 79 yo male looking older than stated age, alert and oriented X4, no acute neurological deficit, left arm and leg chronically weaker, still ongoing labored breathing with speech, fine crackles left base otherwise clear lungs , + aortic murmur, SR on cafeteria monitor, PPPX4 , resolving ankle edema R> L, abdomen is non-distneded , soft and nontender, moves all 4 ext, RAAS 0, congruent mood and affect somewhat distressed due to the fact that he is only unable to eat Objective Last Vital Signs Temp 36.5 C 03/03/25 03:15 Pulse 88 03/03/25 03:15 Resp 22 03/03/25 03:15 BP 147/73 H 03/03/25 08:22 Pulse Ox 94 03/03/25 03:15 Laboratory Results - last 24 hr 03/02/25 03/03/25 08:56 06:09 WBC 10.81 H RBC 4.30 L Hgb 11.0 L Hct 34.6 L MCV 81 MCH 25.6 L MCHC 31.8 L RDW 18.6 H Plt Count 332 MPV 9.6 Immature Gran % 0.3 Neutrophils % 73.6 Lymphocytes % 15.7 Monocytes % 9.8 Eosinophils % 0.3 Basophils % 0.3 Nucleated RBC % 0.0 Absolute Neutrophils 7.96 H Absolute Lymphocytes 1.70 Absolute Monocytes 1.06 H Absolute Eosinophils 0.03 Absolute Basophils 0.03 Sodium 144 Potassium 4.8 Chloride 111 H Carbon Dioxide 23.8 Anion Gap 9.2 BUN 30 H Creatinine 1.5 H Est GFR (CKD-EPI 2020) 47.06 Glucose 120 H Calcium 8.6 Magnesium 2.2 Total Bilirubin 0.5 AST 27 ALT 46 Alkaline Phosphatase 127 H Total Protein 6.0 L Albumin 3.3 L Fluid Glucose 100 PAWSS Have you Been Recently Intoxicated or Drunk Within the Last 30 days?: No Have you Ever Experienced Previous Episodes of Alcohol Withdrawal?: No Have you ever Experienced Withdrawal Seizures?: No Have you ever Experienced Delirium Tremens(DT)s?: No Have you ever undergone Alcohol Rehabilitation Treatment (i.e, inpt ot outpatient treatment programs)?: No Have you ever Experienced Blackouts?: No Have you ever Combined Alcohol with other Downers within the last 90 days?: No Have you ever Combined Alcohol with any other Substance of Abuse during the last 90 days?: No Positive Blood Alcohol level on Presentation? [PCS.BAL]: No Evidence of Increased Autonomic Activity (i.e. HR>120, tremor, sweating, agitation, nausea)?: No Result: 0 Time Spent with Patient Time Spent with Patient: >50 minutes Time was spent: preparing to see the patient(eg.review tests), obtaining and/or reviewing separately otained hiistory, ordering medications,tests, procedures, referring, communicating with other health career guidance technician, indepentently interpreting results, counseling the patient, care coordination and other
--- NOTE | 2025-03-03 11:15 | RT.EKG_ITS ---
APPROVED REPORT Exam: Resting ECG Reason for Exam: SOB, HFrEF, multi valvular insufficiency Patient Location: I HR:77 bpm ECG Measurements Heart Rate 77 AXIS [place] 132 P 37 QRSd 100 QRS -18 QT 400 T 98 QTc 453 Conclusion Sinus rhythm...normal P axis, V-rate 50- 99 Atrial premature complex...SV complex w/ short R-R interval LVH with secondary repolarization abnormality...multi-LVH criteria, abnrm ST-T
[2025-03-03] MEDS: Tiotropium/Olodaterol 10 PUFF INHALER 2 PUFF IH (11:38)
--- NOTE | 2025-03-03 12:36 | CCONE_ITS ---
Date of service: 03/03/25 Time of Service: 12:36 Assessment and Plan Assessment and plan (1) Severe aortic regurgitation: Status: Acute (2) Mitral regurgitation: Status: Chronic (3) Heart failure with reduced ejection fraction: Status: Acute Assessment and plan: Patient has significant left ventricular dysfunction as well as multi valvular disease. Given the mechanical nature of his aortic and mitral regurgitation, it is unlikely that medication alone will be sufficient to result in compensation. As the patient says he is agreeable to transfer to [facility] and arrangements are in progress, I think that would be the most appropriate step History of Present Illness Narrative: This is a 79-year-old man who presented to the hospital several days ago with difficulty breathing. He says this has been going on for about 10 days and he was attributing it to a panic attack. Basically anytime he tries to do anything he cannot breathe and this makes him apprehensive. Here in the hospital he was discovered to have bilateral pleural effusions and has been treated with diuretics. There has been some improvement. Yesterday he had an echocardiogram performed which was interpreted by [facility] as showing significantly reduced left ventricular systolic function, EF 30 to 35%. There was evidence of pulmonary hypertension, R VSP 52 mmHg. He also has severe aortic regurgitation, moderate to severe functional mitral regurgitation moderate tricuspid and pulmonic regurgitation. Compared to studies from 2022, LV function was worse, though he was described as having heart failure several years ago as well. Patient currently informs me that transfer to [facility] is in progress. He is agreeable to transfer He has a history of a type a aortic dissection in 2016 with surgery at [facility] EKG was performed today, shows sinus rhythm, left ventricular hypertrophy with repolarization abnormality Review of Systems Cardiovascular Cardiovascular: Reports as per HPI, Denies chest pain and Reports dyspnea Respiratory Respiratory: Reports dyspnea PFSH All Active Problems (Updated 03/03/25 @ 12:40 by Ame Acevedo MD) Mitral regurgitation (Chronic) Severe aortic regurgitation (Acute) Heart failure with reduced ejection fraction (Acute) EtOH dependence (Acute) History of aortic aneurysm repair (Acute) Bilateral pleural effusion (Acute) On deep vein thrombosis (DVT) prophylaxis (Acute) Hypomagnesemia (Acute) Hypokalemia (Acute) CHF exacerbation (Acute) Pulmonary infiltrates (Acute) Nail dystrophy (Acute) Bilateral lower extremity edema (Acute) ankles Nicotine dependence, cigarettes, uncomplicated (Acute) Pain of left great toe (Acute) Acute HFrEF (heart failure with reduced ejection fraction) (Acute) Cardiomyopathy (Acute) Fracture of transverse process of lumbar vertebra (Acute) Fracture of rib (Acute) Cough (Acute) Difficulty breathing (Acute) Anxiety (Chronic) GERD (gastroesophageal reflux disease) (Chronic) Hypertension (Chronic) Tobacco use (Chronic) longstanding heavy smoker Dysphagia (Acute) Depression (Chronic) Tinnitus (Acute) Weight loss, unintentional (Acute) COPD (chronic obstructive pulmonary disease) (Chronic) CKD (chronic kidney disease) (Chronic) Hiatal hernia with GERD (Acute) Low back pain with sciatica (Acute) chronic pain syndrome Foot drop, left (Chronic) Foot pain, left (Acute) dorsal aspect growth, ?cyst or bone spur. Medical History (Updated 03/03/25 @ 12:40 by Ame Acevedo MD) AAA (abdominal aortic aneurysm, ruptured) 2016- s/p repair at [facility] Aspiration of liquid Diverticulitis Aortic dissection 2016, s/p repair at [facility], complicated by MRSA sternal wound infection. BPH (benign prostatic hyperplasia) hx TURP Hx MRSA infection Surgical History (Updated 03/02/25 @ 09:57 by Joy Sanchez APRN) Hx of hemorrhoidectomy S/P TURP S/P lumbar laminectomy S/P bilateral inguinal herniorrhaphy Status post cataract extraction and insertion of intraocular lens of right eye Hx of skin graft Sternum Hx of transurethral resection of prostate History of back surgery History of tonsillectomy History of hernia repair History of colonoscopy Family History (Updated 05/13/24 @ 15:04 by Vidya Hook) Mother , age 74 Cancer Breast cancer Father , age 64 Heart disease Sister , age 21 Breast cancer Brother No problems noted. Son No problems noted. Son No problems noted. Daughter , 7 months No problems noted. Maternal Grandfather , age 65 Heart disease Paternal Grandfather No problems noted. Maternal Grandmother , age 80? Diabetes Stroke Paternal Grandmother , age 85 No problems noted. Social History (Updated 05/13/24 @ 15:03 by Vidya Hook) Smoking/Tobacco Use Status: Current every day Tobacco Type: cigarettes Tobacco: How many years used: 66 Quit status: not considering quitting Second Hand Exposure: Yes Smoking risk assessment performed?: Yes Alcohol Intake: current Alcohol Intake frequency: 0-2 drinks per day Alcohol type: hard liquor Drug use: Daily Substance use type: marijuana Details: tid Adopted: No Caregiver/Support person: No Foster care: No Household members: none Housing: house Number of Children: 2 Communication Needs: None Education Level: high school Details: 12th Do you need help understanding health information?: Never current occupation: Retired Pets and animals: No Sexually active: No Do you think of yourself as: straight/heterosexual Current gender identity: male What is your relationship status?: How often do you talk on the phone with friends or family?: three or more times per week How often do you get together with friends or relatives?: once per week How often do you attend pentecostalism or congregation services?: decline to answer Do you belong to any clubs or organized social groups?: no Panel score (0-1 are the most socially isolated patients): 1 What type of physical activity do you participate in: other Details: firewood Duration: 15-30 minutes/day Frequency: 3-4 times per week Sita/Confucianist: No preference Special sita needs: No Agree to transfusion: Yes Seatbelt use: never Helmet use: No Drive intox 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: No Working smoke detector in home: No Carbon monox detector in home: No Firearms in home: No Do you feel safe at home: Yes Do you feel safe in your relationship?: Yes Exam Const Other: THin very chronically ill-appearing man lying nearly flat in the bed Resp Other: Diminished breath sounds at the bases Cardio Other: Heart is regular with a summation gallop Extrem Other: No significant lower extremity edema Results Last Vital Signs Temp 36.5 C 03/03/25 03:15 Pulse 88 03/03/25 03:15 Resp 22 03/03/25 03:15 BP 147/73 H 03/03/25 08:22 Pulse Ox 94 03/03/25 03:15 Labs 03/03/25 06:09 03/03/25 06:09 Labs: Laboratory Results - last 24 hr 03/02/25 03/03/25 08:56 06:09 WBC 10.81 H RBC 4.30 L Hgb 11.0 L Hct 34.6 L MCV 81 MCH 25.6 L MCHC 31.8 L RDW 18.6 H Plt Count 332 MPV 9.6 Immature Gran % 0.3 Neutrophils % 73.6 Lymphocytes % 15.7 Monocytes % 9.8 Eosinophils % 0.3 Basophils % 0.3 Nucleated RBC % 0.0 Absolute Neutrophils 7.96 H Absolute Lymphocytes 1.70 Absolute Monocytes 1.06 H Absolute Eosinophils 0.03 Absolute Basophils 0.03 Sodium 144 Potassium 4.8 Chloride 111 H Carbon Dioxide 23.8 Anion Gap 9.2 BUN 30 H Creatinine 1.5 H Est GFR (CKD-EPI 2020) 47.06 Glucose 120 H Calcium 8.6 Magnesium 2.2 Total Bilirubin 0.5 AST 27 ALT 46 Alkaline Phosphatase 127 H Total Protein 6.0 L Albumin 3.3 L Fluid Glucose 100
[2025-03-03] MEDS: guaiFENesin 600 MG TABCR PO ×2 (14:27→20:43)
[2025-03-03] MEDS: oxyCODONE 5 MG TAB PO ×3 (14:27→23:59)
[2025-03-03 15:45] LABS: Protein,Total, BF 1.1 g/dL
--- NOTE | 2025-03-03 16:10 | PTTR_ITS ---
PT Notes Visit Reasons: CHF Exacerbation Date: 03/03/2025 PRECAUTIONS: Fall. Standard. Activity as tolerated. SUBJECTIVE: Pt in recliner when approached for therapy this afternoon. pt having a panic attack and is having difficulty breathing. OBJECTIVE: PAIN: chest pain VITALS: monitored via telemetry Therapeutic Activities 42476: Direct one-on-one instruction in dynamic activities to improve functional performance. BED MOBILITY/TRANSFERS Rolling L/R: Supervision Supine-sit: Supervision Sit-supine: Supervision Sit-stand: SBA Stand-sit: SBA Bed-Chair: SBA Chair-bed: SBA Provided skilled cues and instruction on performance and technique throughout. Gait Training 28837: Direct one-on-one instruction and skilled instruction in: Employing an assistive device Modified weight-bearing status Movement sequencing Turning and movement with proper form Provided verbal cues for equipment management and technique Provided instruction in gait pattern Patient education regarding pacing and breathing techniques to maximize activity tolerance GAIT Assistive Device: FWW Weight bearing: FWB Assist: CGA Distance: 20'x2 Deviation: Slow clive, low step height, short step length, stoop forward posture Neuromuscular Re-education 15915: Activities that facilitate re-education of movement balance, posture, coordination, and proprioception or kinesthetic sense, requiring skilled tactile and verbal cues Exercises/techniques: Static sitting on EOB unsupported weight shifting Sit to stand from EOB 3x 2sets Static standing without UE support 2mins Transfer training going from EOB to recliner, recliner to EOB, EOB to toilet seat, toilet seat to EOB ASSESSMENT: pt responds to deep breathing strategies to help with panic attacks, pt stayed in Standard chair in orthopnic position leaning forward on bed which pt reports helps with his breathing. pt education about energy conservation strategies when doing activity in inside her room. PLAN: Continue with balance training, global strengthening and general condit ioning for improved safety, mobility and activity tolerance until pt is ready for DC. TREATMENT CODE/TIME: [id number], [id number] 25mins (3:06-3:31pm)
[2025-03-03 20:41] VITALS: BP 160/70; PULSE 86; RESP 20; TEMP 36.7; O2SAT 96
[2025-03-03] MEDS: Atorvastatin 40 MG TAB PO (20:43)
[2025-03-03] MEDS: Mirtazapine 15 MG TAB PO (20:43)
[2025-03-03] MEDS: Melatonin 3 MG TAB 9 MG PO (20:52)
[2025-03-03 22:55] VITALS: BP 148/67; PULSE 76; RESP 18; TEMP 36.6; O2SAT 98
[2025-03-04] MEDS: Omeprazole 20 MG CAPCR PO (06:10)
[2025-03-04 06:34] LABS: Abs Immature Grans 0.05 10^3/uL (0.0-0.06); HCT 33.9 % (40.0-50.0); HGB 10.5 g/dL (13.5-17.5); Immature Grans % 0.4 %; MCH 25.3 pg (27.0-33.0); MCHC 31.0 % (32.0-36.0); MCV 82 fL (80-95); MPV 9.5 fL (8.0-11.0); Platelet Count 309 10^3/uL (130-400); RBC 4.15 10^6/uL (4.36-5.78); RDW 18.4 % (11.8-14.1); RDW-SD 54.2 fL; WBC 12.05 10^3/uL (4.4-10.8)
[2025-03-04 06:50] LABS: Anion Gap 7.3 mmol/L (3-11); BUN 37 mg/dL (7-18); CO2 24.7 mmol/L (21.0-32.0); Calcium 8.6 mg/dL (8.5-10.1); Chloride 112 mmol/L (98-107); Glucose 113 mg/dL (74-106); Magnesium 2.3 mg/dL (1.8-2.4); Potassium 5.0 mmol/L (3.5-5.1); Sodium 144 mmol/L (136-145)
[2025-03-04 08:03] VITALS: BP 149/68; PULSE 80; RESP 16; TEMP 36.4; O2SAT 93
--- NOTE | 2025-03-04 09:36 | W.PALLCONSUL ---
Date of service: 03/04/25 Time of Service: 09:16 History of Present Illness Narrative: Donis was seen in his room. He was sleeping and appeared to have increased WOB while asleep. He startled awake when spoken to. He appears to have severe dyspnea, increase with talking and position changes. He is s/p thoracentesis on 03/02 with 800 cc of fluid removed. His current ECHO shows LVEF 30-35%, moderate to severe . Previous ECHO (03/2023) showed LVEF 50-55%. He has been [place] [facility] for [place] bed. He reports that his breathing has been really bad the last couple of weeks. He feels like his lungs are filling up with fluid. He has never tried morphine for dyspnea but he would like to give it a try. He has not been able to sleep here due to his breathing. He also usually listens to classical music, which he finds helpful. Will ask staff if we can get him some classical music in his room. He reports that he spoke to his cousin who had TAVR and did well after. He lives in a tiny cabin near his brother in [place] and plans to return there after [facility] if he is able. His son has a condo in [place] and is willing to have him live there but this would not be until after [place] because he has the space rented out until then. He has AD from 2019 that favor comfort focused care. This was reviewed. He maintains that he overall wants a comfort-focused approach to his care but he is willing to undergo treatment that will improve his QOL. He likes to go with the flow and he feels that is going along with going to [facility]. He is a DNR/DNI. Discussed the importance of COLST form. He was very upset after the election, he felt his heart was broken, he stopped taking meds and laid in bed x3 days willing himself to . He eventually resumed his meds after 6 weeks or so. Assessment and Plan Assessment and plan (1) CHF exacerbation: Status: Acute Assessment and plan: Accepted at [facility] - awaiting bed. HFpEF with LVEF 50-55% in 2022 now 30 to 35% POCUS in ED on arrival showed B-lines as per discussion with ED provider Bilateral pleural effusion as per imaging -Right thoracentesis completed by pulmonology fluid sent for analysis -Considered left thoracentesis: team deferring to [facility] On going IV lasix On tele. Troponin max 60 then trended down Continue Daily weight Continue strict I&O Echocardiogram: On 03/02/[address] Asher [facility] fellow in cardiology: mildly reduced RV function, LVEF 30 to 35%, mild valvular disease with global hypokinesis; aortic valve with severe regurgitation, mitral with moderate to severe regurgitation, pulmonic and tricuspid valve with moderate regurgitation, RVSP 52 mmHg RV function is mildly decreased. Recommendation for seeking transfer Patient agreeable transfer to [facility] Liquid morphine added for severe dyspnea. (2) Pulmonary infiltrates: Status: Acute Assessment and plan: As above previous CT imaging from 02/21 and 03/02 XR done in ED showing L>R Consider cardiogenic origin as per pulmonology and now supported by echocardiogram results As above (3) Hypokalemia: Status: Acute Assessment and plan: Supplemented (4) Hypomagnesemia: Status: Acute Assessment and plan: Supplemented (5) Bilateral lower extremity edema: Status: Acute Assessment and plan: Improving (6) Nicotine dependence, cigarettes, uncomplicated: Status: Acute Assessment and plan: History of smoking and now on 0.5 ppd On NRT (7) EtOH dependence: Status: Acute Assessment and plan: Daily drinking of 4 oz of vodka CIWA assessement - no longer scoring -will d/c (8) COPD (chronic obstructive pulmonary disease): Status: Chronic Assessment and plan: On home med regimen Continue scheduled nebs and PRN O2 for sat 88% (9) Productive cough: Status: Acute Assessment and plan: Afebrile, WBC 10.9, productive cough of yellowish sputum- will continue to monitor for COPD exacerbation criteria Mucinex BID (10) History of aortic aneurysm repair: Status: Acute Assessment and plan: As per patient - and repaired 9 years ago at [facility] (11) Advanced care planning/counseling discussion: Status: Acute Assessment and plan: He has AD from 2019 that favor comfort focused care. This was reviewed. He maintains that he overall wants a comfort-focused approach to his care but he is willing to undergo treatment that will improve his QOL. He likes to go with the flow and he feels that is going along with going to [facility]. He is a DNR/DNI. Discussed the importance of COLST. He was very upset after the election, he felt his heart was broken, he stopped taking meds and laid in bed x3 days willing himself to . He eventually resumed his meds after 6 weeks or so. Reviewed the option of [employer]ST[employer]/hospice care. He feels he will go with the flow for now. He is okay with transfer to [facility]. (12) Palliative care patient: Status: Acute Assessment and plan: Plan to follow up with palliative after discharge from [facility]. Review of Systems Narrative: PER HPI PFSH All Active Problems (Updated 03/04/25 @ 12:08 by Nina Nguyen NP) Advanced care planning/counseling discussion (Acute) Palliative care patient (Acute) Productive cough (Acute) Mitral regurgitation (Chronic) Severe aortic regurgitation (Acute) Heart failure with reduced ejection fraction (Acute) EtOH dependence (Acute) History of aortic aneurysm repair (Acute) Bilateral pleural effusion (Acute) On deep vein thrombosis (DVT) prophylaxis (Acute) Hypomagnesemia (Acute) Hypokalemia (Acute) CHF exacerbation (Acute) Pulmonary infiltrates (Acute) Nail dystrophy (Acute) Bilateral lower extremity edema (Acute) ankles Nicotine dependence, cigarettes, uncomplicated (Acute) Pain of left great toe (Acute) Acute HFrEF (heart failure with reduced ejection fraction) (Acute) Cardiomyopathy (Acute) Fracture of transverse process of lumbar vertebra (Acute) Fracture of rib (Acute) Cough (Acute) Difficulty breathing (Acute) Anxiety (Chronic) GERD (gastroesophageal reflux disease) (Chronic) Hypertension (Chronic) Tobacco use (Chronic) longstanding heavy smoker Dysphagia (Acute) Depression (Chronic) Tinnitus (Acute) Weight loss, unintentional (Acute) COPD (chronic obstructive pulmonary disease) (Chronic) CKD (chronic kidney disease) (Chronic) Hiatal hernia with GERD (Acute) Low back pain with sciatica (Acute) chronic pain syndrome Foot drop, left (Chronic) Foot pain, left (Acute) dorsal aspect growth, ?cyst or bone spur. Medical History AAA (abdominal aortic aneurysm, ruptured) 2016- s/p repair at [facility] Aspiration of liquid Diverticulitis Aortic dissection 2016, s/p repair at [facility], complicated by MRSA sternal wound infection. BPH (benign prostatic hyperplasia) hx TURP Hx MRSA infection Surgical History Hx of hemorrhoidectomy S/P TURP S/P lumbar laminectomy S/P bilateral inguinal herniorrhaphy Status post cataract extraction and insertion of intraocular lens of right eye Hx of skin graft Sternum Hx of transurethral resection of prostate History of back surgery History of tonsillectomy History of hernia repair History of colonoscopy Family History Mother , age 74 Cancer Breast cancer Father , age 64 Heart disease Sister , age 21 Breast cancer Brother No problems noted. Son No problems noted. Son No problems noted. Daughter , 7 months No problems noted. Maternal Grandfather , age 65 Heart disease Paternal Grandfather No problems noted. Maternal Grandmother , age 80? Diabetes Stroke Paternal Grandmother , age 85 No problems noted. Social History Smoking/Tobacco Use Status: Current every day Tobacco Type: cigarettes Tobacco: How many years used: 66 Quit status: not considering quitting Second Hand Exposure: Yes Smoking risk assessment performed?: Yes Alcohol Intake: current Alcohol Intake frequency: 0-2 drinks per day Alcohol type: hard liquor Drug use: Daily Substance use type: marijuana Details: tid Adopted: No Caregiver/Support person: No Foster care: No Household members: none Housing: house Number of Children: 2 Communication Needs: None Education Level: high school Details: 12th Do you need help understanding health information?: Never current occupation: Retired Pets and animals: No Sexually active: No Do you think of yourself as: straight/heterosexual Current gender identity: male What is your relationship status?: How often do you talk on the phone with friends or family?: three or more times per week How often do you get together with friends or relatives?: once per week How often do you attend adventist or advent services?: decline to answer Do you belong to any clubs or organized social groups?: no Panel score (0-1 are the most socially isolated patients): 1 What type of physical activity do you participate in: other Details: firewood Duration: 15-30 minutes/day Frequency: 3-4 times per week Sita/Worship: No preference Special sita needs: No Agree to transfusion: Yes Seatbelt use: never Helmet use: No Drive intox 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 He appears very thin/cachectic and chronically ill. He appears to have severe dyspnea at rest, increases with talking and position changes. HEENT: normocephalic, atraumatic, EOMI, mm slightly dry. Neck: supple Respiratory: appears to have increased WOB as above. Ext: minimal/trace pitting edema, wrinkles to skin noted, moves all 4 extremities freely. Results Last Vital Signs Temp 36.4 C L 03/04/25 08:03 Pulse 80 03/04/25 08:03 Resp 16 03/04/25 08:03 BP 149/68 H 03/04/25 08:03 Pulse Ox 93 03/04/25 08:03 Labs 03/04/25 06:07 03/04/25 06:07 Labs: Laboratory Results - last 24 hr 03/02/25 03/04/25 08:56 06:07 WBC 12.05 H RBC 4.15 L Hgb 10.5 L Hct 33.9 L MCV 82 MCH 25.3 L MCHC 31.0 L RDW 18.4 H Plt Count 309 MPV 9.5 Immature Gran % 0.4 Neutrophils % 77.5 Lymphocytes % 11.6 Monocytes % 9.4 Eosinophils % 0.7 Basophils % 0.4 Nucleated RBC % 0.0 Absolute Neutrophils 9.34 H Absolute Lymphocytes 1.40 Absolute Monocytes 1.13 H Absolute Eosinophils 0.08 Absolute Basophils 0.05 Sodium 144 Potassium 5.0 Chloride 112 H Carbon Dioxide 24.7 Anion Gap 7.3 BUN 37 H Creatinine 1.5 H Est GFR (CKD-EPI 2020) 47.06 Glucose 113 H Calcium 8.6 Magnesium 2.3 Fluid Type Pleural Fluid Total Protein 1.1 Time Spent Time Spent with Patient Time Spent(min): 93
[2025-03-04] MEDS: Potassium Chloride 10 MEQ CAPCR 40 MEQ PO (10:47)
[2025-03-04] MEDS: Aspirin E.C. 81 MG TABEC PO (10:47)
[2025-03-04] MEDS: oxyCODONE 5 MG TAB PO ×2 (10:47→16:11)
[2025-03-04] MEDS: Furosemide 40 MG/4 ML VIAL IVP (10:47)
[2025-03-04] MEDS: Magnesium Chloride 64 MG TABCR PO (10:47)
[2025-03-04] MEDS: Docusate Sodium 100 MG CAP PO (10:47)
[2025-03-04] MEDS: guaiFENesin 600 MG TABCR PO (10:47)
[2025-03-04] MEDS: Multivitamin TAB 1 TAB PO (10:48)
[2025-03-04] MEDS: Normal Saline Flush 10 ML SYR IVP (10:48)
[2025-03-04] MEDS: amLODIPine 5 MG TAB PO (10:48)
[2025-03-04] MEDS: Tiotropium/Olodaterol 10 PUFF INHALER 2 PUFF IH (11:26)
--- NOTE | 2025-03-04 11:56 | PGE_ITS ---
Date of Service Date of service: 03/04/25 Time of Service: 11:56 Assessment and Plan Assessment and plan (1) CHF exacerbation: Status: Acute Assessment and plan: Accepted [place] [facility] HFpEF with LVEF 50-55% in 2022 now 30 to 35% as per Dr. Asher from [facility] in ED on arrival showed B-lines as per discussion with ED provider Bilateral pleural effusion as per imaging -Right thoracentesis completed by pulmonology fluid sent for analysis; ongoing Lasix IV daily as per recommendation -Considered left thoracentesis: Holding off On going IV lasix 40 mg daily- plethoric IVC Ongoing telemetry Troponin max 60 then trended down Continue Daily weight AND strict I&O Echocardiogram: mildly reduced RV function, LVEF 30 to 35%, mild valvular disease with global hypokinesis; aortic valve with severe regurgitation, mitral with moderate to severe regurgitation, pulmonic and tricuspid valve with moderate regurgitation, RVSP 52 mmHg. Recommendation for seeking transfer on 03/02/[address] Asher [facility] fellow in cardiology: Accepted at [facility] for 03/04/25 after discussion with Audelia Somers [facility] cardiology RECLAMATION FURNACE OPERATOR - Accepting physician Dr Acharya -Bed pending at 16:00 Cardiology consult:please read notes- with recommendation for transfer PT consult ongoing - walker given (2) Pulmonary infiltrates: Status: Acute Assessment and plan: As above Bibasilar opacities on XR 03/01-atelectasis VS pneumonia wbc negative initially now 12.05 CT imaging 02/21 Interval development of bilateral moderate pleural effusions with subjacent atelectasis. 03/02 XR done in ED showing L>R Consider cardiogenic origin as per pulmonology and now supported by echocardi ogram results As above (3) Hypokalemia: Status: Acute Assessment and plan: Resolved will trend on IV lasix BMP in AM (4) Hypomagnesemia: Status: Acute Assessment and plan: supplemented and resolved- will trend on IV lasix Mg in AM (5) Bilateral lower extremity edema: Status: Acute Assessment and plan: Improving ankle edema (6) Nicotine dependence, cigarettes, uncomplicated: Status: Acute Assessment and plan: History of smoking and now on 0.5 ppd Continue NRT (7) EtOH dependence: Status: Acute Assessment and plan: Daily drinking of 4 oz of vodka CIWA assessement - not scoring -will d/c (8) COPD (chronic obstructive pulmonary disease): Status: Chronic Assessment and plan: Ongoing home med regimen Continue scheduled nebs and PRN O2 for sat 88% (9) Productive cough: Status: Acute Assessment and plan: Afebrile, WBC 10.9, productive cough of yellowish sputum- will continue to monitor for COPD exacerbation criteria Mucinex BID (10) History of aortic aneurysm repair: Status: Acute Assessment and plan: As per patient - and repaired 9 years ago at [facility] (11) On deep vein thrombosis (DVT) prophylaxis: Status: Acute Assessment and plan: Ongoing lovenox Discussed with Dr Valdez Subjective Subjective Patient reports: no new complaints (Still short of breath preventing him from eating but hungry), feels better, tolerating liquids well, tolerating a regular diet, voiding w/o difficulty, no bowel movement and shortness of breath; denies diarrhea, nausea, vomiting or fever Exam Narrative Exam Narrative: 79 yo male looking older than stated age, alert and oriented X4, no acute neurological deficit, left arm and leg chronically weaker, breathing still labored with speech, fine crackles left base otherwise clear lungs , + murmur, SR on youth nutritional monitor,, resolving ankle edema R> L, abdomen is non-distneded , soft and nontender, moves all 4 ext, RAAS 0, congruent mood and affect somewhat distressed due to the fact that he is only unable to eat Objective Last Vital Signs Temp 36.4 C L 03/04/25 08:03 Pulse 80 03/04/25 08:03 Resp 16 03/04/25 08:03 BP 149/68 H 03/04/25 08:03 Pulse Ox 93 03/04/25 08:03 Laboratory Results - last 24 hr 03/02/25 03/04/25 08:56 06:07 WBC 12.05 H RBC 4.15 L Hgb 10.5 L Hct 33.9 L MCV 82 MCH 25.3 L MCHC 31.0 L RDW 18.4 H Plt Count 309 MPV 9.5 Immature Gran % 0.4 Neutrophils % 77.5 Lymphocytes % 11.6 Monocytes % 9.4 Eosinophils % 0.7 Basophils % 0.4 Nucleated RBC % 0.0 Absolute Neutrophils 9.34 H Absolute Lymphocytes 1.40 Absolute Monocytes 1.13 H Absolute Eosinophils 0.08 Absolute Basophils 0.05 Sodium 144 Potassium 5.0 Chloride 112 H Carbon Dioxide 24.7 Anion Gap 7.3 BUN 37 H Creatinine 1.5 H Est GFR (CKD-EPI 2020) 47.06 Glucose 113 H Calcium 8.6 Magnesium 2.3 Fluid Type Pleural Fluid Total Protein 1.1 PAWSS Have you Been Recently Intoxicated or Drunk Within the Last 30 days?: No Have you Ever Experienced Previous Episodes of Alcohol Withdrawal?: No Have you ever Experienced Withdrawal Seizures?: No Have you ever Experienced Delirium Tremens(DT)s?: No Have you ever undergone Alcohol Rehabilitation Treatment (i.e, inpt ot outpatient treatment programs)?: No Have you ever Experienced Blackouts?: No Have you ever Combined Alcohol with other Downers within the last 90 days?: No Have you ever Combined Alcohol with any other Substance of Abuse during the last 90 days?: No Positive Blood Alcohol level on Presentation? [PCS.BAL]: No Evidence of Increased Autonomic Activity (i.e. HR>120, tremor, sweating, agitati on, nausea)?: No Result: 0
--- NOTE | 2025-03-04 12:00 | PT.INNT ---
PT Notes Visit Reasons: CHF Exacerbation Refused therapy intervention this morning, pt reports he would like to rest and sleep, requested to ask dietary to not bother him with lunch as well so he could maximize on sleeping. KOSTAS rogel informed of pt request.
[2025-03-04 12:05] LABS: Lactate Dehydrogenase (LD), BF 63 U/L
--- NOTE | 2025-03-04 13:17 | CHAPLAIN ---
Donis was clear that he was not interested in a relief pilot visit. He appeared to be working hard at breathing, so I left his nurse, DEREK Musa, know that.
--- NOTE | 2025-03-04 16:03 | DSE_ITS ---
Date of service: 03/04/25 Time of Service: 16:30 DS: Diagnosis Discharge Diagnosis (1) CHF exacerbation: Status: Acute (2) Pulmonary infiltrates: Status: Acute (3) Hypokalemia: Status: Acute (4) Hypomagnesemia: Status: Acute (5) Bilateral lower extremity edema: Status: Acute (6) Nicotine dependence, cigarettes, uncomplicated: Status: Acute (7) EtOH dependence: Status: Acute (8) COPD (chronic obstructive pulmonary disease): Status: Chronic (9) Productive cough: Status: Acute (10) History of aortic aneurysm repair: Status: Acute (11) Advanced care planning/counseling discussion: Status: Acute (12) Palliative care patient: Status: Acute Discharge Plan Disposition Patient Disposition: Transfer-Acute Inpatient Care Specific Acute Inpt Facility: [facility] Condition: Serious Discharge Details Reason For Visit: CHF Exacerbation Admit Date/Time: 03/01/25 17:51 Admit Provider: Jason Valdez Attending Provider: Jason Valdez Primary Care Provider: Avril Balderas [facility] Course Hospital Course: This 79 years old male patient with a past medical history of hypertension, sciatica chronic back pain, aortic dissection 9 years ago, HFpEFw LVEF 50-55% in 2024, COPD with ongoing nictine dependence , presented to the ED status post visit from pulmonology office with findings of increased pleural effusion sizes, SOB and concerns for fluid overload in a cardiogenic setting. Workup in the ED showed hypokalemia and hypomagnesemia, resolving with supplementation. Troponin level 54, repeats flat X2. EKG showed sinus rhythm heart rate 80 without sign of coronary occlusion; minimal ST depression in lead II, V5, V6 and T wave flattening that could point to ischemia but similar to previous EKG. The patient had no complaints of chest pain or other complaints of ACS. The patient was treated with nebulizer treatments, did not required additional oxygen, IV lasix 40 mg BID initially then daily due to Cr rise from 1.0 to 1.5. Patient was admitted to the medical surgical floor telemetry by the hospitalsit team for CHF exacerbation. Thoracentsis of the right sided samller pleural effusion was completed by Dr Mccoy forming roll operator heavy duty, resulting in slight improvement in breathing and fluid sent out of pathology, AFB, and cytology testing. Echocardiogram completed and [facility] [place]. Asher religious education coordinator recommended to seek transfer at [facility] based on findings of severely reduced LVEF to 30-35%, multivalvular (4) regurgitation, reduced RV function and global hypokinesis. Cardiology consul with initiated with Dr. Acevedo while patient was discussing decision making with family, also recommended transfer and ongoing diuresis. The patient agreed to transfer and discussion with Audelia Somers cardiology FUSING MACHINE OPERATOR resulted in acceptance by Dr. Acharya pending bed assignement on 03/04/25. Palliative care consult added liquid morphine to regimen for ongoing increased WOB and SOB. New leukocytosis with WBC at 12 today w/o fever, encephalopathy or hypotension. Previous advance directive status from 2019 stated DNR/DNI The patient is hemodynamically stable and afebrile and will be transfer to [facility] today. Discussed with Dr. Sidhu Katy Meds and New Rx's Prescriptions: No Action melatonin 10 mg capsule 5 mg PO HS PRN lorazepam 0.5 mg tablet 0.5 mg PO BID PRN (Reason: anxiety) Qty: 30 0RF omeprazole 20 mg capsule,delayed release(DR/EC) See Rx Instructions .ROUTE .COMPLEX Qty: 180 3RF Dose Instruction: TAKE ONE CAPSULE BY MOUTH TWICE A DAY Rx Instructions: TAKE ONE CAPSULE BY MOUTH TWICE A DAY nervive 30 mg PO DAILY albuterol sulfate 90 mcg/actuation HFA aerosol inhaler 2 inh inhalation .Q4-6 hrs PRN (Reason: shortness of breath or wheezing) Qty: 8.5 0RF furosemide [Lasix] 20 mg tablet 20 mg PO DAILY PRN (Reason: edema) Qty: 90 0RF Rx Instructions: Take one tablet once a day as needed for lower leg edema. umeclidinium-vilanterol [Anoro Ellipta] 62.5-25 mcg/actuation blister with device 1 inh inhalation DAILY Qty: 60 6RF albuterol sulfate 90 mcg/actuation aerosol powdr breath activated 2 inh inhalation Q6H PRN (Reason: shortness of breath or wheezing) Qty: 1 6RF atorvastatin 40 mg tablet 40 mg PO QPM Qty: 90 3RF amlodipine 5 mg tablet 5 mg PO DAILY Qty: 90 3RF naloxone [Narcan] 4 mg/actuation spray,non-aerosol 1 spray intranasal Q2-3M PRN (Reason: opioid overdose) Qty: 2 4RF Rx Instructions: spray 1 dose into ONE nostril; alternate nostrils w each dose until help arrives mirtazapine 30 mg tablet 15 mg PO QHS Qty: 90 1RF Rx Instructions: 02/03/25: Reduction due to increased anxiety. See Task. -hb oxycodone 5 mg tablet 5 mg PO .Q5 hours MDD 25 mg PRN (Reason: pain) Qty: 140 0RF magnesium aspartate HCl 61 mg (615 mg) Tablet,Delayed Release (Dr/Ec) 61 mg PO DAILY aspirin 81 mg Tablet,Delayed Release (Dr/Ec) 81 mg PO DAILY Qty: 60 0RF multivitamin [Daily Multi-Vitamin] 1 EACH tablet 1 tab PO DAILY Discharge Instructions Activity:: Activity as Tolerated Equipment/Supplies:: Walker Diet:: HEART HEALTHY Discharge Orders Discharge Orders: Discharge Order (Routine); Ordered 03/04/25 Ordered By: Joy Sanchez DS: Summary Time Spent with Patient providing and/or coordinating discharge services: Greater than 30 minutes Status at Discharge Functional status at discharge: uses cane/walker Overall status at discharge: patient is not back to baseline Mental Status: mental status grossly normal Speech and Movement: pressured speech Mood: anxious mood Affect: anxious affect Quality:SDOH Health Related Social Needs: Health related social needs material hardship Exam Narrative Exam Narrative: 79 yo male looking older than stated age, alert and oriented X4, no acute neurological deficit, left arm and leg chronically weaker, still ongoing labored breathing with speech, fine crackles left base otherwise clear lungs , + aortic murmur, SR on cardiac nurse, PPPX4 , resolving ankle edema R> L, abdomen is non-distneded , soft and nontender, moves all 4 ext, RAAS 0, congruent mood and affect somewhat distressed with SOB episodes when eating Psych Mental Status: mental status grossly normal Speech and Movement: pressured speech Mood: anxious mood Affect: anxious affect DS: Data Vitals/I&O Vitals and I&O: Vital Signs Temperature 36.4 C L 03/04/25 08:03 Temperature Source Temporal Artery Scan 03/04/25 08:03 Pulse 80 03/04/25 08:03 Pulse Rhythm Regular 03/01/25 20:02 Pulse 85 03/01/25 18:50 Respiratory Rate 16 03/04/25 08:03 Respiratory Effort Short of Breath 03/01/25 20:02 Respiratory Depth Normal 03/01/25 20:02 Blood Pressure 149/68 H 03/04/25 08:03 Blood Pressure Mean 95 03/04/25 08:03 Blood Pressure Position Supine 03/01/25 16:25 Pulse Oximetry 93 03/04/25 08:03 Oxygen Delivery Method Room Air 03/04/25 08:03 Oxygen Flow Rate 0 03/04/25 08:03 Pain Level 8 03/04/25 10:57 Comment Pt refused vitals, pt stated that he wanted to sleep. 03/04/25 03:45 Intake & Output 03/03/25 03/04/25 03/04/25 23:59 11:59 23:59 Intake Total 240 / 260 360 / 360 Output Total 1125 / 1425 250 / 250 Balance -885 / -1165 110 / 110 Weight 50.4 kg Intake: Oral 240 / 240 360 / 360 Output: Urine 1125 / 1425 250 / 250 Other: Urine Color Straw Pale Yellow Urine Appearance Clear Urine Odor Normal Normal Comment pt voids ind. in urinal Data Completed and Pending Pending Labs at Discharge: 03/01/25 03/01/25 03/01/25 16:07 17:00 17:15 WBC 9.31 RBC 4.70 Hgb 12.0 L Hct 37.4 L MCV 80 MCH 25.5 L MCHC 32.1 RDW 18.4 H Plt Count MPV Immature Gran % 0.2 Neutrophils % 73.5 Lymphocytes % 15.9 Monocytes % 9.6 Eosinophils % 0.3 Basophils % 0.5 Nucleated RBC % 0.0 Absolute Neutrophils 6.84 H Absolute Lymphocytes 1.48 Absolute Monocytes 0.89 H Absolute Eosinophils 0.03 Absolute Basophils 0.05 RBC Morphology Normal VBG pH 7.38 VBG pCO2 34 L VBG pO2 34 VBG HCO3 20 L VBG Total CO2 19 L VBG O2 Saturation 61 VBG Base Excess -5 L Sodium 145 Potassium 2.7 L* Chloride 112 H Carbon Dioxide 20.1 L Anion Gap 12.9 H BUN 19 H Creatinine 1.2 Est GFR (CKD-EPI 2020) 61.52 Glucose 75 Calcium 7.1 L Magnesium 1.5 L Total Bilirubin 0.4 AST 30 ALT 43 Alkaline Phosphatase 126 H Troponin I 54 60 NT-Pro-B Natriuret Pep 37869 H Total Protein 5.4 L Albumin 2.9 L Urine Color Yellow Urine Clarity Clear Urine pH 6.0 Ur Specific [place] 1.010 Urine Protein Negative Urine Ketones Negative Urine Blood Negative Urine Nitrite Negative Urine Bilirubin Negative Urine Urobilinogen 0.2 Ur Leukocyte Esterase Negative Urine Glucose Negative Fluid Type Fluid Source Fluid Color Fluid Clarity Fluid WBC Fld Polynuclear WBCs % Fluid Mononuclear Cell Fluid Glucose Fluid Total Protein Fluid LDH AFB Smear AFB Culture Final Res Path Cons Comment 03/01/25 03/02/25 03/02/25 18:47 05:49 08:56 WBC 10.37 RBC 4.33 L Hgb 10.9 L Hct 34.4 L MCV 79 L MCH 25.2 L MCHC 31.7 L RDW 18.3 H Plt Count 346 MPV 9.8 Immature Gran % 0.3 Neutrophils % 75.0 Lymphocytes % 15.2 Monocytes % 8.7 Eosinophils % 0.3 Basophils % 0.5 Nucleated RBC % 0.0 Absolute Neutrophils 7.78 H Absolute Lymphocytes 1.58 Absolute Monocytes 0.90 H Absolute Eosinophils 0.03 Absolute Basophils 0.05 RBC Morphology VBG pH VBG pCO2 VBG pO2 VBG HCO3 VBG Total CO2 VBG O2 Saturation VBG Base Excess Sodium 144 Potassium 4.4 D Chloride 109 H Carbon Dioxide 25.8 Anion Gap 9.2 BUN 27 H Creatinine 1.5 H Est GFR (CKD-EPI 2020) 47.06 Glucose 105 Calcium 8.3 L Magnesium 2.3 Total Bilirubin 0.4 AST 38 H ALT 53 Alkaline Phosphatase 142 H Troponin I 58 NT-Pro-B Natriuret Pep Total Protein 5.9 L Albumin 3.2 L Urine Color Urine Clarity Urine pH Ur Specific [place] Urine Protein Urine Ketones Urine Blood Urine Nitrite Urine Bilirubin Urine Urobilinogen Ur Leukocyte Esterase Urine Glucose Fluid Type Pleural Fluid Source Pleural Fluid Color Yellow Fluid Clarity Clear Fluid WBC 178 Fld Polynuclear WBCs % 25 Fluid Mononuclear Cell 75 Fluid Glucose 100 Fluid Total Protein 1.1 Fluid LDH 63 AFB Smear Pending AFB Culture Final Res Pending Path Cons Comment Pending 03/03/25 03/04/25 06:09 06:07 WBC 10.81 H 12.05 H RBC 4.30 L 4.15 L Hgb 11.0 L 10.5 L Hct 34.6 L 33.9 L MCV 81 82 MCH 25.6 L 25.3 L MCHC 31.8 L 31.0 L RDW 18.6 H 18.4 H Plt Count 332 309 MPV 9.6 9.5 Immature Gran % 0.3 0.4 Neutrophils % 73.6 77.5 Lymphocytes % 15.7 11.6 Monocytes % 9.8 9.4 Eosinophils % 0.3 0.7 Basophils % 0.3 0.4 Nucleated RBC % 0.0 0.0 Absolute Neutrophils 7.96 H 9.34 H Absolute Lymphocytes 1.70 1.40 Absolute Monocytes 1.06 H 1.13 H Absolute Eosinophils 0.03 0.08 Absolute Basophils 0.03 0.05 RBC Morphology VBG pH VBG pCO2 VBG pO2 VBG HCO3 VBG Total CO2 VBG O2 Saturation VBG Base Excess Sodium 144 144 Potassium 4.8 5.0 Chloride 111 H 112 H Carbon Dioxide 23.8 24.7 Anion Gap 9.2 7.3 BUN 30 H 37 H Creatinine 1.5 H 1.5 H Est GFR (CKD-EPI 2020) 47.06 47.06 Glucose 120 H 113 H Calcium 8.6 8.6 Magnesium 2.2 2.3 Total Bilirubin 0.5 AST 27 ALT 46 Alkaline Phosphatase 127 H Troponin I NT-Pro-B Natriuret Pep Total Protein 6.0 L Albumin 3.3 L Urine Color Urine Clarity Urine pH Ur Specific [place] Urine Protein Urine Ketones Urine Blood Urine Nitrite Urine Bilirubin Urine Urobilinogen Ur Leukocyte Esterase Urine Glucose Fluid Type Fluid Source Fluid Color Fluid Clarity Fluid WBC Fld Polynuclear WBCs % Fluid Mononuclear Cell Fluid Glucose Fluid Total Protein Fluid LDH AFB Smear AFB Culture Final Res Path Cons Comment Preliminary micro results at discharge 03/02/25 08:56 Pleural - Right Anaerobic Culture - Preliminary 03/02/25 08:56 Pleural - Right Body Fluid Culture - Preliminary PFSH All Active Problems (Updated 03/04/25 @ 16:05 by Joy Sanchez APRN) Advanced care planning/counseling discussion (Acute) Palliative care patient (Acute) Productive cough (Acute) Mitral regurgitation (Chronic) Severe aortic regurgitation (Acute) Heart failure with reduced ejection fraction (Acute) EtOH dependence (Acute) History of aortic aneurysm repair (Acute) Bilateral pleural effusion (Acute) On deep vein thrombosis (DVT) prophylaxis (Acute) Hypomagnesemia (Acute) Hypokalemia (Acute) CHF exacerbation (Acute) Pulmonary infiltrates (Acute) Nail dystrophy (Acute) Bilateral lower extremity edema (Acute) ankles Nicotine dependence, cigarettes, uncomplicated (Acute) Pain of left great toe (Acute) Acute HFrEF (heart failure with reduced ejection fraction) (Acute) Cardiomyopathy (Acute) Fracture of transverse process of lumbar vertebra (Acute) Fracture of rib (Acute) Cough (Acute) Difficulty breathing (Acute) Anxiety (Chronic) GERD (gastroesophageal reflux disease) (Chronic) Hypertension (Chronic) Tobacco use (Chronic) longstanding heavy smoker Dysphagia (Acute) Depression (Chronic) Tinnitus (Acute) Weight loss, unintentional (Acute) COPD (chronic obstructive pulmonary disease) (Chronic) CKD (chronic kidney disease) (Chronic) Hiatal hernia with GERD (Acute) Low back pain with sciatica (Acute) chronic pain syndrome Foot drop, left (Chronic) Foot pain, left (Acute) dorsal aspect growth, ?cyst or bone spur. Medical History AAA (abdominal aortic aneurysm, ruptured) 2016- s/p repair at [facility] Aspiration of liquid Diverticulitis Aortic dissection 2016, s/p repair at [facility], complicated by MRSA sternal wound infection. BPH (benign prostatic hyperplasia) hx TURP Hx MRSA infection Surgical History Hx of hemorrhoidectomy S/P TURP S/P lumbar laminectomy S/P bilateral inguinal herniorrhaphy Status post cataract extraction and insertion of intraocular lens of right eye Hx of skin graft Sternum Hx of transurethral resection of prostate History of back surgery History of tonsillectomy History of hernia repair History of colonoscopy Family History Mother , age 74 Cancer Breast cancer Father , age 64 Heart disease Sister , age 21 Breast cancer Brother No problems noted. Son No problems noted. Son No problems noted. Daughter , 7 months No problems noted. Maternal Grandfather , age 65 Heart disease Paternal Grandfather No problems noted. Maternal Grandmother , age 80? Diabetes Stroke Paternal Grandmother , age 85 No problems noted. Social History Smoking/Tobacco Use Status: Current every day Tobacco Type: cigarettes Tobacco: How many years used: 66 Quit status: not considering quitting Second Hand Exposure: Yes Smoking risk assessment performed?: Yes Alcohol Intake: current Alcohol Intake frequency: 0-2 drinks per day Alcohol type: hard liquor Drug use: Daily Substance use type: marijuana Details: tid Adopted: No Caregiver/Support person: No Foster care: No Household members: none Housing: house Number of Children: 2 Communication Needs: None Education Level: high school Details: 12th Do you need help understanding health information?: Never current occupation: Retired Pets and animals: No Sexually active: No Do you think of yourself as: straight/heterosexual Current gender identity: male What is your relationship status?: How often do you talk on the phone with friends or family?: three or more times per week How often do you get together with friends or relatives?: once per week How often do you attend hindu or worship services?: decline to answer Do you belong to any clubs or organized social groups?: no Panel score (0-1 are the most socially isolated patients): 1 What type of physical activity do you participate in: other Details: firewood Duration: 15-30 minutes/day Frequency: 3-4 times per week Sita/Taoism: No preference Special sita needs: No Agree to transfusion: Yes Seatbelt use: never Helmet use: No Drive intox 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 production truck driver: No Working smoke detector in home: No Carbon monox detector in home: No Firearms in home: No Do you feel safe at home: Yes Do you feel safe in your relationship?: Yes Time Spent with Patient Time Spent with Patient: >85 minutes Time was spent: preparing to see the patient(eg.review tests), obtaining and/or reviewing separately otained hiistory, ordering medications,tests, procedures, referring, communicating with other health lead caregiver, indepentently interpreting results, counseling the patient, care coordination and other
[2025-03-04] MEDS: MORPHine Oral Solution 10 MG/5 ML CUP PO (16:13)
[2025-03-04 16:16] VITALS: O2SAT 93
--- NOTE | 2025-03-04 17:37 | NUR.NOTE ---
Nursing Note: Report called into Agustin RN at [facility] at this time, Roxana has pt on stretched ready for transport
--- NOTE | 2025-03-04 18:32 | CMDISCH_ITS ---
Date of service: 03/04/25 Time of Service: 15:50 LACE Index Scoring Tool Questions: Length of Stay (in days): 3 Was the patient admitted via the E.D.?: Yes Comorbidities: Congestive Heart Failure, Chronic Pulmonary Disease and Mild Liver/Renal Disease E.D. Visits: 1 Answers: Total Score: 12 Risk of Readmission: High Risk Care Management Discharge Plan Reason for Hospitalization: CHF exacerbation Discharge Plan: Gerhard was transferred to [facility] for continued workup and treatment of his CHF. He was transferred via EMS as coordinated by the nursing machine records units supervisor. Patient/Family Education Needs: Review of discharge instructions, activity, limitations, and discuss Ask me 3. SDOH Health Related Social Needs: Health related social needs material hardship
--- NOTE | 2025-03-04 22:32 | NUR.NOTE ---
Nursing Note: Pts belongings sent with [facility] around 1929.
== END 2025-03-04 17:20 | disposition short-term general hospital (02) | DRG 291 ==
LOC: ER 17:56 → MS 19:41
PROVIDERS: Internal Medicine Pulmonary Disease; Admitting Provider Family Medicine; Emergency Provider Nurse Practitioner Family; PCP Nurse Practitioner Family; Responsible Provider Nurse Practitioner Acute Care; Visit Provider Family Medicine
DX: R91.8 Other nonspecific abnormal finding of lung field; E87.6 Hypokalemia; E83.42 Hypomagnesemia; F17.210 Nicotine dependence, cigarettes, uncomplicated; Z79.899 Other long term (current) drug therapy; F10.20 Alcohol dependence, uncomplicated; I50.23 Acute on chronic systolic (congestive) heart failure; I08.8 Other rheumatic multiple valve diseases; I27.20 Pulmonary hypertension, unspecified; I13.0 Hypertensive heart and chronic kidney disease with heart failure and stage 1 through stage 4 chronic kidney disease, or unspecified chronic kidney disease; Z68.1 Body mass index [BMI] 19.9 or less, adult; I69.354 Hemiplegia and hemiparesis following cerebral infarction affecting left non-dominant side; N17.9 Acute kidney failure, unspecified; J91.8 Pleural effusion in other conditions classified elsewhere; J44.9 Chronic obstructive pulmonary disease, unspecified; R63.4 Abnormal weight loss; F32.A Depression, unspecified; N18.9 Chronic kidney disease, unspecified; I42.9 Cardiomyopathy, unspecified; R05.9 Cough, unspecified; F41.9 Anxiety disorder, unspecified; K21.9 Gastro-esophageal reflux disease without esophagitis; R13.10 Dysphagia, unspecified; M21.372 Foot drop, left foot; G89.4 Chronic pain syndrome; M54.40 Lumbago with sciatica, unspecified side; F12.90 Cannabis use, unspecified, uncomplicated; D72.829 Elevated white blood cell count, unspecified; Z66 Do not resuscitate
CPT/HCPCS: 32555; 00123; 36415; 76604; 80048; 80053; 82805; 87116; 87206; 93005; 94640; 96365; 96366; 96375; 97112; 97162; 97530; 99223; 99232; 99285; J1650; 71045; 71046; 81003; 81373; 83615; 83735; 83880; 84157; 84484; 85025; 87070; 87075; 87205; 88104; 89051; 93010; 93306; 94664; 94760; 99233; 99239; J1938; J3475; J3480; J7620

== ENCOUNTER → 2025-03-03 09:29 | Outpatient (BNVA) | payer MEDICARE, MEDICAID, SELFPAY | PROVIDERS: PCP Nurse Practitioner Family; Referring Provider Nurse Practitioner Family; Visit Provider Internal Medicine Cardiovascular Disease ==

== ENCOUNTER 2025-04-05 14:56 | Outpatient (CLI) | payer MEDICARE, MEDICAID, SELFPAY ==
[2025-04-05 17:29] LABS: Anion Gap 5.9 mmol/L (3-11); BUN 21 mg/dL (9-23); CO2 25.1 mmol/L (20.0-31.0); Calcium 8.9 mg/dL (8.3-10.6); Chloride 108 mmol/L (98-107); Glucose 81 mg/dL (74-106); Potassium 3.7 mmol/L (3.5-5.1); Sodium 139 mmol/L (136-145)
== END 2025-04-05 14:57 | disposition home or self-care (01) ==
LOC: LBO 04-12 14:56
PROVIDERS: PCP Nurse Practitioner Family; Visit Provider Nurse Practitioner Family
DX: I50.20 Unspecified systolic (congestive) heart failure (principal); I10 Essential (primary) hypertension; N18.32 Chronic kidney disease, stage 3b
CPT/HCPCS: 36415; 80048